=== PATIENT | female | born 1965 | race American Indian/Alaskan Native ===

== ENCOUNTER 2018-05-30 01:40 | Inpatient (IN) | payer MEDICARE, MEDICAID ==
[2018-05-30] MEDS ORDERED: Morphine PF 150 MG/30 ML PCA Syringe IV PRN (02:58)
[2018-05-30] MEDS ORDERED: LORazepam 2 MG/ML SDV IV PRN (02:58)
[2018-05-30] MEDS ORDERED: Ondansetron 4 MG/2 ML SDV IV PRN (02:58)
[2018-05-30] MEDS ORDERED: Naloxone 0.4 MG/ML SDV IVPUSH PRN (02:58)
[2018-05-30] MEDS ORDERED: Ondansetron 4 MG Tab.DIS PO PRN (02:58)
[2018-05-30] MEDS ORDERED: Zolpidem 5 MG Tab PO PRN (02:58)
[2018-05-30] MEDS ORDERED: Doxycycline 100 MG in Sodium Chloride 0.9% 100 ML IV SCH (03:00)
[2018-05-30] MEDS ORDERED: methylPREDNISolone Sodium Succinate 125 MG/2 ML SDV IVPUSH SCH ×3 (03:00→16:00)
[2018-05-30] MEDS ORDERED: Theophylline 100 MG Cap.ER PO SCH ×2 (03:00→20:00)
[2018-05-30] MEDS: Lactated Ringers 1,000 ML IV SCH ×2 (03:25→11:44)
--- NOTE | 2018-05-30 03:43 | PCM.HP ---
H&P History of Present Illness - General Date of Service: 05/30/18 Admit Problem/Dx: Admission Diagnosis/Problem Admission Diagnosis/Problem COPD, Severe chronic obstructive pulmonary disease Source of Information: Patient, Provider, RN History Limitations: Reports: Respiratory Distress - History of Present Illness Initial Comments - Free Text/Narative: COPD exacerbation: This is a 53-year-old direct admit from [facility] with severe COPD . Report from ER physician reports three-day history of shortness of breath not feeling well, difficulty sleeping and having to sleep in recliner unable to lie flat. Patient is speaking in short due to shortness of breath while she was given albuterol neb, Solu-Medrol 125 mg IV and DuoNeb, chest x-ray shows pulmonary hypertension inflation labs elevated white count 13.6, hemoglobin 14.4, hematocrit 46.4, chemistries sodium 139, potassium 4.4, chloride 99, ion gap 9.0, BUN 14, creatinine 0.59, glucose 102, CO2 30, GFR greater than 60. No admissions available at [facility]. Plan to transfer to [facility] admission patient Onset of Symptoms: Reports: Gradual Duration of Symptoms: Reports: Day(s): (3), Getting Worse Location: Reports: Chest Quality: Reports: Same as Previous Episode Severity: Severe Improves with: Reports: Medication Worsens with: Reports: None Context: Reports: Other (Chronic illnesses) Associated Symptoms: Reports: Chest Pain, Cough, Shortness of Breath - Related Data Allergies/Adverse Reactions: Allergies Allergy/AdvReac Type Severity Reaction Status Date / Time adhesive tape Allergy Blisters Verified 12/23/15 10:08 cefdinir Allergy Rash Verified 12/23/15 10:08 codeine Allergy Rash Verified 12/23/15 10:08 levofloxacin [From Levaquin] Allergy Rash Verified 12/23/15 10:08 Penicillins Allergy Rash Verified 12/23/15 10:08 Sulfa (Sulfonamide Allergy Rash Verified 12/23/15 10:08 Antibiotics) venom-honey bee Allergy Swelling Verified 12/23/15 10:08 [bee venom (honey bee)] Home Medications: Home Meds Albuterol [Ventolin HFA] 2 puff INH Q3H PRN 09/16/15 [History] Fluticasone/Salmeterol [Advair 500-50] 1 puff INH BID 09/16/15 [History] Theophylline Anhydrous [Theochron] 200 mg PO Q12H 09/16/15 [History] Tiotropium [Spiriva HandiHaler] 1 cap PO DAILY 09/16/15 [History] Multivit-Min/Iron Fum/Folic AC [Qshie-Cbugpen-Awmerudp Tablet] 1 tab CHEW BID # 0 09/23/15 [Rx] Past Medical History HEENT History: Reports: Glaucoma Cardiovascular History: Reports: None Respiratory History: Reports: COPD Gastrointestinal History: Reports: Cholelithiasis, GERD, Other (See Below) Other Gastrointestinal History: ' LAST BM 12/22/15 Genitourinary History: Reports: None 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: Reports: Neurological History: Reports: None Psychiatric History: Reports: None Endocrine/Metabolic History: Reports: None Hematologic History: Reports: None Immunologic History: Reports: None Oncologic (Cancer) History: Reports: None Dermatologic History: Reports: None - Infectious Disease History Infectious Disease History: Reports: Chicken Pox - Past Surgical History GI Surgical History: Reports: Bariatric Procedure, Cholecystectomy, Colonoscopy Female Surgical History: Reports: Hysterectomy, Oophorectomy, Salpingo- Oophorectomy Musculoskeletal Surgical History: Reports: Arthroscopic Knee Social & Family History - Family History HEENT: Reports: Cataract, Glaucoma Cardiac: Reports: Bypass, CAD, High Cholesterol, DE, Stent Respiratory: Reports: COPD GI: Reports: GERD : Reports: None OBGYN: Reports: None Musculoskeletal: Reports: RA Neurological: Reports: CVA Psychiatric: Reports: None Endocrine/Metabolic: Reports: Diabetes, Type I Hematologic: Reports: None Immunologic: Reports: None Dermatologic: Reports: None Oncologic: Reports: Other (See Below) Other Oncologic Family History: MOTHER HAD SOME KIND OF STOMACH CANCER - Tobacco Use Smoking Status *Q: Former Smoker (Quit last Sunday 21 mcg patch) - Living Situation & Occupation Living situation: Reports: , with Family Occupation: Disabled (lives with Erick and 8 children in age 19year to 17 month; foster and adopted) H&P Review of Systems - Review of Systems: Review Of Systems: See Below General: Reports: Fatigue, Decreased Appetite, Other (illness for the past 3 days) HEENT: Reports: No Symptoms Pulmonary: Reports: Shortness of Breath, Wheezing, Pleuritic Chest Pain, Cough, Sputum Cardiovascular: Reports: No Symptoms Gastrointestinal: Reports: No Symptoms Genitourinary: Reports: No Symptoms Musculoskeletal: Reports: No Symptoms Skin: Reports: No Symptoms Psychiatric: Reports: No Symptoms Neurological: Reports: No Symptoms Hematologic/Lymphatic: Reports: No Symptoms Immunologic: Reports: No Symptoms Exam - Exam Exam: See Below - Vital Signs Vital Signs: Last Vital Signs Temp Pulse Resp BP Pulse Ox 92 L 05/30/18 02:37 - Exam Quality Assessment: Supplemental Oxygen (Nasal cannula at 2 L) General: Alert, Oriented, Cooperative, Moderate Distress, Other (very thin and frail appearance) HEENT: PERRLA, Conjunctiva Clear, Hearing Intact, Mucosa Moist & Nicholls, Nares Patent, Normal Nasal Septum Neck: Supple, Trachea Midline Lungs: Decreased Breath Sounds, Rhonchi, Wheezing Cardiovascular: Regular Rhythm, Normal S1, Normal S2 GI/Abdominal Exam: Normal Bowel Sounds, Soft, Non-Tender, No Organomegaly, No Distention, No Abnormal Bruit, No Mass, Pelvis Stable (Female) Exam: Deferred Rectal (Female) Exam: Deferred Back Exam: Normal Inspection, Full Range of Motion, NT Extremities: Normal Inspection, Normal Range of Motion, Non-Tender, No Pedal Edema, Normal Capillary Refill Peripheral Pulses: 2+: Radial (L), Radial (R) Skin: Warm, Dry, Intact Neurological: Cranial Nerves Intact Neuro Extensive - Mental Status: Alert, Oriented x3, Normal Mood/Affect, Normal Cognition Psychiatric: Alert, Normal Affect, Normal Mood - Problem List (1) COPD exacerbation SNOMED Code(s): 207544051 ICD Code: J44.1 - CHRONIC OBSTRUCTIVE PULMONARY DISEASE W (ACUTE) EXACERBATION Status: Acute Priority: High Current Visit: Yes (2) Malnutrition SNOMED Code(s): 16315653 ICD Code: E46 - UNSPECIFIED PROTEIN-CALORIE MALNUTRITION Status: Acute Priority: Medium Current Visit: Yes Qualifiers: Malnutrition type: protein-calorie malnutrition Protein-calorie malnutrition severity: unspecified severity Qualified Code(s): E46 - Unspecified protein-calorie malnutrition Problem List Initiated/Reviewed/Updated: Yes Orders Last 24hrs: Active Orders 24 hr Category Date Time Status Patient Status [ADT] Routine ADT 05/30/18 02:58 Active Bedrest Bedside Commode [RC] ASDIRECTED Care 05/30/18 02:58 Active Communication Order [RC] ASDIRECTED Care 05/30/18 02:58 Active Communication Order [RC] STAT Care 05/30/18 02:58 Active Intake and Output [RC] QSHIFT Care 05/30/18 02:58 Active Notify Provider Vital Signs [RC] ASDIRECTED Care 05/30/18 02:58 Active Notify Provider [RC] PRN Care 05/30/18 02:58 Active Notify Provider [RC] PRN Care 05/30/18 02:58 Active Oxygen Therapy [RC] CONTINUOUS Care 05/30/18 02:58 Active Oxygen Therapy [RC] PRN Care 05/30/18 02:58 Active FRONT END UI DEVELOPER Record [RC] PER UNIT ROUTINE Care 05/30/18 02:58 Active Pulse Oximetry [RC] CONTINUOUS Care 05/30/18 02:58 Active Pulse Oximetry [RC] CONTINUOUS Care 05/30/18 02:58 Active RT Incentive Spirometry [RC] Q2HWA Care 05/30/18 02:58 Active Up With Assistance [RC] ASDIRECTED Care 05/30/18 02:58 Active VTE/DVT Education [RC] Per Unit Routine Care 05/30/18 02:58 Active Vital Signs [RC] Q4H Care 05/30/18 02:58 Active Consult to Senior Assistant Manager [CONS] Routine Cons 05/30/18 02:58 Active Respiratory Care Assess and Treatment [CONS] Routine Cons 05/30/18 02:58 Active Regular Diet [DIET] Diet 05/30/18 Breakfast Active Chest 2V [CR] AM Exams 05/30/18 05:11 Ordered BLOOD GAS ARTERIAL [BG] DAILY Lab 05/30/18 02:58 Ordered CBC WITH AUTO DIFF [HEME] AM Lab 05/30/18 05:11 Ordered COMPREHENSIVE METABOLIC PN,CMP [CHEM] AM Lab 05/30/18 05:11 Ordered CULTURE RESPIRATORY + SMEAR [RM] Stat Lab 05/30/18 02:58 Ordered Albuterol [Proventil Neb Soln] Med 05/30/18 02:58 Active 2.5 mg NEB Q4H PRN Albuterol/Ipratropium [DuoNeb 3.0-0.5 MG/3 ML] Med 05/30/18 07:00 Active 3 ml NEB QIDRT Azithromycin [Zithromax] 500 mg Med 05/30/18 04:00 Active Sodium Chloride 0.9% [Normal Saline] 250 ml IV Q24H Bisacodyl [Dulcolax] Med 05/30/18 02:58 Active 5 mg PO DAILY PRN Docusate Sodium [Colace] Med 05/30/18 02:58 Active 100 mg PO BID PRN Doxycycline [Vibramycin] 100 mg Med 05/30/18 03:00 Active Sodium Chloride 0.9% [Normal Saline] 100 ml IV Q12H Ipratropium [Atrovent] Med 05/30/18 02:58 Active 0.5 mg NEB Q4H PRN LORazepam [Ativan] Med 05/30/18 02:58 Active 1 mg IV Q6H PRN Lactated Ringers [Ringers, Lactated] 1,000 ml Med 05/30/18 02:58 Active IV ASDIRECTED Morphine PF [Morphine FRONT END UI DEVELOPER 150 MG in 30 ML] Med 05/30/18 02:58 Active See Protocol IV ASDIRECTED PRN Multivitamins w-Iron/Ca/FA/Min [Thera M Plus] Med 05/30/18 09:00 Active 1 tab PO BID Naloxone [Narcan] Med 05/30/18 02:58 Active 0.4 mg IVPUSH Q2M PRN Ondansetron [Zofran ODT] Med 05/30/18 02:58 Active 4 mg PO Q6H PRN Ondansetron [Zofran] Med 05/30/18 02:58 Active 4 mg IV Q4H PRN Pantoprazole [ProTONIX IV] Med 05/30/18 07:30 Active 40 mg IVPUSH ACBREAKFAST Theophylline [Milton-24] Med 05/30/18 03:00 Active 200 mg PO Q12H Zolpidem [Ambien] Med 05/30/18 02:58 Active 5 mg PO BEDTIME PRN methylPREDNISolone Sod Succ [Solu-MEDROL] Med 05/30/18 03:00 Active 125 mg IVPUSH Q6H Medication Discontinuation Instructions [OM.PC] Stat Oth 05/30/18 02:58 Ordered Sequential Compression Device [OM.PC] Per Unit Routine Oth 05/30/18 02:58 Ordered Resuscitation Status Routine Resus Stat 05/30/18 02:36 Ordered Medication Orders Albuterol (Proventil Neb Soln) 2.5 mg NEB Q4H PRN PRN Reason: Shortness Of Breath;wheezing Albuterol/Ipratropium (Duoneb 3.0-0.5 Mg/3 Ml) 3 ml NEB QIDRT [facility] Bisacodyl (Dulcolax) 5 mg PO DAILY PRN PRN Reason: Constipation Docusate Sodium (Colace) 100 mg PO BID PRN PRN Reason: Constipation Azithromycin 500 mg/ Sodium (Chloride) 250 mls @ 250 mls/hr IV Q24H [facility] Stop: 06/01/18 04:59 Doxycycline Hyclate 100 mg/ (Sodium Chloride) 100 mls @ 100 mls/hr IV Q12H [facility] Lactated Ringer's (Ringers, Lactated) 1,000 mls @ 125 mls/hr IV ASDIRECTED [facility] Ipratropium [place] (Atrovent) 0.5 mg NEB Q4H PRN PRN Reason: Shortness of Breath Lorazepam (Ativan) 1 mg IV Q6H PRN PRN Reason: Nausea/Vomiting Methylprednisolone Sodium Succinate (Solu-Medrol) 125 mg IVPUSH Q6H [facility] Morphine Sulfate (Morphine Disc Pad Grinder 150 Mg In 30 Ml) 0 mg IV ASDIRECTED PRN; Protocol PRN Reason: Pain Multivitamins/Minerals (Thera M Plus) 1 tab PO BID [facility] Naloxone HCl (Narcan) 0.4 mg IVPUSH Q2M PRN PRN Reason: Respiratory Distress Ondansetron HCl (Zofran Odt) 4 mg PO Q6H PRN PRN Reason: Nausea able to take PO Ondansetron HCl (Zofran) 4 mg IV Q4H PRN PRN Reason: Nausea/Vomiting Pantoprazole Sodium (Protonix Iv) 40 mg IVPUSH ACBREAKFAST [facility] Theophylline (Milton-24) 200 mg PO Q12H [facility] Zolpidem Tartrate (Ambien) 5 mg PO BEDTIME PRN PRN Reason: Sleep Assessment/Plan Comment:: ASSESSMENT AND PLAN COPD exacerbation: This is a 53-year-old direct admit from [facility] with severe COPD . Report from ER physician reports three-day history of shortness of breath not feeling well, difficulty sleeping and having to sleep in recliner unable to lie flat. Patient is speaking in short due to shortness of breath while she was given albuterol neb, Solu-Medrol 125 mg IV and DuoNeb, chest x-ray shows pulmonary hypertension inflation .labs elevated white count 13.6, hemoglobin 14.4, hematocrit crit 46.4, chemistries sodium 139, potassium 4.4, chloride 99, ion gap 9.0, BUN 14, creatinine 0.59, glucose 102, CO2 30, GFR greater than 60. Upon arrival at hospital, patient was noted to be sitting upright with legs crossed, speaking in short sentences and frequent deep breathing. She appear very thin and frail. chest; restricted airway clearance noted, coarse breath sounds noted. discussed Bi-Pap and intubation to assist with breathing. At this time she declines Bi-Pap or intubation. She had Bi-Pap in the past and didn't like wearing the mask. report chest is very painful with each breath. having fatigue from lack of sleep for the past 3 days and trying to breath. COPD EXACERBATION: -Continuous oxygen 2 liter per NC -Continuous pulse oximeter -IV lactated Ringer's at 125 mL per hour -Nebulized albuterol and duo nebs as scheduled -IV Solu-Medrol 62.5mg 6 hours -IV azithromycin 500 mg every 24 hours -IV doxycycline 500 mg 12 hours -Morphine FRONT END UI DEVELOPER for pain control -am. labs:, BMP, CBC Malnutrition -History of bariatric surgery, starting weight 215.4 pounds now weight 90.5 pounds -Consult to dietitian MAINTENANCE ISSUES -DVT prophylaxis; SCD -GI prophylaxis; Protonix 40 mg IV -Faith catheter; not indicated -Nutrition; regular diet -Nicotine dependence; nicotine patch 24 day CODE STATUS-DNR/DNI, will use BiPAP, no intubation or CPR ADMISSION STATUS-patient will be admitted to inpatient status, expect at least a 2 night hospital stay for evaluation and management of problems as outlined above. At the time of this admission I do not reasonably expected evaluation and management of this problem will require more than a 96 hour hospital stay. DISPOSITION-anticipate discharge to home after the hospital stay. Primary care provider: Dr. Hugo Rodrigez, [place], [place]. Hospitalist: Dr. Luis Vásquez
[2018-05-30] MEDS ORDERED: Azithromycin 500 MG in Sodium Chloride 0.9% 250 ML IV SCH (04:00)
[2018-05-30] MEDS: Albuterol/Ipratropium 3.0-0.5 MG/3 ML Neb Soln NEB SCH ×4 (07:12→20:57)
[2018-05-30] MEDS ORDERED: Pantoprazole 40 MG Vial IVPUSH SCH (07:30)
[2018-05-30] MEDS: Multivitamins with Iron/Calcium/Folic Acid/Minerals Tab PO SCH ×4 (08:20→21:03)
[2018-05-30] MEDS: Theophylline 100 MG Cap.ER PO SCH ×2 (09:03→20:57)
[2018-05-30] MEDS: Ipratropium 0.02% 0.5 MG/2.5 ML Neb Soln NEB PRN (10:07)
[2018-05-30] MEDS ORDERED: Aztreonam 1 GM in Sodium Chloride 0.9% 100 ML IV SCH (14:00)
[2018-05-30] MEDS ORDERED: Lactated Ringers 1,000 ML IV SCH (14:15)
[2018-05-30] MEDS: Acetaminophen/HYDROcodone 325-5 MG Tab PO PRN ×2 (14:33→21:07)
[2018-05-30] MEDS ORDERED: Aztreonam/Dextrose-Water 1 GM in Premix Bag 1 BAG IV SCH (14:34)
[2018-05-30] MEDS: Bisacodyl 5 MG Tab PO PRN (14:42)
[2018-05-30] MEDS: Docusate Sodium 100 MG Cap PO PRN (14:42)
--- NOTE | 2018-05-30 14:51 | PCM.PN ---
- General Info Date of Service: 05/30/18 Subjective Update: Ms. Silverman is a 53-year-old woman who was admitted through the emergency department last night with COPD exacerbation secondary to underlying bronchitis. She has a known and long-standing history of COPD, oxygen requiring at baseline. When she presented last night had an elevated respiratory rate as well as hypoxia. There is been very slight improvement since admission but she continues to experience significant respiratory compromise. She does not want to consider intubation or mechanical ventilation and up to this point has refused use of BiPAP. If her respiratory status would worsen she would like comfort cares but no further aggressive interventions or evaluation. Functional Status: Reports: Urinating - Review of Systems General: Reports: Weakness. Denies: Fever, Chills Pulmonary: Reports: Shortness of Breath, Cough, Wheezing. Denies: Sputum, Hemoptysis Cardiovascular: Reports: Dyspnea on Exertion. Denies: Chest Pain, Palpitations , Orthopnea, PND, Edema, Lightheadedness Gastrointestinal: Reports: No Symptoms - Patient Data Vitals - Most Recent: Last Vital Signs Temp 96.9 F 05/30/18 11:40 Pulse 91 05/30/18 14:25 Resp 18 05/30/18 11:40 BP 118/74 05/30/18 11:40 Pulse Ox 91 L 05/30/18 13:12 Weight - Most Recent: 90 lb 7.996 oz I&O - Last 24 Hours: Intake & Output 05/29/18 05/30/18 05/30/18 22:59 06:59 14:59 Intake Total 615 1651 Balance 615 1651 Lab Results Last 24 Hours: Laboratory Results - last 24 hr 05/30/18 05/30/18 05/30/18 Range/Units 02:58 05:11 05:11 WBC 8.6 (4.5-11.0) K/uL RBC 4.45 (3.30-5.50) M/uL Hgb 13.5 (12.0-15.0) g/dL Hct 42.6 (36.0-48.0) % MCV 96 (80-98) fL MCH 30 (27-31) pg MCHC 32 (32-36) % Plt Count 341 (150-400) K/uL Neut % (Auto) 85 H (36-66) % Lymph % (Auto) 13 L (24-44) % [place] % (Auto) 1 L (2-6) % Eos % (Auto) 0 L (2-4) % Baso % (Auto) 0 (0-1) % Puncture Site Rt radial ABG pH 7.450 (7.350-7.450) ABG pCO2 43.9 H (35.0-42.0) mmHg ABG pO2 120.0 H (75.0-100.0) mmHg ABG HCO3 30.0 H (22.0-26.0) mmol/L ABG Total CO2 26.2 H (21.0-25.0) mmol/L ABG O2 Saturation 96.2 (95.0-98.0) % ABG Base Excess 5.7 mm/L ABG Hemoglobin 13.8 (12.0-16.0) g/dL ABG Oxyhemoglobin 94.9 % ABG Carboxyhemoglobin 0.9 (0.0-1.6) % ABG Methemoglobin 0.5 % Jim Test Passed O2 Delivery Device Nasal cannula Sodium 138 L (140-148) mmol/L Potassium 4.0 (3.6-5.2) mmol/L Chloride 101 (100-108) mmol/L Carbon Dioxide 29 (21-32) mmol/L Anion Gap 12.0 (5.0-14.0) mmol/L BUN 12 (7-18) mg/dL Creatinine 0.7 (0.6-1.0) mg/dL Est Cr Clr Drug Dosing 61.62 mL/min Estimated GFR (MDRD) > 60 (>60) Glucose 148 H (74-106) mg/dL Calcium 8.5 (8.5-10.1) mg/dL Total Bilirubin 0.2 (0.2-1.0) mg/dL AST 36 (15-37) U/L ALT 72 (12-78) U/L Alkaline Phosphatase 162 H (46-116) U/L Total Protein 6.2 L (6.4-8.2) g/dL Albumin 2.9 L (3.4-5.0) g/dL Globulin 3.3 (2.3-3.5) g/dL Albumin/Globulin Ratio 0.9 L (1.2-2.2) Med Orders - Current: Current Medications Hydrocodone Bitart/Acetaminophen ([place] 325-5 Mg) 1 - 2 tab PO Q4H PRN PRN Reason: Pain Last Admin: 05/30/18 14:33 Dose: 2 tab Albuterol (Proventil Neb Soln) 2.5 mg NEB Q4H PRN PRN Reason: Shortness Of Breath;wheezing Albuterol/Ipratropium (Duoneb 3.0-0.5 Mg/3 Ml) 3 ml NEB QIDRT [facility] Last Admin: 05/30/18 14:25 Dose: 3 ml Bisacodyl (Dulcolax) 5 mg PO DAILY PRN PRN Reason: Constipation Last Admin: 05/30/18 14:42 Dose: 5 mg Docusate Sodium (Colace) 100 mg PO BID PRN PRN Reason: Constipation Last Admin: 05/30/18 14:42 Dose: 100 mg Doxycycline Hyclate 100 mg/ (Sodium Chloride) 100 mls @ 100 mls/hr IV Q12H [facility] Lactated Ringer's (Ringers, Lactated) 1,000 mls @ 50 mls/hr IV ASDIRECTED [facility] Aztreonam/Dextrose 1 gm/ (Premix) 50 mls @ 100 mls/hr IV Q8H [facility] Ipratropium [place] (Atrovent) 0.5 mg NEB Q4H PRN PRN Reason: Shortness of Breath Last Admin: 05/30/18 10:07 Dose: 0.5 mg Lorazepam (Ativan) 1 mg IV Q6H PRN PRN Reason: Nausea/Vomiting Methylprednisolone Sodium Succinate (Solu-Medrol) 40 mg IVPUSH Q6H [facility] Multivitamins/Minerals (Thera M Plus) 1 tab PO BID [facility] Last Admin: 05/30/18 08:21 Dose: Not Given Naloxone HCl (Narcan) 0.4 mg IVPUSH Q2M PRN PRN Reason: Respiratory Distress Ondansetron HCl (Zofran Odt) 4 mg PO Q6H PRN PRN Reason: Nausea able to take PO Ondansetron HCl (Zofran) 4 mg IV Q4H PRN PRN Reason: Nausea/Vomiting Pantoprazole Sodium (Protonix) 40 mg PO ACBREAKFAST [facility] Theophylline (Milton-24) 200 mg PO Q12H [facility] Last Admin: 05/30/18 09:03 Dose: 200 mg Zolpidem Tartrate (Ambien) 5 mg PO BEDTIME PRN PRN Reason: Sleep Discontinued Medications Azithromycin 500 mg/ Sodium (Chloride) 250 mls @ 250 mls/hr IV Q24H [facility] Stop: 06/01/18 04:59 Last Admin: 05/30/18 05:18 Dose: 250 mls/hr Doxycycline Hyclate 100 mg/ (Sodium Chloride) 100 mls @ 100 mls/hr IV Q12H [facility] Last Admin: 05/30/18 03:42 Dose: 100 mls/hr Lactated Ringer's (Ringers, Lactated) 1,000 mls @ 125 mls/hr IV ASDIRECTED [facility] Last Admin: 05/30/18 11:44 Dose: 125 mls/hr Azithromycin 500 mg/ Sodium (Chloride) 250 mls @ 250 mls/hr IV Q24H [facility] Stop: 06/01/18 06:59 Aztreonam 1 gm/ Sodium (Chloride) 100 mls @ 200 mls/hr IV Q8H [facility] Methylprednisolone Sodium Succinate (Solu-Medrol) 125 mg IVPUSH Q6H [facility] Last Admin: 05/30/18 03:35 Dose: 125 mg Methylprednisolone Sodium Succinate (Solu-Medrol) 125 mg IVPUSH Q6H [facility] Last Admin: 05/30/18 09:03 Dose: 125 mg Morphine Sulfate (Morphine Fire Controlman 150 Mg In 30 Ml) 0 mg IV ASDIRECTED PRN; Protocol PRN Reason: Pain Last Admin: 05/30/18 03:26 Dose: 150 mg Pantoprazole Sodium (Protonix Iv) 40 mg IVPUSH ACBREAKFAST [facility] Last Admin: 05/30/18 08:12 Dose: 40 mg Theophylline (Milton-24) 200 mg PO Q12H [facility] Last Admin: 05/30/18 05:17 Dose: Not Given Theophylline (Milton-24) 200 mg PO Q12H [facility] - Exam Quality Assessment: Supplemental Oxygen, DVT Prophylaxis General: Alert, Oriented, Cooperative, Moderate Distress Lungs: Decreased Breath Sounds, Wheezing. No: Rales, Rhonchi, Rub Cardiovascular: Regular Rate, Regular Rhythm, No Murmurs GI/Abdominal Exam: Soft, Non-Tender, No Organomegaly, No Distention Extremities: Non-Tender, No Pedal Edema Skin: Warm, Dry, Intact - Problem List Review Problem List Initiated/Reviewed/Updated: Yes - My Orders Last 24 Hours: My Active Orders 05/30/18 04:44 ISTAT EG7,ARTERIAL [POC] Routine 05/30/18 14:07 Acetaminophen/HYDROcodone [[place] 325-5 MG] 1 - 2 tab PO Q4H PRN 05/30/18 14:15 Lactated Ringers [Ringers, Lactated] 1,000 ml IV ASDIRECTED 05/30/18 14:30 Aztreonam/Dextrose-Water [Azactam in Dextrose,Iso-Osmotic 1 GM/50 ML] 1 gm Premix Bag 1 bag IV Q8H 05/30/18 16:00 methylPREDNISolone Sod Succ [Solu-MEDROL] 40 mg IVPUSH Q6H 05/31/18 05:00 BASIC METABOLIC PANEL,BMP [CHEM] Timed - Plan Plan:: ASSESSMENT AND PLAN COPD EXACERBATION-secondary to underlying bronchitis -Continuous oxygen 2 liter per NC -Continuous pulse oximeter -IV lactated Ringer's at 50 mL per hour -Nebulized albuterol and duo nebs as scheduled -IV Solu-Medrol 40mg 6 hours -IV aztreonam 1 g IV every 8 hours -IV doxycycline 500 mg 12 hours Acute on chronic hypoxic and hypercapnic respiratory failure-secondary to COPD exacerbation Malnutrition -History of bariatric surgery, starting weight 215.4 pounds now weight 90.5 pounds -Consult to dietitian Palliative care-she does not want further aggressive interventions to support her breathing. If her respiratory status should worsen she would like comfort cares but no further interventions. MAINTENANCE ISSUES -DVT prophylaxis; SCD -GI prophylaxis; Protonix 40 mg IV -Faith catheter; not indicated -Nutrition; regular diet -Nicotine dependence; nicotine patch 24 day CODE STATUS-DNR/DNI ADMISSION STATUS-patient will be admitted to inpatient status, expect at least a 2 night hospital stay for evaluation and management of problems as outlined above. At the time of this admission I do not reasonably expected evaluation and management of this problem will require more than a 96 hour hospital stay. DISPOSITION-anticipate discharge to home after the hospital stay. Primary care provider: Dr. Hugo Rodrigez, [place], [place]. Hospitalist: Dr. Luis Vásquez
[2018-05-30] MEDS: Aztreonam/Dextrose-Water 1 GM in Premix Bag 1 BAG IV SCH ×2 (15:14→22:50)
[2018-05-30] MEDS: methylPREDNISolone Sodium Succinate 40 MG/1 ML SDV IVPUSH SCH ×2 (15:52→21:07)
[2018-05-30] MEDS: Clotrimazole 10 MG Troche PO SCH ×3 (15:55→21:04)
[2018-05-30] MEDS: Pantoprazole 40 MG Tab.CR PO SCH (15:56)
[2018-05-30] MEDS: Doxycycline 100 MG in Sodium Chloride 0.9% 100 ML IV SCH (15:58)
[2018-05-30] MEDS: Acetylcysteine 20% 200 MG/ML 4 ML Nebulizer Soln SDV NEB SCH ×2 (16:36→20:53)
[2018-05-31] MEDS: Acetaminophen/HYDROcodone 325-5 MG Tab PO PRN ×4 (04:19→20:56)
[2018-05-31] MEDS: methylPREDNISolone Sodium Succinate 40 MG/1 ML SDV IVPUSH SCH ×2 (04:21→09:26)
[2018-05-31] MEDS: Doxycycline 100 MG in Sodium Chloride 0.9% 100 ML IV SCH ×2 (04:22→16:18)
[2018-05-31] MEDS: Albuterol 0.083% 2.5 MG/3 ML Neb Soln NEB PRN ×2 (04:31→18:26)
[2018-05-31] MEDS: Clotrimazole 10 MG Troche PO SCH ×5 (05:11→20:59)
[2018-05-31] MEDS: Aztreonam/Dextrose-Water 1 GM in Premix Bag 1 BAG IV SCH ×3 (05:38→21:46)
[2018-05-31] MEDS ORDERED: Azithromycin 500 MG in Sodium Chloride 0.9% 250 ML IV SCH (06:00)
[2018-05-31] MEDS: Acetylcysteine 20% 200 MG/ML 4 ML Nebulizer Soln SDV NEB SCH ×2 (07:28→20:59)
[2018-05-31] MEDS: Albuterol/Ipratropium 3.0-0.5 MG/3 ML Neb Soln NEB SCH ×4 (07:28→20:58)
[2018-05-31] MEDS ORDERED: Pantoprazole 40 MG Tab.CR PO SCH (07:30)
[2018-05-31] MEDS: Theophylline 100 MG Cap.ER PO SCH ×2 (09:20→20:58)
[2018-05-31] MEDS: Multivitamins with Iron/Calcium/Folic Acid/Minerals Tab PO SCH ×2 (09:21→20:59)
[2018-05-31] MEDS: Pantoprazole 40 MG Tab.CR PO SCH ×2 (09:21→16:14)
--- NOTE | 2018-05-31 10:12 | PCM.PN ---
- General Info Date of Service: 05/31/18 Subjective Update: Ms. Silverman has improved since yesterday with significant decrease in shortness of breath, cough has become more productive with use of Mucomyst nebulizer as well as a acapella. Vital signs have been stable and she has remained afebrile. - Review of Systems General: Reports: Weakness. Denies: Fever, Chills Pulmonary: Reports: Shortness of Breath, Cough, Sputum, Wheezing. Denies: Pleuritic Chest Pain, Hemoptysis Cardiovascular: Reports: Dyspnea on Exertion. Denies: Chest Pain, Palpitations , Orthopnea, PND, Edema, Lightheadedness Gastrointestinal: Reports: No Symptoms - Patient Data Vitals - Most Recent: Last Vital Signs Temp 97.4 F 05/31/18 07:53 Pulse 106 H 05/31/18 07:53 Resp 20 05/31/18 07:53 BP 111/77 05/31/18 07:53 Pulse Ox 97 05/31/18 08:00 Weight - Most Recent: 90 lb 7.996 oz I&O - Last 24 Hours: Intake & Output 05/30/18 05/31/18 05/31/18 22:59 06:59 14:59 Intake Total 200 719 Balance 200 719 Lab Results Last 24 Hours: Laboratory Results - last 24 hr 05/31/18 Range/Units 05:45 Sodium 139 L (140-148) mmol/L Potassium 3.9 (3.6-5.2) mmol/L Chloride 100 (100-108) mmol/L Carbon Dioxide 33 H (21-32) mmol/L Anion Gap 9.9 (5.0-14.0) mmol/L BUN 11 (7-18) mg/dL Creatinine 0.7 (0.6-1.0) mg/dL Est Cr Clr Drug Dosing 61.62 mL/min Estimated GFR (MDRD) > 60 (>60) Glucose 218 H (74-106) mg/dL Calcium 8.9 (8.5-10.1) mg/dL Med Orders - Current: Current Medications Hydrocodone Bitart/Acetaminophen ([place] 325-5 Mg) 1 - 2 tab PO Q4H PRN PRN Reason: Pain Last Admin: 05/31/18 09:32 Dose: 2 tab Acetylcysteine (Mucomyst 20%) 200 mg NEB BIDRT [facility] Last Admin: 05/31/18 07:28 Dose: 200 mg Albuterol (Proventil Neb Soln) 2.5 mg NEB Q4H PRN PRN Reason: Shortness Of Breath;wheezing Last Admin: 05/31/18 04:31 Dose: 2.5 mg Albuterol/Ipratropium (Duoneb 3.0-0.5 Mg/3 Ml) 3 ml NEB QIDRT [facility] Last Admin: 05/31/18 07:28 Dose: 3 ml Bisacodyl (Dulcolax) 5 mg PO DAILY PRN PRN Reason: Constipation Last Admin: 05/30/18 14:42 Dose: 5 mg Clotrimazole (Mycelex) 10 mg PO 5XDAY [facility] Last Admin: 05/31/18 09:21 Dose: 10 mg Docusate Sodium (Colace) 100 mg PO BID PRN PRN Reason: Constipation Last Admin: 05/30/18 14:42 Dose: 100 mg Doxycycline Hyclate 100 mg/ (Sodium Chloride) 100 mls @ 100 mls/hr IV Q12H [facility] Last Admin: 05/31/18 04:22 Dose: 100 mls/hr Lactated Ringer's (Ringers, Lactated) 1,000 mls @ 50 mls/hr IV ASDIRECTED [facility] Last Admin: 05/31/18 04:36 Dose: 50 mls/hr Aztreonam/Dextrose 1 gm/ (Premix) 50 mls @ 100 mls/hr IV Q8H [facility] Last Admin: 05/31/18 05:38 Dose: 100 mls/hr Ipratropium [place] (Atrovent) 0.5 mg NEB Q4H PRN PRN Reason: Shortness of Breath Last Admin: 05/30/18 10:07 Dose: 0.5 mg Methylprednisolone Sodium Succinate (Solu-Medrol) 40 mg IVPUSH Q12H [facility] Multivitamins/Minerals (Thera M Plus) 1 tab PO BID [facility] Last Admin: 05/31/18 09:21 Dose: Not Given Nicotine (Habitrol) 21 mg TRDERM DAILY [facility] Ondansetron HCl (Zofran Odt) 4 mg PO Q6H PRN PRN Reason: Nausea able to take PO Ondansetron HCl (Zofran) 4 mg IV Q4H PRN PRN Reason: Nausea/Vomiting Pantoprazole Sodium (Protonix) 40 mg PO BIDAC [facility] Last Admin: 05/31/18 09:21 Dose: 40 mg Theophylline ([place]-24) 200 mg PO Q12H [facility] Last Admin: 05/31/18 09:20 Dose: 200 mg Zolpidem Tartrate (Ambien) 5 mg PO BEDTIME PRN PRN Reason: Sleep Discontinued Medications Azithromycin 500 mg/ Sodium (Chloride) 250 mls @ 250 mls/hr IV Q24H [facility] Stop: 06/01/18 04:59 Last Admin: 05/30/18 05:18 Dose: 250 mls/hr Doxycycline Hyclate 100 mg/ (Sodium Chloride) 100 mls @ 100 mls/hr IV Q12H [facility] Last Admin: 05/30/18 03:42 Dose: 100 mls/hr Lactated Ringer's (Ringers, Lactated) 1,000 mls @ 125 mls/hr IV ASDIRECTED [facility] Last Admin: 05/30/18 11:44 Dose: 125 mls/hr Azithromycin 500 mg/ Sodium (Chloride) 250 mls @ 250 mls/hr IV Q24H [facility] Stop: 06/01/18 06:59 Aztreonam 1 gm/ Sodium (Chloride) 100 mls @ 200 mls/hr IV Q8H [facility] Last Admin: 05/30/18 16:01 Dose: Not Given Lorazepam (Ativan) 1 mg IV Q6H PRN PRN Reason: Nausea/Vomiting Methylprednisolone Sodium Succinate (Solu-Medrol) 125 mg IVPUSH Q6H [facility] Last Admin: 05/30/18 03:35 Dose: 125 mg Methylprednisolone Sodium Succinate (Solu-Medrol) 125 mg IVPUSH Q6H [facility] Last Admin: 05/30/18 09:03 Dose: 125 mg Methylprednisolone Sodium Succinate (Solu-Medrol) 40 mg IVPUSH Q6H [facility] Methylprednisolone Sodium Succinate (Solu-Medrol) 40 mg IVPUSH Q6H [facility] Last Admin: 05/31/18 09:26 Dose: 40 mg Morphine Sulfate (Morphine Plant Assigner 150 Mg In 30 Ml) 0 mg IV ASDIRECTED PRN; Protocol PRN Reason: Pain Last Admin: 05/30/18 03:26 Dose: 150 mg Naloxone HCl (Narcan) 0.4 mg IVPUSH Q2M PRN PRN Reason: Respiratory Distress Pantoprazole Sodium (Protonix Iv) 40 mg IVPUSH ACBREAKFAST [facility] Last Admin: 05/30/18 08:12 Dose: 40 mg Pantoprazole Sodium (Protonix) 40 mg PO ACBREAKFAST [facility] Theophylline ([place]-24) 200 mg PO Q12H [facility] Last Admin: 05/30/18 05:17 Dose: Not Given Theophylline ([place]-24) 200 mg PO Q12H [facility] - Exam Quality Assessment: Supplemental Oxygen, DVT Prophylaxis General: Alert, Oriented, Cooperative, Mild Distress Lungs: Decreased Breath Sounds, Rhonchi, Wheezing. No: Rales Cardiovascular: Regular Rate, Regular Rhythm, No Murmurs GI/Abdominal Exam: Soft, Non-Tender, No Organomegaly, No Distention Extremities: Non-Tender, No Pedal Edema - Problem List Review Problem List Initiated/Reviewed/Updated: Yes - My Orders Last 24 Hours: My Active Orders 05/30/18 14:07 Acetaminophen/HYDROcodone [[place] 325-5 MG] 1 - 2 tab PO Q4H PRN 05/30/18 14:15 Lactated Ringers [Ringers, Lactated] 1,000 ml IV ASDIRECTED 05/30/18 14:30 Aztreonam/Dextrose-Water [Azactam in Dextrose,Iso-Osmotic 1 GM/50 ML] 1 gm Premix Bag 1 bag IV Q8H 05/30/18 15:36 Clotrimazole [Mycelex] 10 mg PO 5XDAY RT Acapella [RESPCARE] Routine 05/30/18 15:37 RT Aerosol Therapy [RC] ASDIRECTED 05/30/18 15:45 Acetylcysteine [Mucomyst 20%] 200 mg NEB BIDRT 05/30/18 16:30 Pantoprazole [ProTONIX] 40 mg PO BIDAC 05/31/18 10:15 Nicotine [Habitrol] 21 mg TRDERM DAILY methylPREDNISolone Sod Succ [Solu-MEDROL] 40 mg IVPUSH Q12H - Plan Plan:: ASSESSMENT AND PLAN COPD EXACERBATION-secondary to underlying bronchitis -Continuous oxygen 2 liter per NC -Continuous pulse oximeter -Saline lock IV -Nebulized albuterol and duo nebs as scheduled -Mucomyst neb twice daily -IV Solu-Medrol 40mg 12 hours -IV aztreonam 1 g IV every 8 hours -IV doxycycline 500 mg 12 hours Acute on chronic hypoxic and hypercapnic respiratory failure-secondary to COPD exacerbation Malnutrition -History of bariatric surgery, starting weight 215.4 pounds now weight 90.5 pounds -Consult to dietitian Palliative care-she does not want further aggressive interventions to support her breathing. If her respiratory status should worsen she would like comfort cares but no further interventions. MAINTENANCE ISSUES -DVT prophylaxis; SCD -GI prophylaxis; Protonix 40 mg IV -Faith catheter; not indicated -Nutrition; regular diet -Nicotine dependence; nicotine patch 24 day CODE STATUS-DNR/DNI ADMISSION STATUS-patient will be admitted to inpatient status, expect at least a 2 night hospital stay for evaluation and management of problems as outlined above. At the time of this admission I do not reasonably expected evaluation and management of this problem will require more than a 96 hour hospital stay. DISPOSITION-anticipate discharge to home after the hospital stay. Primary care provider: Dr. Hugo Rodrigez, [place], [place]. Hospitalist: Dr. Luis Vásquez
[2018-05-31] MEDS: Nicotine 21 MG/24 Hr Patch TRDERM SCH (11:47)
[2018-05-31] MEDS: Bisacodyl 5 MG Tab PO PRN (20:57)
[2018-05-31] MEDS: Docusate Sodium 100 MG Cap PO PRN (20:57)
[2018-05-31] MEDS ORDERED: methylPREDNISolone Sodium Succinate 40 MG/1 ML SDV IVPUSH SCH (22:00)
[2018-06-01] MEDS: Doxycycline 100 MG in Sodium Chloride 0.9% 100 ML IV SCH ×2 (03:08→16:05)
[2018-06-01] MEDS: Ipratropium 0.02% 0.5 MG/2.5 ML Neb Soln NEB PRN (03:08)
[2018-06-01] MEDS: Albuterol 0.083% 2.5 MG/3 ML Neb Soln NEB PRN ×2 (03:08→20:29)
[2018-06-01] MEDS: Acetaminophen/HYDROcodone 325-5 MG Tab PO PRN ×5 (03:08→22:19)
[2018-06-01] MEDS: Clotrimazole 10 MG Troche PO SCH ×5 (05:35→22:19)
[2018-06-01] MEDS: Aztreonam/Dextrose-Water 1 GM in Premix Bag 1 BAG IV SCH (05:35)
[2018-06-01] MEDS: Albuterol/Ipratropium 3.0-0.5 MG/3 ML Neb Soln NEB SCH ×4 (07:06→20:20)
[2018-06-01] MEDS: Acetylcysteine 20% 200 MG/ML 4 ML Nebulizer Soln SDV NEB SCH ×3 (07:06→20:20)
[2018-06-01] MEDS: Pantoprazole 40 MG Tab.CR PO SCH ×2 (07:24→16:04)
[2018-06-01] MEDS: Theophylline 100 MG Cap.ER PO SCH ×2 (08:16→20:20)
[2018-06-01] MEDS: Nicotine 21 MG/24 Hr Patch TRDERM SCH (08:16)
[2018-06-01] MEDS: Multivitamins with Iron/Calcium/Folic Acid/Minerals Tab PO SCH ×2 (08:17→21:36)
--- NOTE | 2018-06-01 09:47 | PCM.PN ---
- General Info Date of Service: 06/01/18 Subjective Update: Ms. Silverman has shown further improvement since yesterday, less shortness of breath but continues to have paroxysms of cough that do leave her very short of breath when they occur. Cough has been somewhat more productive with use of a acapella and Mucomyst nebs. Vital signs have remained stable and she has been afebrile. - Review of Systems General: Denies: Fever, Chills Pulmonary: Reports: Shortness of Breath, Cough, Sputum, Wheezing. Denies: Hemoptysis Cardiovascular: Reports: Dyspnea on Exertion. Denies: Chest Pain, Palpitations , Orthopnea, PND, Edema, Lightheadedness Gastrointestinal: Reports: No Symptoms - Patient Data Vitals - Most Recent: Last Vital Signs Temp 97.3 F 06/01/18 06:46 Pulse 88 06/01/18 07:07 Resp 19 06/01/18 06:46 BP 101/68 06/01/18 06:46 Pulse Ox 97 06/01/18 06:46 Weight - Most Recent: 90 lb 7.996 oz I&O - Last 24 Hours: Intake & Output 05/31/18 06/01/18 06/01/18 22:59 06:59 14:59 Intake Total 200 390 560 Balance 200 390 560 Med Orders - Current: Current Medications Hydrocodone Bitart/Acetaminophen ([place] 325-5 Mg) 1 - 2 tab PO Q4H PRN PRN Reason: Pain Last Admin: 06/01/18 08:15 Dose: 2 tab Acetylcysteine (Mucomyst 20%) 200 mg NEB BIDRT [facility] Last Admin: 06/01/18 07:06 Dose: 200 mg Albuterol (Proventil Neb Soln) 2.5 mg NEB Q4H PRN PRN Reason: Shortness Of Breath;wheezing Last Admin: 06/01/18 03:08 Dose: 2.5 mg Albuterol/Ipratropium (Duoneb 3.0-0.5 Mg/3 Ml) 3 ml NEB QIDRT [facility] Last Admin: 06/01/18 07:06 Dose: 3 ml Bisacodyl (Dulcolax) 5 mg PO DAILY PRN PRN Reason: Constipation Last Admin: 05/31/18 20:57 Dose: 5 mg Clotrimazole (Mycelex) 10 mg PO 5XDAY [facility] Last Admin: 06/01/18 05:35 Dose: 10 mg Docusate Sodium (Colace) 100 mg PO BID PRN PRN Reason: Constipation Last Admin: 05/31/18 20:57 Dose: 100 mg Doxycycline Hyclate 100 mg/ (Sodium Chloride) 100 mls @ 100 mls/hr IV Q12H [facility] Last Admin: 06/01/18 03:08 Dose: 100 mls/hr Aztreonam/Dextrose 1 gm/ (Premix) 50 mls @ 100 mls/hr IV Q8H [facility] Last Admin: 06/01/18 05:35 Dose: 100 mls/hr Ipratropium [place] (Atrovent) 0.5 mg NEB Q4H PRN PRN Reason: Shortness of Breath Last Admin: 06/01/18 03:08 Dose: 0.5 mg Methylprednisolone Sodium Succinate (Solu-Medrol) 40 mg IVPUSH Q12H [facility] Last Admin: 05/31/18 20:59 Dose: 40 mg Multivitamins/Minerals (Thera M Plus) 1 tab PO BID [facility] Last Admin: 06/01/18 08:17 Dose: Not Given Nicotine (Habitrol) 21 mg TRDERM DAILY [facility] Last Admin: 06/01/18 08:16 Dose: 21 mg Ondansetron HCl (Zofran Odt) 4 mg PO Q6H PRN PRN Reason: Nausea able to take PO Ondansetron HCl (Zofran) 4 mg IV Q4H PRN PRN Reason: Nausea/Vomiting Pantoprazole Sodium (Protonix) 40 mg PO BIDAC [facility] Last Admin: 06/01/18 07:24 Dose: 40 mg Theophylline ([place]-24) 200 mg PO Q12H [facility] Last Admin: 06/01/18 08:16 Dose: 200 mg Zolpidem Tartrate (Ambien) 5 mg PO BEDTIME PRN PRN Reason: Sleep Discontinued Medications Azithromycin 500 mg/ Sodium (Chloride) 250 mls @ 250 mls/hr IV Q24H [facility] Stop: 06/01/18 04:59 Last Admin: 05/30/18 05:18 Dose: 250 mls/hr Doxycycline Hyclate 100 mg/ (Sodium Chloride) 100 mls @ 100 mls/hr IV Q12H [facility] Last Admin: 05/30/18 03:42 Dose: 100 mls/hr Lactated Ringer's (Ringers, Lactated) 1,000 mls @ 125 mls/hr IV ASDIRECTED [facility] Last Admin: 05/30/18 11:44 Dose: 125 mls/hr Azithromycin 500 mg/ Sodium (Chloride) 250 mls @ 250 mls/hr IV Q24H [facility] Stop: 06/01/18 06:59 Lactated Ringer's (Ringers, Lactated) 1,000 mls @ 50 mls/hr IV ASDIRECTED [facility] Last Admin: 05/31/18 04:36 Dose: 50 mls/hr Aztreonam 1 gm/ Sodium (Chloride) 100 mls @ 200 mls/hr IV Q8H [facility] Last Admin: 05/30/18 16:01 Dose: Not Given Lorazepam (Ativan) 1 mg IV Q6H PRN PRN Reason: Nausea/Vomiting Methylprednisolone Sodium Succinate (Solu-Medrol) 125 mg IVPUSH Q6H [facility] Last Admin: 05/30/18 03:35 Dose: 125 mg Methylprednisolone Sodium Succinate (Solu-Medrol) 125 mg IVPUSH Q6H [facility] Last Admin: 05/30/18 09:03 Dose: 125 mg Methylprednisolone Sodium Succinate (Solu-Medrol) 40 mg IVPUSH Q6H [facility] Methylprednisolone Sodium Succinate (Solu-Medrol) 40 mg IVPUSH Q6H [facility] Last Admin: 05/31/18 09:26 Dose: 40 mg Morphine Sulfate (Morphine Mobile Lounge Driver Or Operator 150 Mg In 30 Ml) 0 mg IV ASDIRECTED PRN; Protocol PRN Reason: Pain Last Admin: 05/30/18 03:26 Dose: 150 mg Naloxone HCl (Narcan) 0.4 mg IVPUSH Q2M PRN PRN Reason: Respiratory Distress Pantoprazole Sodium (Protonix Iv) 40 mg IVPUSH ACBREAKFAST [facility] Last Admin: 05/30/18 08:12 Dose: 40 mg Pantoprazole Sodium (Protonix) 40 mg PO ACBREAKFAST [facility] Theophylline ([place]-24) 200 mg PO Q12H [facility] Last Admin: 05/30/18 05:17 Dose: Not Given Theophylline ([place]-24) 200 mg PO Q12H [facility] - Exam Quality Assessment: Supplemental Oxygen, DVT Prophylaxis General: Alert, Oriented, Cooperative, Mild Distress Lungs: Decreased Breath Sounds, Wheezing. No: Rales, Rhonchi Cardiovascular: Regular Rate, Regular Rhythm, No Murmurs GI/Abdominal Exam: Soft, Non-Tender, No Organomegaly, No Distention Extremities: Non-Tender, No Pedal Edema Skin: Warm, Dry - Problem List Review Problem List Initiated/Reviewed/Updated: Yes - My Orders Last 24 Hours: My Active Orders 05/31/18 10:12 Convert IV to Saline Lock [OM.PC] Routine 05/31/18 10:15 Nicotine [Habitrol] 21 mg TRDERM DAILY 05/31/18 22:00 methylPREDNISolone Sod Succ [Solu-MEDROL] 40 mg IVPUSH Q12H - Plan Plan:: ASSESSMENT AND PLAN COPD EXACERBATION-secondary to underlying bronchitis, improved with current management, not yet back to baseline -Continuous oxygen 2 liter per NC -Continuous pulse oximeter -Saline lock IV -Nebulized albuterol and duo nebs as scheduled -Mucomyst neb 3 times daily -Prednisone 40 mg by mouth daily -IV doxycycline 100 mg 12 hours Acute on chronic hypoxic and hypercapnic respiratory failure-secondary to COPD exacerbation Malnutrition -History of bariatric surgery, starting weight 215.4 pounds now weight 90.5 pounds -Consult to dietitian Palliative care-she does not want further aggressive interventions to support her breathing. If her respiratory status should worsen she would like comfort cares but no further interventions. MAINTENANCE ISSUES -DVT prophylaxis; SCD -GI prophylaxis; Protonix 40 mg IV -Faith catheter; not indicated -Nutrition; regular diet -Nicotine dependence; nicotine patch 24 day CODE STATUS-DNR/DNI ADMISSION STATUS-patient will be admitted to inpatient status, expect at least a 2 night hospital stay for evaluation and management of problems as outlined above. At the time of this admission I do not reasonably expected evaluation and management of this problem will require more than a 96 hour hospital stay. DISPOSITION-anticipate discharge to home after the hospital stay. Primary care provider: Dr. Hugo Rodrigez, [place], [place]. Hospitalist: Dr. Luis Vásquez
[2018-06-01] MEDS: predniSONE 20 MG Tab PO SCH (10:13)
[2018-06-01] MEDS: Bisacodyl 5 MG Tab PO PRN (12:52)
[2018-06-01] MEDS: Docusate Sodium 100 MG Cap PO PRN (12:53)
[2018-06-01] MEDS ORDERED: Magnesium Hydroxide 400 MG/5 ML Susp 30 ML Cup PO ONE (18:20)
[2018-06-01] MEDS ORDERED: Bisacodyl 10 MG Supp RECTAL ONE (18:21)
[2018-06-02] MEDS: Doxycycline 100 MG in Sodium Chloride 0.9% 100 ML IV SCH (03:47)
[2018-06-02] MEDS: Acetaminophen/HYDROcodone 325-5 MG Tab PO PRN ×2 (03:50→08:20)
[2018-06-02] MEDS: Albuterol 0.083% 2.5 MG/3 ML Neb Soln NEB PRN (04:00)
[2018-06-02] MEDS: Pantoprazole 40 MG Tab.CR PO SCH (06:30)
[2018-06-02] MEDS: Clotrimazole 10 MG Troche PO SCH ×2 (06:30→09:26)
[2018-06-02 07:09] VITALS: BP 108/79
[2018-06-02] MEDS: Albuterol/Ipratropium 3.0-0.5 MG/3 ML Neb Soln NEB SCH ×2 (07:46→10:56)
[2018-06-02] MEDS: Acetylcysteine 20% 200 MG/ML 4 ML Nebulizer Soln SDV NEB SCH (07:46)
[2018-06-02] MEDS: Docusate Sodium 100 MG Cap PO PRN (08:21)
[2018-06-02] MEDS: Bisacodyl 5 MG Tab PO PRN (08:22)
[2018-06-02] MEDS: Theophylline 100 MG Cap.ER PO SCH (08:23)
[2018-06-02] MEDS: Multivitamins with Iron/Calcium/Folic Acid/Minerals Tab PO SCH ×2 (08:23→08:25)
[2018-06-02] MEDS: predniSONE 20 MG Tab PO SCH (08:23)
[2018-06-02] MEDS: Nicotine 21 MG/24 Hr Patch TRDERM SCH (08:24)
--- NOTE | 2018-06-02 09:56 | PCM.DCSUM1 ---
Discharge Summary - Hospital Course Brief History: Ms. Silverman is a 53-year-old woman who was admitted as a direct admission from the [facility] emergency department with increased shortness of breath and cough with hypoxia, secondary to COPD exacerbation and underlying bronchitis. - Discharge Data Discharge Date: 06/02/18 Discharge Disposition: Home, Self-Care 01 Condition: Fair - Discharge Diagnosis/Problem(s) (1) Bronchitis SNOMED Code(s): 54346442 ICD Code: J40 - BRONCHITIS, NOT SPECIFIED ACUTE OR CHRONIC Status: Acute Current Visit: Yes (2) Hypoxia SNOMED Code(s): 647563755 ICD Code: R09.02 - HYPOXEMIA Status: Acute Current Visit: Yes (3) Hypercapnia SNOMED Code(s): 00148006 ICD Code: R06.89 - OTHER ABNORMALITIES OF BREATHING Status: Acute Current Visit: Yes (4) COPD exacerbation SNOMED Code(s): 663868193 ICD Code: J44.1 - CHRONIC OBSTRUCTIVE PULMONARY DISEASE W (ACUTE) EXACERBATION Status: Acute Priority: High Current Visit: Yes - Patient Summary/Data Consults: Consultations 05/30/18 02:58 Consult to Manager Business Systems [CONS] Routine Comment: Physician Instructions: Quantity: Reason for Consult: wt loss 2nd to bariatric surgery. start wt 215.4 now 90.5 pounds Respiratory Care Assess and Treatment [CONS] Routine Comment: Physician Instructions: Hospital Course: This is a 53-year-old direct admit from [place] ER with severe COPD . Report from ER physician reports three-day history of shortness of breath not feeling well, difficulty sleeping and having to sleep in recliner unable to lie flat. Patient is speaking in short sentences due to shortness of breath while she was given albuterol neb, chest x-ray shows pulmonary hypertension inflation , no evidence of underlying infiltrate. Labs elevated white count 13.6, hemoglobin 14.4, hematocrit 46.4, chemistries sodium 139, potassium 4.4, chloride 99, ion gap 9.0, BUN 14, creatinine 0.59, glucose 102, CO2 30, GFR greater than 60. Arterial blood gases showed evidence of hypoxia with mild hypercapnia. No beds were available at [facility] in [place] of she was transferred here via ambulance for admission. On admission she was given IV fluids for hydration and started on IV antibiotic therapy with doxycycline. She was treated with nebulizer therapy and IV Solu- Medrol. Following day she was noted to have sore mouth and findings consistent with thrush so she was started on Mycelex try to 5 times daily. She had difficulty in clearing secretions, acapella was started 5 times daily and she was placed on Mucomyst nebulizer treatments which worked well to help her cough become more productive. By the time of discharge her respiratory status was significantly improved but not yet quite back to baseline. Continue to have episodes of cough with associated shortness of breath. She will be discharged home on oral antibiotic therapy with oxacillin explain in addition to oral prednisone. Prednisone will be 40 mg a day for the next 4 days then 20 mg daily until seen for follow-up appointment. She will remain on the Mycelex saida for an additional week. Follow-up appointment will be scheduled with her primary care provider within one week. Activity will be as tolerated and she will resume her usual diet. - Patient Instructions Diet: Usual Diet as Tolerated Activity: As Tolerated Other/Special Instructions: Please schedule follow-up appointment with primary care provider within one week. - Discharge Plan *PRESCRIPTION DRUG MONITORING PROGRAM REVIEWED*: Not Applicable *COPY OF PRESCRIPTION DRUG MONITORING REPORT IN PATIENT CHAS: Not Applicable Prescriptions/Med Rec: Acetylcysteine [Mucomyst 20%] 200 mg NEB TID PRN #100 sdv PRN Reason: Cough Clotrimazole [Mycelex] 10 mg PO 5XDAY #35 saida Doxycycline [Vibramycin] 100 mg PO BID #10 cap Hydrocodone/Acetaminophen [Hydrocodon-Acetaminophn 10-325] 1 tab PO Q4H PRN #12 tablet PRN Reason: Pain predniSONE 40 mg PO DAILY #20 tablet Home Medications: Home Meds Albuterol [Ventolin HFA] 2 puff INH Q3H PRN 09/16/15 [History] Fluticasone/Salmeterol [Advair 500-50] 1 puff INH BID 09/16/15 [History] Theophylline Anhydrous [Theochron] 200 mg PO Q12H 09/16/15 [History] Tiotropium [Spiriva HandiHaler] 1 cap PO DAILY 09/16/15 [History] Gabapentin [Neurontin] 300 mg PO TID 05/30/18 [History] Metoprolol Tartrate 12.5 mg PO BID 05/30/18 [History] Nicotine [Nicotine Patch] 21 mg TD DAILY 05/30/18 [History] Ondansetron HCl [Zofran] 4 mg PO Q8H 05/30/18 [History] Acetylcysteine [Mucomyst 20%] 200 mg NEB TID PRN #100 sdv 06/02/18 [Rx] Clotrimazole [Mycelex] 10 mg PO 5XDAY #35 saida 06/02/18 [Rx] Doxycycline [Vibramycin] 100 mg PO BID #10 cap 06/02/18 [Rx] Hydrocodone/Acetaminophen [Hydrocodon-Acetaminophn 10-325] 1 tab PO Q4H PRN #12 tablet 06/02/18 [Rx] predniSONE 40 mg PO DAILY #20 tablet 06/02/18 [Rx] Referrals: Hugo Kumari MD [Consulting Physician] - 06/07/18 1:30 pm - Discharge Summary/Plan Comment DC Time >30 min.: No - Patient Data Vitals - Most Recent: Last Vital Signs Temp 96.9 F 06/02/18 07:07 Pulse 98 06/02/18 07:47 Resp 18 06/02/18 07:07 BP 108/79 06/02/18 07:07 Pulse Ox 94 L 06/02/18 07:18 Weight - Most Recent: 90 lb 7.996 oz I&O - Last 24 hours: Intake & Output 06/01/18 06/02/18 06/02/18 22:59 06:59 14:59 Intake Total 150 360 Balance 150 360 Med Orders - Current: Current Medications Hydrocodone Bitart/Acetaminophen ([place] 325-5 Mg) 1 - 2 tab PO Q4H PRN PRN Reason: Pain Last Admin: 06/02/18 08:20 Dose: 2 tab Acetylcysteine (Mucomyst 20%) 200 mg NEB 0700,1500,2100 COUNTS INCLUDE 234 BEDS AT THE [facility] Last Admin: 06/02/18 07:46 Dose: 200 mg Albuterol (Proventil Neb Soln) 2.5 mg NEB Q4H PRN PRN Reason: Shortness Of Breath;wheezing Last Admin: 06/02/18 04:00 Dose: 2.5 mg Albuterol/Ipratropium (Duoneb 3.0-0.5 Mg/3 Ml) 3 ml NEB QIDRT NADYA Last Admin: 06/02/18 07:46 Dose: 3 ml Bisacodyl (Dulcolax) 5 mg PO DAILY PRN PRN Reason: Constipation Last Admin: 06/02/18 08:22 Dose: 5 mg Clotrimazole (Mycelex) 10 mg PO 5XDAY COUNTS INCLUDE 234 BEDS AT THE [facility] Last Admin: 06/02/18 09:26 Dose: 10 mg Docusate Sodium (Colace) 100 mg PO BID PRN PRN Reason: Constipation Last Admin: 06/02/18 08:21 Dose: 100 mg Doxycycline Hyclate 100 mg/ (Sodium Chloride) 100 mls @ 100 mls/hr IV Q12H COUNTS INCLUDE 234 BEDS AT THE [facility] Last Admin: 06/02/18 03:47 Dose: 100 mls/hr Ipratropium [place] (Atrovent) 0.5 mg NEB Q4H PRN PRN Reason: Shortness of Breath Last Admin: 06/01/18 03:08 Dose: 0.5 mg Multivitamins/Minerals (Thera M Plus) 1 tab PO BID COUNTS INCLUDE 234 BEDS AT THE [facility] Last Admin: 06/02/18 08:25 Dose: Not Given Nicotine (Habitrol) 21 mg TRDERM DAILY COUNTS INCLUDE 234 BEDS AT THE [facility] Last Admin: 06/02/18 08:24 Dose: 21 mg Ondansetron HCl (Zofran Odt) 4 mg PO Q6H PRN PRN Reason: Nausea able to take PO Ondansetron HCl (Zofran) 4 mg IV Q4H PRN PRN Reason: Nausea/Vomiting Pantoprazole Sodium (Protonix) 40 mg PO BIDAC COUNTS INCLUDE 234 BEDS AT THE [facility] Last Admin: 06/02/18 06:30 Dose: 40 mg Prednisone (Prednisone) 40 mg PO WITHBREAKFAST COUNTS INCLUDE 234 BEDS AT THE [facility] Last Admin: 06/02/18 08:23 Dose: 40 mg Theophylline (Milton-24) 200 mg PO Q12H COUNTS INCLUDE 234 BEDS AT THE [facility] Last Admin: 06/02/18 08:23 Dose: 200 mg Zolpidem Tartrate (Ambien) 5 mg PO BEDTIME PRN PRN Reason: Sleep Discontinued Medications Acetylcysteine (Mucomyst 20%) 200 mg NEB BIDRT COUNTS INCLUDE 234 BEDS AT THE [facility] Last Admin: 06/01/18 07:06 Dose: 200 mg Bisacodyl (Dulcolax) 10 mg RECTAL ONETIME ONE Stop: 06/01/18 18:22 Last Admin: 06/01/18 20:20 Dose: 10 mg Azithromycin 500 mg/ Sodium (Chloride) 250 mls @ 250 mls/hr IV Q24H COUNTS INCLUDE 234 BEDS AT THE [facility] Stop: 06/01/18 04:59 Last Admin: 05/30/18 05:18 Dose: 250 mls/hr Doxycycline Hyclate 100 mg/ (Sodium Chloride) 100 mls @ 100 mls/hr IV Q12H COUNTS INCLUDE 234 BEDS AT THE [facility] Last Admin: 05/30/18 03:42 Dose: 100 mls/hr Lactated Ringer's (Ringers, Lactated) 1,000 mls @ 125 mls/hr IV ASDIRECTED COUNTS INCLUDE 234 BEDS AT THE [facility] Last Admin: 05/30/18 11:44 Dose: 125 mls/hr Azithromycin 500 mg/ Sodium (Chloride) 250 mls @ 250 mls/hr IV Q24H COUNTS INCLUDE 234 BEDS AT THE [facility] Stop: 06/01/18 06:59 Lactated Ringer's (Ringers, Lactated) 1,000 mls @ 50 mls/hr IV ASDIRECTED COUNTS INCLUDE 234 BEDS AT THE [facility] Last Admin: 05/31/18 04:36 Dose: 50 mls/hr Aztreonam 1 gm/ Sodium (Chloride) 100 mls @ 200 mls/hr IV Q8H COUNTS INCLUDE 234 BEDS AT THE [facility] Last Admin: 05/30/18 16:01 Dose: Not Given Aztreonam/Dextrose 1 gm/ (Premix) 50 mls @ 100 mls/hr IV Q8H COUNTS INCLUDE 234 BEDS AT THE [facility] Last Admin: 06/01/18 05:35 Dose: 100 mls/hr Lorazepam (Ativan) 1 mg IV Q6H PRN PRN Reason: Nausea/Vomiting Magnesium Hydroxide (Milk Of Magnesia) 30 ml PO ONETIME ONE Stop: 06/01/18 18:21 Last Admin: 06/01/18 20:20 Dose: 30 ml Methylprednisolone Sodium Succinate (Solu-Medrol) 125 mg IVPUSH Q6H COUNTS INCLUDE 234 BEDS AT THE [facility] Last Admin: 05/30/18 03:35 Dose: 125 mg Methylprednisolone Sodium Succinate (Solu-Medrol) 125 mg IVPUSH Q6H COUNTS INCLUDE 234 BEDS AT THE [facility] Last Admin: 05/30/18 09:03 Dose: 125 mg Methylprednisolone Sodium Succinate (Solu-Medrol) 40 mg IVPUSH Q6H COUNTS INCLUDE 234 BEDS AT THE [facility] Methylprednisolone Sodium Succinate (Solu-Medrol) 40 mg IVPUSH Q6H COUNTS INCLUDE 234 BEDS AT THE [facility] Last Admin: 05/31/18 09:26 Dose: 40 mg Methylprednisolone Sodium Succinate (Solu-Medrol) 40 mg IVPUSH Q12H COUNTS INCLUDE 234 BEDS AT THE [facility] Last Admin: 05/31/18 20:59 Dose: 40 mg Morphine Sulfate (Morphine [employer]ter 150 Mg In 30 Ml) 0 mg IV ASDIRECTED PRN; Protocol PRN Reason: Pain Last Admin: 05/30/18 03:26 Dose: 150 mg Naloxone HCl (Narcan) 0.4 mg IVPUSH Q2M PRN PRN Reason: Respiratory Distress Pantoprazole Sodium (Protonix Iv) 40 mg IVPUSH ACBREAKFAST COUNTS INCLUDE 234 BEDS AT THE [facility] Last Admin: 05/30/18 08:12 Dose: 40 mg Pantoprazole Sodium (Protonix) 40 mg PO ACBREAKFAST COUNTS INCLUDE 234 BEDS AT THE [facility] Theophylline (Milton-24) 200 mg PO Q12H COUNTS INCLUDE 234 BEDS AT THE [facility] Last Admin: 05/30/18 05:17 Dose: Not Given Theophylline (Milton-24) 200 mg PO Q12H COUNTS INCLUDE 234 BEDS AT THE [facility] - Exam Quality Assessment: Reports: Supplemental Oxygen, DVT Prophylaxis General: Reports: Alert, Oriented, Cooperative, No Acute Distress Lungs: Reports: Decreased Breath Sounds. Denies: Rales, Rhonchi, Wheezing Cardiovascular: Reports: Regular Rate, Regular Rhythm, No Murmurs GI/Abdominal Exam: Soft, Non-Tender, No Organomegaly, No Distention
== END 2018-06-02 11:25 | disposition home or self-care (01) | DRG 190 ==
LOC: JP.MS 01:40
PROVIDERS: ADMIT Hospitalist; ATTEND Hospitalist
DX: J44.0 Chronic obstructive pulmonary disease with (acute) lower respiratory infection (principal); J96.22 Acute and chronic respiratory failure with hypercapnia; J96.21 Acute and chronic respiratory failure with hypoxia; Z51.5 Encounter for palliative care; Z66 Do not resuscitate; E46 Unspecified protein-calorie malnutrition; Z68.1 Body mass index [BMI] 19.9 or less, adult; B37.0 Candidal stomatitis; J20.9 Acute bronchitis, unspecified; J44.1 Chronic obstructive pulmonary disease with (acute) exacerbation; Z87.891 Personal history of nicotine dependence; Z99.81 Dependence on supplemental oxygen; Z98.84 Bariatric surgery status; Z88.0 Allergy status to penicillin; Z91.030 Bee allergy status; Z88.5 Allergy status to narcotic agent; Z88.2 Allergy status to sulfonamides; Z88.8 Allergy status to other drugs, medicaments and biological substances; Z79.52 Long term (current) use of systemic steroids; Z91.048 Other nonmedicinal substance allergy status
CPT/HCPCS: 36415; 36600; 80048; 80053; 82803; 85025; 94640; 94667; 94668; 94762; A9270-GY; C9113; J0456; J2270; J2920; J2930; J3490; J7030; J7050; J7120; J7620-GY

== ENCOUNTER 2019-12-16 11:14 | Inpatient (IN) | payer MEDICARE, MEDICAID ==
[2019-12-16] MEDS ORDERED: Ondansetron 4 MG/2 ML SDV IVPUSH PRN ×2 (11:40→19:10)
[2019-12-16] MEDS ORDERED: Naloxone 0.4 MG/ML SDV IV PRN (11:41)
[2019-12-16] MEDS ORDERED: HYDROmorphone/Normal Saline 15 MG/30 ML PCA IV PRN (11:41)
[2019-12-16] MEDS ORDERED: Acetaminophen 325 MG Tab PO PRN (11:43)
[2019-12-16] MEDS ORDERED: Acetaminophen 650 MG Supp RECTAL PRN (11:43)
[2019-12-16] MEDS ORDERED: Bisacodyl 5 MG Tab PO ONE ×2 (12:00→20:00)
[2019-12-16] MEDS: Dextrose 5%-Lactated Ringers 1,000 ML IV SCH ×2 (12:57→22:22)
[2019-12-16] MEDS: Pantoprazole 40 MG Vial IV SCH ×2 (13:15→20:21)
[2019-12-16] MEDS ORDERED: Polyethylene Glycol 3350 Powder 238 GM Bot PO ONE (15:00)
[2019-12-16] MEDS ORDERED: Albuterol 8 GM Inhaler INH PRN (15:36)
--- NOTE | 2019-12-16 17:04 | HP ---
HISTORY OF PRESENT ILLNESS: Uzair presented to the clinic on 12/15/2019 for a laparoscopic Domingo-en-Y gastric bypass followup. She had not been seen for approximately 4 years prior to yesterday. She states she has had abdominal pain for about 1 year. States she eats and will get severe mid epigastric pain that lasts for hours. If she does not eat for a couple of days, the pain goes away, associated with nausea, no vomiting. BMs have been regular, not taking vitamins. Weight has been stable at 96 pounds for about 2 years. In the past year, dropped to as low as 83 pounds. States she has been trying to eat and has been eating proteins, developed lactose intolerance. Last week, she was in the hospital for pneumonia and exacerbation of COPD. She states she was on fentanyl for pain and when she took the fentanyl, she was able to eat. At time of hospitalization, she did have a CT scan. The CT scan showed irregularity gas density identified with the left upper quadrant of abdomen and it is possible that this represents small amount of gas within the bowel interposed between the stomach and anterior abdominal wall. The radiologist recommended a followup with CT of abdomen and pelvis and based on the CT scan from 11/26/2019 and to follow up with the Surgical Department who did her gastric bypass surgery. Date of surgery is 09/20/2015, laparoscopic Domingo-en-Y. Consult weight 215.4. Preop weight 213. Today's weight is 89 pounds 4.6 ounces. Height is 5 feet 3 inches, total weight loss 125.8, BMI is 15.82. HOME MEDICATIONS: 1. Spiriva 18 mcg inhale 1 cap into lungs once daily. 2. Prozac (fluoxetine) 20 mg once daily. 3. Neurontin 300 mg 3 times a day. 4. Advair 500/50 mcg dose 1 puff twice daily. 5. Albuterol HFA (Ventolin) 108 inhale 2 puffs into lungs every 1 to 2 hours p.r.n. shortness of breath. 6. Theophylline SR 12-hour 300 mg 1 tablet b.i.d. 7. Zofran 4 mg every 8 hours p.r.n. nausea. 8. DuoNeb 0.5 to 2.5 mg/3 mL solution nebulize some every 4 hours p.r.n. shortness of breath. 9. Oxygen 2 to 3 L into lungs as needed for shortness of breath. 10.Nitrostat 0.4 mg sublingual tablet under tongue every 5 minutes as needed for chest pain, maximum of 3 doses in 15 minutes. 11.Advil 200 mg take 1 to 2 every 6 hours p.r.n. pain. 12.Zyrtec 1 tablet by mouth once daily. PAST MEDICAL HISTORY: COPD, maladaptive behaviors affecting medical condition, depression, SP Domingo-en-Y gastric bypass surgery, unspecified surgical malabsorption, B12 deficiency, vitamin B complex deficiency, zinc deficiency, BMI 15.82. SOCIAL HISTORY: Cohabiting, quit smoking 1 month ago. Drinks 1 can of Coke a day, very little coffee. No alcohol use. Currently unemployed and has 5 children. PAST SURGICAL HISTORY: Domingo-en-Y gastric bypass surgery on 09/20/2015, cholecystectomy in 1993, and has had right knee arthroscopy, hysterectomy, 2 colonoscopies, and EGD with dilatation x2. REVIEW OF SYSTEMS: CONSTITUTIONAL: No fever, chills, night sweats, or fatigue. SKIN: No rash, changes in skin lesions. HEENT: No headache, ear pain, loss of hearing. CARDIOVASCULAR: No chest pains or shortness of breath. RESPIRATORY: Has COPD, uses oxygen 2 to 3 L most of the time. ENDOCRINE: Negative. HEMATOLOGY: Negative. GENITOURINARY: No UTI signs and symptoms. MUSCULOSKELETAL: No joint pain or swelling. NEUROLOGIC: No history of focal neurological changes, memory changes, weakness in extremities. PSYCHIATRIC: Positive for depression. Remainder of review of systems negative for any pertinent positives or negatives. PHQ-9 intervention is 9 indicating minor depression. OBJECTIVE: GENERAL: Uzair Silverman is a pleasant 54-year-old female, looks acutely ill. VITAL SIGNS: Height 5 feet 2 inches. Weight is 89 pounds 6.4 ounces. TPR 98, 114, 20, blood pressure 94/63. HEENT: Negative. Pupils equal, round, reactive to light and accommodation. RESPIRATORY: Decreased breath sounds bilaterally, rhonchi with coughing, recovering from pneumonia and has COPD. HEART: Regular rate and rhythm without murmur, gallop, or rub. ABDOMEN: Tenderness in the midepigastric and left upper and mid abdominal quadrants. EXTREMITIES: Without edema. Deep tendon reflexes 2+ and equal bilaterally. SKIN: Without rash. NEUROLOGIC: Cranial nerves II through XII intact. PSYCHIATRIC: Mood and affect appropriate, orientated x3. ASSESSMENT: Constipation, possible mesenteric ischemia, postprandial abdominal pain, pharyngeal esophageal dysphagia, history of Domingo-en-Y gastric bypass surgery, unspecified surgical malabsorption, B12 deficiency, vitamin B complex deficiency, vitamin D deficiency, zinc deficiency disorder, copper metabolism, low weight, BMI 16, chronic obstructive pulmonary disease, and oxygen dependent. PLAN: Admit to [facility] for constipation and mesenteric ischemia, low weight. Code, full code. Diet, step-2 gastric bypass diet with cereal, protein supplements q.i.d. Activity, up ad cindi. Vital signs q.i.d. Labs, check TSH. IV D5LR to 100 mL per hour. Tylenol 650 mg p.o. every 4 hours p.r.n. pain and analgesia. SCDs. Intake and output. Protonix 40 mg IV b.i.d., Zofran 4 mg every 4 hours p.r.n. nausea. Colon prep today. O2 of 2 L per nasal cannula. Dilaudid 0.1 CITRUS PICKER, lockout [address] angiogram on , 12/18/2019. Home medications were ordered. We will evaluate p.r.n. or in a.m. Estimated time of stay 3 nights and 4 days pending if any surgical intervention is needed. Radha Pat PA-C /[id number]
[2019-12-16] MEDS ORDERED: Naloxone 0.4 MG/ML SDV IVPUSH PRN (19:10)
[2019-12-16] MEDS ORDERED: diphenhydrAMINE 50 MG/ML SDV IVPUSH PRN (19:10)
[2019-12-16] MEDS ORDERED: diphenhydrAMINE 25 MG Cap PO PRN (19:10)
[2019-12-16] MEDS ORDERED: HYDROmorphone/Normal Saline 15 MG/30 ML PCA IV SCH (19:15)
[2019-12-16] MEDS: Theophylline 100 MG Cap.ER PO SCH (20:13)
[2019-12-16] MEDS: Fluticasone-Salmeterol 232-14 MCG Powder Inhalent INH SCH (20:13)
[2019-12-16] MEDS: Gabapentin 300 MG Cap PO SCH (20:13)
[2019-12-16] MEDS ORDERED: Acetylcysteine 20% 200 MG/ML 4 ML Nebulizer Soln SDV INH SCH (21:00)
[2019-12-17] MEDS: Fluticasone-Salmeterol 232-14 MCG Powder Inhalent INH SCH ×2 (07:27→21:06)
[2019-12-17] MEDS: Glycopyrrolate 15.6 MCG Cap.W.Dev Kit of 6 IH SCH ×2 (07:27→21:07)
[2019-12-17] MEDS ORDERED: Albuterol/Ipratropium 3.0-0.5 MG/3 ML Neb Soln NEB SCH (07:45)
[2019-12-17] MEDS: Albuterol/Ipratropium 3.0-0.5 MG/3 ML Neb Soln NEB SCH ×3 (07:48→21:04)
[2019-12-17] MEDS: Dextrose 5%-Lactated Ringers 1,000 ML IV SCH ×2 (08:06→18:12)
[2019-12-17] MEDS: Pantoprazole 40 MG Vial IV SCH ×2 (08:10→21:25)
[2019-12-17] MEDS: Theophylline 100 MG Cap.ER PO SCH ×2 (08:10→21:07)
[2019-12-17] MEDS: Gabapentin 300 MG Cap PO SCH ×3 (08:11→21:06)
[2019-12-17] MEDS: FLUoxetine 20 MG Cap PO SCH (08:11)
--- NOTE | 2019-12-17 08:49 | PN ---
DATE OF SERVICE: 12/17/2019 SUBJECTIVE: Uzair has been having an increased amount of pain after eating, using her [employer]. She will be having a CT angiogram in the morning at 0600, and she will be n.p.o. after midnight. REVIEW OF SYSTEMS: Negative for any other pertinent positives and negatives. OBJECTIVE: GENERAL: Uzair is a pleasant 54-year-old female. VITAL SIGNS: TPR is 98.2, 91, 20, blood pressure 98/70, O2 sats are 92% on 2 L. HEENT: Negative. NECK: Supple. HEART: Regular rate and rhythm. LUNGS: Revealed decreased breath sounds. Wet sound rhonchi with coughing. ABDOMEN: Tender in all 4 quadrants with upper right, left, and mid epigastric the most tender. EXTREMITIES: Negative. ASSESSMENT: 1. Constipation. 2. Possible mesenteric ischemia. 3. Postprandial abdominal pain. 4. Pharyngeal esophageal dysphagia. 5. History of Domingo-en-Y gastric bypass surgery. 6. Unspecified surgical malabsorption. 7. B12 deficiency. 8. Vitamin B complex deficiency. 9. Low weight. 10.BMI 16.4. 11.Chronic obstructive pulmonary disease, stage III. PLAN: 1. N.p.o. after midnight. 2. CT to be scheduled in a.m. at 0600. 3. Full liquid diet. 4. Incentive spirometer use 10 times every hour while awake. 5. DuoNebs q.6 hours and p.r.n. 6. Aggressively work on pulmonary function due to chronic obstructive pulmonary disease stage III. 7. We will evaluate p.r.n. or in a.m. Radha Pat PA-C /[id number]
[2019-12-18] MEDS: Albuterol/Ipratropium 3.0-0.5 MG/3 ML Neb Soln NEB SCH ×4 (02:48→20:17)
[2019-12-18] MEDS: Dextrose 5%-Lactated Ringers 1,000 ML IV SCH ×2 (04:18→15:22)
[2019-12-18] MEDS ORDERED: Sodium Chloride 0.9% 100 ML IV STA (05:50)
[2019-12-18] MEDS ORDERED: Iopamidol 612 MG/ML 100 ML Bottle IV STA (05:50)
[2019-12-18] MEDS: Fluticasone-Salmeterol 232-14 MCG Powder Inhalent INH SCH ×2 (07:21→20:17)
[2019-12-18] MEDS: Glycopyrrolate 15.6 MCG Cap.W.Dev Kit of 6 IH SCH ×2 (07:21→20:17)
[2019-12-18] MEDS: FLUoxetine 20 MG Cap PO SCH (08:02)
[2019-12-18] MEDS: Gabapentin 300 MG Cap PO SCH ×3 (08:02→20:17)
[2019-12-18] MEDS: Pantoprazole 40 MG Vial IV SCH ×2 (08:02→20:17)
[2019-12-18] MEDS: Theophylline 100 MG Cap.ER PO SCH ×2 (08:02→20:17)
--- NOTE | 2019-12-18 10:05 | PN ---
DATE OF SERVICE: 12/18/2019 SUBJECTIVE: Uzair's vital signs have been stable. She has been up, ambulating. Pain is controlled with the [employer]. She remains to have severe pain after eating. She is n.p.o. for abdominal CT angiogram. She has no other concerns or questions today. OBJECTIVE: GENERAL: Uzair Silverman is a 54-year-old female. Alert, orientated. VITAL SIGNS: TPR at 06:53, 97.8; 86; 16; blood pressure 91/60. HEENT: Negative. NECK: Supple. HEART: Regular rate and rhythm. LUNGS: Clear. ABDOMEN: Firm. Generalized tenderness in all 4 quadrants. EXTREMITIES: Without peripheral edema. ASSESSMENT: 1. Constipation. 2. Possible mesenteric ischemia. 3. Postprandial abdominal pain. 4. Pharyngeal esophageal dysphagia. 5. History of Domingo-en-Y gastric bypass surgery. 6. Unspecified surgical malabsorption. 7. B12 deficiency. 8. Vitamin B complex deficiency. 9. Low weight. 10.BMI is 16.4. 11.Chronic obstructive pulmonary disease stage III. PLAN: To call Wellington Najera MD or Radha Pat PA-C, with results of CT angiogram. Remain n.p.o. after results of angiogram. Plan, if CT angiogram is positive for mesenteric ischemia, we will transfer to an interventional radiologist, or if CT angiogram is negative, we will schedule exploratory laparotomy with possible colectomy on 12/22/2019. Radha Pat PA-C /[id number]
--- NOTE | 2019-12-18 10:31 | CT ---
Ang Abdomen CLINICAL HISTORY: Abdominal pain COMPARISON: 12/16/2019 TECHNIQUE: Multiple contiguous axial sections were obtained from the level of the lung bases down through the low abdomen following bolus IV infusion of iodinated contrast. Oral contrast was not administered. Auto dosage reduction and iterative reconstruction techniques employed. FINDINGS: There is moderate atheromatous change in the aorta. 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 There is some thrombus along the left lateral lumen. 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 The celiac trunk and branching vessels have a normal course and contour. The superior mesenteric artery has a normal course and contour with no obvious filling defects. There is asymmetric plaque in the proximal right renal artery. The bladder is distended. IMPRESSION: Moderate atheromatous change in the aortoiliac distribution No significant stenosis or filling defects in the mesenteric branches Mildly stenotic calcified plaque in the proximal right renal artery
[2019-12-19] MEDS: Dextrose 5%-Lactated Ringers 1,000 ML IV SCH ×2 (00:55→11:44)
[2019-12-19] MEDS: Albuterol/Ipratropium 3.0-0.5 MG/3 ML Neb Soln NEB SCH ×3 (01:27→13:57)
[2019-12-19] MEDS: Glycopyrrolate 15.6 MCG Cap.W.Dev Kit of 6 IH SCH (07:21)
[2019-12-19] MEDS: Fluticasone-Salmeterol 232-14 MCG Powder Inhalent INH SCH ×2 (07:22→21:08)
[2019-12-19] MEDS: Pantoprazole 40 MG Vial IV SCH (08:20)
[2019-12-19] MEDS ORDERED: Bupivacaine 0.5% 50 ML MDV ONE (08:59)
[2019-12-19] MEDS ORDERED: Lidocaine 1% with EPINEPHrine 1:100,000 50 ML MDV ONE (08:59)
[2019-12-19] MEDS ORDERED: Meropenem 500 MG SDV ONE (08:59)
[2019-12-19] MEDS ORDERED: fentaNYL 250 MCG/5 ML SDV ONE (09:22)
[2019-12-19] MEDS ORDERED: Glycopyrrolate 0.2 MG/ML 5 ML MDV ONE (09:23)
[2019-12-19] MEDS ORDERED: Ondansetron 4 MG/2 ML SDV ONE (09:23)
[2019-12-19] MEDS ORDERED: Succinylcholine 200 MG/10 ML MDV ONE (09:23)
[2019-12-19] MEDS ORDERED: Propofol 200 MG/20 ML SDV ONE (09:23)
[2019-12-19] MEDS ORDERED: Neostigmine Methylsulfate 1 MG/ML 5 ML Syringe ONE (09:23)
[2019-12-19] MEDS ORDERED: Rocuronium 50 MG/5 ML Vial ONE (09:23)
[2019-12-19] MEDS ORDERED: Dexamethasone 4 MG/ML SDV ONE (09:23)
[2019-12-19] MEDS ORDERED: Meropenem 500 MG in Sodium Chloride 0.9% 50 ML IV ONE (11:00)
--- NOTE | 2019-12-19 11:43 | PN ---
DATE OF SERVICE: 12/19/2019 SUBJECTIVE: Uzair is n.p.o. She will be having exploratory laparotomy. Case to follow today. She also will be having a Armas catheter placed for TPN nutrition. She has no questions or concerns. Vital signs are stable. Oral intake before she was n.p.o. 1800 and urine output 4000. REVIEW OF SYSTEMS: Remainder of review of systems negative for any pertinent positives or negatives. OBJECTIVE: GENERAL: Uzair Silverman is a pleasant 54-year-old female. VITAL SIGNS: TPR at 07:04 is 98.4, 86, 16, blood pressure 85/59. HEENT: Negative. NECK: Supple. HEART: Regular rate and rhythm. LUNGS: Clear. ABDOMEN: Remains to be tender in all 4 quadrants. EXTREMITIES: Without peripheral edema. ASSESSMENT: Partial small bowel obstruction causing constipation, mesenteric ischemia was ruled out. PLAN: Remain n.p.o. Orders to be written postoperatively. Radha Pat PA-C /[id number]
[2019-12-19] MEDS ORDERED: Ketamine 50 MG in Sodium Chloride 0.9% 49.5 ML IV SCH (12:00)
[2019-12-19] MEDS ORDERED: MAGNESIUM SULFATE IV ONE (12:00)
[2019-12-19] MEDS ORDERED: SODIUM CHLORIDE 0.9% IV ONE (12:00)
[2019-12-19] MEDS ORDERED: Ketamine 500 MG/5 ML MDV IV SCH (12:00)
[2019-12-19] MEDS ORDERED: Magnesium Sulfate 2 GM in Sodium Chloride 0.9% 250 ML IV ONE (12:00)
[2019-12-19] MEDS ORDERED: Lactated Ringers 1,000 ML ONE (15:33)
[2019-12-19] MEDS ORDERED: Dextrose 5%-Lactated Ringers 1,000 ML IV SCH (16:15)
[2019-12-19] MEDS ORDERED: HYDROmorphone/Normal Saline 15 MG/30 ML PCA IV PRN (16:17)
[2019-12-19] MEDS ORDERED: diphenhydrAMINE 50 MG/ML SDV IVPUSH PRN (16:19)
[2019-12-19] MEDS ORDERED: Ondansetron 4 MG/2 ML SDV IVPUSH PRN (16:19)
[2019-12-19] MEDS ORDERED: Calcium Gluconate 10% 1 GM/10 ML SDV IVPUSH PRN (16:19)
[2019-12-19] MEDS ORDERED: Labetalol 20 MG/4 ML Syringe IVPUSH PRN (16:19)
[2019-12-19] MEDS ORDERED: Acetaminophen 500 MG Tab PO PRN (16:19)
[2019-12-19] MEDS ORDERED: Metoclopramide 10 MG/2 ML SDV IVPUSH PRN (16:19)
[2019-12-19] MEDS: Gabapentin 300 MG Cap PO SCH ×3 (16:27→21:08)
[2019-12-19] MEDS: hydrOXYzine HCL 100 MG/2 ML SDV IM PRN (17:31)
[2019-12-19] MEDS: Theophylline 100 MG Cap.ER PO SCH ×2 (17:44→21:08)
[2019-12-19] MEDS: FLUoxetine 20 MG Cap PO SCH (18:09)
[2019-12-19] MEDS: 1: AA 5%/Calcium/D15W/Lytes 1,000 ML with MVI, Adult with Vitamin K 10 ML, Chromium/Copp IV SCH ×3 (18:36)
[2019-12-19] MEDS: Meropenem 500 MG in Sodium Chloride 0.9% 50 ML IV SCH (21:06)
[2019-12-19] MEDS: Acetaminophen 500 MG Tab PO SCH (21:07)
[2019-12-19] MEDS: Heparin Sodium 5,000 Units/ML Vial SUBCUT SCH (21:07)
[2019-12-19] MEDS: Albuterol/Ipratropium 3.0-0.5 MG/3 ML Neb Soln INH SCH (21:07)
[2019-12-20] MEDS ORDERED: Iopamidol 612 MG/ML 50 ML SDV PO STA (04:03)
[2019-12-20] MEDS: Acetaminophen 500 MG Tab PO SCH ×3 (04:05→19:31)
[2019-12-20] MEDS: Meropenem 500 MG in Sodium Chloride 0.9% 50 ML IV SCH ×3 (04:06→21:32)
[2019-12-20] MEDS: 1: AA 5%/Calcium/D15W/Lytes 1,000 ML with MVI, Adult with Vitamin K 10 ML, Chromium/Copp IV SCH ×9 (04:06→23:55)
[2019-12-20] MEDS: Albuterol/Ipratropium 3.0-0.5 MG/3 ML Neb Soln INH SCH ×4 (07:18→21:28)
[2019-12-20] MEDS: Fluticasone-Salmeterol 232-14 MCG Powder Inhalent INH SCH ×2 (07:19→21:28)
[2019-12-20] MEDS ORDERED: Dextrose 5%-Lactated Ringers 1,000 ML IV SCH (07:45)
[2019-12-20] MEDS ORDERED: Central Total Parenteral Nutrition Bag SCH (07:45)
[2019-12-20] MEDS: Heparin Sodium 5,000 Units/ML Vial SUBCUT SCH ×2 (08:33→19:31)
[2019-12-20] MEDS: Gabapentin 300 MG Cap PO SCH ×3 (08:34→21:32)
[2019-12-20] MEDS: FLUoxetine 20 MG Cap PO SCH (08:34)
[2019-12-20] MEDS: Theophylline 100 MG Cap.ER PO SCH ×2 (08:35→21:32)
[2019-12-20] MEDS ORDERED: Pantoprazole 40 MG Vial IV SCH (09:00)
--- NOTE | 2019-12-20 09:47 | PN ---
DATE OF SERVICE: 12/20/2019 SUBJECTIVE: Uzair reports that her pain is controlled. She has been up, ambulating. She has TPN running and her oral intake was 120. Urine output via Faith catheter 1150. CORNELIUS drain put out 230 of a light pink drainage. She has no other concerns or questions today. Upper GI was normal. OBJECTIVE: GENERAL: Uzair Silverman is a pleasant 54-year-old female. She is alert and orientated. VITAL SIGNS: TPR at 07:13, 96.1, 96, 16, blood pressure 112/73. HEENT: Negative. NECK: Supple. HEART: Regular rate and rhythm. LUNGS: Continue to reveal some coarse rhonchi which is normal for her and she does have good air exchange. ASSESSMENT: 1. Exploratory lap with lysis of adhesions. a. Revision of the jejunojejunostomy component of the Domingo-en-Y gastric bypass surgery. b. Right colon resection. c. Separate small-bowel resection. d. Resection of partial nodule implant from omentum to posterior pelvic peritoneum. e. Placement of Interceed mesh. f. Placement of central vein catheter. g. Insertion of left subclavian triple lumen catheter. POSTOPERATIVE DIAGNOSIS: 1. Inadequate central venous access. 2. Partial small bowel obstruction with complex adhesions and distortion of the jejunojejunostomy. 3. Cecal volvulus. 4. Separate small bowel resection for narrow area with Domingo limb of the small bowel. 5. Elongated peritoneal nodule approximately 13 cm extending from omentum to posterior pelvis. 6. Date of surgery: 12/19/2019. Surgeon: Wellington Najera MD. PLAN: 1. Discontinue Faith catheter. 2. Step 2 gastric bypass diet without cereal. 3. CBC, CMP, mag, phos, BNP in a.m. 4. Continue same TPN rate and content. 5. Good pulmonary toilet. 6. We will evaluate p.r.n. or in a.m. Radha Pat PA-C /[id number]
[2019-12-20] MEDS: hydrOXYzine HCL 100 MG/2 ML SDV IM PRN ×2 (13:38→21:43)
[2019-12-20] MEDS: Cyclobenzaprine 10 MG Tab PO PRN (18:46)
[2019-12-20] MEDS: Albuterol/Ipratropium 3.0-0.5 MG/3 ML Neb Soln INH PRN (18:47)
[2019-12-21] MEDS: Albuterol/Ipratropium 3.0-0.5 MG/3 ML Neb Soln INH PRN (02:45)
[2019-12-21] MEDS: Cyclobenzaprine 10 MG Tab PO PRN (02:49)
[2019-12-21] MEDS: hydrOXYzine HCL 100 MG/2 ML SDV IM PRN ×2 (02:49→19:03)
[2019-12-21] MEDS: Acetaminophen 500 MG Tab PO SCH ×3 (04:50→19:33)
[2019-12-21] MEDS: Meropenem 500 MG in Sodium Chloride 0.9% 50 ML IV SCH (04:51)
[2019-12-21] MEDS ORDERED: Furosemide 20 MG/2 ML VIAL IVPUSH ONE ×2 (05:37→12:00)
--- NOTE | 2019-12-21 06:39 | CRLCR ---
INDICATION: Tachypnea and coarse crackles left side. TECHNIQUE: Chest 2 views COMPARISON: Chest x-ray 12/19/2019 FINDINGS: Cardiovascular and mediastinum: Heart size and vasculature are normal in caliber and appearance. Left subclavian line with tip at the cavoatrial junction. Lungs and pleural spaces: Mild hyperinflation without pleural effusion or pneumothorax. Trace basilar discoid atelectasis. Bones and soft tissues: Status post abdominal surgery with air contrast levels within the upper abdomen. Small pneumoperitoneum redemonstrated (this is present on the 12/18 study as well). IMPRESSION: 1. Mild hyperinflation with trace basilar discoid atelectasis. 2. Status post abdominal surgery with small pneumoperitoneum, similar in quantity to the study of 2 days prior. Dictated by Sergio Comer MD @ Dec 21 2019 6:36AM Signed by Dr. Sergio Comer @ Dec 21 2019 6:38AM
[2019-12-21] MEDS ORDERED: Central Total Parenteral Nutrition Bag SCH (07:30)
[2019-12-21] MEDS: Fluticasone-Salmeterol 232-14 MCG Powder Inhalent INH SCH ×2 (07:40→22:11)
[2019-12-21] MEDS: Albuterol/Ipratropium 3.0-0.5 MG/3 ML Neb Soln INH SCH ×4 (07:40→22:11)
[2019-12-21] MEDS: Pantoprazole 40 MG Tab.CR PO SCH (07:58)
[2019-12-21] MEDS: Heparin Sodium 5,000 Units/ML Vial SUBCUT SCH ×2 (07:58→19:33)
[2019-12-21] MEDS: FLUoxetine 20 MG Cap PO SCH (08:12)
[2019-12-21] MEDS: Gabapentin 300 MG Cap PO SCH ×3 (08:12→22:12)
[2019-12-21] MEDS: Theophylline 100 MG Cap.ER PO SCH ×2 (08:12→22:12)
[2019-12-21] MEDS ORDERED: Cyanocobalamin (Vitamin B12) 1,000 MCG/ML SDV IM ONE (09:00)
[2019-12-21] MEDS: 1: AA 5%/Calcium/D15W/Lytes 1,000 ML with MVI, Adult with Vitamin K 10 ML, Chromium/Copp IV SCH ×3 (10:29)
--- NOTE | 2019-12-21 11:12 | PCM.CONS ---
H&P History of Present Illness - General Date of Service: 12/21/19 Admit Problem/Dx: Admission Diagnosis/Problem Admission Diagnosis/Problem Constipation Source of Information: Patient, Provider History Limitations: Reports: No Limitations - History of Present Illness Initial Comments - Free Text/Narative: CC: It hurts pretty bad HPI: I was asked to see Uzair by Radha Pat re: tachycardia and hypoxia. She was admitted several days ago for management of multiple intra-abdominal problems and required 2 separate small bowel resections. Postoperatively she has had some difficulty with pain control. She has been maintained with TPN for nutritional support. I was asked to see her today because of increasing shortness of breath, hypoxia and progressive tachycardia. She feels fairly comfortable and does not report significant shortness of breath though she is working a little hard to breathe. She does not report any chest pain or chest tightness. She has not had any fevers. She does have a loose cough with occasional sputum production. Her biggest problem at this time is moderately severe generalized achy abdominal pain. Pain radiates throughout her abdomen is worse with moving around. Pain medications do help some. She has not had a bowel movement. Neck Pain Score (Numeric/FACES): 5 Abdomen Pain Score (Numeric/FACES): 8 - Related Data Allergies/Adverse Reactions: Allergies Allergy/AdvReac Type Severity Reaction Status Date / Time adhesive tape Allergy Blisters Verified 12/16/19 11:40 cefdinir Allergy Rash Verified 12/16/19 11:40 codeine Allergy Rash Verified 12/16/19 11:40 latex Allergy Rash Verified 12/17/19 09:42 levofloxacin [From Levaquin] Allergy Rash Verified 12/16/19 11:40 Penicillins Allergy Rash Verified 12/16/19 11:40 Sulfa (Sulfonamide Allergy Rash Verified 12/16/19 11:40 Antibiotics) venom-honey bee Allergy Swelling Verified 12/16/19 11:40 [bee venom (honey bee)] Home Medications: Home Meds Albuterol [Ventolin HFA] 2 puff INH Q3H PRN 09/16/15 [History] Fluticasone/Salmeterol [Advair 500-50] 1 puff INH BID 09/16/15 [History] Theophylline Anhydrous [Theochron] 200 mg PO Q12H 09/16/15 [History] Tiotropium [Spiriva HandiHaler] 1 cap PO DAILY 09/16/15 [History] Gabapentin [Neurontin] 300 mg PO TID 05/30/18 [History] Ondansetron HCl [Zofran] 4 mg PO Q8H 05/30/18 [History] Past Medical History HEENT History: Reports: Glaucoma Cardiovascular History: Reports: MD Other Cardiovascular History: "minor heart attack a couple years ago" Respiratory History: Reports: COPD, Pneumonia, Recurrent, Other (See Below) Other Respiratory History: uses trilogy ventilator at night at home Gastrointestinal History: Reports: Cholelithiasis, GERD Other Gastrointestinal History: ' LAST BM 12/22/15 Genitourinary History: Reports: None 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: Musculoskeletal History: Reports: Neck Pain, Chronic Neurological History: Reports: None Psychiatric History: Reports: Depression Endocrine/Metabolic History: Reports: None Hematologic History: Reports: Blood Transfusion(s) Immunologic History: Reports: None Oncologic (Cancer) History: Reports: None Dermatologic History: Reports: None - Infectious Disease History Infectious Disease History: Reports: Chicken Pox - Past Surgical History Head Surgeries/Procedures: Reports: None HEENT Surgical History: Reports: None Cardiovascular Surgical History: Reports: None Respiratory Surgical History: Reports: None GI Surgical History: Reports: Bariatric Procedure, Cholecystectomy, Colonoscopy , EGD Other GI Surgeries/Procedures: RNY 2017 Female Surgical History: Reports: Hysterectomy, Oophorectomy, Salpingo- Oophorectomy Musculoskeletal Surgical History: Reports: Arthroscopic Knee Social & Family History - Family History HEENT: Reports: Cataract, Glaucoma Cardiac: Reports: Bypass, CAD, High Cholesterol, MD, Stent Respiratory: Reports: COPD GI: Reports: GERD : Reports: None OBGYN: Reports: None Musculoskeletal: Reports: RA Neurological: Reports: CVA Psychiatric: Reports: None Endocrine/Metabolic: Reports: Diabetes, Type I Hematologic: Reports: None Immunologic: Reports: None Dermatologic: Reports: None Oncologic: Reports: Other (See Below) Other Oncologic Family History: MOTHER HAD SOME KIND OF STOMACH CANCER - Tobacco Use Smoking Status *Q: Former Smoker Used Tobacco, but Quit: Yes Month/Year Tobacco Last Used: 11/2019 - Caffeine Use Caffeine Use: Reports: Coffee, Soda Caffeine Use Comment: approx. 3 cups coffee/daily and 1 can pop daily - Alcohol Use Alcohol Use History: No - Recreational Drug Use Recreational Drug Use: No - Living Situation & Occupation Living situation: Reports: , with Family Occupation: Disabled (lives with Erick and 8 children in age 19year to 17 month; foster and adopted) H&P Review of Systems - Review of Systems: Review Of Systems: See Below Free Text/Narrative: A complete 12 point review of systems was obtained. Pertinent positives and negatives are noted in the history of present illness. All other systems were reviewed and were negative except as noted. Exam - Exam Exam: See Below - Vital Signs Vital Signs: Last Vital Signs Temp 36.9 C 12/21/19 10:34 Pulse 126 H 12/21/19 10:34 Resp 16 12/21/19 10:34 BP 100/70 12/21/19 10:34 Pulse Ox 97 12/21/19 10:53 Weight: 42.547 kg - Exam Quality Assessment: Supplemental Oxygen General: Alert, Oriented, Cooperative, Mild Distress HEENT: Conjunctiva Clear. No: Mucosa Moist & [place], Scleral Icterus Neck: Supple, Trachea Midline. No: Lymphadenopathy, JVD Lungs: Rhonchi (moderate upper resp ). No: Normal Respiratory Effort ( increased work of breathing ), Crackles, Wheezing Cardiovascular: Regular Rhythm, Tachycardia. No: Systolic Murmur GI/Abdominal Exam: Soft, No Distention, Abnormal Bowel Sounds (hypoactive ) Back Exam: Normal Inspection, Full Range of Motion Extremities: No Pedal Edema. No: Increased Warmth Skin: Warm, Dry Neuro Extensive - Mental Status: Alert, Oriented x3, Nl Response to Commands Neuro Extensive - Motor, Sensory, Reflexes: No: Dysarthria, Abnormal Motor, Tremor Psychiatric: Alert, Normal Affect - Patient Data Lab Results Last 24 hrs: Laboratory Results - last 24 hr 12/21/19 12/21/19 12/21/19 Range/Units 04:00 04:00 05:34 WBC 14.6 H (4.5-11.0) K/uL RBC 3.60 (3.30-5.50) M/uL Hgb 10.8 L (12.0-15.0) g/dL Hct 35.2 L (36.0-48.0) % MCV 98 (80-98) fL MCH 30 (27-31) pg MCHC 31 L (32-36) % Plt Count 278 (150-400) K/uL Puncture Site Rt radial ABG pH 7.421 (7.350-7.450) ABG pCO2 41.6 (35.0-42.0) mmHg ABG pO2 104.0 H (75.0-100.0) mmHg ABG HCO3 26.5 H (22.0-26.0) mmol/L ABG Total CO2 24.1 (21.0-25.0) mmol/L ABG O2 Saturation 97.4 (95.0-98.0) % ABG O2 Content 15.2 (15.0-23.0) %vol ABG Base Excess 2.4 mm/L ABG Hemoglobin 11.3 L (12.0-16.0) g/dL ABG Oxyhemoglobin 94.7 % ABG Carboxyhemoglobin 1.2 (0.0-1.6) % ABG Methemoglobin 1.6 % Jim Test Passed O2 Delivery Device Nasal cannula Oxygen Flow Rate 2.0 L Sodium 138 L (140-148) mmol/L Potassium 4.3 (3.6-5.2) mmol/L Chloride 104 (100-108) mmol/L Carbon Dioxide 29 (21-32) mmol/L Anion Gap 9.3 (5.0-14.0) mmol/L BUN 13 (7-18) mg/dL Creatinine 0.3 L (0.6-1.0) mg/dL Est Cr Clr Drug Dosing 147.34 mL/min Estimated GFR (MDRD) > 60 (>60) Glucose 135 H (74-106) mg/dL Calcium 7.6 L (8.5-10.1) mg/dL Phosphorus 2.9 (2.5-4.9) mg/dL Magnesium 2.0 (1.8-2.4) mg/dL Total Bilirubin 0.3 (0.2-1.0) mg/dL AST 52 H (15-37) U/L ALT 80 H (12-78) U/L Alkaline Phosphatase 123 H (46-116) U/L NT-Pro-B Natriuret Pep 21 (5-125) pg/mL Total Protein 5.6 L (6.4-8.2) g/dL Albumin 2.4 L (3.4-5.0) g/dL Globulin 3.2 (2.3-3.5) g/dL Albumin/Globulin Ratio 0.8 L (1.2-2.2) Result Diagrams: 12/21/19 04:00 12/21/19 04:00 Imaging Impressions Last 24 hrs: CXR-images personally reviewed-lungs hyperinflated but clear. No mass, infiltrate or effusion. Heart size normal. CT pulmonary angiogram-images personally reviewed-no evidence for pulmonary embolism. Scattered mild and ill-defined patchy densities could represent a multifocal pneumonia. There is some airway thickening noted as well. No effusions. No masses. No big infiltrate. Sepsis Event Note - Evaluation Sepsis Screening Result: Sepsis Risk - Focused Exam Vital Signs: Vital Signs Temp Pulse Resp BP Pulse Ox Pulse Ox 12/21/19 10:53 97 12/21/19 10:34 36.9 C 126 H 16 100/70 97 12/21/19 07:59 127 H 12/21/19 07:41 127 H 97 12/21/19 07:14 97 12/21/19 07:02 109/77 12/21/19 06:58 36.9 C 123 H 16 98 12/21/19 05:08 97 12/21/19 04:20 97 12/21/19 02:36 37.1 C 127 H 22 H 153/91 H 97 12/21/19 01:00 98 12/20/19 23:52 36.1 C 107 H 16 99/69 96 Date Exam was Performed: 12/21/19 Time Exam was Performed: 14:24 *Q Meaningful Use (ADM) - VTE Risk Assess *Q Each Risk Factor Represents 1 Point: Age 41 - 59 years, Abnormal Pulmonary Function (COPD) Total Score 1 Point Risk Factors: 2 Each Risk Factor Represents 2 Points: Major surgery greater than 45 minutes Total Score 2 Point Risk Factors: 2 Each Risk Factor Represents 3 Points: None Total Score 3 Point Risk Factors: 0 Each Risk Factor Represents 5 Points: None Total Score 5 Point Risk Factors: 0 Venous Thromboembolism Risk Factor Score *Q: 4 Consult PN Assessment/Plan POD#: 2 Procedures: Procedures AIRWAY INHALATION TREATMENT (05/30/18) BLOOD GASES ANY COMBINATION (05/30/18) BLOOD TYPING SEROLOGIC ABO (09/20/15) BLOOD TYPING SEROLOGIC RH(D) (09/20/15) CHEST WALL MANIPULATION (05/30/18) CHEST WALL MANIPULATION (05/30/18) COMPLETE CBC W/AUTO DIFF WBC (05/30/18) COMPREHEN METABOLIC PANEL (05/30/18) CT ABD & PELV W/CONTRAST (12/16/19) EGD DILATE STRICTURE (12/23/15) MEASURE BLOOD OXYGEN LEVEL (05/30/18) METABOLIC PANEL TOTAL CA (05/30/18) RBC ANTIBODY SCREEN (09/20/15) ROUTINE VENIPUNCTURE (05/30/18) WITHDRAWAL OF ARTERIAL BLOOD (05/30/18) X-RAY XM UPR GI TRC 1CNTRST (09/20/15) (1) Acute and chronic respiratory failure with hypoxia SNOMED Code(s): 55542279, 882861684 Code(s): J96.21 - ACUTE AND CHRONIC RESPIRATORY FAILURE WITH HYPOXIA Current Visit: Yes (2) Bronchitis SNOMED Code(s): 58476947 Code(s): J40 - BRONCHITIS, NOT SPECIFIED ACUTE OR CHRONIC Current Visit : Yes Problem List Initiated/Reviewed/Updated: Yes My Orders Last 24 Hours: My Active Orders 12/21/19 11:08 Ang Chest [CT] Routine 12/21/19 11:15 Doxycycline [Vibramycin] 100 mg Sodium Chloride 0.9% [Normal Saline] 100 ml IV Q12H Plan: ASSESSMENT AND RECOMMENDATIONS - Probable bronchitis versus mild patchy pneumonia-complicated by acute on chronic respiratory failure. Patchy ill-defined airspace opacities but also some airway thickening noted. Examination most consistent with a bronchitis type picture. This could explain her progressive tachycardia and increasing hypoxia. She is not febrile. -Empiric doxycycline -Supplement oxygen -Scheduled and as needed nebulizers -Acapella Status post exploratory laparotomy with small bowel resection, partial colon resection, partial small bowel resection with revision of the jejunojejunostomy as well as mesh removal and central line placement -stable for the most part postoperatively. Still having a fair amount of pain. She does have a dilated loop of bowel in the left upper quadrant noted on chest x-ray and CT. -Flat and upright in the morning -additional postoperative care as per the surgical team Arthur Gates MD Requesting Provider: Radha Pat Date Consult Requested: 12/21/19 Reason for Consult: tachycardia and hypoxia Patient History Reviewed: Yes Admission H&P Reviewed: Yes Notified Requestor: Yes Time Spent (in minutes): 60
[2019-12-21] MEDS ORDERED: Sodium Chloride 0.9% 10 ML Syringe FLUSH ONE (11:41)
[2019-12-21] MEDS ORDERED: Sodium Chloride 0.9% 75 ML IV SCH (11:45)
[2019-12-21] MEDS ORDERED: Iopamidol 755 Mg/ML 100 ML Bottle IV SCH (11:45)
[2019-12-21] MEDS: Dextrose 5%-Lactated Ringers 1,000 ML IV SCH (12:16)
[2019-12-21] MEDS ORDERED: Albuterol 0.083% 2.5 MG/3 ML Neb Soln NEB PRN (13:15)
[2019-12-21] MEDS: Doxycycline 100 MG in Sodium Chloride 0.9% 100 ML IV SCH (13:19)
--- NOTE | 2019-12-21 13:29 | CRLCT ---
HISTORY: Tachycardia and hypoxia. Abdominal surgery 2 days prior. TECHNIQUE: CT chest with IV contrast, pulmonary embolism protocol. COMPARISON: None. FINDINGS: Pulmonary arteries: No pulmonary embolism. Main pulmonary artery is normal caliber. Lungs: Moderate amount of layering secretions in the trachea and central bronchi. Mild bilateral bronchial wall thickening. Similar small nodular densities in the right middle and lower lobes. Additional scattered punctate nodules and tree-in-bud opacities in both lungs. No pleural effusion or pneumothorax. Mediastinum: Thoracic aorta is normal caliber. No pericardial effusion. Lymph nodes: Lymphadenopathy. Musculoskeletal: Degenerative changes of the spine. Upper abdomen: Pneumoperitoneum. Midline upper abdominal skin eric. Cholecystectomy. Common bile duct is dilated to 11 mm. Central intrahepatic bile duct dilation. IMPRESSION: 1. Bronchial wall thickening and scattered small nodular densities in both lungs likely from infection. 2. No pulmonary embolism. 3. Cholecystectomy. Common bile duct is dilated slightly greater than typical for post cholecystectomy change. Correlate with clinical and laboratory findings of biliary obstruction. Please note that all CT scans at this facility use dose modulation, iterative reconstruction, and/or weight-based dosing when appropriate to reduce radiation dose to as low as reasonably achievable. Dictated by Rafat Shukla MD @ Dec 21 2019 1:18PM Signed by Dr. Rafat Shukla @ Dec 21 2019 1:28PM
[2019-12-21] MEDS ORDERED: Benzonatate 100 MG Cap PO PRN (14:18)
[2019-12-21] MEDS ORDERED: guaiFENesin/Dextromethorphan 100-10 MG/5 ML Soln 10 ML Cup PO PRN (14:18)
[2019-12-21] MEDS: Nystatin Susp 100,000 Unit/ML 5 ML UD Cup PO SCH (22:12)
[2019-12-22] MEDS: Doxycycline 100 MG in Sodium Chloride 0.9% 100 ML IV SCH ×3 (00:03→23:52)
[2019-12-22] MEDS: Cyclobenzaprine 10 MG Tab PO PRN (00:03)
[2019-12-22] MEDS: Acetaminophen 500 MG Tab PO SCH ×3 (04:31→19:32)
[2019-12-22] MEDS: Nystatin Susp 100,000 Unit/ML 5 ML UD Cup PO SCH ×5 (04:52→21:46)
[2019-12-22] MEDS: hydrOXYzine HCL 100 MG/2 ML SDV IM PRN (04:57)
[2019-12-22] MEDS: Albuterol/Ipratropium 3.0-0.5 MG/3 ML Neb Soln INH SCH ×4 (07:13→21:45)
[2019-12-22] MEDS: Fluticasone-Salmeterol 232-14 MCG Powder Inhalent INH SCH ×2 (07:13→21:45)
[2019-12-22] MEDS ORDERED: Central Total Parenteral Nutrition Bag SCH (07:15)
--- NOTE | 2019-12-22 08:27 | PN ---
DATE OF SERVICE: 12/22/2019 SUBJECTIVE: Uzair's flat and upright showed distended bowel this morning. She has not had a bowel movement yet. Remains to be tachycardic over 100, ranging from in the past 24 hours 113 to 126. Pain is controlled. She does feel she has more pain control with the Vistaril than the Dilaudid LINING STITCHER. Labs this morning, white count was 15.1, hemoglobin 10.9. She is on the TPN 40 mL per hour. The liver function tests are slightly elevated. Her BNP was 8. Albumin 2.3. REVIEW OF SYSTEMS: Remainder of review of systems negative for any pertinent positives and negatives. OBJECTIVE: GENERAL: Uzair Silverman is a pleasant 54-year-old female. She is alert and orientated. HEENT: She has a lot of mucus in her upper chest and throat which is rattly. She states she just cannot bring it up. VITAL SIGNS: TPR at 04:26 is 99.3; 114; 18; blood pressure 116/73. HEENT: Negative. NECK: Supple. HEART: Regular rate and rhythm. LUNGS: Decreased air exchange bilaterally, otherwise no change. Coarse rhonchi when trying to cough. ABDOMEN: Aquacel dressing on. Abdominal binder is on. EXTREMITIES: Without peripheral edema. ASSESSMENT: 1. Exploratory lap with lysis of adhesions. a. Revision of jejunojejunostomy component of the [place]-en-Y gastric bypass surgery. b. Right colon resection. c. Separate small-bowel resection. d. Resection of partial nodule implant from omentum of posterior pelvic peritoneum. e. Placement of Interceed mesh. f. Placement of central vein catheter. g. Insertion of left subclavian triple-lumen catheter. POSTOPERATIVE DIAGNOSES: 1. Inadequate central vein access. 2. Partial small bowel obstruction with complex adhesion and distortion of the jejunojejunostomy. 3. Cecal volvulus. 4. Separate small bowel resection for narrow area of [place] limb of the small bowel. 5. Elongated peritoneal nodule approximately 13 cm extending from the omentum to posterior pelvis. Date of surgery: 12/19/2019. Surgeon: Wellington Najera MD. 6. Tachycardia, most likely compounded by chronic obstructive pulmonary disease stage III, questionable fluid overload. 7. Gastroparesis. PLAN: 1. Rx Zithromax 125 mg IV q.12 hours scheduled for gastroparesis. 2. Dulcolax suppositories b.i.d. scheduled. 3. Milk of magnesia 30 mL b.i.d. scheduled. 4. Dulcolax 10 mg b.i.d. p.o. until the patient has a bowel movement, then may discontinue. 5. Continue TPN same rate and content. 6. Discontinue LINING STITCHER. 7. Dilaudid 2 to 4 mg every 4 hours p.r.n. pain. 8. Lasix 20 mg b.i.d. IV today, 1 dose now, the second dose at 1800. 9. Communication order: Ask regarding Lasix dosage tomorrow in a.m. 12/23/2019. 10.The patient requested Atarax for pain, but it was contraindicated with the use of Zithromax, so was not able to be ordered. Atarax/Vistaril with Zithromax causes severe reaction, long QT and severe arrhythmias. Take off Aquacel dressing and replace with new one. 11.Then, continue aggressive use of incentive spirometer, which the patient is doing now and continue ambulation which the patient is doing well at. 12.We will evaluate p.r.n. or in a.m. Radha Pat PA-C /[id number]
[2019-12-22] MEDS: Pantoprazole 40 MG Tab.CR PO SCH (08:54)
[2019-12-22] MEDS: Heparin Sodium 5,000 Units/ML Vial SUBCUT SCH ×2 (08:54→19:32)
[2019-12-22] MEDS: Magnesium Hydroxide 400 MG/5 ML Susp 30 ML Cup PO SCH ×2 (08:55→21:45)
[2019-12-22] MEDS: Bisacodyl 5 MG Tab PO SCH ×2 (08:55→21:44)
[2019-12-22] MEDS: Furosemide 20 MG/2 ML VIAL IVPUSH SCH ×2 (08:56→17:21)
[2019-12-22] MEDS: FLUoxetine 20 MG Cap PO SCH (08:56)
[2019-12-22] MEDS: Gabapentin 300 MG Cap PO SCH ×3 (08:56→21:45)
[2019-12-22] MEDS: Theophylline 100 MG Cap.ER PO SCH ×2 (08:56→21:45)
--- NOTE | 2019-12-22 08:57 | PN ---
DATE OF SERVICE: 12/21/2019 SUBJECTIVE: Uzair has been tachycardiac. Her IV was decreased before midnight. She continued to be tachycardiac during the night. Chest x-ray was obtained, which showed no change. She was given Lasix 20 mg IV around 0500. ABGs were drawn for a baseline. The patient informed staff that she uses a Trilogy BiPAP at night at home. Her pain has been managed. Up, ambulating. She reports that she does not feel short of breath just that she has more mucus in her throat. Oral intake was 1290. Urine output was 1550. She is drinking her protein drinks. REVIEW OF SYSTEMS: Remainder of review of systems negative for any pertinent positives and negatives. OBJECTIVE: GENERAL: Uzair Silverman is a pleasant 54-year-old female. VITAL SIGNS: TPR at 0658, 98.5; 123; 16; 109/77, pulse oximetry with 2 L of O2 is 98%. HEENT: Negative. NECK: Supple. HEART: Regular rate and rhythm. LUNGS: Reveal coarse rhonchi with coughing. Breath sounds in the bases are diminished, but there has been no change from yesterday. ABDOMEN: Dressings dry and intact. EXTREMITIES: There is no peripheral edema. ASSESSMENT: 1. Tachycardia, questionable fluid overload. 2. Exploratory laparotomy with lysis of adhesions. a. Revision of jejunojejunostomy component of the [place]-en-Y gastric bypass surgery. b. Right colon resection. c. Separate small bowel resection. d. Resection of partial nodule implant from omentum into posterior pelvic peritoneum. e. Placement of Interceed mesh. f. Insertion of left subclavian triple lumen. POSTOPERATIVE DIAGNOSES: 1. Inadequate central venous access. 2. Partial small bowel obstruction with complex adhesions and distortion of the jejunojejunostomy. 3. Cecal volvulus. 4. Separate small bowel resection for narrow area of the [place] limb of the small bowel. 5. Elongated peritoneal nodule approximately 13 cm extending into omentum, posterior pelvis. Date of surgery: 12/19/2019. Surgeon: Wellington Najera MD. PLAN: 1. Decrease TPN rate to 40 mL per hour. Continue same content. 2. Lasix 20 mg IV 12 noon. 3. Procal or protein supplement that the patient prefers 4 times a day. 4. Check CBC, CMP, mag, phos, and BNP in a.m. 5. Arthur Gates MD, hospitalist consulted. 6. We will evaluate p.r.n. or in a.m. 7. When her boyfriend would be coming or another family member to visit her to bring her Trilogy BiPAP, and she stated not until Sunday evening, 12/22/2019, the patient will be assessed. Radha Pat PA-C /[id number]
[2019-12-22] MEDS: Azithromycin 125 MG in Sodium Chloride 0.9% 150 ML IV SCH ×2 (09:00→21:51)
[2019-12-22] MEDS: Bisacodyl 10 MG Supp RECTAL SCH ×2 (09:00→21:44)
--- NOTE | 2019-12-22 09:50 | CR ---
UGI Limited HISTORY: Postbariatric surgery FINDINGS: Patient swallowed water-soluble contrast. Upright views of the abdomen show no evidence of extravasation or obstruction. There is a right lower quadrant surgical drain IMPRESSION: Status post bariatric surgery No extravasation or obstruction seen
[2019-12-22] MEDS: Meropenem 1 GM in Sodium Chloride 0.9% 100 ML IV SCH ×2 (11:07→17:22)
[2019-12-22] MEDS: 1: AA 5%/Calcium/D15W/Lytes 1,000 ML with MVI, Adult with Vitamin K 10 ML, Chromium/Copp IV SCH ×3 (11:07)
[2019-12-22] MEDS: Lactobacillus Rhamnosus GG (Probiotic) Cap PO SCH ×2 (11:08→21:45)
--- NOTE | 2019-12-22 11:10 | CR ---
Abdomen 2V AP Flat Upright CLINICAL HISTORY: Abdominal pain and distention FINDINGS: There is moderate bowel distention. The much of this is the transverse and left colon. The there is some mid abdominal dilated loop which may be: There are dilated small bowel. There are normal caliber bowel loops in the right lower quadrant. IMPRESSION: Left: Distention. The this may represent postoperative ileus. Distal obstruction is not excluded
[2019-12-22] MEDS: HYDROmorphone 2 MG Tab PO PRN ×4 (12:05→23:52)
--- NOTE | 2019-12-22 13:52 | PCM.CONSN ---
- General Info Date of Service: 12/22/19 Subjective Update: Ms. Silverman used to experience shortness of breath with mild to moderate hypoxia. She is not noted significant improvement in symptoms over the last 24 hours, but has not worsened. Functional Status: Reports: Tolerating Diet, Urinating - Review of Systems General: Reports: Weakness. Denies: Fever, Chills Pulmonary: Reports: Shortness of Breath. Denies: Pleuritic Chest Pain, Cough, Sputum, Hemoptysis, Wheezing Cardiovascular: Reports: Dyspnea on Exertion. Denies: Chest Pain, Palpitations , Orthopnea, PND, Edema, Lightheadedness Gastrointestinal: Reports: Abdominal Pain. Denies: Diarrhea, Difficulty Swallowing, Nausea, Vomiting - Patient Data Vitals - Most Recent: Last Vital Signs Temp 99.0 F 12/22/19 11:00 Pulse 116 H 12/22/19 11:00 Resp 18 12/22/19 11:00 BP 90/60 12/22/19 11:00 Pulse Ox 96 12/22/19 11:00 Weight - Most Recent: 94 lb 6.4 oz I&O - Last 24 Hours: Intake & Output 12/21/19 12/22/19 12/22/19 22:59 06:59 14:59 Intake Total 1805 1126 Output Total 1830 530 300 Balance -25 596 -300 Lab Results Last 24 Hours: Laboratory Results - last 24 hr 12/22/19 12/22/19 Range/Units 04:00 04:10 WBC 15.1 H (4.5-11.0) K/uL RBC 3.51 (3.30-5.50) M/uL Hgb 10.9 L (12.0-15.0) g/dL Hct 34.3 L (36.0-48.0) % MCV 98 (80-98) fL MCH 31 (27-31) pg MCHC 32 (32-36) % Plt Count 267 (150-400) K/uL Sodium 136 L (140-148) mmol/L Potassium 4.3 (3.6-5.2) mmol/L Chloride 102 (100-108) mmol/L Carbon Dioxide 31 (21-32) mmol/L Anion Gap 7.3 (5.0-14.0) mmol/L BUN 14 (7-18) mg/dL Creatinine 0.4 L (0.6-1.0) mg/dL Est Cr Clr Drug Dosing 111.21 mL/min Estimated GFR (MDRD) > 60 (>60) Glucose 95 (74-106) mg/dL Calcium 8.0 L (8.5-10.1) mg/dL Phosphorus 3.9 (2.5-4.9) mg/dL Magnesium 1.9 (1.8-2.4) mg/dL Total Bilirubin 0.5 D (0.2-1.0) mg/dL AST 94 H D (15-37) U/L ALT 96 H (12-78) U/L Alkaline Phosphatase 177 H (46-116) U/L NT-Pro-B Natriuret Pep 8 (5-125) pg/mL Total Protein 5.5 L (6.4-8.2) g/dL Albumin 2.3 L (3.4-5.0) g/dL Globulin 3.2 (2.3-3.5) g/dL Albumin/Globulin Ratio 0.7 L (1.2-2.2) Med Orders - Current: Current Medications Acetaminophen (Tylenol Extra Strength) 1,000 mg PO Q8H [facility] Last Admin: 12/22/19 12:05 Dose: 1,000 mg Acetaminophen (Tylenol Extra Strength) 500 mg PO Q8H PRN PRN Reason: MILD PAIN Albuterol (Proventil Neb Soln) 2.5 mg NEB Q4H PRN PRN Reason: shortness of breath/wheezing Albuterol/Ipratropium (Duoneb 3.0-0.5 Mg/3 Ml) 3 ml INH QIDRT [facility] Last Admin: 12/22/19 10:47 Dose: 3 ml Benzonatate (Tessalon Perles) 100 mg PO TID PRN PRN Reason: Cough Bisacodyl (Dulcolax) 10 mg RECTAL BID [facility] Last Admin: 12/22/19 09:00 Dose: Not Given Bisacodyl (Dulcolax) 10 mg PO BID [facility] Last Admin: 12/22/19 08:55 Dose: Not Given Cyclobenzaprine HCl (Flexeril) 10 mg PO Q8H PRN PRN Reason: Muscle Spasm Last Admin: 12/22/19 00:03 Dose: 10 mg Diphenhydramine HCl (Benadryl) 50 mg IVPUSH Q4H PRN PRN Reason: ITCHING Fluoxetine HCl (Prozac) 20 mg PO DAILY [facility] Last Admin: 12/22/19 08:56 Dose: 20 mg Furosemide (Lasix) 20 mg IVPUSH Q9H [facility] Stop: 12/22/19 18:01 Last Admin: 12/22/19 08:56 Dose: 20 mg Gabapentin (Neurontin) 300 mg PO TID [facility] Last Admin: 12/22/19 08:56 Dose: 300 mg Guaifenesin/Dextromethorphan (Robitussin Dm) 10 ml PO Q4H PRN PRN Reason: Cough Heparin Sodium (Porcine) (Heparin Sodium) 5,000 units SUBCUT Q12H [facility] Last Admin: 12/22/19 08:54 Dose: 5,000 units Heparin Sodium (Porcine) (Heparin Lock Flush 100 Units/Ml) 500 units FLUSH ASDIRECTED PRN PRN Reason: Keep Vein Open Last Admin: 12/22/19 04:51 Dose: 500 units Hydromorphone HCl (Dilaudid) 2 - 4 mg PO Q4H PRN PRN Reason: Pain Last Admin: 12/22/19 12:05 Dose: 2 mg Dextrose/Lactated Ringer's (Dextrose 5%-Lactated Ringers) 1,000 mls @ 0 mls/hr IV ASDIRECTED [facility] Last Admin: 12/21/19 12:16 Dose: 25 mls/hr Multivitamins/Minerals 10 ml/Chromium/Copper/Manganese/Seleni/Zn 1 ml/ Amino Ac/ Electrol/Dextrose/Calcium 1,011 mls @ 40 mls/hr IV .BY DURATION [facility] Last Admin: 12/22/19 11:07 Dose: 40 mls/hr Amino Ac/Electrol/Dextrose/Calcium (Clinimix E 02/19) 1,000 mls @ 40 mls/hr IV .BY DURATION [facility] Doxycycline Hyclate 100 mg/ (Sodium Chloride) 100 mls @ 100 mls/hr IV Q12H [facility] Last Admin: 12/22/19 12:41 Dose: 100 mls/hr Azithromycin 125 mg/ Sodium (Chloride) 150 mls @ 150 mls/hr IV Q12H [facility] Last Admin: 12/22/19 09:00 Dose: 150 mls/hr Meropenem 1 gm/ Sodium (Chloride) 100 mls @ 200 mls/hr IV Q8H [facility] Last Admin: 12/22/19 11:07 Dose: 200 mls/hr Labetalol HCl (Normodyne) 5 mg IVPUSH Q5M PRN PRN Reason: SBP over 160 OR DBP over 95 Lactobacillus Rhamnosus (Culturelle) 1 cap PO BID [facility] Last Admin: 12/22/19 11:08 Dose: 1 cap Magnesium Hydroxide (Milk Of Magnesia) 30 ml PO BID [facility] Last Admin: 12/22/19 08:55 Dose: Not Given Metoclopramide HCl (Reglan) 10 mg IVPUSH Q6H PRN PRN Reason: NAUSEA NOT CONTROL BY ZOFRAN Nystatin (Mycostatin) 5 ml PO QID [facility] Last Admin: 12/22/19 09:00 Dose: 5 ml Ondansetron HCl (Zofran) 4 mg IVPUSH Q4H PRN PRN Reason: Nausea/Vomiting Pantoprazole Sodium (Protonix) 40 mg PO ACBREAKFAST [facility] Last Admin: 12/22/19 08:54 Dose: 40 mg Fluticasone/Salmeterol (Fluticasone-Salmeterol 232-14 Mcg Powder Inha) 1 puff INH BIDRT [facility] Last Admin: 12/22/19 07:13 Dose: 1 puff Theophylline (Milton-24) 200 mg PO BID [facility] Last Admin: 12/22/19 08:56 Dose: 200 mg Discontinued Medications Acetaminophen (Tylenol) 650 mg PO Q4H PRN PRN Reason: ANALGESIA/FEVER Acetaminophen (Tylenol) 650 mg RECTAL Q4H PRN PRN Reason: ANALGESIA/FEVER Acetylcysteine (Mucomyst 20%) 200 mg INH TIDRT [facility] Albuterol (Ventolin Hfa) 0 gm INH Q3H PRN PRN Reason: Wheezing Albuterol/Ipratropium (Duoneb 3.0-0.5 Mg/3 Ml) 3 ml NEB Q6H [facility] Last Admin: 12/19/19 13:57 Dose: Not Given Albuterol/Ipratropium (Duoneb 3.0-0.5 Mg/3 Ml) 3 ml INH ASDIRECTED PRN PRN Reason: BREATHING Last Admin: 12/21/19 02:45 Dose: 3 ml Bisacodyl (Dulcolax) 10 mg PO ONETIME ONE Stop: 12/16/19 12:01 Last Admin: 12/16/19 13:14 Dose: 10 mg Bisacodyl (Dulcolax) 10 mg PO ONETIME ONE Stop: 12/16/19 20:01 Last Admin: 12/16/19 20:19 Dose: 10 mg Bupivacaine HCl (Marcaine 0.5%) Confirm Administered Dose 50 ml .ROUTE .STK-MED ONE Stop: 12/19/19 09:00 Last Admin: 12/19/19 15:16 Dose: 20 ml Calcium Gluconate (Calcium Gluconate) 1 gm IVPUSH ONETIME PRN PRN Reason: SX MAGNESIUM TOXICITY Stop: 12/19/19 22:00 Ropivacaine 25 ml/Dexamethasone 8 mg/Epinephrine HCl 0.4 mg/ Sodium Chloride 52.6 ml 0 ml NERVRT ASDIRECTED [facility] Last Admin: 12/19/19 14:09 Dose: 80 syringe Cyanocobalamin (Vitamin B12) 1,000 mcg IM ONETIME ONE Stop: 12/21/19 09:01 Last Admin: 12/21/19 08:12 Dose: 1,000 mcg Dexamethasone (Dexamethasone) Confirm Administered Dose 4 mg .ROUTE .STK-MED ONE Stop: 12/19/19 09:24 Diphenhydramine HCl (Benadryl) 25 mg IVPUSH Q6H PRN PRN Reason: Itching Diphenhydramine HCl (Benadryl) 25 mg PO Q6H PRN PRN Reason: Itching Fentanyl (Sublimaze) Confirm Administered Dose 250 mcg .ROUTE .STK-MED ONE Stop: 12/19/19 09:23 Furosemide (Lasix) 20 mg IVPUSH ONETIME ONE Stop: 12/21/19 05:38 Last Admin: 12/21/19 06:03 Dose: 20 mg Furosemide (Lasix) 20 mg IVPUSH ONETIME ONE Stop: 12/21/19 12:01 Last Admin: 12/21/19 13:13 Dose: 20 mg Glycopyrrolate (Seebri Neohaler) 15.6 mcg IH BIDRT [facility] Last Admin: 12/19/19 07:21 Dose: 1 cap Glycopyrrolate (Robinul) Confirm Administered Dose 1 mg .ROUTE .STK-MED ONE Stop: 12/19/19 09:24 Heparin Sodium (Porcine) (Heparin Lock Flush 100 Units/Ml) Confirm Administered Dose 1,500 units .ROUTE .STK-MED ONE Stop: 12/19/19 11:23 Last Admin: 12/19/19 14:10 Dose: 1,000 units Hydromorphone HCl (Dilaudid [employer] 15 Mg In Ns 30 Ml) 0 mg IV ASDIRECTED PRN; Protocol PRN 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 Last Admin: 12/16/19 13:15 Dose: 15 mg Hydromorphone HCl (Dilaudid [employer] 15 Mg In Ns 30 Ml) 15 mg IV ASDIRECTED NADYA; Protocol Hydromorphone HCl (Dilaudid [employer] 15 Mg In Ns 30 Ml) 0 mg IV ASDIRECTED PRN; Protocol PRN Reason: Pain Last Admin: 12/20/19 21:28 Dose: 15 mg Hydroxyzine HCl (Vistaril) 100 mg IM Q4H PRN PRN Reason: pain Last Admin: 12/22/19 04:57 Dose: 100 mg Dextrose/Lactated Ringer's (Dextrose 5%-Lactated Ringers) 1,000 mls @ 100 mls/ hr IV ASDIRECTED [facility] Last Admin: 12/19/19 11:44 Dose: 100 mls/hr Sodium Chloride (Normal Saline) 100 mls @ 4 mls/sec IV ASDIRECTED STA Stop: 12/18/19 05:51 Last Admin: 12/18/19 06:31 Dose: 4 mls/sec Meropenem 500 mg/ Sodium (Chloride) 50 mls @ 100 mls/hr IV ONETIME ONE Stop: 12/19/19 11:29 Last Admin: 12/19/19 13:07 Dose: 100 mls/hr Ketamine HCl 50 mg/ Sodium (Chloride) 50 mls @ 12.11 mls/hr IV ASDIRECTED [facility] Magnesium Sulfate 1.2 gm/ (Sodium Chloride) 102.4 mls @ 204.8 mls/hr IV ONETIME ONE Stop: 12/19/19 12:29 Last Admin: 12/19/19 17:45 Dose: Not Given Magnesium Sulfate 2 gm/ Sodium (Chloride) 254 mls @ 31.75 mls/hr IV ONETIME ONE Stop: 12/19/19 19:59 Last Admin: 12/19/19 17:00 Dose: 31.75 mls/hr Lactated Ringer's (Ringers, Lactated) Confirm Administered Dose 1,000 mls @ as directed .ROUTE .STK-MED ONE Stop: 12/19/19 15:34 Multivitamins/Minerals 10 ml/Chromium/Copper/Manganese/Seleni/Zn 1 ml/ Amino Ac/ Electrol/Dextrose/Calcium 1,011 mls @ 100 mls/hr IV .BY DURATION [facility] Stop: 12/21/19 09:00 Last Admin: 12/20/19 13:47 Dose: 100 mls/hr Amino Ac/Electrol/Dextrose/Calcium (Clinimix E 02/19) 1,000 mls @ 100 mls/hr IV .BY DURATION [facility] Stop: 12/21/19 09:00 Last Admin: 12/20/19 23:55 Dose: 100 mls/hr Dextrose/Lactated Ringer's (Dextrose 5%-Lactated Ringers) 1,000 mls @ 75 mls/ hr IV ASDIRECTED [facility] Last Admin: 12/20/19 04:06 Dose: 75 mls/hr Meropenem 500 mg/ Sodium (Chloride) 50 mls @ 100 mls/hr IV Q8H [facility] Stop: 12/21/19 05:29 Last Admin: 12/21/19 04:51 Dose: 100 mls/hr Dextrose/Lactated Ringer's (Dextrose 5%-Lactated Ringers) 1,000 mls @ 60 mls/ hr IV ASDIRECTED [facility] Sodium Chloride (Normal Saline) 75 mls @ 3 mls/sec IV ASDIRECTED [facility] Stop: 12/21/19 13:00 Last Admin: 12/21/19 12:39 Dose: 3 mls/sec Iopamidol (Isovue-300 (61%)) 100 ml IV . DIRECTED STA Stop: 12/18/19 05:51 Last Admin: 12/18/19 06:31 Dose: 100 ml Iopamidol (Isovue-300 (61%)) 50 ml PO ASDIRECTED ST[facility] Stop: 12/20/19 04:04 Last Admin: 12/20/19 04:18 Dose: 50 ml Iopamidol (Isovue-370 (76%)) 46 ml IV . DIRECTED [facility] Stop: 12/21/19 13:00 Last Admin: 12/21/19 12:38 Dose: 100 ml Ketamine HCl (Ketalar) 20 mg IV ASDIRECTED [facility] Lidocaine/Epinephrine (Xylocaine 1% With Epinephrine 1:100,000) Confirm Administered Dose 50 ml .ROUTE .STK-MED ONE Stop: 12/19/19 09:00 Last Admin: 12/19/19 15:16 Dose: 20 ml Meropenem (Merrem) Confirm Administered Dose 500 mg .ROUTE .STK-MED ONE Stop: 12/19/19 09:00 Last Admin: 12/19/19 14:36 Dose: 500 mg Naloxone HCl (Narcan) 0.1 mg IV ASDIRECTED PRN PRN Reason: decreased respiratory rate Neostigmine Methylsulfate (Neostigmine) Confirm Administered Dose 5 mg .ROUTE .STK-MED ONE Stop: 12/19/19 09:24 Non-Formulary Medication (Total Parenteral Nutrition, Central) 1,000 ml .XX .Continue Order [facility] Stop: 12/20/19 14:00 Non-Formulary Medication (Total Parenteral Nutrition, Central) 1,000 ml .XX .Continue Order [facility] Stop: 12/21/19 10:00 Non-Formulary Medication (Total Parenteral Nutrition, Central) 1,000 ml .XX .Continue Order [facility] Stop: 12/22/19 10:00 Ondansetron HCl (Zofran) 4 mg IVPUSH Q4H PRN PRN Reason: Nausea Ondansetron HCl (Zofran) 4 mg IVPUSH Q6H PRN PRN Reason: Nausea/Vomiting Ondansetron HCl (Zofran) Confirm Administered Dose 4 mg .ROUTE .STK-MED ONE Stop: 12/19/19 09:24 Pantoprazole Sodium (Protonix Iv) 40 mg IV BID [facility] Last Admin: 12/19/19 08:20 Dose: 40 mg Pantoprazole Sodium (Protonix Iv) 40 mg IV DAILY [facility] Last Admin: 12/20/19 08:34 Dose: 40 mg Polyethylene Glycol (Miralax) 238 gm PO ONETIME ONE Stop: 12/16/19 15:01 Last Admin: 12/16/19 14:58 Dose: 238 gm Propofol (Diprivan 20 Ml) Confirm Administered Dose 200 mg .ROUTE .STK-MED ONE Stop: 12/19/19 09:24 Rocuronium [place] (Zemuron) Confirm Administered Dose 50 mg .ROUTE .STK-MED ONE Stop: 12/19/19 09:24 Sodium Chloride (Saline Flush) 10 ml FLUSH ONETIME ONE Stop: 12/21/19 11:42 Last Admin: 12/21/19 12:39 Dose: 10 ml Succinylcholine Chloride (Quelicin) Confirm Administered Dose 200 mg .ROUTE .STK -MED ONE Stop: 12/19/19 09:24 - Exam Quality Assessment: Supplemental Oxygen, Central Line/PICC, DVT Prophylaxis General: Alert, Oriented Lungs: Normal Respiratory Effort, Decreased Breath Sounds, Rhonchi. No: Rales, Rub, Wheezing Cardiovascular: Regular Rhythm, No Murmurs, Tachycardia GI/Abdominal Exam: Soft, No Organomegaly, Tender. No: Distended, Guarding, Rigid, Rebound Extremities: Non-Tender, No Pedal Edema Sepsis Event Note - Evaluation Sepsis Screening Result: Sepsis Risk - Focused Exam Vital Signs: Vital Signs Temp Pulse Resp BP Pulse Ox 12/22/19 11:00 99.0 F 116 H 18 90/60 96 12/22/19 10:47 118 H 12/22/19 07:45 98 12/22/19 07:00 99.5 F 122 H 18 107/67 96 12/22/19 04:26 99.3 F 114 H 18 116/73 96 Date Exam was Performed: 12/22/19 Time Exam was Performed: 13:49 Consult PN Assessment/Plan Procedures: Procedures AIRWAY INHALATION TREATMENT (05/30/18) BLOOD GASES ANY COMBINATION (05/30/18) BLOOD TYPING SEROLOGIC ABO (09/20/15) BLOOD TYPING SEROLOGIC RH(D) (09/20/15) CHEST WALL MANIPULATION (05/30/18) CHEST WALL MANIPULATION (05/30/18) COMPLETE CBC W/AUTO DIFF WBC (05/30/18) COMPREHEN METABOLIC PANEL (05/30/18) CT ABD & PELV W/CONTRAST (12/16/19) EGD DILATE STRICTURE (12/23/15) MEASURE BLOOD OXYGEN LEVEL (05/30/18) METABOLIC PANEL TOTAL CA (05/30/18) RBC ANTIBODY SCREEN (09/20/15) ROUTINE VENIPUNCTURE (05/30/18) WITHDRAWAL OF ARTERIAL BLOOD (05/30/18) X-RAY XM UPR GI TRC 1CNTRST (09/20/15) Problem List Initiated/Reviewed/Updated: Yes My Orders Last 24 Hours: My Active Orders 12/22/19 09:00 Lactobacillus Rhamnosus GG [Culturelle] 1 cap PO BID 12/22/19 10:00 Meropenem [Merrem] 1 gm Sodium Chloride 0.9% [Normal Saline] 100 ml IV Q8H 12/23/19 05:00 CBC WITH AUTO DIFF [HEME] Timed COMPREHENSIVE METABOLIC PN,CMP [CHEM] Timed MAGNESIUM [CHEM] Timed Plan: ASSESSMENT AND RECOMMENDATIONS Probable bronchitis versus mild patchy pneumonia-complicated by acute on chronic respiratory failure. Patchy ill-defined airspace opacities but also some airway thickening noted. Examination most consistent with a bronchitis type picture. This could explain her progressive tachycardia and increasing hypoxia. She is not febrile. She typically uses a home ventilator system at home when she is resting. -Empiric doxycycline and meropenem -Supplement oxygen -Scheduled and as needed nebulizers -Acapella -Noninvasive positive pressure ventilation Status post exploratory laparotomy with small bowel resection, partial colon resection, partial small bowel resection with revision of the jejunojejunostomy as well as mesh removal and central line placement -stable for the most part postoperatively. Still having a fair amount of pain. She does have a dilated loop of bowel in the left upper quadrant noted on chest x-ray and CT. -Flat and upright in the morning -additional postoperative care as per the surgical team
[2019-12-22] MEDS: Dextrose 5%-Lactated Ringers 1,000 ML IV SCH (17:41)
[2019-12-23] MEDS: Meropenem 1 GM in Sodium Chloride 0.9% 100 ML IV SCH (02:55)
[2019-12-23] MEDS: Acetaminophen 500 MG Tab PO SCH (03:04)
[2019-12-23] MEDS: HYDROmorphone 2 MG Tab PO PRN ×2 (04:45→09:00)
[2019-12-23] MEDS: Nystatin Susp 100,000 Unit/ML 5 ML UD Cup PO SCH ×2 (05:58→09:04)
[2019-12-23] MEDS ORDERED: Furosemide 20 MG/2 ML VIAL IVPUSH ONE (06:33)
[2019-12-23] MEDS: Albuterol/Ipratropium 3.0-0.5 MG/3 ML Neb Soln INH SCH (07:04)
[2019-12-23] MEDS: Fluticasone-Salmeterol 232-14 MCG Powder Inhalent INH SCH (07:05)
[2019-12-23] MEDS: Pantoprazole 40 MG Tab.CR PO SCH (07:23)
[2019-12-23 07:27] VITALS: BP 105/65; PULSE 102
[2019-12-23] MEDS ORDERED: Magnesium Sulfate/Water 2 GM in Premix Bag 1 BAG IV SCH (08:00)
[2019-12-23] MEDS: Bisacodyl 5 MG Tab PO SCH (08:55)
[2019-12-23] MEDS: Heparin Sodium 5,000 Units/ML Vial SUBCUT SCH (08:55)
[2019-12-23] MEDS: Gabapentin 300 MG Cap PO SCH (08:55)
[2019-12-23] MEDS: Magnesium Hydroxide 400 MG/5 ML Susp 30 ML Cup PO SCH (08:55)
[2019-12-23] MEDS: Theophylline 100 MG Cap.ER PO SCH (08:55)
[2019-12-23] MEDS: Lactobacillus Rhamnosus GG (Probiotic) Cap PO SCH (08:55)
[2019-12-23] MEDS: Bisacodyl 10 MG Supp RECTAL SCH (08:55)
[2019-12-23] MEDS: FLUoxetine 20 MG Cap PO SCH (08:56)
[2019-12-23] MEDS ORDERED: Magnesium Oxide 400 MG Tab PO SCH (09:00)
[2019-12-23] MEDS ORDERED: Fluconazole 100 MG Tab PO ONE (10:00)
--- NOTE | 2019-12-23 10:13 | CR ---
Chest 1V Frontal portable 12/19/2019 at over 4:35 PM CLINICAL HISTORY: Tachycardia, crackles FINDINGS: Lungs are moderately emphysematous. Heart size and pulmonary vascularity are normal. There are atherosclerotic changes in the aorta.. There is some mild patchy scarring and/or fibrosis in the lung bases. There is been placement of a left subclavian catheter. The tip is in the superior vena cava atrial junction IMPRESSION: COPD No acute cardiopulmonary process Left subclavian catheter placement
--- NOTE | 2019-12-24 13:42 | DISCH ---
FINAL DIAGNOSES: 1. Partial small bowel obstruction with complex adhesions and distortion of jejunojejunostomy. 2. Cecal volvulus. 3. Elongated peritoneal nodule extending from omentum to posterior pelvic wall. 4. Limited peripheral venous access. 5. Bariatric surgery status. 6. Postoperative atelectasis. 7. Chronic obstructive pulmonary disease. 8. Depressive disorder. OPERATIVE PROCEDURE: This was done on 12/16/2019: 1. Insertion of left subclavian vein triple-lumen catheter. 2. Exploratory laparotomy with lysis of adhesions and: a. Revision of jejunojejunostomy component of Domingo-en-Y gastric bypass. b. Right colon resection. c. Separate small bowel resection. d. Resection of peritoneal implant extending from omentum to posterior pelvic peritoneum. e. Placement of Interceed mesh to limit recurrent adhesion formation. SUMMARY: This is a 54-year-old status post previous Domingo-en-Y gastric bypass presenting with findings suggestive of a partial small bowel obstruction. After admission and evaluation, the patient underwent the above-noted operative procedure. Clinically, she is eating well with no significant postprandial pain at this point. She has been on TPN since the day of surgery and that will be discontinued today along with the triple-lumen catheter. She did have some areas that appeared of hypoxia, and CT scan was suggestive of either an area of pneumonitis or atelectasis in the lung bases. Clinically, this is probably atelectasis given the degree of quick resolution with improved pulmonary toilet. At this point, the patient will be discharged home with continuing her home medications plus Dilaudid 2 mg p.o. q.4 hours p.r.n. pain, #40; Tylenol 1000 mg p.o. q.8 hours p.r.n. pain; and she does have some chronic constipation, we will keep her on Colace 100 mg p.o. b.i.d. Followup will be with Radha Pat at [facility] on 12/31/2019.
--- NOTE | 2019-12-25 09:54 | OR ---
DATE OF PROCEDURE: 12/19/2019 SURGEON: Wellington Najera MD PREOPERATIVE DIAGNOSES: 1. Indication for central venous access. 2. Partial small bowel obstruction. POSTOPERATIVE DIAGNOSES: 1. Indication for central venous access. 2. Partial small bowel obstruction with complex adhesions and distortion of jejunojejunostomy. 3. Narrowing of point of Domingo limb entering jejunojejunostomy. 4. Elongated peritoneal nodule (13 cm) extending from omentum to posterior pelvis. OPERATIVE PROCEDURES: 1. Insertion of left subclavian vein triple-lumen catheter (40373). 2. Exploratory laparotomy with lysis of adhesions and: a. Revision of jejunojejunostomy component of Domingo-en-Y gastric bypass (27311). b. Right colon resection (77322). c. Separate small bowel resection (17425). d. Resection of peritoneal implant, resected from omentum to posterior pelvic peritoneum (06911). e. Placement of Interceed mesh to displace pelvic and abdominal wall from underlying viscera to limit recurrent adhesion formation (81601). ANESTHESIA: General. ELEMENTARY SCHOOL PROFESSIONAL: Radha Pat PA-C. INDICATIONS FOR PROCEDURE: This is a 54-year-old presenting with ongoing postprandial abdominal pain and quite significant weight loss as a result of that. The plan is to proceed with an exploratory laparotomy with release of adhesions and small bowel resection as indicated. Potential risks of the procedure including bleeding, infection, injury to underlying viscera, problems with anastomosis or recurrent bowel obstruction over time were all reviewed, and the patient wishes to proceed. Additionally, given the patient's severe malnutrition, central line will be inserted and postoperatively should be begun on TPN more or less up to the time of discharge to facilitate re-establishing her nutritional status. Potential risks of the procedure including bleeding and infection, vascular or pulmonary injury were also reviewed and the patient wishes to proceed. DETAILS OF PROCEDURE: The patient was taken to the operating room. After general endotracheal anesthesia was induced, the upper chest areas were prepped and draped. The left subclavian vein was then cannulated. A guidewire was passed, and over the guidewire, a triple-lumen catheter was positioned into the area of the junction of the superior vena cava and right atrium. The catheter was sutured to skin with some 3-0 silk stitch and ports flushed with heparinized saline. Subsequent chest x-ray showed no evident complications and good catheter position. Following this, catheter was inserted and the abdomen prepped and draped. A midline incision from umbilicus roughly a handsbreadth towards the xiphoid was made and carried down through the full-thickness abdominal wall. Upon entering the peritoneal cavity, quite a bit in the way of adhesions were noted. The had resulted in a chronic appearing distortion of the jejunojejunostomy, and this was felt best to be revised as, after lysis of adhesions, there was quite a bit of narrowing at the point where the Domingo limb entered the jejunojejunostomy. The patient also had a long peritoneal band extending from the omentum downward to the posterior pelvis around which a segment of small bowel had been chronically entrapped. This nodule, which measured 13 cm, was excised and that bowel was also felt to be needed to be resected due to the chronic stricturing related to the presence of the constricting peritoneal nodule. Additionally, the patient had a cecal volvulus with the cecum being strikingly dilated and rotated towards the left upper quadrant. All of these findings probably jointly contributed to the patient's preoperative symptoms. At this point, the Domingo limb as it entered the jejunojejunostomy was then divided with the ROBBIE stapler, and a small segment of this was resected. The jejunojejunostomy was then revised with reanastomosis of the Domingo limb to the bowel roughly 20 cm distal to the original anastomosis with a [id number]-akni enteroenterostomy with 60 mm internal firing of the ROBBIE stapler. The common opening was then closed transversely with the same stapler, and angles of anastomosis and mesenteric defect were approximated with 3-0 Vicryl stitch and an adjacent mesenteric defect with 2-0 silk stitch. The more distal segment of the small bowel was then resected. This was divided proximally and distally with ROBBIE stapler, as was the underlying mesentery, and a [id number]-vu-[id number] anastomosis was accomplished as per the previous anastomosis. There was no mesenteric defect closed in this case. While this was mobilized upward, the peritoneal implant along with some attached omentum was detached from the posterior pelvic peritoneum and excised away from the attached omentum. Finally, the right colectomy was accomplished. The distal small bowel was divided with the ROBBIE stapler, as was the mid transverse colon. The right colon was mobilized medially with care to avoid injury to the right ureter and duodenum, and the mesentery between the 2 points of division was divided with ROBBIE eric and specimen delivered from the field. GI tract continuity was then accomplished with a [id number] ileocolic anastomosis with 2 internal firings of the Endo-ROBBIE 60 mm stapler with common opening closed transversely with ROBBIE eric as well. The angles of anastomosis were reinforced with some 3-0 Vicryl stitch, and this anastomosis was also reinforced with fibrin sealant. The mesenteric defect was closed with a 2-0 silk stitch. At this point, no further problems were noted. The abdomen was irrigated with antibiotic-containing saline solution. To limit recurrent adhesion formation between pelvic and abdominal wall, Interceed mesh was placed under those surfaces, thus displacing it from the underlying viscera. The midline fascia was then approximated with #2 Vicryl stitch, subcutaneous tissue with 2 layers of 3-0 and 4-0 Vicryl stitch deep and the skin with eric. Prior to closure, a single Jorge-Shore drain was taken through the right upper abdomen and down across the right of the abdomen and into the pelvis, and bilateral transversus abdominis plane blocks were placed. The patient was taken to the recovery room in satisfactory condition. Physician floral assistant, Radha Pat, played an essential role in assisting in this case, helping to position the patient, retract structures as needed, as well as suturing and cutting sutures were indicated. Her presence improved patient safety and decreased the operative time. Wellington Najera MD /[id number]
== END 2019-12-23 10:14 | disposition home health service (06) | DRG 326 ==
LOC: JP.MS 11:14
PROVIDERS: ADMIT Surgery; ATTEND Surgery
PROC: 02HV33Z Insertion of Infusion Device into Superior Vena Cava, Percutaneous Approach (ICD-10-PCS; principal; 2019-12-19)
PROC: 0D160ZA Bypass Stomach to Jejunum, Open Approach (ICD-10-PCS; 2019-12-19)
PROC: 0DN80ZZ Release Small Intestine, Open Approach (ICD-10-PCS; 2019-12-19)
PROC: 0DB80ZZ Excision of Small Intestine, Open Approach (ICD-10-PCS; 2019-12-19)
PROC: 0DTF0ZZ Resection of Right Large Intestine, Open Approach (ICD-10-PCS; 2019-12-19)
DX: K56.51 Intestinal adhesions [bands], with partial obstruction (principal); J96.21 Acute and chronic respiratory failure with hypoxia; Z68.1 Body mass index [BMI] 19.9 or less, adult; K91.2 Postsurgical malabsorption, not elsewhere classified; J95.89 Other postprocedural complications and disorders of respiratory system, not elsewhere classified; J98.11 Atelectasis; J44.9 Chronic obstructive pulmonary disease, unspecified; F32.9 Major depressive disorder, single episode, unspecified; Z98.84 Bariatric surgery status; E53.9 Vitamin B deficiency, unspecified; K59.00 Constipation, unspecified; J40 Bronchitis, not specified as acute or chronic; R00.0 Tachycardia, unspecified; K21.9 Gastro-esophageal reflux disease without esophagitis; M54.2 Cervicalgia; G89.29 Other chronic pain; H40.9 Unspecified glaucoma; K56.2 Volvulus; K31.84 Gastroparesis; R13.14 Dysphagia, pharyngoesophageal phase; E53.8 Deficiency of other specified B group vitamins; E60 Dietary zinc deficiency; Z87.891 Personal history of nicotine dependence; Z90.49 Acquired absence of other specified parts of digestive tract; Z90.710 Acquired absence of both cervix and uterus; Z88.5 Allergy status to narcotic agent; Z88.0 Allergy status to penicillin; Z88.1 Allergy status to other antibiotic agents; Z91.030 Bee allergy status; Z91.040 Latex allergy status; Z88.8 Allergy status to other drugs, medicaments and biological substances; Z79.51 Long term (current) use of inhaled steroids; Z79.899 Other long term (current) drug therapy; I25.2 Old myocardial infarction; Z90.79 Acquired absence of other genital organ(s); Z90.721 Acquired absence of ovaries, unilateral; Z99.81 Dependence on supplemental oxygen
CPT/HCPCS: 36415; 71045; 71045-26; 71046; 71275; 74019; 74019-26; 74175; 74175-26; 74240; 74240-26; 80053; 82728; 82803; 83735; 83880; 84100; 84443; 85025; 85027; 88305; 88307; 94640; 94667; 94668; 94762; A9270-GY; C9113; J0171; J0330; J0456; J1100; J1170; J1642; J1644; J1940; J2185; J2405; J2704; J2710; J2795; J3010; J3410; J3420; J3475; J3490; J7050; J7120; J7121; J7620-GY; Q9967

== ENCOUNTER 2020-01-08 10:30 | Inpatient (IN) | payer MEDICARE, MEDICAID ==
[~2020-01-08 10:30] MED LIST: Acetaminophen 500 MG Tab PO ONE; Albuterol/Ipratropium 3.0-0.5 MG/3 ML Neb Soln NEB ONE; Dexamethasone 4 MG/ML SDV ONE; Dextrose 5%-Lactated Ringers 1,000 ML IV SCH; Doxycycline 100 MG in Sodium Chloride 0.9% 100 ML IV ONE; Gabapentin 300 MG Cap PO ONE; Glycopyrrolate 0.2 MG/ML 5 ML MDV ONE; Neostigmine Methylsulfate 1 MG/ML 5 ML Syringe ONE; Ondansetron 4 MG/2 ML SDV ONE; Propofol 200 MG/20 ML SDV ONE; Rocuronium 50 MG/5 ML Vial ONE; Succinylcholine 200 MG/10 ML MDV ONE; fentaNYL 250 MCG/5 ML SDV ONE
[2020-01-09] MEDS ORDERED: Meropenem 500 MG SDV ONE (09:02)
[2020-01-09] MEDS ORDERED: Gabapentin 300 MG Cap PO ONE (10:30)
[2020-01-09] MEDS ORDERED: Acetaminophen 500 MG Tab PO ONE (10:30)
[2020-01-09] MEDS ORDERED: Albuterol/Ipratropium 3.0-0.5 MG/3 ML Neb Soln NEB ONE (10:30)
[2020-01-09] MEDS ORDERED: fentaNYL 250 MCG/5 ML SDV ONE (10:40)
[2020-01-09] MEDS ORDERED: Neostigmine Methylsulfate 1 MG/ML 5 ML Syringe ONE (10:41)
[2020-01-09] MEDS ORDERED: Succinylcholine 200 MG/10 ML MDV ONE (10:41)
[2020-01-09] MEDS ORDERED: Glycopyrrolate 0.2 MG/ML 5 ML MDV ONE (10:41)
[2020-01-09] MEDS ORDERED: Dexamethasone 4 MG/ML SDV ONE (10:41)
[2020-01-09] MEDS ORDERED: Rocuronium 50 MG/5 ML Vial ONE (10:41)
[2020-01-09] MEDS ORDERED: Ondansetron 4 MG/2 ML SDV ONE (10:41)
[2020-01-09] MEDS ORDERED: Propofol 200 MG/20 ML SDV ONE (10:41)
[2020-01-09] MEDS: Doxycycline 100 MG in Sodium Chloride 0.9% 100 ML IV ONE ×2 (13:57→16:24)
[2020-01-09] MEDS: EPINEPHRINE NERVRT SCH ×8 (13:58→14:35)
[2020-01-09] MEDS: DEXAMETHASONE NERVRT SCH ×8 (13:58→14:35)
[2020-01-09] MEDS: ROPIVACAINE NERVRT SCH ×8 (13:58→14:35)
[2020-01-09] MEDS: SODIUM CHLORIDE 0.9% NERVRT SCH ×8 (13:58→14:35)
[2020-01-09] MEDS ORDERED: Lactated Ringers 1,000 ML ONE (14:46)
[2020-01-09] MEDS: Lidocaine 1% with EPINEPHrine 1:100,000 50 ML MDV ONE ×2 (14:57→15:00)
[2020-01-09] MEDS: Bupivacaine 0.5% 50 ML MDV ONE ×2 (14:57→15:00)
[2020-01-09] MEDS ORDERED: Albuterol/Ipratropium 3.0-0.5 MG/3 ML Neb Soln INH PRN (16:07)
[2020-01-09] MEDS ORDERED: Ondansetron 4 MG/2 ML SDV IVPUSH PRN (16:07)
[2020-01-09] MEDS ORDERED: Nitroglycerin 0.4 MG Tab.SL SL PRN (16:11)
[2020-01-09] MEDS ORDERED: Loperamide 2 MG Cap PO PRN (16:20)
[2020-01-09] MEDS: Dextrose 5%-Lactated Ringers 1,000 ML with MVI, Adult with Vitamin K 10 ML, Chromium/Co... IV SCH ×4 (17:05)
[2020-01-09] MEDS: Acetaminophen 325 MG Tab PO SCH ×2 (17:09→23:15)
[2020-01-09] MEDS: HYDROmorphone 0.5 MG/0.5 ML Syringe IVPUSH PRN ×3 (17:13→23:16)
[2020-01-09] MEDS: Glycopyrrolate 15.6 MCG Cap.W.Dev Kit of 6 IH SCH (20:11)
[2020-01-09] MEDS: Fluticasone-Salmeterol 232-14 MCG Powder Inhalent INH SCH (20:12)
[2020-01-09] MEDS: Albuterol/Ipratropium 3.0-0.5 MG/3 ML Neb Soln INH SCH (20:13)
[2020-01-09] MEDS: Theophylline 300 MG Tab.ER PO SCH (20:14)
[2020-01-09] MEDS: Gabapentin 300 MG Cap PO SCH (20:15)
[2020-01-10] MEDS: Dextrose 5%-Lactated Ringers 1,000 ML with MVI, Adult with Vitamin K 10 ML, Chromium/Co... IV SCH ×4 (03:12)
[2020-01-10] MEDS: Doxycycline 100 MG in Sodium Chloride 0.9% 100 ML IV SCH ×2 (03:13→13:17)
[2020-01-10] MEDS: HYDROmorphone 0.5 MG/0.5 ML Syringe IVPUSH PRN ×2 (03:17→06:18)
[2020-01-10] MEDS: hydrOXYzine HCL 100 MG/2 ML SDV IM PRN ×2 (03:52→11:01)
[2020-01-10] MEDS: Acetaminophen 325 MG Tab PO SCH ×3 (06:09→17:06)
[2020-01-10] MEDS: Albuterol/Ipratropium 3.0-0.5 MG/3 ML Neb Soln INH SCH ×4 (07:23→20:55)
[2020-01-10] MEDS: Glycopyrrolate 15.6 MCG Cap.W.Dev Kit of 6 IH SCH ×2 (07:24→20:55)
[2020-01-10] MEDS: Fluticasone-Salmeterol 232-14 MCG Powder Inhalent INH SCH ×2 (07:25→20:55)
[2020-01-10] MEDS ORDERED: Dextrose 5%-Lactated Ringers 1,000 ML IV SCH ×2 (07:45→13:00)
[2020-01-10] MEDS: Magnesium Sulfate/Water 2 GM in Premix Bag 1 BAG IV SCH ×3 (08:13→19:43)
[2020-01-10] MEDS: HYDROmorphone 2 MG Tab PO PRN ×5 (08:13→21:08)
[2020-01-10] MEDS: FLUoxetine 20 MG Cap PO SCH (08:14)
[2020-01-10] MEDS: Gabapentin 300 MG Cap PO SCH ×3 (08:14→20:56)
[2020-01-10] MEDS: Theophylline 300 MG Tab.ER PO SCH ×2 (08:15→20:56)
[2020-01-10] MEDS ORDERED: Magnesium Hydroxide 400 MG/5 ML Susp 30 ML Cup PO PRN (11:07)
[2020-01-10] MEDS ORDERED: Polyethylene Glycol 3350 Powder 17 GM Packet PO PRN (11:07)
[2020-01-10] MEDS ORDERED: Docusate Sodium 100 MG Cap PO PRN (11:07)
[2020-01-10] MEDS ORDERED: diphenhydrAMINE 25 MG Cap PO PRN (22:06)
[2020-01-10] MEDS ORDERED: Ondansetron 4 MG/2 ML SDV IVPUSH PRN (22:06)
[2020-01-10] MEDS ORDERED: Naloxone 0.4 MG/ML SDV IVPUSH PRN (22:06)
[2020-01-10] MEDS ORDERED: diphenhydrAMINE 50 MG/ML SDV IVPUSH PRN (22:06)
[2020-01-10] MEDS: HYDROmorphone/Normal Saline 15 MG/30 ML PCA IV SCH (22:26)
[2020-01-11] MEDS: Acetaminophen 325 MG Tab PO SCH ×5 (00:22→23:21)
[2020-01-11] MEDS: Doxycycline 100 MG in Sodium Chloride 0.9% 100 ML IV SCH (01:09)
[2020-01-11] MEDS: Magnesium Sulfate/Water 2 GM in Premix Bag 1 BAG IV SCH ×4 (02:16→19:20)
[2020-01-11] MEDS: Albuterol/Ipratropium 3.0-0.5 MG/3 ML Neb Soln INH SCH ×4 (07:13→20:57)
[2020-01-11] MEDS: Glycopyrrolate 15.6 MCG Cap.W.Dev Kit of 6 IH SCH ×2 (07:30→20:51)
[2020-01-11] MEDS: Fluticasone-Salmeterol 232-14 MCG Powder Inhalent INH SCH ×2 (07:30→20:51)
[2020-01-11] MEDS ORDERED: Magnesium Hydroxide 400 MG/5 ML Susp 30 ML Cup PO PRN (08:17)
[2020-01-11] MEDS: Bisacodyl 5 MG Tab PO SCH ×2 (08:30→20:51)
[2020-01-11] MEDS ORDERED: Dextrose 5%-Lactated Ringers 1,000 ML IV SCH (08:30)
[2020-01-11] MEDS: Theophylline 300 MG Tab.ER PO SCH ×2 (08:31→20:51)
[2020-01-11] MEDS: FLUoxetine 20 MG Cap PO SCH (08:31)
[2020-01-11] MEDS: Gabapentin 300 MG Cap PO SCH ×3 (08:31→20:51)
[2020-01-12] MEDS: Magnesium Sulfate/Water 2 GM in Premix Bag 1 BAG IV SCH (02:34)
[2020-01-12] MEDS: HYDROmorphone/Normal Saline 15 MG/30 ML PCA IV SCH (04:41)
[2020-01-12] MEDS: Glycopyrrolate 15.6 MCG Cap.W.Dev Kit of 6 IH SCH (06:59)
[2020-01-12] MEDS: Fluticasone-Salmeterol 232-14 MCG Powder Inhalent INH SCH (06:59)
[2020-01-12] MEDS: Albuterol/Ipratropium 3.0-0.5 MG/3 ML Neb Soln INH SCH ×2 (06:59→10:44)
[2020-01-12] MEDS ORDERED: HYDROmorphone 2 MG Tab PO PRN (07:28)
[2020-01-12] MEDS: Acetaminophen 325 MG Tab PO SCH (08:42)
[2020-01-12] MEDS: Gabapentin 300 MG Cap PO SCH (08:48)
[2020-01-12] MEDS: FLUoxetine 20 MG Cap PO SCH (08:48)
[2020-01-12] MEDS: Bisacodyl 5 MG Tab PO SCH (08:48)
[2020-01-12] MEDS: Theophylline 300 MG Tab.ER PO SCH (08:48)
[2020-01-12 09:43] VITALS: BP 122/73; PULSE 107
--- NOTE | 2020-01-12 13:46 | PN ---
DATE OF SERVICE: 01/11/2020 The patient has been afebrile with stable vital signs. She does have some abdominal discomfort primarily along the incision. Otherwise, appeared to be tolerating tube feedings fairly well. We will finish off the present tube feeding bottle at 42 mL/h rate later today, and then restart the tube feedings at the 62 mL/hour rate for the 12-hour period beginning at 1900. We will leave the BUS AND TROLLEY DISPATCHER going for today and try getting over the oral pain medication tomorrow prior to her discharge home. Wellington Najera MD /[id number]
--- NOTE | 2020-01-12 15:10 | DISCH ---
ADMISSION DIAGNOSES: Severe weight loss, malnutrition, status post Domingo-en-Y gastric bypass surgery, unspecified surgical malabsorption, B12 deficiency, acute on chronic respiratory failure with hypoxia, COPD, chronic airway obstruction, depression disorder, and chronic back pain. ADMISSION WEIGHT: 81 pounds. DISCHARGE DIAGNOSES: Mini laparotomy with formation of tube gastrostomy and placement of Interceed mesh for worsening malnutrition and extensive intraabdominal adhesions. Date of surgery: 01/09/2020. Surgeon: Wellington Najera MD. HISTORY: Uzair Silverman is a pleasant 54-year-old female, who continued to lose weight and worsening malnutrition. After preoperative evaluation and discussion of possible risks and possible complications, she wished to proceed with surgical procedure. HOSPITAL COURSE: Uzair had her surgery on 01/09/2020. She had no operative complications. On postoperative day #1, her gastrostomy tube feedings were started and they were continued for 24 hours. On postoperative day #2, the gastrostomy tube feedings were started at 6 p.m. at 62 mL per hour and was gradually increased and when it got up to 80 mL per hour, she developed some bloating and distention, so it was decreased to 62 mL per hour. She plans to be discharged to home in stable condition. Pain has been well managed. Vital signs have been stable. She has been afebrile. Oral intake 1710, urine output 2400, and she has had 891 mL in per gastrostomy tube and water through her gastrostomy tube was 240 mL. On postoperative day #3, she was able to be discharged to home with home health care. PHYSICAL EXAMINATION: GENERAL: Uzair Silverman is a 54-year-old female. VITAL SIGNS: Height is 5 feet 1.81 inches, weight is 23 pounds 2 ounces. TPR at 2:30; 98.2, 102, 18, blood pressure 101/73. HEENT: Negative. NECK: Supple. HEART: Regular rate and rhythm. LUNGS: Clear. ABDOMEN: Rounded and a little bit distended. She reports tenderness in the incision area and continued tenderness in the right mid to upper quadrant where the CORNELIUS drain was removed prior to this surgery for placement of gastrostomy tube. Dressings are dry and intact, Aquacel dressings. G-tube looks good. EXTREMITIES: Without peripheral edema. DISPOSITION: Discharge to home with home health care. CONDITION: Stable and improving. FOLLOWUP APPOINTMENT: Radha Pat PA-C, 01/19/2020 and 9:30 a.m. HOME MEDICATIONS: Dilaudid 2 mg every 4 hours p.r.n. pain #28; Dulcolax 10 mg tablets p.o. b.i.d. #60; Colace 100 mg p.o. b.i.d. p.r.n. #60; MiraLAX 17 g p.o. b.i.d. p.r.n. #60. She is to resume home medications: Theophyline 300 mg p.o. q.12 hours; Zofran 4 mg every 8 hours p.r.n. nausea; multivitamin 1 tablet daily; Advair 500/50 one puff b.i.d.; Spiriva HandiHaler 1 capsule p.o. daily; Nitrostat 0.4 mg sublingual as directed; Narcan 4 mg nasal spray as directed; Neurontin 300 mg p.o. t.i.d.; fluoxetine 20 mg p.o. daily; vitamin D2 1250 mcg p.o. Sunday, Sunday, Sunday; DuoNeb 3 mL neb every 4 hours p.r.n.; Ventolin inhaler 2 puffs inhalation every 3 hours p.r.n.; Tylenol Extra Strength 1000 mg p.o. b.i.d. DISCHARGE INSTRUCTIONS: 1. Diet: Step 4 gastric bypass diet. Drink 8 to 10 glasses of water a day. 2. Activity: Walk at least 6 times inside your home. 3. Driving: Do not drive for 1 week and p.r.n. 4. Shower/bathing: May shower. Keep operative site clean and dry. 5. Take Aquacel dressing off on , 01/15/2020. 6. Wear abdominal binder if tolerated. SPECIAL INSTRUCTIONS: 1. Notify provider if any fever, increased pain, nausea, or vomiting. 2. Use incentive spirometer 10 times every hour while awake. 3. Gastrostomy tube feedings: See separate order. Run at 62 mL per hour for 14 hours, may increase to 80 mL per hour if tolerated for 12 hours.
--- NOTE | 2020-01-12 15:37 | OR ---
DATE OF PROCEDURE: 01/09/2020 SURGEON: Wellington Najera MD PREOPERATIVE DIAGNOSES: 1. Worsening malnutrition status post Domingo-en-Y gastric bypass. 2. Extensive intraabdominal adhesions. OPERATIVE PROCEDURE: Laparotomy with: 1. Formation of tube gastrostomy (08839). 2. Placement of Interceed mesh underneath the pelvic and abdominal pineda to limit recurrent adhesion formation between those surfaces and underlying viscera (78647). ANESTHESIA: General. CRIMINALIST TECHNICIAN: Radha Pat PA-C INDICATIONS FOR PROCEDURE: This is a 54-year-old status post Domingo-en-Y gastric bypass suffering from worsening malnutrition, despite recent reconstruction in her belly, and otherwise eats fairly well. Given this, she is here to undergo a tube gastrostomy. With recent upper abdominal surgery, would anticipate quite a bit of adhesion formation, so a small open incision will be planned. Potential risks including bleeding, infection, injury to underlying viscera, possible leaks from or around the gastrostomy tube were discussed, and the patient wishes to proceed. DETAILS OF PROCEDURE: The patient was taken to the operating room, placed in a supine position. After general endotracheal anesthesia was induced, the abdomen was prepped and draped. The incision between the xiphoid and just above the umbilicus was then reused, carried down through the full-thickness abdominal wall. Upon entering the peritoneal cavity, there were quite a bit in the way of adhesions. At this point, these were fairly easily dissected with blunt dissection, with the exception of some areas that needed electrocautery for the lysis of adhesions. Once these were taken down, the bypassed portion of the stomach was identified, and at the midportion of the greater curvature, a small gastrotomy was placed. 18-Lao Faith catheter was then brought through a stab wound left of the midline and placed into the lumen of the stomach, inflated with 10 mL of saline. Initial pursestring stitch around the gastrostomy site with 3-0 Vicryl stitch was placed. This stitch was then continued to initially fix the stomach up against the abdominal wall. 4 additional 3-0 Vicryl seromuscular stitches to the stomach were then placed and used to fix the G-tube up against the abdominal wall, and a tongue of omentum was then placed and sutured around the gastrostomy site as well. At this point, no further problems were noted. The abdomen was irrigated with meropenem-containing saline solution. Bilateral subcostal transversus abdominis plane blocks were then placed. To minimize recurrent adhesion formation, Interceed mesh was placed underneath the present incision and from there down toward the pelvis, and the midline fascia was then approximated with #2 Vicryl stitch, subcutaneous tissue with some 3-0 Vicryl stitch, and the skin with eric. Dressing was applied. The patient was taken to the recovery room in satisfactory condition. Physician fitness assistant, Radha Pat, played an essential role in assisting in this case, helping to position the patient, retract structures as needed, as well as suturing and cutting sutures when indicated. Her presence improved patient safety and decreased operative time. Wellington Najera MD /[id number]
== END 2020-01-12 11:10 | disposition home health service (06) | DRG 628 ==
LOC: JP.SDSSCHI 01-09 08:48 → JP.SDS 01-09 09:33 → EDSTATUS 01-09 12:00 → JP.MS 01-09 16:00
PROVIDERS: ADMIT Surgery; ATTEND Surgery
PROC: 0DH60UZ Insertion of Feeding Device into Stomach, Open Approach (ICD-10-PCS; principal; 2020-01-09)
PROC: 3E0M05Z Introduction of Adhesion Barrier into Peritoneal Cavity, Open Approach (ICD-10-PCS; 2020-01-09)
PROC: 3E0G76Z Introduction of Nutritional Substance into Upper GI, Via Natural or Artificial Opening (ICD-10-PCS; 2020-01-09)
DX: E46 Unspecified protein-calorie malnutrition (principal); J96.01 Acute respiratory failure with hypoxia; Z98.84 Bariatric surgery status; K66.0 Peritoneal adhesions (postprocedural) (postinfection); E53.8 Deficiency of other specified B group vitamins; E53.9 Vitamin B deficiency, unspecified; E55.9 Vitamin D deficiency, unspecified; J44.9 Chronic obstructive pulmonary disease, unspecified; Z90.710 Acquired absence of both cervix and uterus; Z79.899 Other long term (current) drug therapy; F32.9 Major depressive disorder, single episode, unspecified; G89.29 Other chronic pain; M54.9 Dorsalgia, unspecified
CPT/HCPCS: 36415; 80048; 80053; 83550; 83735; 84100; 85025; 85027; 94640; 94762; A9270-GY; J0171; J0330; J1100; J1170; J2185; J2405; J2704; J2710; J2795; J3010; J3410; J3411; J3475; J3490; J7050; J7120; J7121; J7620-GY

== ENCOUNTER 2020-12-03 07:08 | Inpatient (IN) | payer MEDICARE, MEDICAID ==
[~2020-12-03 07:08] MED LIST changes: -Albuterol/Ipratropium 3.0-0.5 MG/3 ML Neb Soln NEB ONE; +Bupivacaine 0.5% 50 ML MDV ONE; +Celecoxib 200 MG Cap PO ONE; -Dexamethasone 4 MG/ML SDV ONE; -Dextrose 5%-Lactated Ringers 1,000 ML IV SCH; -Doxycycline 100 MG in Sodium Chloride 0.9% 100 ML IV ONE; -Glycopyrrolate 0.2 MG/ML 5 ML MDV ONE; +Lidocaine 1% with EPINEPHrine 1:100,000 50 ML MDV ONE; +Meropenem 500 MG SDV ONE; -Neostigmine Methylsulfate 1 MG/ML 5 ML Syringe ONE; -Ondansetron 4 MG/2 ML SDV ONE; -Propofol 200 MG/20 ML SDV ONE; -Rocuronium 50 MG/5 ML Vial ONE; -Succinylcholine 200 MG/10 ML MDV ONE; -fentaNYL 250 MCG/5 ML SDV ONE
[2020-12-03] MEDS ORDERED: Dexamethasone 4 MG/ML SDV ONE (07:12)
[2020-12-03] MEDS ORDERED: Neostigmine Methylsulfate 1 MG/ML 5 ML Syringe ONE (07:12)
[2020-12-03] MEDS ORDERED: Glycopyrrolate 0.2 MG/ML 5 ML MDV ONE (07:12)
[2020-12-03] MEDS ORDERED: Ondansetron 4 MG/2 ML SDV ONE (07:12)
[2020-12-03] MEDS ORDERED: Propofol 200 MG/20 ML SDV ONE (07:12)
[2020-12-03] MEDS ORDERED: fentaNYL 250 MCG/5 ML SDV ONE ×2 (07:12→10:16)
[2020-12-03] MEDS ORDERED: Succinylcholine 200 MG/10 ML MDV ONE (07:12)
[2020-12-03] MEDS ORDERED: Rocuronium 50 MG/5 ML Vial ONE (07:12)
[2020-12-03] MEDS ORDERED: Dextrose 5%-Lactated Ringers 1,000 ML IV SCH (07:30)
[2020-12-03] MEDS ORDERED: Naloxone 0.4 MG/ML SDV IVPUSH PRN (07:35)
[2020-12-03] MEDS ORDERED: HYDROmorphone/Normal Saline 15 MG/30 ML PCA IV PRN (07:35)
[2020-12-03] MEDS ORDERED: Albuterol/Ipratropium 3.0-0.5 MG/3 ML Neb Soln NEB ONE (08:30)
[2020-12-03] MEDS ORDERED: Meropenem 500 MG in Sodium Chloride 0.9% 50 ML IV ONE (08:45)
[2020-12-03] MEDS ORDERED: Ketamine 50 MG in Sodium Chloride 0.9% 49.5 ML IV SCH (09:00)
[2020-12-03] MEDS ORDERED: Ketamine 500 MG/5 ML MDV IV SCH (09:00)
[2020-12-03] MEDS ORDERED: SODIUM CHLORIDE 0.9% NERVRT SCH ×4 (09:00)
[2020-12-03] MEDS ORDERED: ROPIVACAINE NERVRT SCH ×4 (09:00)
[2020-12-03] MEDS ORDERED: DEXAMETHASONE NERVRT SCH ×4 (09:00)
[2020-12-03] MEDS ORDERED: Magnesium Sulfate 2 GM in Sodium Chloride 0.9% 250 ML IV ONE (09:00)
[2020-12-03] MEDS ORDERED: EPINEPHRINE NERVRT SCH ×4 (09:00)
[2020-12-03] MEDS ORDERED: Lactated Ringers 1,000 ML ONE (10:35)
[2020-12-03] MEDS ORDERED: Naloxone 0.4 MG/ML SDV ONE (11:08)
[2020-12-03] MEDS ORDERED: Cyclobenzaprine 10 MG Tab PO PRN (12:45)
[2020-12-03] MEDS ORDERED: Albuterol/Ipratropium 3.0-0.5 MG/3 ML Neb Soln INH PRN (12:52)
[2020-12-03] MEDS ORDERED: Metoclopramide 10 MG/2 ML SDV IVPUSH PRN (13:00)
[2020-12-03] MEDS ORDERED: diphenhydrAMINE 50 MG/ML SDV IVPUSH PRN (13:00)
[2020-12-03] MEDS ORDERED: hydrOXYzine HCL 100 MG/2 ML SDV IM PRN (13:00)
[2020-12-03] MEDS ORDERED: Ondansetron 4 MG/2 ML SDV IVPUSH PRN (13:00)
[2020-12-03] MEDS ORDERED: Labetalol 20 MG/4 ML Syringe IVPUSH PRN (13:00)
[2020-12-03] MEDS ORDERED: Calcium Gluconate 10% 1 GM/10 ML SDV IVPUSH PRN (13:00)
[2020-12-03] MEDS ORDERED: Acetaminophen 500 MG Tab PO PRN (13:00)
[2020-12-03] MEDS ORDERED: Nitroglycerin 0.4 MG Tab.SL SL PRN (13:02)
[2020-12-03] MEDS ORDERED: Pantoprazole 40 MG Vial IVPUSH SCH (14:00)
[2020-12-03] MEDS: Acetaminophen 500 MG Tab PO SCH ×2 (14:18→21:03)
[2020-12-03] MEDS: Gabapentin 300 MG Cap PO SCH ×2 (14:18→20:55)
[2020-12-03] MEDS: Sodium Ferric Gluconate Cmplex 250 MG in Sodium Chloride 0.9% 100 ML IV SCH (14:36)
[2020-12-03] MEDS: Albuterol/Ipratropium 3.0-0.5 MG/3 ML Neb Soln INH SCH ×2 (14:45→20:51)
[2020-12-03] MEDS: Dextrose 5%-Lactated Ringers 1,000 ML IV SCH (15:59)
[2020-12-03] MEDS: Meropenem 500 MG in Sodium Chloride 0.9% 50 ML IV SCH ×2 (16:03→21:10)
[2020-12-03] MEDS ORDERED: MVI, Adult with Vitamin K 10 ML, Thiamine 200 MG, Zinc/Copper/Manganese/Selenium 1 ML i... IV SCH ×4 (18:00)
[2020-12-03] MEDS: Formoterol/Mometasone 200-5 MCG 8.8 GM Inhaler IH SCH (20:55)
[2020-12-03] MEDS: Theophylline 100 MG Cap.ER PO SCH (20:55)
[2020-12-04] MEDS: Dextrose 5%-Lactated Ringers 1,000 ML IV SCH ×2 (00:18→09:22)
[2020-12-04] MEDS: Iopamidol 612 MG/ML 50 ML SDV PO ONE ×2 (02:44→06:47)
[2020-12-04] MEDS: Meropenem 500 MG in Sodium Chloride 0.9% 50 ML IV SCH ×4 (03:40→21:55)
[2020-12-04] MEDS: Acetaminophen 500 MG Tab PO SCH ×3 (05:23→21:54)
[2020-12-04] MEDS: Formoterol/Mometasone 200-5 MCG 8.8 GM Inhaler IH SCH ×2 (07:19→21:55)
[2020-12-04] MEDS: Tiotropium Bromide 4 GM Inhalation Spray (2.5mcg/1 dose; 10 doses) INH SCH (07:20)
[2020-12-04] MEDS: Albuterol/Ipratropium 3.0-0.5 MG/3 ML Neb Soln INH SCH ×4 (07:20→21:52)
[2020-12-04] MEDS: Celecoxib 200 MG Cap PO SCH ×2 (08:04→21:54)
[2020-12-04] MEDS: Gabapentin 300 MG Cap PO SCH ×3 (08:06→21:54)
[2020-12-04] MEDS: Theophylline 100 MG Cap.ER PO SCH ×2 (08:06→22:07)
[2020-12-04] MEDS ORDERED: FLUoxetine 20 MG Cap PO SCH ×2 (09:00→21:00)
[2020-12-04] MEDS: Acetaminophen/HYDROcodone 325-5 MG Tab PO PRN ×3 (09:28→23:55)
[2020-12-04] MEDS: Sodium Ferric Gluconate Cmplex 250 MG in Sodium Chloride 0.9% 100 ML IV SCH (13:29)
[2020-12-04] MEDS ORDERED: Pantoprazole 40 MG Delayed-Release Granules 1 Packet PO SCH (16:30)
[2020-12-04] MEDS ORDERED: MVI, Adult with Vitamin K 10 ML, Thiamine 200 MG, Zinc/Copper/Manganese/Selenium 1 ML i... IV SCH ×4 (18:00)
[2020-12-05] MEDS: Dextrose 5%-Lactated Ringers 1,000 ML IV SCH (04:44)
[2020-12-05] MEDS: Acetaminophen/HYDROcodone 325-5 MG Tab PO PRN ×2 (05:18→09:59)
[2020-12-05] MEDS: Acetaminophen 500 MG Tab PO SCH (05:19)
[2020-12-05 07:10] VITALS: BP 93/61; PULSE 84
[2020-12-05] MEDS: Tiotropium Bromide 4 GM Inhalation Spray (2.5mcg/1 dose; 10 doses) INH SCH (07:24)
[2020-12-05] MEDS: Albuterol/Ipratropium 3.0-0.5 MG/3 ML Neb Soln INH SCH (07:24)
[2020-12-05] MEDS: Formoterol/Mometasone 200-5 MCG 8.8 GM Inhaler IH SCH (07:24)
[2020-12-05] MEDS: Gabapentin 300 MG Cap PO SCH (08:05)
[2020-12-05] MEDS: Theophylline 100 MG Cap.ER PO SCH (08:05)
[2020-12-05] MEDS: Celecoxib 200 MG Cap PO SCH (08:05)
[2020-12-05] MEDS ORDERED: Cyanocobalamin (Vitamin B12) 1,000 MCG/ML SDV IM ONE (09:00)
--- NOTE | 2020-12-05 11:38 | DISCH ---
FINAL DIAGNOSES: 1. Partial small bowel obstruction at jejunojejunostomy. 2. Chronic intussusception at previous ileo to transverse colon anastomosis. 3. Status post previous gastrostomy. 4. Bariatric surgery status. 5. History of chronic obstructive pulmonary disease. 6. History of depression. 7. Chronic back pain. 8. Iron-deficiency status. OPERATIVE PROCEDURES: Done on 12/03, exploratory laparotomy with lysis of adhesions and: 1. Revision of jejunojejunostomy component of Domingo-en-Y gastric bypass. 2. Distal small bowel resection with attached proximal transverse colon resection. 3. Surgical takedown of gastrostomy. SUMMARY: This 55-year-old female presenting with partial small bowel obstruction. Findings on CT scan, she had intussusception area of the previous ileocolic anastomosis. She was also noted to have some stricturing at the previous jejunojejunostomy which was revised. Previous ileocolic anastomosis was resected and the patient had surgical takedown of gastrostomy site to facilitate overall dissection within the abdomen. The patient also had an Interceed mesh placed to displace pelvic and abdominal wall from underlying viscera. Preoperatively, she was noted to have a low ferritin and was given 2 doses of IV iron during the hospitalization. Postoperatively, she is tolerating diet and Angora for pain. She is also on Celebrex 200 mg a day and will be discharged home with that for the next month with Angora 5/325 1 to 2 tablets q.6 hours p.r.n. pain, #50. Otherwise, she will be on her usual medications. Follow up with Radha Pat in [facility] on 12/13/2020. /[id number]
--- NOTE | 2020-12-05 11:46 | PN ---
DATE OF SERVICE: 12/04/2020 The patient has been afebrile with stable vital signs. The pain control is fairly good. We will switch over to oral [place] today and a step 3 diet and back down the IV rate. She will be getting a second IV iron infusion later today. Plan will be to discharge home tomorrow. Wellington Najera MD /[id number]
--- NOTE | 2020-12-06 09:20 | CR ---
[employer] HISTORY: Postbariatric surgery FINDINGS: Patient swallowed water-soluble contrast. Upright views of the abdomen show no evidence of extravasation or obstruction. IMPRESSION: Status post bariatric surgery No extravasation or obstruction seen
--- NOTE | 2020-12-09 07:23 | OR ---
DATE OF PROCEDURE: 12/03/2020 SURGEON: Wellington Najera MD PREOPERATIVE DIAGNOSIS: Partial small bowel obstruction. POSTOPERATIVE DIAGNOSES: 1. Partial small bowel obstruction at jejunojejunostomy. 2. Intussusception occurring at the previous ileotransverse colon anastomosis. 3. Previous gastrostomy. OPERATIVE PROCEDURES: Exploratory laparotomy with lysis of adhesions. 1. Revision of the jejunojejunostomy component of Domingo-en-Y gastric bypass (39343). 2. Resection of ileocolic anastomosis involving this dissection including distal small- bowel obstruction and proximal transverse colon resection (40084, 77424). 3. Surgical takedown of gastrostomy (85170). 4. Placement of Interceed mesh to limit recurrent adhesion formation between abdominal wall and underlying viscera (56929). ANESTHESIA: General. ASSISTANTS: Radha Pat PA-C and CAYDEN King. INDICATION FOR PROCEDURE: The patient is status post previous Domingo-en-Y bypass presenting with recurrent picture of partial small bowel obstruction. The plan is to proceed with exploratory laparotomy. Preoperative evaluation revealed an area of intussusception in the small bowel or possibly the small bowel through previous transverse colon anastomotic site. Plan is to proceed with exploratory laparotomy with lysis of adhesions and bowel resection as indicated. Potential risks of procedure including bleeding, infection, leaks from various GI tract closures, problems with bowel obstruction recurring over time as well as remote possibility of cardiopulmonary, septic, or hemorrhagic complications leading to were all discussed, and the patient wishes to proceed. DETAILS OF PROCEDURE: The patient was taken to the operating room and placed in a supine position. After general endotracheal anesthesia was induced, a Faith catheter was inserted, and the abdomen prepped and draped. The previous upper midline incision was then reused and carried down through the skin and subcutaneous tissue. Upon entering the peritoneal cavity, general exploration was undertaken. There were adhesions present and these were taken down with a combination of blunt and cautery dissection. Eventually, the pathology revealed a narrowed area of the jejunojejunostomy of Domingo limb entered and then a markedly thickened area of bowel noted in the previous ileal to transverse colon anastomosis. This was the location consistent with what was seen preoperatively as edematous bowel involvement in intussusception process. The patient also had a previous tube gastrostomy which was taken down to facilitate adequate generalized dissection. At this point, the jejunojejunostomy component of the Domingo-en-Y gastric bypass was revised with flipping the distal most Domingo limb over onto the common limb and after enterotomies were placed and internal firing of the ROBBIE blevins load 60 mm followed by 30 mm blevins load were placed and the remaining opening closed with a ROBBIE purple load. The angles of anastomosis were reinforced with some 3-0 Vicryl stitch and in this case no mesenteric defect was present. At that point, the distal small bowel adjacent to the ileocolic anastomosis was divided as was the proximal remaining transverse colon with ROBBIE eric and underlying mesentery divided with eric as well. The ileocolic anastomosis reconstructed with 2 internal firings of the Endo-ROBBIE 60 mm stapler. Common opening was closed transversely with purple load and the angles anastomosed and mesenteric defect approximated with some 3-0 Vicryl stitch. Finally, during the course of the dissection, the gastrostomy tube site was taken down essentially removing the point where the stomach was adherent to the abdominal wall initially and then removing a small amount of the stomach to provide a satisfactory site of closure and the specimen delivered from the field. At this point, the abdomen was irrigated with meropenem-containing saline solution. The Interceed mesh was placed underneath the incision and from there down toward the pelvis to limit recurrent adhesion formation. The midline fascia was then approximated with #2 Vicryl stitch and the subcutaneous tissue with 2 layers of 3-0 and 4-0 Vicryl stitch, and the skin with eric. Prior to closure, bilateral transverse abdominis plane blocks were placed and the patient was taken to the recovery room in satisfactory condition. There were no evident complications. Physician Antique Collector, Radah Pat, played an essential role in assisting in this case, helping to position the patient, retract structures as needed, as well as suturing and cutting sutures when indicated. Her presence improved patient safety and decreased operative time. Wellington Najera MD /[id number]
== END 2020-12-05 10:00 | disposition home or self-care (01) | DRG 327 ==
LOC: JP.MS 07:08 → JP.SDS 07:08 → EDSTATUS 07:15 → JP.MS 12:15
PROVIDERS: ADMIT Surgery; ATTEND Surgery
PROC: 0D160ZA Bypass Stomach to Jejunum, Open Approach (ICD-10-PCS; principal; 2020-12-03)
PROC: 0DBL0ZZ Excision of Transverse Colon, Open Approach (ICD-10-PCS; 2020-12-03)
PROC: 0DB80ZZ Excision of Small Intestine, Open Approach (ICD-10-PCS; 2020-12-03)
PROC: 3E0M05Z Introduction of Adhesion Barrier into Peritoneal Cavity, Open Approach (ICD-10-PCS; 2020-12-03)
DX: K95.89 Other complications of other bariatric procedure (principal); K56.600 Partial intestinal obstruction, unspecified as to cause; K56.1 Intussusception; J44.9 Chronic obstructive pulmonary disease, unspecified; F32.9 Major depressive disorder, single episode, unspecified; G89.29 Other chronic pain; M54.9 Dorsalgia, unspecified; D50.9 Iron deficiency anemia, unspecified; Z79.899 Other long term (current) drug therapy; Z88.1 Allergy status to other antibiotic agents; Z93.1 Gastrostomy status; Z98.84 Bariatric surgery status; Z91.048 Other nonmedicinal substance allergy status; Z88.5 Allergy status to narcotic agent; Z88.0 Allergy status to penicillin; Z88.2 Allergy status to sulfonamides; Z91.030 Bee allergy status
CPT/HCPCS: 74240; 74240-26; 88305; 88307; 93005; 94640; 94667; 94668; A9270-GY; C9113; J0171; J0330; J1100; J1170; J2185; J2310; J2405; J2704; J2710; J2795; J2916; J3010; J3410; J3411; J3420; J3475; J3490; J7050; J7120; J7121; J7620-GY; Q9967

== ENCOUNTER 2021-02-28 07:12 | Inpatient (IN) | payer MEDICARE, MEDICAID ==
[2021-02-28] MEDS ORDERED: Acetaminophen 650 MG Supp RECTAL PRN (12:57)
[2021-02-28] MEDS ORDERED: Ondansetron 4 MG Tab.DIS PO PRN (12:58)
[2021-02-28] MEDS ORDERED: Dextrose 5%-Lactated Ringers 1,000 ML IV SCH (13:00)
[2021-02-28] MEDS ORDERED: Albuterol 8 GM Inhaler INH PRN (15:02)
[2021-02-28] MEDS: Acetaminophen 325 MG Tab PO PRN ×2 (15:24→22:27)
[2021-02-28] MEDS: Fat Emulsion 250 ML IV SCH (17:20)
[2021-02-28] MEDS: 1: AA 5%/Calcium/D15W/Lytes 1,000 ML with MVI, Adult with Vitamin K 10 ML, Zinc/Copper/M IV SCH ×3 (17:20)
[2021-02-28] MEDS: Gabapentin 300 MG Cap PO SCH ×2 (17:31→22:21)
[2021-02-28] MEDS: Pantoprazole 40 MG Tab.CR PO SCH (17:31)
[2021-02-28] MEDS: Albuterol/Ipratropium 3.0-0.5 MG/3 ML Neb Soln INH PRN (17:40)
[2021-02-28] MEDS: Albuterol/Ipratropium 3.0-0.5 MG/3 ML Neb Soln INH SCH ×2 (20:14)
[2021-02-28] MEDS: Formoterol/Mometasone 200-5 MCG 8.8 GM Inhaler IH SCH (20:14)
[2021-02-28] MEDS: Theophylline 100 MG Cap.ER PO SCH (20:16)
[2021-03-01] MEDS: Albuterol/Ipratropium 3.0-0.5 MG/3 ML Neb Soln INH SCH ×6 (03:04→21:51)
[2021-03-01] MEDS: Gabapentin 300 MG Cap PO SCH ×4 (05:01→21:51)
[2021-03-01] MEDS: Acetaminophen 325 MG Tab PO PRN ×3 (05:40→14:13)
[2021-03-01] MEDS ORDERED: Dextrose 5%-Lactated Ringers 1,000 ML IV SCH (06:44)
[2021-03-01] MEDS ORDERED: Central Total Parenteral Nutrition Bag SCH (06:45)
[2021-03-01] MEDS: 1: AA 5%/Calcium/D15W/Lytes 1,000 ML with MVI, Adult with Vitamin K 10 ML, Zinc/Copper/M IV SCH ×6 (06:46→19:14)
[2021-03-01] MEDS ORDERED: Thiamine 100 MG in Sodium Chloride 0.9% 100 ML IV ONE ×2 (06:51→09:00)
[2021-03-01] MEDS ORDERED: Fat Emulsion 100 ML IV SCH (07:00)
[2021-03-01] MEDS ORDERED: Pantoprazole 40 MG Tab.CR PO SCH (07:30)
[2021-03-01] MEDS: Tiotropium Bromide 4 GM Inhalation Spray (2.5mcg/1 dose; 10 doses) INH SCH (08:04)
[2021-03-01] MEDS: Formoterol/Mometasone 200-5 MCG 8.8 GM Inhaler IH SCH ×2 (08:04→20:53)
--- NOTE | 2021-03-01 08:04 | PN ---
DATE OF SERVICE: 03/01/2021 SUBJECTIVE: Uzair states that she slept well. She did have a temperature on 02/28/2021 at 2221 hours of 101.1. She was given Tylenol and it did go down to 100.2, and at 3 a.m., it was 99.8. Reports difficulty breathing. States she usually takes her medications for her lungs right away when she gets up and she reports it being quite humid in her room. History of COPD. PICC line was placed yesterday. TPN is running without difficulty. Labs were reviewed from admission. Her potassium is 3.2. Hemoglobin 12.5, calcium 8.1, alkaline phos is 147. Phosphorus and magnesium within normal limits. REVIEW OF SYSTEMS: Remainder of review of systems negative for any pertinent positives and negatives. OBJECTIVE: GENERAL: Uzair Silverman is a pleasant 56-year-old female. VITAL SIGNS: Height is 5 feet 2 inches, weight is 79 pounds. BMI 14.4. TPR: 99.8, 107, 18. Blood pressure 97/67. HEENT: Negative. NECK: Supple. HEART: Regular rate and rhythm. LUNGS: She has chest breathing. Lungs revealed decreased breath sounds in bases. There is no wheezing and there is rhonchi with coughing. ABDOMEN: Soft and nontender. EXTREMITIES: Negative. NEUROLOGIC: Intact. PSYCHIATRIC: Mood and affect appropriate. ASSESSMENT: 1. Severe malnourishment. 2. Adult BMI 14.4. 3. Diarrhea, unspecified type. 4. Chronic obstructive pulmonary disease, oxygen dependent. 5. Protein-calorie malnutrition. 6. Intestinal malabsorption. 7. History of Domingo-en-Y gastric bypass surgery. 8. B12 deficiency. 9. Vitamin B complex deficiency. 10.Vitamin D deficiency. 11.History of smoking. Current use is 6 to 7 daily. PLAN: 1. Continue same TPN rate and content. Continue lipids. 2. Check C difficile on stool sample today. 3. Check CBC, CMP, mag, phos, theophylline level in a.m. 4. D5 LR TKO. 5. K-Phos 45 millimoles IV 1 time today. 6. Check urine. 7. Incentive spirometer use every hour 10 times while awake. 8. Thiamine 100 mg IV. 9. Communication order written to change morning medications to her home routine. 10.Plan is to continue with TPN and monitor labs and have surgery for reversal of Domingo-en- Y tentatively scheduled for 03/04/2021. Radha Pat PA-C /[id number]
[2021-03-01] MEDS: Pantoprazole 40 MG Tab.CR PO SCH (08:05)
[2021-03-01] MEDS: FLUoxetine 20 MG Cap PO SCH (09:02)
[2021-03-01] MEDS: Theophylline 100 MG Cap.ER PO SCH ×2 (09:02→20:52)
--- NOTE | 2021-03-01 09:10 | CR ---
CHEST: Portable 02/28/2021 at 2:27 PM CLINICAL HISTORY:PICC line insertion COMPARISON:2019 FINDINGS: Lungs are diffusely emphysematous. There is a PICC line from the left upper extremity. Tip is at the superior vena caval junction region. There is no infiltrate pleural effusion or pneumothorax Impression: Severe emphysematous changes Left upper extremity PICC line in good position.
[2021-03-01] MEDS: Potassium Phos in 0.9 % NaCl 15 MMOL in Premix Bag 1 BAG IV SCH ×4 (10:27→15:38)
[2021-03-01] MEDS: Albuterol/Ipratropium 3.0-0.5 MG/3 ML Neb Soln INH PRN (13:13)
[2021-03-01] MEDS ORDERED: Albuterol 0.083% 2.5 MG/3 ML Neb Soln NEB PRN (14:47)
[2021-03-01] MEDS ORDERED: Furosemide 20 MG/2 ML VIAL IVPUSH ONE (15:00)
--- NOTE | 2021-03-01 15:05 | PCM.CONS ---
H&P History of Present Illness - General Date of Service: 03/01/21 Admit Problem/Dx: Admission Diagnosis/Problem Admission Diagnosis/Problem Malnutrition Source of Information: Patient, Old Records, Provider, RN Notes Reviewed History Limitations: Reports: No Limitations - History of Present Illness Initial Comments - Free Text/Narative: Ms. Silverman is a 56-year-old woman who I been asked to see by Dr. Najera concerning increased shortness of breath. Ms. Silverman was admitted to this facility yesterday because of progressive weight loss over the past few months. She is status post Domingo-en-Y gastric bypass surgery approximately 6 years ago. She did have surgery at this facility 3 months ago for small bowel obstruction. Since then has lost at least 15 pounds of weight despite the fact that she reports she is eating fairly well. She was admitted yesterday to start TPN prior to proceeding with surgery later in the week. Since admission she reports increased shortness of breath and did have temperature elevation to over 101 degrees during the night. She denies significant cough or sputum production. She has chronic upper abdominal pain but denies no chest pain or pressure. She has a known diagnosis of COPD and does require 2 L of oxygen continuously at home. With use of oxygen she is able to be relatively active. Today he has felt short of breath with even very minimal exertion and was unable to sleep last night because of shortness of breath. She does have a home ventilator system that she uses only intermittently. - Related Data Allergies/Adverse Reactions: Allergies Allergy/AdvReac Type Severity Reaction Status Date / Time adhesive tape Allergy Blisters Verified 12/03/20 07:34 cefdinir Allergy Rash Verified 12/03/20 07:34 codeine Allergy Rash Verified 12/03/20 07:34 latex Allergy Rash Verified 12/03/20 07:34 levofloxacin [From Levaquin] Allergy Rash Verified 12/03/20 07:34 Penicillins Allergy Rash Verified 12/03/20 07:34 Sulfa (Sulfonamide Allergy Rash Verified 12/03/20 07:34 Antibiotics) varenicline [From Chantix] Allergy Abdominal Verified 12/03/20 07:34 Pain venom-honey bee Allergy Swelling Verified 12/03/20 07:34 [bee venom (honey bee)] Home Medications: Home Meds Albuterol [Ventolin HFA] 2 puff INH Q3H PRN 09/16/15 [History] Fluticasone/Salmeterol [Advair 500-50] 1 puff INH BID 09/16/15 [History] Theophylline Anhydrous [Theochron] 300 mg PO Q12H 09/16/15 [History] Tiotropium [Spiriva HandiHaler] 1 cap PO DAILY 09/16/15 [History] Gabapentin [Neurontin] 300 mg PO TID 05/30/18 [History] ondansetron HCL [Zofran] 4 mg PO Q8H PRN 05/30/18 [History] Acetaminophen [Tylenol Extra Strength] 1,000 mg PO BID PRN 01/07/20 [History] Albuterol/Ipratropium [DuoNeb 3.0-0.5 MG/3 ML] 3 ml NEB Q4H PRN 01/07/20 [ History] FLUoxetine HCl [Prozac] 20 mg PO DAILY 01/07/20 [History] Nitroglycerin [Nitrostat] 0.4 mg SL ASDIRECTED 01/07/20 [History] Past Medical History HEENT History: Reports: Cataract, Glaucoma Cardiovascular History: Reports: NE Other Cardiovascular History: "minor heart attack a couple years ago" Respiratory History: Reports: COPD, Pneumonia, Recurrent, Other (See Below) Other Respiratory History: uses trilogy ventilator at night at home Gastrointestinal History: Reports: Cholelithiasis, GERD Other Gastrointestinal History: ' LAST BM 12/22/15 Genitourinary History: Reports: None [employer] History: Reports: Musculoskeletal History: Reports: Neck Pain, Chronic Neurological History: Reports: Headaches, Chronic Psychiatric History: Reports: Depression Endocrine/Metabolic History: Reports: None Hematologic History: Reports: Blood Transfusion(s) Immunologic History: Reports: None Oncologic (Cancer) History: Reports: None Dermatologic History: Reports: None - Infectious Disease History Infectious Disease History: Reports: Chicken Pox - Past Surgical History Head Surgeries/Procedures: Reports: None HEENT Surgical History: Reports: Cataract Surgery, Other (See Below) Other HEENT Surgeries/Procedures: wisdom tooth extraction Cardiovascular Surgical History: Reports: None Respiratory Surgical History: Reports: None GI Surgical History: Reports: Bariatric Procedure, Cholecystectomy, Colonoscopy, EGD, Other (See Below) Other GI Surgeries/Procedures: RNY 2016, feeding tube January 2020 and removed after 3 months Female Surgical History: Reports: Hysterectomy, Oophorectomy, Salpingo- Oophorectomy Endocrine Surgical History: Reports: None Neurological Surgical History: Reports: None Musculoskeletal Surgical History: Reports: Arthroscopic Knee Dermatological Surgical History: Reports: None Social & Family History - Family History HEENT: Reports: Cataract, Glaucoma Cardiac: Reports: Bypass, CAD, High Cholesterol, NE, Stent Respiratory: Reports: COPD GI: Reports: GERD : Reports: None OBGYN: Reports: None Musculoskeletal: Reports: RA Neurological: Reports: CVA Psychiatric: Reports: None Endocrine/Metabolic: Reports: Diabetes, Type I Hematologic: Reports: None Immunologic: Reports: None Dermatologic: Reports: None Oncologic: Reports: Other (See Below) Other Oncologic Family History: MOTHER HAD SOME KIND OF STOMACH CANCER - Tobacco Use Tobacco Use Status *Q: Current Every Day Tobacco User Years of Tobacco use: 25 Packs/Tins Daily: 0.2 - Caffeine Use Caffeine Use: Reports: Coffee, Soda, Tea Caffeine Use Comment: approx. 3 cups coffee/daily and 1 can pop daily - Alcohol Use Days Per Week of Alcohol Use: 1 Number of Drinks Per Day: 0 Total Drinks Per Week: 0 - Recreational Drug Use Recreational Drug Use: No - Living Situation & Occupation Living situation: Reports: , with Family Occupation: Disabled (lives with Erick and 8 children in age 19year to 17 month; foster and adopted) H&P Review of Systems - Review of Systems: Review Of Systems: See Below General: Reports: Fever, Chills, Malaise, Weakness, Weight Loss HEENT: Reports: No Symptoms Pulmonary: Reports: Shortness of Breath, Cough. Denies: Wheezing, Pleuritic Chest Pain, Sputum, Hemoptysis Cardiovascular: Reports: Dyspnea on Exertion. Denies: Chest Pain, Palpitations, Orthopnea, PND, Edema, Lightheadedness Gastrointestinal: Reports: Abdominal Pain, Diarrhea. Denies: Constipation, Difficulty Swallowing, Distension, Hematemesis, Hematochezia, Melena, Nausea, Vomiting Genitourinary: Reports: No Symptoms Musculoskeletal: Reports: No Symptoms Skin: Reports: No Symptoms Psychiatric: Reports: No Symptoms Neurological: Reports: No Symptoms Hematologic/Lymphatic: Reports: No Symptoms Immunologic: Reports: No Symptoms Exam - Exam Exam: See Below - Vital Signs Vital Signs: Last Vital Signs Temp 99.3 F 03/01/21 14:51 Pulse 118 H 03/01/21 14:51 Resp 24 H 03/01/21 14:51 BP 97/55 L 03/01/21 14:51 Pulse Ox 98 03/01/21 14:51 Weight: 81 lb 3.2 oz - Exam Quality Assessment: Supplemental Oxygen, Central Line/PICC, DVT Prophylaxis General: Alert, Oriented, Cooperative, Moderate Distress HEENT: Conjunctiva Clear, Hearing Intact, Normal Nasal Septum, Posterior Pharynx Clear, Pupils Equal. No: Mucosa Moist & [place]: Supple, Trachea Midline, +2 Carotid Pulse wo Bruit Lungs: Decreased Breath Sounds. No: Rales, Rhonchi, Wheezing Cardiovascular: Regular Rate, Regular Rhythm, Normal S1, Normal S2. No: Systolic Murmur, Diastolic Murmur GI/Abdominal Exam: Soft, No Organomegaly, Tender. No: Distended, Guarding, Rigid, Rebound Back Exam: Normal Inspection, Full Range of Motion Extremities: Non-Tender, No Pedal Edema Skin: Warm, Dry, Intact Neurological: Cranial Nerves Intact, Strength Equal Bilateral, Normal Speech, Normal Tone, Sensation Intact. No: Focal Deficit Neuro Extensive - Mental Status: Alert, Oriented x3, Normal Mood/Affect, Normal Cognition, Memory Intact - Patient Data Lab Results Last 24 hrs: Laboratory Results - last 24 hr 03/01/21 03/01/21 Range/Units 10:30 13:40 NT-Pro-B Natriuret Pep 180 H (5-125) pg/mL Urine Color Yellow (YELLOW) Urine Appearance Clear (CLEAR) Urine pH 7.0 (5.0-8.0) Ur Specific Moro 1.020 (1.008-1.030) Urine Protein Negative (NEGATIVE) mg/dL Urine Glucose (UA) Negative (NEGATIVE) mg/dL Urine Ketones Negative (NEGATIVE) mg/dL Urine Occult Blood Negative (NEGATIVE) Urine Nitrite Negative (NEGATIVE) Urine Bilirubin Negative (NEGATIVE) Urine Urobilinogen 0.2 (0.2-1.0) EU/dL Ur Leukocyte Esterase Trace H (NEGATIVE) Urine RBC Not seen (0-5) Urine WBC Not seen (0-5) Ur Epithelial Cells Not seen Amorphous Sediment Rare Urine Bacteria Not seen Urine Mucus Not seen Result Diagrams: 02/28/21 12:43 02/28/21 12:43 Maldonado Results Last 24 hrs: Microbiology 03/01/21 13:04 Clostridioides difficile (PCR) - Final Stool / Feces Sepsis Event Note - Evaluation Sepsis Screening Result: No Definite Risk - Focused Exam Vital Signs: Vital Signs Temp Pulse Resp BP Pulse Ox 03/01/21 14:51 99.3 F 118 H 24 H 97/55 L 98 03/01/21 13:14 99.0 F 03/01/21 13:00 85 24 H 95 03/01/21 10:02 98.0 F 112 H 18 93/55 L 95 03/01/21 07:00 98.3 F 98 18 97/61 96 03/01/21 03:06 99.8 F 107 H 18 97/67 96 *Q Meaningful Use (ADM) - VTE Risk Assess *Q Each Risk Factor Represents 1 Point: Age 41 - 59 years, Abnormal Pulmonary Function (COPD) Total Score 1 Point Risk Factors: 2 Each Risk Factor Represents 2 Points: None Total Score 2 Point Risk Factors: 0 Each Risk Factor Represents 3 Points: None Total Score 3 Point Risk Factors: 0 Each Risk Factor Represents 5 Points: None Total Score 5 Point Risk Factors: 0 Venous Thromboembolism Risk Factor Score *Q: 2 Consult PN Assessment/Plan Procedures: Procedures AIRWAY INHALATION TREATMENT (12/03/20) ASSAY OF FERRITIN (12/16/19) ASSAY OF MAGNESIUM (01/09/20) ASSAY OF NATRIURETIC PEPTIDE (12/16/19) ASSAY OF PHOSPHORUS (01/09/20) ASSAY THYROID STIM HORMONE (12/16/19) BLOOD GASES ANY COMBINATION (12/16/19) BLOOD TYPING SEROLOGIC ABO (09/20/15) BLOOD TYPING SEROLOGIC RH(D) (09/20/15) CHEST WALL MANIPULATION (12/03/20) CHEST WALL MANIPULATION (12/03/20) CHEST WALL MANIPULATION (12/16/19) CHEST WALL MANIPULATION (12/16/19) CHEST WALL MANIPULATION (05/30/18) CHEST WALL MANIPULATION (05/30/18) COMPLETE CBC AUTOMATED (01/09/20) COMPLETE CBC W/AUTO DIFF WBC (01/09/20) COMPREHEN METABOLIC PANEL (01/09/20) CT ABD & PELV W/CONTRAST (12/22/20) CT ANGIO ABDOM W/O & W/DYE (12/16/19) CT ANGIOGRAPHY CHEST (12/16/19) CULTURE OTHR SPECIMN AEROBIC (12/22/20) EGD DILATE STRICTURE (12/23/15) ELECTROCARDIOGRAM TRACING (12/03/20) IRON BINDING TEST (01/09/20) MEASURE BLOOD OXYGEN LEVEL (01/09/20) METABOLIC PANEL TOTAL CA (01/09/20) RBC ANTIBODY SCREEN (09/20/15) ROUTINE VENIPUNCTURE (01/09/20) SMEAR GRAM STAIN (12/22/20) TISSUE EXAM BY PATHOLOGIST (12/03/20) TISSUE EXAM BY PATHOLOGIST (12/03/20) WITHDRAWAL OF ARTERIAL BLOOD (05/30/18) X-RAY EXAM ABDOMEN 2 VIEWS (12/16/19) X-RAY EXAM CHEST 1 VIEW (12/16/19) X-RAY EXAM CHEST 2 VIEWS (12/16/19) X-RAY XM UPR GI TRC 1CNTRST (12/03/20) Problem List Initiated/Reviewed/Updated: Yes My Orders Last 24 Hours: My Active Orders 03/01/21 14:44 BIPAP Adult [RT BiPAP/CPAP] [RC] ASDIRECTED 03/01/21 14:47 RT Aerosol Therapy [RC] ASDIRECTED Albuterol [Proventil Neb Soln] 2.5 mg NEB Q4H PRN 03/01/21 14:56 CULTURE BLOOD [BC] Stat CULTURE BLOOD [BC] Stat Blood Culture x2 Reflex Set [OM.PC] Urgent 03/01/21 15:00 Albuterol/Ipratropium [DuoNeb 3.0-0.5 MG/3 ML] 3 ml INH QIDRT Doxycycline [Vibramycin] 100 mg Sodium Chloride 0.9% [Normal Saline] 100 ml IV Q12HR Furosemide [Lasix] 20 mg IVPUSH NOW ONE Meropenem [Merrem] 500 mg Sodium Chloride 0.9% [Normal Saline] 100 ml IV Q8H methylPREDNISolone Sod Succ [Solu-MEDROL] 40 mg IVPUSH Q6H Plan: ASSESSMENT AND RECOMMENDATIONS COPD EXACERBATION-likely secondary to underlying pulmonary infection. White blood cell count was normal on admission but she has had documented temperature elevation. She reports increased shortness of breath from baseline, but not much in the way of cough or sputum production. -Chest x-ray pending -Test for COVID-19 -Blood cultures pending -Nebulizer therapy with DuoNeb's and albuterol -Solu-Medrol 40 mg IV every 6 hours -IV antibiotic therapy; doxycycline and meropenem, she has a history of allergic reaction to penicillins, cephalosporins, and levofloxacin. RECENT WEIGHT LOSS-status post Domingo-en-Y gastric bypass surgery 6 years ago. Weight loss over the past 2 to 3 months, now down to 81 pounds. Other labs appear to be fairly good including her albumin level and vitamin levels except for folate acid which was found to be low. Plan at admission had been to proceed with surgery for reversal of her Domingo-en-Y gastric bypass. -Continue TPN -Hold on surgery until she is fully recovered from current respiratory compromise Requesting Provider: WLIBUR Date Consult Requested: 03/01/21 Reason for Consult: Acute on chronic respiratory compromise Patient History Reviewed: Yes Admission H&P Reviewed: Yes
[2021-03-01] MEDS: methylPREDNISolone Sodium Succinate 40 MG/1 ML SDV IVPUSH SCH ×2 (15:17→20:53)
--- NOTE | 2021-03-01 15:27 | CR ---
CHEST: 2 views CLINICAL HISTORY:SOB, COPD COMPARISON:02/28/2021 FINDINGS: Lungs are moderately emphysematous. No infiltrate effusion or pneumothorax is seen. Heart and pulmonary vascularity are normal. Patient has a PICC line in the left upper extremity. The tip has advanced into the right atrium from previous position at the superior vena caval atrial junction. Impression: Moderate emphysematous changes No acute cardiopulmonary process PICC line has advanced into the lower portion of the right atrium.
[2021-03-01] MEDS: Meropenem 500 MG in Sodium Chloride 0.9% 50 ML IV SCH ×2 (15:40→23:17)
[2021-03-01] MEDS: Fat Emulsion 250 ML IV SCH (15:40)
[2021-03-01] MEDS ORDERED: Potassium Chloride 20 MEQ Tab.ER PO ONE (16:30)
[2021-03-01 17:29] LABS: CORONAVIRUS COVID-19 NAA NEGATIVE (NEGATIVE)
[2021-03-01] MEDS: Acetaminophen/HYDROcodone 325-5 MG Tab PO PRN (17:38)
[2021-03-01] MEDS: Doxycycline 100 MG in Sodium Chloride 0.9% 100 ML IV SCH (17:38)
[2021-03-02] MEDS: methylPREDNISolone Sodium Succinate 40 MG/1 ML SDV IVPUSH SCH ×4 (02:36→20:23)
[2021-03-02] MEDS: Acetaminophen/HYDROcodone 325-5 MG Tab PO PRN ×4 (02:43→20:36)
[2021-03-02] MEDS: Doxycycline 100 MG in Sodium Chloride 0.9% 100 ML IV SCH ×2 (03:56→17:03)
[2021-03-02] MEDS: Gabapentin 300 MG Cap PO SCH ×4 (05:51→22:14)
[2021-03-02] MEDS: Formoterol/Mometasone 200-5 MCG 8.8 GM Inhaler IH SCH ×4 (06:00→20:26)
[2021-03-02] MEDS: Albuterol/Ipratropium 3.0-0.5 MG/3 ML Neb Soln INH SCH ×4 (06:00→20:23)
[2021-03-02] MEDS: Tiotropium Bromide 4 GM Inhalation Spray (2.5mcg/1 dose; 10 doses) INH SCH (06:00)
[2021-03-02] MEDS ORDERED: Central Total Parenteral Nutrition Bag SCH (07:30)
[2021-03-02] MEDS ORDERED: Furosemide 20 MG/2 ML VIAL IVPUSH ONE (07:30)
[2021-03-02] MEDS: Meropenem 500 MG in Sodium Chloride 0.9% 50 ML IV SCH ×3 (07:42→22:15)
[2021-03-02] MEDS: Pantoprazole 40 MG Tab.CR PO SCH (07:44)
--- NOTE | 2021-03-02 08:58 | PN ---
DATE OF SERVICE: 03/02/2021 SUBJECTIVE: Uzair was put on BiPAP yesterday for some respiratory distress and given Lasix in addition to the BiPAP. She states her breathing is much better. Oral intake was 650 and urine output was 3325. TPN is running without difficulty. Labs were reviewed. Hemoglobin 11. Glucose was 187, 118, 258, and 205 from admission, and she has no other questions or concerns today. OBJECTIVE: GENERAL: Uzair Silverman is a pleasant 56-year-old female. She is alert, orientated, color pale. VITAL SIGNS: TPR is 97.3, 103, 22, blood pressure 106/76, O2 by pulse oximetry is 99%, and at that time she was on 10 L. HEENT: Negative. NECK: Supple. HEART: Regular rate and rhythm. LUNGS: Revealed decreased breath sounds but no wheezing or rhonchi. ABDOMEN: Soft and nontender. EXTREMITIES: Without peripheral edema. ASSESSMENT: 1. Chronic obstructive pulmonary disease exacerbation. 2. Adult BMI 14.4. 3. Severe malnutrition. 4. Diarrhea. 5. Protein-calorie malnutrition. 6. Intestinal malabsorption. 7. History of Domingo-en-Y gastric bypass surgery. 8. History of smoking, currently 6 to 7 daily. 9. Vitamin B deficiency. 10.Vitamin D deficiency. PLAN: 1. Lasix 20 mg IV 1 time. 2. K-Phos 45 millimoles, mix in the least amount of IV fluid. 3. Continue same TPN rate and content. 4. Check CBC, CMP, mag, phos, type and screen in a.m. 5. We will evaluate p.r.n. or in a.m. Radha Pat PA-C /[id number]
[2021-03-02] MEDS: Theophylline 100 MG Cap.ER PO SCH ×3 (09:24→20:25)
[2021-03-02] MEDS: Potassium Phosphates 22.5 MMOLE in Sodium Chloride 0.9% 100 ML IV SCH ×2 (09:24→13:31)
[2021-03-02] MEDS: FLUoxetine 20 MG Cap PO SCH (09:24)
[2021-03-02] MEDS: 1: AA 5%/Calcium/D15W/Lytes 1,000 ML with MVI, Adult with Vitamin K 10 ML, Zinc/Copper/M IV SCH ×3 (09:43)
--- NOTE | 2021-03-02 14:21 | PCM.CONSN ---
- General Info Date of Service: 03/02/21 Subjective Update: Ms. Silverman has improved since yesterday with less shortness of breath, she is not yet back to baseline. She is tolerated use of BiPAP through the night and intermittently during the day. Good diuresis with furosemide and she was given a second dose of furosemide this morning by Dr. Najera. - Review of Systems General: Reports: Weakness, Fatigue. Denies: Fever, Chills Pulmonary: Reports: Shortness of Breath, Cough. Denies: Pleuritic Chest Pain, Sputum, Hemoptysis, Wheezing Cardiovascular: Reports: Dyspnea on Exertion. Denies: Chest Pain, Palpitations, Orthopnea, PND, Edema, Lightheadedness Gastrointestinal: Reports: Abdominal Pain. Denies: Difficulty Swallowing, Hematochezia, Melena, Nausea, Vomiting Genitourinary: Reports: No Symptoms - Patient Data Vitals - Most Recent: Last Vital Signs Temp 96.7 F L 03/02/21 14:12 Pulse 109 H 03/02/21 14:12 Resp 18 03/02/21 14:12 BP 102/66 03/02/21 14:12 Pulse Ox 96 03/02/21 14:12 Weight - Most Recent: 82 lb 4 oz I&O - Last 24 Hours: Intake & Output 03/01/21 03/02/21 03/02/21 22:59 06:59 14:59 Intake Total 1946 1387 730 Output Total 6028 580 8578 Balance 596 962 -1220 Lab Results Last 24 Hours: Laboratory Results - last 24 hr 03/01/21 03/01/21 03/01/21 Range/Units 13:13 13:40 15:45 WBC (4.5-11.0) K/uL RBC (3.30-5.50) M/uL Hgb (12.0-15.0) g/dL Hct (36.0-48.0) % MCV (80-98) fL MCH (27-31) pg MCHC (32-36) % Plt Count (150-400) K/uL Sodium 143 (140-148) mmol/L Potassium 4.4 (3.6-5.2) mmol/L Chloride 106 (100-108) mmol/L Carbon Dioxide 26 (21-32) mmol/L Anion Gap 10.8 (5.0-14.0) mmol/L BUN 11 (7-18) mg/dL Creatinine 0.4 L (0.6-1.0) mg/dL Est Cr Clr Drug Dosing 93.49 mL/min Estimated GFR (MDRD) > 60 (>60) Glucose 187 H (74-106) mg/dL POC Glucose (74-106) mg/dL Calcium 7.6 L (8.5-10.1) mg/dL Phosphorus 4.4 (2.5-4.9) mg/dL Magnesium 2.0 (1.8-2.4) mg/dL Total Bilirubin (0.2-1.0) mg/dL AST (15-37) U/L ALT (12-78) U/L Alkaline Phosphatase (46-116) U/L NT-Pro-B Natriuret Pep 180 H (5-125) pg/mL Total Protein (6.4-8.2) g/dL Albumin (3.4-5.0) g/dL Globulin (2.3-3.5) g/dL Albumin/Globulin Ratio (1.2-2.2) Theophylline (10-20.0) ug/mL Influenza Type A RNA Negative (NEGATIVE) RSV RNA (INAAT) Negative (NEGATIVE) Influenza Type B RNA Negative (NEGATIVE) SARS-CoV-2 RNA (YONIS) Negative (NEGATIVE) 03/01/21 03/01/21 03/02/21 Range/Units 16:33 21:34 04:14 WBC (4.5-11.0) K/uL RBC (3.30-5.50) M/uL Hgb (12.0-15.0) g/dL Hct (36.0-48.0) % MCV (80-98) fL MCH (27-31) pg MCHC (32-36) % Plt Count (150-400) K/uL Sodium (140-148) mmol/L Potassium (3.6-5.2) mmol/L Chloride (100-108) mmol/L Carbon Dioxide (21-32) mmol/L Anion Gap (5.0-14.0) mmol/L BUN (7-18) mg/dL Creatinine (0.6-1.0) mg/dL Est Cr Clr Drug Dosing mL/min Estimated GFR (MDRD) (>60) Glucose (74-106) mg/dL POC Glucose 118 H 258 H 205 H (74-106) mg/dL Calcium (8.5-10.1) mg/dL Phosphorus (2.5-4.9) mg/dL Magnesium (1.8-2.4) mg/dL Total Bilirubin (0.2-1.0) mg/dL AST (15-37) U/L ALT (12-78) U/L Alkaline Phosphatase (46-116) U/L NT-Pro-B Natriuret Pep (5-125) pg/mL Total Protein (6.4-8.2) g/dL Albumin (3.4-5.0) g/dL Globulin (2.3-3.5) g/dL Albumin/Globulin Ratio (1.2-2.2) Theophylline (10-20.0) ug/mL Influenza Type A RNA (NEGATIVE) RSV RNA (INAAT) (NEGATIVE) Influenza Type B RNA (NEGATIVE) SARS-CoV-2 RNA (YONIS) (NEGATIVE) 03/02/21 03/02/21 03/02/21 Range/Units 04:31 04:31 09:58 WBC 3.9 L (4.5-11.0) K/uL RBC 3.75 (3.30-5.50) M/uL Hgb 11.0 L (12.0-15.0) g/dL Hct 35.7 L (36.0-48.0) % MCV 95 (80-98) fL MCH 29 (27-31) pg MCHC 31 L (32-36) % Plt Count 220 (150-400) K/uL Sodium 142 (140-148) mmol/L Potassium 4.6 (3.6-5.2) mmol/L Chloride 106 (100-108) mmol/L Carbon Dioxide 29 (21-32) mmol/L Anion Gap 7.3 (5.0-14.0) mmol/L BUN 12 (7-18) mg/dL Creatinine 0.5 L (0.6-1.0) mg/dL Est Cr Clr Drug Dosing 74.79 mL/min Estimated GFR (MDRD) > 60 (>60) Glucose 197 H (74-106) mg/dL POC Glucose 141 H (74-106) mg/dL Calcium 8.0 L (8.5-10.1) mg/dL Phosphorus 3.0 (2.5-4.9) mg/dL Magnesium 1.9 (1.8-2.4) mg/dL Total Bilirubin 0.1 L D (0.2-1.0) mg/dL AST 18 (15-37) U/L ALT 40 (12-78) U/L Alkaline Phosphatase 115 (46-116) U/L NT-Pro-B Natriuret Pep (5-125) pg/mL Total Protein 5.7 L (6.4-8.2) g/dL Albumin 2.8 L (3.4-5.0) g/dL Globulin 2.9 (2.3-3.5) g/dL Albumin/Globulin Ratio 1.0 L (1.2-2.2) Theophylline 12.1 (10-20.0) ug/mL Influenza Type A RNA (NEGATIVE) RSV RNA (INAAT) (NEGATIVE) Influenza Type B RNA (NEGATIVE) SARS-CoV-2 RNA (YONIS) (NEGATIVE) Maldonado Results Last 24 Hours: Microbiology 03/01/21 13:04 Clostridioides difficile (PCR) - Final Stool / Feces Med Orders - Current: Current Medications Acetaminophen (Acetaminophen 325 Mg Tab) 650 mg PO Q4H PRN PRN Reason: PAIN/FEVER Last Admin: 03/01/21 14:13 Dose: 650 mg Documented by: Acetaminophen (Acetaminophen 650 Mg Supp) 650 mg RECTAL Q4H PRN PRN Reason: PAIN/FEVER Hydrocodone Bitart/Acetaminophen (Acetaminophen/Hydrocodone 325-5 Mg Tab) 1 tab PO Q4H PRN PRN Reason: Pain Last Admin: 03/02/21 11:11 Dose: 1 tab Documented by: Albuterol (Albuterol 8 Gm Inhaler) 0 gm INH QIDRT PRN PRN Reason: Shortness of Breath Albuterol (Albuterol 0.083% 2.5 Mg/3 Ml Neb Soln) 2.5 mg NEB Q4H PRN PRN Reason: Dyspnea Albuterol/Ipratropium (Albuterol/Ipratropium 3.0-0.5 Mg/3 Ml Neb Soln) 3 ml INH QIDRT NADYA Last Admin: 03/02/21 10:29 Dose: 3 ml Documented by: Fluoxetine HCl (Fluoxetine 20 Mg Cap) 20 mg PO DAILY [facility] Last Admin: 03/02/21 09:24 Dose: 20 mg Documented by: Gabapentin (Gabapentin 300 Mg Cap) 300 mg PO QID [facility] Last Admin: 03/02/21 09:24 Dose: 300 mg Documented by: Fat Emulsion Intravenous (Intralipid 20%) 250 mls @ 21 mls/hr IV Q24H [facility] Last Admin: 03/01/21 15:40 Dose: 21 mls/hr Documented by: Multivitamins/Minerals 10 ml/Zinc 1 ml/ Amino Ac/Electrol/Dextrose/Calcium 1,011 mls @ 70 mls/hr IV .BY DURATION [facility] Last Admin: 03/01/21 19:14 Dose: 70 mls/hr Documented by: Amino Ac/Electrol/Dextrose/Calcium (Clinimix E 02/19) 1,000 mls @ 70 mls/hr IV .BY DURATION [facility] Last Admin: 03/02/21 09:43 Dose: 70 mls/hr Documented by: Meropenem 500 mg/ Sodium (Chloride) 50 mls @ 100 mls/hr IV Q8H [facility] Last Admin: 03/02/21 07:42 Dose: 100 mls/hr Documented by: Doxycycline Hyclate 100 mg/ (Sodium Chloride) 100 mls @ 100 mls/hr IV Q12H [facility] Last Admin: 03/02/21 03:56 Dose: 100 mls/hr Documented by: Potassium Phosphate 22.5 mmole (/ Sodium Chloride) 107.5 mls @ 25 mls/hr IV Q5H [facility] Stop: 03/02/21 18:47 Last Admin: 03/02/21 13:31 Dose: 25 mls/hr Documented by: Methylprednisolone Sodium Succinate (Methylprednisolone Sodium Succinate 40 Mg/1 Ml Sdv) 40 mg IVPUSH Q6H [facility] Last Admin: 03/02/21 09:24 Dose: 40 mg Documented by: Mometasone Furoate/Formoterol Fumar (Formoterol/Mometasone 200-5 Mcg 8.8 Gm Inhaler) 2 puff IH BID@0500,2100 [facility] Non-Formulary Medication (Central Total Parenteral Nutrition Bag) 1,000 ml .XX .Continue Order [facility] Stop: 03/02/21 18:00 Ondansetron HCl (Ondansetron 4 Mg Tab.Dis) 4 mg PO Q4H PRN PRN Reason: N/V Pantoprazole Sodium (Pantoprazole 40 Mg Tab.Cr) 40 mg PO ACBREAKFAST [facility] Last Admin: 03/02/21 07:44 Dose: 40 mg Documented by: Theophylline (Theophylline 100 Mg Cap.Er) 300 mg PO BID@0500,2100 [facility] Tiotropium Quebeck (Tiotropium Quebeck 4 Gm Inhalation [place]rop (2.5mcg/1 Dose; 10 Doses)) 0 gm INH DAILY@0500 NADYA Discontinued Medications Albuterol/Ipratropium (Albuterol/Ipratropium 3.0-0.5 Mg/3 Ml Neb Soln) 3 ml INH Q6H [facility] Last Admin: 03/01/21 17:15 Dose: Not Given Documented by: Albuterol/Ipratropium (Albuterol/Ipratropium 3.0-0.5 Mg/3 Ml Neb Soln) 3 ml INH ASDIRECTED PRN PRN Reason: Shortness of Breath Last Admin: 03/01/21 13:13 Dose: 3 ml Documented by: Furosemide (Furosemide 20 Mg/2 Ml Vial) 20 mg IVPUSH NOW ONE Stop: 03/01/21 15:01 Last Admin: 03/01/21 15:16 Dose: 20 mg Documented by: Furosemide (Furosemide 20 Mg/2 Ml Vial) 20 mg IVPUSH ONETIME ONE Stop: 03/02/21 07:31 Last Admin: 03/02/21 07:43 Dose: 20 mg Documented by: Dextrose/Lactated Ringer's (Dextrose 5%-Lactated Ringers) 1,000 mls @ 100 mls/hr IV ASDIRECTED [facility] Last Admin: 02/28/21 15:04 Dose: 100 mls/hr Documented by: Multivitamins/Minerals 10 ml/Zinc 1 ml/ Amino Ac/Electrol/Dextrose/Calcium 1,011 mls @ 75 mls/hr IV .BY DURATION [facility] Last Admin: 02/28/21 17:20 Dose: 75 mls/hr Documented by: Amino Ac/Electrol/Dextrose/Calcium (Clinimix E 5/15) 1,000 mls @ 75 mls/hr IV .BY DURATION [facility] Last Admin: 03/01/21 06:46 Dose: 75 mls/hr Documented by: Dextrose/Lactated Ringer's (Dextrose 5%-Lactated Ringers) 1,000 mls @ 0 mls/hr IV ASDIRECTED [facility] Potassium Phosphate 15 mmol/ (Premix) 250 mls @ 125 mls/hr IV Q2H [facility] Stop: 03/01/21 15:59 Last Admin: 03/01/21 15:38 Dose: Not Given Documented by: Thiamine HCl 100 mg/ Sodium (Chloride) 101 mls @ 202 mls/hr IV ONETIME ONE Stop: 03/01/21 09:29 Last Admin: 03/01/21 10:25 Dose: 202 mls/hr Documented by: Mometasone Furoate/Formoterol Fumar (Formoterol/Mometasone 200-5 Mcg 8.8 Gm Inhaler) 2 puff IH BIDRT [facility] Last Admin: 03/02/21 06:00 Dose: 2 puff Documented by: Non-Formulary Medication (Central Total Parenteral Nutrition Bag) 1,000 ml .XX .Continue Order [facility] Stop: 03/01/21 10:00 Potassium Chloride (Potassium Chloride 20 Meq Tab.Er) 40 meq PO ONETIME ONE Stop: 03/01/21 16:31 Last Admin: 03/01/21 17:38 Dose: 40 meq Documented by: Theophylline (Theophylline 100 Mg Cap.Er) 300 mg PO BID [facility] Last Admin: 03/02/21 09:24 Dose: 300 mg Documented by: Tiotropium Quebeck (Tiotropium [place]beck 4 Gm Inhalation [place]rop (2.5mcg/1 Dose; 10 Doses)) 0 gm INH DAILYRT [facility] Last Admin: 03/02/21 06:00 Dose: 2 puff Documented by: - Exam Central Line Total Time: 1Days 17Hours General: Alert, Oriented, Cooperative, Moderate Distress Lungs: Clear to Auscultation, Normal Respiratory Effort, Decreased Breath Sounds. No: Rales, Rhonchi, Wheezing Cardiovascular: Regular Rate, Regular Rhythm, No Murmurs GI/Abdominal Exam: Soft, No Organomegaly, Tender. No: Distended, Guarding, Rigid, Rebound Extremities: Non-Tender, No Pedal Edema Sepsis Event Note - Evaluation Sepsis Screening Result: No Definite Risk - Focused Exam Vital Signs: Vital Signs Temp Pulse Resp BP Pulse Ox 03/02/21 14:12 96.7 F L 109 H 18 102/66 96 03/02/21 11:00 98.2 F 114 H 18 97/61 97 03/02/21 07:00 97.6 F 105 H 22 H 104/64 95 Consult PN Assessment/Plan Procedures: Procedures AIRWAY INHALATION TREATMENT (12/03/20) ASSAY OF FERRITIN (12/16/19) ASSAY OF MAGNESIUM (01/09/20) ASSAY OF NATRIURETIC PEPTIDE (12/16/19) ASSAY OF PHOSPHORUS (01/09/20) ASSAY THYROID STIM HORMONE (12/16/19) BLOOD GASES ANY COMBINATION (12/16/19) BLOOD TYPING SEROLOGIC ABO (09/20/15) BLOOD TYPING SEROLOGIC RH(D) (09/20/15) CHEST WALL MANIPULATION (12/03/20) CHEST WALL MANIPULATION (12/03/20) CHEST WALL MANIPULATION (12/16/19) CHEST WALL MANIPULATION (12/16/19) CHEST WALL MANIPULATION (05/30/18) CHEST WALL MANIPULATION (05/30/18) COMPLETE CBC AUTOMATED (01/09/20) COMPLETE CBC W/AUTO DIFF WBC (01/09/20) COMPREHEN METABOLIC PANEL (01/09/20) CT ABD & PELV W/CONTRAST (12/22/20) CT ANGIO ABDOM W/O & W/DYE (12/16/19) CT ANGIOGRAPHY CHEST (12/16/19) CULTURE OTHR SPECIMN AEROBIC (12/22/20) EGD DILATE STRICTURE (12/23/15) ELECTROCARDIOGRAM TRACING (12/03/20) IRON BINDING TEST (01/09/20) MEASURE BLOOD OXYGEN LEVEL (01/09/20) METABOLIC PANEL TOTAL CA (01/09/20) RBC ANTIBODY SCREEN (09/20/15) ROUTINE VENIPUNCTURE (01/09/20) SMEAR GRAM STAIN (12/22/20) TISSUE EXAM BY PATHOLOGIST (12/03/20) TISSUE EXAM BY PATHOLOGIST (12/03/20) WITHDRAWAL OF ARTERIAL BLOOD (05/30/18) X-RAY EXAM ABDOMEN 2 VIEWS (12/16/19) X-RAY EXAM CHEST 1 VIEW (12/16/19) X-RAY EXAM CHEST 2 VIEWS (12/16/19) X-RAY XM UPR GI TRC 1CNTRST (12/03/20) Problem List Initiated/Reviewed/Updated: Yes My Orders Last 24 Hours: My Active Orders 03/01/21 14:44 BIPAP Adult [RT BiPAP/CPAP] [RC] ASDIRECTED 03/01/21 14:47 RT Aerosol Therapy [RC] ASDIRECTED Albuterol [Proventil Neb Soln] 2.5 mg NEB Q4H PRN 03/01/21 14:56 Blood Culture x2 Reflex Set [OM.PC] Urgent 03/01/21 15:00 Albuterol/Ipratropium [DuoNeb 3.0-0.5 MG/3 ML] 3 ml INH QIDRT Meropenem [Merrem] 500 mg Sodium Chloride 0.9% [Normal Saline] 50 ml IV Q8H methylPREDNISolone Sod Succ [Solu-MEDROL] 40 mg IVPUSH Q6H 03/01/21 15:10 CULTURE BLOOD [BC] Stat 03/01/21 15:15 CULTURE BLOOD [BC] Stat 03/01/21 16:00 Doxycycline [Vibramycin] 100 mg Sodium Chloride 0.9% [Normal Saline] 100 ml IV Q12H Plan: ASSESSMENT AND RECOMMENDATIONS COPD EXACERBATION-likely secondary to underlying pulmonary infection. White blood cell count was normal on admission but she has had documented temperature elevation. Shortness of breath has improved with current management. -Blood cultures pending -Nebulizer therapy with DuoNeb's and albuterol -Solu-Medrol 40 mg IV every 6 hours -IV antibiotic therapy; doxycycline and meropenem, she has a history of allergic reaction to penicillins, cephalosporins, and levofloxacin. RECENT WEIGHT LOSS-status post Domingo-en-Y gastric bypass surgery 6 years ago. Weight loss over the past 2 to 3 months, now down to 81 pounds. Other labs appear to be fairly good including her albumin level and vitamin levels except for folate acid which was found to be low. Plan at admission had been to proceed with surgery for reversal of her Domingo-en-Y gastric bypass. -Continue TPN -Hold on surgery until she is fully recovered from current respiratory compromise
[2021-03-02] MEDS: Fat Emulsion 250 ML IV SCH (15:35)
[2021-03-02] MEDS ORDERED: LORazepam 0.5 MG Tab PO ONE (18:28)
--- NOTE | 2021-03-02 19:10 | PCM.SN.2 ---
- Free Text/Narrative Note: time [facility] evaluation of respiratory status S: BI-PAP causes anxiety while wearing full mask. O: speaking in short gasps, tremors noted chest- lungs few scattered wheezing at bases, upper airway poor airway clearance heart tachy A: COPD with anxiety P: trial of Ativan 0.25 mg po once, if Mrs. Silverman is able to tolerate bi-pap with Ativan, will order every 2 to 4 hours, titrate strength with desired results.
[2021-03-02] MEDS: LORazepam 0.5 MG Tab PO PRN (23:18)
[2021-03-03] MEDS: 1: AA 5%/Calcium/D15W/Lytes 1,000 ML with MVI, Adult with Vitamin K 10 ML, Zinc/Copper/M IV SCH ×6 (00:04→14:48)
[2021-03-03] MEDS: Doxycycline 100 MG in Sodium Chloride 0.9% 100 ML IV SCH (03:21)
[2021-03-03] MEDS: methylPREDNISolone Sodium Succinate 40 MG/1 ML SDV IVPUSH SCH ×4 (03:21→20:57)
[2021-03-03] MEDS: Acetaminophen/HYDROcodone 325-5 MG Tab PO PRN ×2 (03:59→11:25)
[2021-03-03] MEDS: Tiotropium Bromide 4 GM Inhalation Spray (2.5mcg/1 dose; 10 doses) INH SCH (04:01)
[2021-03-03] MEDS: Formoterol/Mometasone 200-5 MCG 8.8 GM Inhaler IH SCH ×2 (04:02→21:03)
[2021-03-03] MEDS: Theophylline 100 MG Cap.ER PO SCH ×2 (04:04→21:03)
[2021-03-03] MEDS: Gabapentin 300 MG Cap PO SCH ×4 (05:41→21:33)
[2021-03-03] MEDS: Albuterol/Ipratropium 3.0-0.5 MG/3 ML Neb Soln INH SCH ×4 (07:09→20:54)
[2021-03-03] MEDS ORDERED: Central Total Parenteral Nutrition Bag SCH (07:15)
[2021-03-03] MEDS: Meropenem 500 MG in Sodium Chloride 0.9% 50 ML IV SCH ×3 (07:19→23:21)
[2021-03-03] MEDS: Pantoprazole 40 MG Tab.CR PO SCH (07:20)
[2021-03-03] MEDS: LORazepam 0.5 MG Tab PO PRN (07:43)
[2021-03-03] MEDS: Furosemide 20 MG/2 ML VIAL IVPUSH SCH ×3 (07:52→21:00)
--- NOTE | 2021-03-03 08:58 | CR ---
CHEST: Portable 03/03/2021 at 831 CLINICAL HISTORY:Increasing SOB COMPARISON:03/01/2021 FINDINGS: Lungs are very emphysematous. Heart size and pulmonary vascularity are normal. Patient has a PICC line from the left upper extremity. The tip is in the right atrium. There is no effusion or pneumothorax Impression: Severe emphysematous change PICC line as above.
--- NOTE | 2021-03-03 09:34 | PN ---
DATE OF SERVICE: 03/03/2021 SUBJECTIVE: Uzair has had difficulty breathing, yesterday has required either the BiPAP or nasal cannula, reporting chest and abdominal pain from coughing so much. Reports that she feels the room is very humid and the fan has helped move the air, which is common for her with exacerbation of the chronic obstructive pulmonary disease. Oral intake 1460. Urine output 4250. One bowel movement. REVIEW OF SYSTEMS: Remainder of review of systems negative for any pertinent positives or negatives. OBJECTIVE: GENERAL: Uzair is a pleasant 56-year-old female. VITAL SIGNS: Weight is 81 pounds 12.8 ounces today. TPR is 97.4, 113, 20, blood pressure 121/51, O2 sats by pulse oximetry is 99% on 35 FiO2. HEENT: Negative. HEART: Regular rate and rhythm. Tachycardic. LUNGS: Decreased breath sounds. She is having difficulty breathing. ABDOMEN: Negative. EXTREMITIES: Negative. ASSESSMENT: 1. Exacerbation of chronic obstructive pulmonary disease. 2. Adult BMI 14.4. 3. Severe malnutrition. 4. Diarrhea. 5. Protein calorie malnutrition. PLAN: 1. Lasix 20 mg b.i.d. IV. 2. Continue same TPN rate and content. 3. Check CBC, CMP, mag, phos, and BNP in a.m. 4. Exploratory laparotomy with reversal of Domingo-en-Y gastric bypass surgery with general anesthesia, TAP block, ketamine loading dose, and ketamine drip. Magnesium 4 mg/kg/minute drip with loading dose, tentatively scheduled depending on condition for Monday, March 08, 2021. 5. Discussion with Wellington Najera MD, in regard to possibility of intubation after surgery depending on status of pulmonary function and Uzair did consent to having ventilation if she required it postoperatively. 6. We will evaluate p.r.n. or in a.m. Radha Pat PA-C /[id number]
[2021-03-03] MEDS: FLUoxetine 20 MG Cap PO SCH (10:09)
[2021-03-03] MEDS ORDERED: LORazepam 2 MG/ML SDV IVPUSH ONE (11:04)
[2021-03-03] MEDS ORDERED: LORazepam 2 MG/ML SDV ONE (11:08)
[2021-03-03] MEDS ORDERED: propofoL 100 ML ONE (11:59)
[2021-03-03] MEDS ORDERED: Heparin Sodium 5,000 UNITS in Sodium Chloride 0.9% 500 ML IV SCH (12:00)
[2021-03-03] MEDS ORDERED: Succinylcholine 200 MG/10 ML MDV ONE (12:21)
[2021-03-03] MEDS ORDERED: Propofol 200 MG/20 ML SDV ONE (12:21)
[2021-03-03] MEDS: propofoL 100 ML IV SCH ×2 (13:15→18:26)
--- NOTE | 2021-03-03 13:31 | CR ---
CHEST: Portable 03/03/2021 at 1:26 PM CLINICAL HISTORY:intubation COMPARISON:Earlier 11/03/2020 FINDINGS: Patient has been intubated. Endotracheal tube appears to be approximately 2 cm above the ally which is not well seen. Lungs are emphysematous. There is no evidence of pneumothorax. PICC line remains in place in the right atrium. Impression: Endotracheal intubation Severe emphysematous changes PICC line.
[2021-03-03] MEDS ORDERED: Sodium Chloride 0.9% 10 ML SDV FLUSH ONE (14:33)
[2021-03-03] MEDS ORDERED: Sodium Chloride 0.9% 100 ML IV SCH (14:45)
[2021-03-03] MEDS ORDERED: Iopamidol 755 Mg/ML 100 ML Bottle IV SCH (14:45)
[2021-03-03] MEDS ORDERED: Vancomycin 1 GM SDV IV SCH (15:00)
[2021-03-03] MEDS: Enoxaparin 30 MG/0.3 ML Syringe SUBCUT SCH (15:34)
--- NOTE | 2021-03-03 15:39 | CT ---
Ang Chest CLINICAL HISTORY: Chronic respiratory failure TECHNIQUE: Thin section axial contiguous tomographic sections were taken through the chest after bolus IV iodinated contrast administration. Coronal and sagittal images were reconstructed. Auto dosage reduction and iterative reconstruction techniques employed. FINDINGS: Lungs are emphysematous. There is diffuse bronchiectasis. No pulmonary mass or infiltrate is identified. There is some mild pleural parenchymal scarring in lung bases. There is some breathing motion. Patient has been intubated. There is a central venous line from the left upper extremity aorta is free of aneurysm or dissection. Pulmonary arteries are free of filling defects. There are no pleural effusions IMPRESSION: Advanced emphysematous changes and bronchiectasis No mass or infiltrate No evidence of pulmonary embolus
[2021-03-03] MEDS: Azithromycin 500 MG in Sodium Chloride 0.9% 250 ML IV SCH (15:43)
--- NOTE | 2021-03-03 15:49 | PCM.CONSN ---
- General Info Date of Service: 03/03/21 Subjective Update: Ms. Silverman has experienced further respiratory compromise over the last 24 hours. This morning he reported increased shortness of breath despite use of BiPAP through the night. Respiratory rate increased associated with sinus tachycardia. Blood gases show evidence of CO2 retention but adequate oxygenation. She received further interventions including lorazepam and nebulizer therapy without significant improvement in symptoms or vital signs. For this reason she was intubated and has been on the ventilator over the past few hours. Troponin level was obtained and found to be mildly elevated, likely secondary to demand ischemia in the setting of respiratory compromise. Chest x- ray shows no evidence of underlying infiltrates. - Review of Systems General: Reports: Weakness, Fatigue. Denies: Fever, Chills Pulmonary: Reports: Shortness of Breath, Wheezing. Denies: Pleuritic Chest Pain, Cough, Sputum, Hemoptysis Cardiovascular: Reports: Chest Pain, Dyspnea on Exertion. Denies: Palpitations, Orthopnea, PND, Edema, Lightheadedness Gastrointestinal: Reports: Abdominal Pain. Denies: Difficulty Swallowing, Hematochezia, Melena, Nausea, Vomiting Genitourinary: Reports: No Symptoms - Patient Data Vitals - Most Recent: Last Vital Signs Temp 98.3 F 03/03/21 13:00 Pulse 120 H 03/03/21 15:19 Resp 18 03/03/21 14:00 BP 91/60 03/03/21 14:00 Pulse Ox 98 03/03/21 14:00 Weight - Most Recent: 81 lb 12.8 oz I&O - Last 24 Hours: Intake & Output 03/03/21 03/03/21 03/03/21 06:59 14:59 22:59 Intake Total 1773 Output Total 1400 1500 Balance 373 -1500 @ Lab Results Last 24 Hours: Laboratory Results - last 24 hr 03/02/21 03/02/21 03/03/21 Range/Units 15:55 21:15 04:20 WBC 13.7 H (4.5-11.0) K/uL RBC 3.94 (3.30-5.50) M/uL Hgb 11.5 L (12.0-15.0) g/dL Hct 38.1 (36.0-48.0) % MCV 97 (80-98) fL MCH 29 (27-31) pg MCHC 30 L (32-36) % Plt Count 280 (150-400) K/uL Puncture Site ABG pH (7.350-7.450) ABG pCO2 (35.0-42.0) mmHg ABG pO2 (75.0-100.0) mmHg ABG HCO3 (22.0-26.0) mmol/L ABG Total CO2 (21.0-25.0) mmol/L ABG O2 Saturation (95.0-98.0) % ABG O2 Content (15.0-23.0) %vol ABG Base Excess mm/L ABG Hemoglobin (12.0-16.0) g/dL ABG Oxyhemoglobin % ABG Carboxyhemoglobin (0.0-1.6) % ABG Methemoglobin % Jim Test O2 Delivery Device Oxygen Flow Rate L Sodium (140-148) mmol/L Potassium (3.6-5.2) mmol/L Chloride (100-108) mmol/L Carbon Dioxide (21-32) mmol/L Anion Gap (5.0-14.0) mmol/L BUN (7-18) mg/dL Creatinine (0.6-1.0) mg/dL Est Cr Clr Drug Dosing mL/min Estimated GFR (MDRD) (>60) Glucose (74-106) mg/dL POC Glucose 246 H 168 H (74-106) mg/dL Calcium (8.5-10.1) mg/dL Phosphorus (2.5-4.9) mg/dL Magnesium (1.8-2.4) mg/dL Total Bilirubin (0.2-1.0) mg/dL AST (15-37) U/L ALT (12-78) U/L Alkaline Phosphatase (46-116) U/L Troponin I (0.000-0.056) ng/mL Total Protein (6.4-8.2) g/dL Albumin (3.4-5.0) g/dL Globulin (2.3-3.5) g/dL Albumin/Globulin Ratio (1.2-2.2) Blood Type Gel Antibody Screen Crossmatch 03/03/21 03/03/21 03/03/21 Range/Units 04:20 04:20 04:24 WBC (4.5-11.0) K/uL RBC (3.30-5.50) M/uL Hgb (12.0-15.0) g/dL Hct (36.0-48.0) % MCV (80-98) fL MCH (27-31) pg MCHC (32-36) % Plt Count (150-400) K/uL Puncture Site ABG pH (7.350-7.450) ABG pCO2 (35.0-42.0) mmHg ABG pO2 (75.0-100.0) mmHg ABG HCO3 (22.0-26.0) mmol/L ABG Total CO2 (21.0-25.0) mmol/L ABG O2 Saturation (95.0-98.0) % ABG O2 Content (15.0-23.0) %vol ABG Base Excess mm/L ABG Hemoglobin (12.0-16.0) g/dL ABG Oxyhemoglobin % ABG Carboxyhemoglobin (0.0-1.6) % ABG Methemoglobin % Jim Test O2 Delivery Device Oxygen Flow Rate L Sodium 140 (140-148) mmol/L Potassium 5.2 (3.6-5.2) mmol/L Chloride 103 (100-108) mmol/L Carbon Dioxide 32 (21-32) mmol/L Anion Gap 5.3 (5.0-14.0) mmol/L BUN 10 (7-18) mg/dL Creatinine 0.4 L (0.6-1.0) mg/dL Est Cr Clr Drug Dosing 94.69 mL/min Estimated GFR (MDRD) > 60 (>60) Glucose 139 H (74-106) mg/dL POC Glucose 140 H (74-106) mg/dL Calcium 8.7 (8.5-10.1) mg/dL Phosphorus 3.7 (2.5-4.9) mg/dL Magnesium 2.1 (1.8-2.4) mg/dL Total Bilirubin 0.2 D (0.2-1.0) mg/dL AST 28 (15-37) U/L ALT 46 (12-78) U/L Alkaline Phosphatase 114 (46-116) U/L Troponin I (0.000-0.056) ng/mL Total Protein 6.2 L (6.4-8.2) g/dL Albumin 3.1 L (3.4-5.0) g/dL Globulin 3.1 (2.3-3.5) g/dL Albumin/Globulin Ratio 1.0 L (1.2-2.2) Blood Type O POSITIVE Gel Antibody Screen Negative Crossmatch See Detail 03/03/21 03/03/21 03/03/21 Range/Units 08:09 10:28 11:02 WBC (4.5-11.0) K/uL RBC (3.30-5.50) M/uL Hgb (12.0-15.0) g/dL Hct (36.0-48.0) % MCV (80-98) fL MCH (27-31) pg MCHC (32-36) % Plt Count (150-400) K/uL Puncture Site Lt radial Lt radial ABG pH 7.371 7.373 (7.350-7.450) ABG pCO2 54.9 H 59.7 H (35.0-42.0) mmHg ABG pO2 156.0 H 123.0 H (75.0-100.0) mmHg ABG HCO3 31.0 H 34.0 H (22.0-26.0) mmol/L ABG Total CO2 27.6 H 30.4 H (21.0-25.0) mmol/L ABG O2 Saturation 96.5 96.0 (95.0-98.0) % ABG O2 Content 18.1 17.4 (15.0-23.0) %vol ABG Base Excess 4.8 7.2 mm/L ABG Hemoglobin 13.7 13.2 (12.0-16.0) g/dL ABG Oxyhemoglobin 92.6 93.1 % ABG Carboxyhemoglobin 1.0 < 0.5 (0.0-1.6) % ABG Methemoglobin 3.0 3.0 % Jim Test Passed Passed O2 Delivery Device Bipap Bipap Oxygen Flow Rate L Sodium (140-148) mmol/L Potassium (3.6-5.2) mmol/L Chloride (100-108) mmol/L Carbon Dioxide (21-32) mmol/L Anion Gap (5.0-14.0) mmol/L BUN (7-18) mg/dL Creatinine (0.6-1.0) mg/dL Est Cr Clr Drug Dosing mL/min Estimated GFR (MDRD) (>60) Glucose (74-106) mg/dL POC Glucose 158 H (74-106) mg/dL Calcium (8.5-10.1) mg/dL Phosphorus (2.5-4.9) mg/dL Magnesium (1.8-2.4) mg/dL Total Bilirubin (0.2-1.0) mg/dL AST (15-37) U/L ALT (12-78) U/L Alkaline Phosphatase (46-116) U/L Troponin I (0.000-0.056) ng/mL Total Protein (6.4-8.2) g/dL Albumin (3.4-5.0) g/dL Globulin (2.3-3.5) g/dL Albumin/Globulin Ratio (1.2-2.2) Blood Type Gel Antibody Screen Crossmatch 03/03/21 03/03/21 03/03/21 Range/Units 11:32 11:51 13:45 WBC (4.5-11.0) K/uL RBC (3.30-5.50) M/uL Hgb (12.0-15.0) g/dL Hct (36.0-48.0) % MCV (80-98) fL MCH (27-31) pg MCHC (32-36) % Plt Count (150-400) K/uL Puncture Site A-line ABG pH 7.309 L (7.350-7.450) ABG pCO2 71.3 H* (35.0-42.0) mmHg ABG pO2 184.0 H (75.0-100.0) mmHg ABG HCO3 34.7 H (22.0-26.0) mmol/L ABG Total CO2 31.9 H (21.0-25.0) mmol/L ABG O2 Saturation 96.4 (95.0-98.0) % ABG O2 Content 16.4 (15.0-23.0) %vol ABG Base Excess 6.6 mm/L ABG Hemoglobin 12.4 (12.0-16.0) g/dL ABG Oxyhemoglobin 92.3 % ABG Carboxyhemoglobin 1.1 (0.0-1.6) % ABG Methemoglobin 3.2 % Jim Test A-line O2 Delivery Device Bipap Oxygen Flow Rate L Sodium (140-148) mmol/L Potassium (3.6-5.2) mmol/L Chloride (100-108) mmol/L Carbon Dioxide (21-32) mmol/L Anion Gap (5.0-14.0) mmol/L BUN (7-18) mg/dL Creatinine (0.6-1.0) mg/dL Est Cr Clr Drug Dosing mL/min Estimated GFR (MDRD) (>60) Glucose (74-106) mg/dL POC Glucose 143 H (74-106) mg/dL Calcium (8.5-10.1) mg/dL Phosphorus (2.5-4.9) mg/dL Magnesium (1.8-2.4) mg/dL Total Bilirubin (0.2-1.0) mg/dL AST (15-37) U/L ALT (12-78) U/L Alkaline Phosphatase (46-116) U/L Troponin I 0.362 H* (0.000-0.056) ng/mL Total Protein (6.4-8.2) g/dL Albumin (3.4-5.0) g/dL Globulin (2.3-3.5) g/dL Albumin/Globulin Ratio (1.2-2.2) Blood Type Gel Antibody Screen Crossmatch [place]don[place] Results Last 24 Hours: Microbiology 03/01/21 15:15 Aerobic Blood Culture - Preliminary Blood - Arm, Right NO GROWTH AFTER 2 DAYS Anaerobic Blood Culture - Preliminary NO GROWTH AFTER 2 DAYS 03/01/21 15:10 Aerobic Blood Culture - Preliminary Blood - Arm, Left NO GROWTH AFTER 1 DAY Anaerobic Blood Culture - Preliminary NO GROWTH AFTER 2 DAYS Med Orders - Current: Current Medications Acetaminophen (Acetaminophen 325 Mg Tab) 650 mg PO Q4H PRN PRN Reason: PAIN/FEVER Last Admin: 03/01/21 14:13 Dose: 650 mg Documented by: Acetaminophen (Acetaminophen 650 Mg Supp) 650 mg RECTAL Q4H PRN PRN Reason: PAIN/FEVER Hydrocodone Bitart/Acetaminophen (Acetaminophen/Hydrocodone 325-5 Mg Tab) 1 tab PO Q4H PRN PRN Reason: Pain Last Admin: 03/03/21 11:25 Dose: 1 tab Documented by: Albuterol (Albuterol 8 Gm Inhaler) 0 gm INH QIDRT PRN PRN Reason: Shortness of Breath Albuterol (Albuterol 0.083% 2.5 Mg/3 Ml Neb Soln) 2.5 mg NEB Q4H PRN PRN Reason: Dyspnea Last Admin: 03/02/21 16:58 Dose: 2.5 mg Documented by: Albuterol/Ipratropium (Albuterol/Ipratropium 3.0-0.5 Mg/3 Ml Neb Soln) 3 ml INH QIDRT [facility] Last Admin: 03/03/21 15:19 Dose: 3 ml Documented by: Enoxaparin Sodium (Enoxaparin 30 Mg/0.3 Ml Syringe) 30 mg SUBCUT Q24H [facility] Last Admin: 03/03/21 15:34 Dose: 30 mg Documented by: Fluoxetine HCl (Fluoxetine 20 Mg Cap) 20 mg PO DAILY [facility] Last Admin: 03/03/21 10:09 Dose: Not Given Documented by: Furosemide (Furosemide 20 Mg/2 Ml Vial) 20 mg IVPUSH BID [facility] Last Admin: 03/03/21 08:31 Dose: Not Given Documented by: Gabapentin (Gabapentin 300 Mg Cap) 300 mg PO QID [facility] Last Admin: 03/03/21 10:09 Dose: Not Given Documented by: Multivitamins/Minerals 10 ml/Zinc 1 ml/ Amino Ac/Electrol/Dextrose/Calcium 1,011 mls @ 70 mls/hr IV .BY DURATION [facility] Last Admin: 03/03/21 00:04 Dose: 70 mls/hr Documented by: Amino Ac/Electrol/Dextrose/Calcium (Clinimix E 5/15) 1,000 mls @ 70 mls/hr IV .BY DURATION [facility] Last Admin: 03/03/21 14:48 Dose: 70 mls/hr Documented by: Meropenem 500 mg/ Sodium (Chloride) 50 mls @ 100 mls/hr IV Q8H [facility] Last Admin: 03/03/21 15:35 Dose: 100 mls/hr Documented by: Heparin Sodium (Porcine) 5,000 (units/ Sodium Chloride) 501 mls @ 5 mls/hr IV ASDIRECTED [facility] Last Admin: 03/03/21 12:07 Dose: 5 mls/hr Documented by: Propofol (Diprivan 100 Ml) 100 mls @ 1.113 mls/hr IV TITRATE [facility]; Protocol Last Admin: 03/03/21 13:15 Dose: 50 mcg/kg/min, 11.131 mls/hr Documented by: Azithromycin 500 mg/ Sodium (Chloride) 250 mls @ 250 mls/hr IV Q24H [facility] Vancomycin HCl 0.75 gm/ Sodium (Chloride) 150 mls @ 100 mls/hr IV ONETIME ONE Stop: 03/03/21 17:59 Vancomycin HCl 0.5 gm/ Sodium (Chloride) 100 mls @ 66.667 mls/hr IV Q12H [facility] Lorazepam (Lorazepam 0.5 Mg Tab) 0.5 mg PO Q2H PRN PRN Reason: Anxiety Last Admin: 03/03/21 07:43 Dose: 0.5 mg Documented by: Methylprednisolone Sodium Succinate (Methylprednisolone Sodium Succinate 40 Mg/1 Ml Sdv) 40 mg IVPUSH Q6H [facility] Last Admin: 03/03/21 08:32 Dose: 40 mg Documented by: Mometasone Furoate/Formoterol Fumar (Formoterol/Mometasone 200-5 Mcg 8.8 Gm Inhaler) 2 puff IH BID@0500,2100 [facility] Last Admin: 03/03/21 04:02 Dose: 2 puff Documented by: Non-Formulary Medication (Central Total Parenteral Nutrition Bag) 1,000 ml .XX .Continue Order [facility] Stop: 03/03/21 18:00 Ondansetron HCl (Ondansetron 4 Mg Tab.Dis) 4 mg PO Q4H PRN PRN Reason: N/V Pantoprazole Sodium (Pantoprazole 40 Mg Vial) 40 mg IVPUSH DAILY [facility] Theophylline (Theophylline 100 Mg Cap.Er) 300 mg PO BID@0500,2100 [facility] Last Admin: 03/03/21 04:04 Dose: 300 mg Documented by: Tiotropium [place] (Tiotropium [place] 4 Gm Inhalation [place] (2.5mcg/1 Dose; 10 Doses)) 0 gm INH DAILY@0500 [facility] Last Admin: 03/03/21 04:01 Dose: 2 puff Documented by: Vancomycin HCl (Vancomycin 1 Gm Sdv) 1 gm IV .PHARMACY TO DOSE [facility] Stop: 03/03/21 18:00 Discontinued Medications Albuterol/Ipratropium (Albuterol/Ipratropium 3.0-0.5 Mg/3 Ml Neb Soln) 3 ml INH Q6H [facility] Last Admin: 03/01/21 17:15 Dose: Not Given Documented by: Albuterol/Ipratropium (Albuterol/Ipratropium 3.0-0.5 Mg/3 Ml Neb Soln) 3 ml INH ASDIRECTED PRN PRN Reason: Shortness of Breath Last Admin: 03/01/21 13:13 Dose: 3 ml Documented by: Furosemide (Furosemide 20 Mg/2 Ml Vial) 20 mg IVPUSH NOW ONE Stop: 03/01/21 15:01 Last Admin: 03/01/21 15:16 Dose: 20 mg Documented by: Furosemide (Furosemide 20 Mg/2 Ml Vial) 20 mg IVPUSH ONETIME ONE Stop: 03/02/21 07:31 Last Admin: 03/02/21 07:43 Dose: 20 mg Documented by: Dextrose/Lactated Ringer's (Dextrose 5%-Lactated Ringers) 1,000 mls @ 100 mls/hr IV ASDIRECTED [facility] Last Admin: 02/28/21 15:04 Dose: 100 mls/hr Documented by: Multivitamins/Minerals 10 ml/Zinc 1 ml/ Amino Ac/Electrol/Dextrose/Calcium 1,011 mls @ 75 mls/hr IV .BY DURATION [facility] Last Admin: 02/28/21 17:20 Dose: 75 mls/hr Documented by: Amino Ac/Electrol/Dextrose/Calcium (Clinimix E 5/15) 1,000 mls @ 75 mls/hr IV .BY DURATION [facility] Last Admin: 03/01/21 06:46 Dose: 75 mls/hr Documented by: Fat Emulsion Intravenous (Intralipid 20%) 250 mls @ 21 mls/hr IV Q24H [facility] Last Admin: 03/02/21 15:35 Dose: 21 mls/hr Documented by: Dextrose/Lactated Ringer's (Dextrose 5%-Lactated Ringers) 1,000 mls @ 0 mls/hr IV ASDIRECTED [facility] Potassium Phosphate 15 mmol/ (Premix) 250 mls @ 125 mls/hr IV Q2H [facility] Stop: 03/01/21 15:59 Last Admin: 03/01/21 15:38 Dose: Not Given Documented by: Thiamine HCl 100 mg/ Sodium (Chloride) 101 mls @ 202 mls/hr IV ONETIME ONE Stop: 03/01/21 09:29 Last Admin: 03/01/21 10:25 Dose: 202 mls/hr Documented by: Doxycycline Hyclate 100 mg/ (Sodium Chloride) 100 mls @ 100 mls/hr IV Q12H [facility] Last Admin: 03/03/21 03:21 Dose: 100 mls/hr Documented by: Potassium Phosphate 22.5 mmole (/ Sodium Chloride) 107.5 mls @ 25 mls/hr IV Q5H [facility] Stop: 03/02/21 18:47 Last Admin: 03/02/21 13:31 Dose: 25 mls/hr Documented by: Propofol (Diprivan 100 Ml) Confirm Administered Dose 100 mls @ as directed .ROUTE .STK-MED ONE Stop: 03/03/21 12:00 Last Admin: 03/03/21 13:15 Dose: Not Given Documented by: Sodium Chloride (Normal Saline) 100 mls @ 3 mls/sec IV ASDIRECTED [facility] Stop: 03/03/21 14:46 Last Admin: 03/03/21 15:17 Dose: 4 mls/sec Documented by: Iopamidol (Iopamidol 755 Mg/Ml 100 Ml Bottle) 100 ml IV . DIRECTED [facility] Stop: 03/03/21 14:46 Last Admin: 03/03/21 15:16 Dose: 44 ml Documented by: Lorazepam (Lorazepam 0.5 Mg Tab) 0.25 mg PO ONETIME ONE Stop: 03/02/21 18:29 Last Admin: 03/02/21 18:42 Dose: 0.25 mg Documented by: Lorazepam (Lorazepam 2 Mg/Ml Sdv) 0.5 mg IVPUSH ONETIME ONE Stop: 03/03/21 11:05 Last Admin: 03/03/21 11:21 Dose: 0.5 mg Documented by: Lorazepam (Lorazepam 2 Mg/Ml Sdv) Confirm Administered Dose 2 mg .ROUTE .STK-MED ONE Stop: 03/03/21 11:09 Last Admin: 03/03/21 11:22 Dose: Not Given Documented by: Mometasone Furoate/Formoterol Fumar (Formoterol/Mometasone 200-5 Mcg 8.8 Gm Inhaler) 2 puff IH BIDRT [facility] Last Admin: 03/02/21 06:00 Dose: 2 puff Documented by: Non-Formulary Medication (Central Total Parenteral Nutrition Bag) 1,000 ml .XX .Continue Order [facility] Stop: 03/01/21 10:00 Non-Formulary Medication (Central Total Parenteral Nutrition Bag) 1,000 ml .XX .Continue Order [facility] Stop: 03/02/21 18:00 Pantoprazole Sodium (Pantoprazole 40 Mg Tab.Cr) 40 mg PO ACBREAKFAST [facility] Last Admin: 03/03/21 07:20 Dose: 40 mg Documented by: Potassium Chloride (Potassium Chloride 20 Meq Tab.Er) 40 meq PO ONETIME ONE Stop: 03/01/21 16:31 Last Admin: 03/01/21 17:38 Dose: 40 meq Documented by: Propofol (Propofol 200 Mg/20 Ml Sdv) Confirm Administered Dose 200 mg .ROUTE .STK-MED ONE Stop: 03/03/21 12:22 Sodium Chloride (Sodium Chloride 0.9% 10 Ml Sdv) 10 ml FLUSH ONETIME ONE Stop: 03/03/21 14:34 Last Admin: 03/03/21 15:20 Dose: 10 ml Documented by: Succinylcholine Chloride (Succinylcholine 200 Mg/10 Ml Mdv) Confirm Administered Dose 200 mg .ROUTE .STK-MED ONE Stop: 03/03/21 12:22 Theophylline (Theophylline 100 Mg Cap.Er) 300 mg PO BID [facility] Last Admin: 03/02/21 09:24 Dose: 300 mg Documented by: Tiotropium [place] (Tiotropium [place] 4 Gm Inhalation [place] (2.5mcg/1 Dose; 10 Doses)) 0 gm INH DAILYRT [facility] Last Admin: 03/02/21 06:00 Dose: 2 puff Documented by: - Exam Quality Assessment: Supplemental Oxygen (Ventilator), Central Line/PICC, Urine Catheter, DVT Prophylaxis Central Line Total Time: 2Days 18Hours Urinary Catheter Total Time: 0Days 2Hours General: Sedated, Lethargic Lungs: Decreased Breath Sounds, Wheezing. No: Crackles, Rales, Rhonchi Cardiovascular: Regular Rhythm, No Murmurs, Tachycardia GI/Abdominal Exam: Soft, No Organomegaly, Tender. No: Distended, Guarding, Rigid, Rebound Extremities: Non-Tender, No Pedal Edema Skin: Warm, Dry, Intact Sepsis Event Note - Evaluation Sepsis Screening Result: No Definite Risk - Focused Exam Vital Signs: Vital Signs Temp Pulse Pulse Resp BP Pulse Ox 03/03/21 15:19 120 H 03/03/21 14:00 18 91/60 98 03/03/21 13:00 98.3 F 24 H 118/74 97 03/03/21 12:00 127 H 23 H 107/72 97 03/03/21 11:00 20 156/99 H 97 03/03/21 07:11 109 H 03/03/21 07:00 97.1 F 120 H 24 H 121/76 96 Consult PN Assessment/Plan Procedures: Procedures AIRWAY INHALATION TREATMENT (12/03/20) ASSAY OF FERRITIN (12/16/19) ASSAY OF MAGNESIUM (01/09/20) ASSAY OF NATRIURETIC PEPTIDE (12/16/19) ASSAY OF PHOSPHORUS (01/09/20) ASSAY THYROID STIM HORMONE (12/16/19) BLOOD GASES ANY COMBINATION (12/16/19) BLOOD TYPING SEROLOGIC ABO (09/20/15) BLOOD TYPING SEROLOGIC RH(D) (09/20/15) CHEST WALL MANIPULATION (12/03/20) CHEST WALL MANIPULATION (12/03/20) CHEST WALL MANIPULATION (12/16/19) CHEST WALL MANIPULATION (12/16/19) CHEST WALL MANIPULATION (05/30/18) CHEST WALL MANIPULATION (05/30/18) COMPLETE CBC AUTOMATED (01/09/20) COMPLETE CBC W/AUTO DIFF WBC (01/09/20) COMPREHEN METABOLIC PANEL (01/09/20) CT ABD & PELV W/CONTRAST (12/22/20) CT ANGIO ABDOM W/O & W/DYE (12/16/19) CT ANGIOGRAPHY CHEST (12/16/19) CULTURE OTHR SPECIMN AEROBIC (12/22/20) EGD DILATE STRICTURE (12/23/15) ELECTROCARDIOGRAM TRACING (12/03/20) IRON BINDING TEST (01/09/20) MEASURE BLOOD OXYGEN LEVEL (01/09/20) METABOLIC PANEL TOTAL CA (01/09/20) RBC ANTIBODY SCREEN (09/20/15) ROUTINE VENIPUNCTURE (01/09/20) SMEAR GRAM STAIN (12/22/20) TISSUE EXAM BY PATHOLOGIST (12/03/20) TISSUE EXAM BY PATHOLOGIST (12/03/20) WITHDRAWAL OF ARTERIAL BLOOD (05/30/18) X-RAY EXAM ABDOMEN 2 VIEWS (12/16/19) X-RAY EXAM CHEST 1 VIEW (12/16/19) X-RAY EXAM CHEST 2 VIEWS (12/16/19) X-RAY XM UPR GI TRC 1CNTRST (12/03/20) Problem List Initiated/Reviewed/Updated: Yes My Orders Last 24 Hours: My Active Orders 03/03/21 10:00 Pulse Oximetry Continuous Monitoring [OM.PC] Routine 03/03/21 12:00 Heparin Sodium 5,000 units Sodium Chloride 0.9% [Normal Saline] 500 ml IV ASDIRECTED 03/03/21 13:07 RASS Sedation Scale [RC] ASDIRECTED Desired Level of Sedation (RASS) [AST] Click to Edit 03/03/21 13:15 Patient Status [ADT] Routine propofoL [Diprivan 100 ML] 100 ml IV TITRATE 03/03/21 14:10 Mechanical Ventilation [RT Ventilator, Adult] [RC] ASDIRECTED 03/03/21 14:18 CULTURE RESPIRATORY + SMEAR [RM] Routine 03/03/21 15:00 Azithromycin [Zithromax] 500 mg Sodium Chloride 0.9% [Normal Saline] 250 ml IV Q24H Enoxaparin [Lovenox] 30 mg SUBCUT Q24H Vancomycin 1 gm IV .PHARMACY TO DOSE 03/03/21 15:15 BLOOD GAS ARTERIAL [BG] Stat 03/03/21 15:37 EKG Documentation Completion [RC] ASDIRECTED EKG 12 Lead [EK] Urgent 03/03/21 16:30 Vancomycin 0.75 gm Sodium Chloride 0.9% [Normal Saline] 150 ml IV ONETIME 03/03/21 17:30 TROPONIN I [CHEM] Stat 03/04/21 04:30 Vancomycin 0.5 gm Sodium Chloride 0.9% [Normal Saline] 100 ml IV Q12H 03/04/21 05:00 BLOOD GAS ARTERIAL [BG] Timed CBC WITH AUTO DIFF [HEME] Timed COMPREHENSIVE METABOLIC PN,CMP [CHEM] Timed MAGNESIUM [CHEM] Timed TROPONIN I [CHEM] Timed 03/04/21 05:11 Chest 1V Frontal [CR] AM 03/04/21 09:00 Pantoprazole [ProTONIX IV] 40 mg IVPUSH DAILY 03/05/21 05:11 Chest 1V Frontal [CR] AM 03/06/21 05:11 Chest 1V Frontal [CR] AM 03/07/21 05:11 Chest 1V Frontal [CR] AM 03/08/21 05:11 Chest 1V Frontal [CR] AM Plan: ASSESSMENT AND RECOMMENDATIONS ACUTE ON CHRONIC HYPOXIC AND HYPERCAPNIC RESPIRATORY FAILURE-unfortunately she is experienced further respiratory compromise over the past 24 hours, not managed with use of BiPAP. She is status post intubation late morning. She is ventilated fairly easily but continues to experience CO2 retention. Probable COPD exacerbation, question underlying bronchitis. No evidence of infiltrates noted on chest x-ray. CT scan of the chest report is pending. -Continue current ventilator support -Blood cultures pending -Sputum cultures pending -CT scan of the chest with PE protocol pending -Nebulizer therapy with DuoNeb's and albuterol -Solu-Medrol 40 mg IV every 12 hours -IV antibiotic therapy; vancomycin, azithromycin, and meropenem, she has a history of allergic reaction to penicillins, cephalosporins, and levofloxacin. ELEVATED TROPONIN-mild elevation noted, she was reporting symptoms of chest tightness. No prior history of coronary artery disease. This likely represents demand ischemia in the setting of respiratory failure -EKG now -Serial troponin levels RECENT WEIGHT LOSS-status post Domingo-en-Y gastric bypass surgery 6 years ago. Weight loss over the past 2 to 3 months, now down to 81 pounds. Other labs appear to be fairly good including her albumin level and vitamin levels except for folate acid which was found to be low. 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 -Continue TPN -Hold on surgery until she is fully recovered from current respiratory compromise
--- NOTE | 2021-03-03 16:14 | ANES ---
DATE OF SERVICE: 03/03/2021 PROCEDURE: Intubation and an art line placement. INDICATIONS: I was called this afternoon by Dr. Vásquez regarding a patient in the ICU with COPD exacerbation, is currently on BiPAP, but blood gas levels are not sufficient enough using the BiPAP, so Dr. Vásquez was wanting to intubate and place an art line as soon as possible. TECHNIQUE: I was at the bedside at approximately 12:25. The patient was alert, blood pressures were stable, O2 saturation was approximately 97% on approximately 70% FiO2 on the BiPAP. According Dr. Vásquez, oxygenation levels have not been an issue, it has mostly just been the patient's inability to take deep breaths and significant shortness of breath. FiO2 on the BiPAP was turned up to 100%. Respiratory Therapy was at the bedside. Nurses at the bedside. The patient was laid in supine position. IV access was done using her PICC line. Continued to let her breathe on the BiPAP at 100% oxygen. Once her SpO2 reached 100%, I then proceeded to push 100 mg of propofol followed by 100 mg of succinylcholine. I was able to bag valve mask the patient without difficulty after she was asleep. I did direct laryngoscopy using a Mac 3 blade, had a grade 1 view of the vocal cords. Vocal cords were clear and a 7.5 endotracheal tube was placed directly in between the vocal cords and secured at 22 cm at teeth. Able to confirm the correct placement of the endotracheal tube. Dr. Vásquez auscultated her breath sounds and has noted bilateral breath sounds clear, visible chest rise, visible end-tidal CO2 change. RT then fully secured the ET tube at 22 cm at teeth and was placed on the ventilator. Ventilator is controlled by Dr. Vásquez and respiratory therapist. Intubation went without difficulty, dentition remained intact. I did give additional 50 mg of propofol several minutes after the intubation. The patient started to cough and fight the ventilator, ICU nurse did not have propofol drip ready, so I did give her an additional 50 mg of propofol for a total of 150 mg of propofol. I then turned my attention to art line placement. Right radial pulse was palpated. Carotid circulation on that was good. I used chlorhexidine to prep her right radial area. I then used a 22-gauge Arrow catheter to access her right radial without difficulty, only one stick. Bright red blood was easily noted and returned. I hooked up to the pressure tubing. Proper waveform was noted on the monitor. After that, I then used a 2-0 Prolene to suture the art line in place, Tegaderm over the top and taped. After that, the ICU nurse was able to finish dressing how she wanted. The patient tolerated the art line placement without difficulty also. Prior to leaving, patient was resting comfortably, vital signs were stable. Sree Stephen CRNA /[id number]
[2021-03-03] MEDS ORDERED: Vancomycin 0.75 GM in Sodium Chloride 0.9% 150 ML IV ONE (16:30)
[2021-03-03] MEDS ORDERED: Sodium Chloride 0.9% 1,000 ML IV SCH (16:45)
[2021-03-03] MEDS: Norepinephrine 4 MG in Dextrose 5% in Water 246 ML IV SCH ×2 (20:29)
[2021-03-03] MEDS: HYDROmorphone 0.5 MG/0.5 ML Syringe IVPUSH PRN (21:47)
[2021-03-04] MEDS: propofoL 100 ML IV SCH ×3 (01:37→16:36)
[2021-03-04] MEDS: HYDROmorphone 0.5 MG/0.5 ML Syringe IVPUSH PRN ×6 (02:56→23:27)
[2021-03-04] MEDS: methylPREDNISolone Sodium Succinate 40 MG/1 ML SDV IVPUSH SCH ×3 (03:27→21:24)
[2021-03-04] MEDS: Vancomycin 0.5 GM in Sodium Chloride 0.9% 100 ML IV SCH ×2 (03:56→17:09)
[2021-03-04] MEDS: 1: AA 5%/Calcium/D15W/Lytes 1,000 ML with MVI, Adult with Vitamin K 10 ML, Zinc/Copper/M IV SCH ×12 (04:20→22:49)
[2021-03-04] MEDS: Formoterol/Mometasone 200-5 MCG 8.8 GM Inhaler IH SCH ×2 (04:22→21:20)
[2021-03-04] MEDS: Theophylline 100 MG Cap.ER PO SCH ×2 (04:22→21:21)
[2021-03-04] MEDS: Tiotropium Bromide 4 GM Inhalation Spray (2.5mcg/1 dose; 10 doses) INH SCH (04:22)
[2021-03-04] MEDS: Gabapentin 300 MG Cap PO SCH ×4 (05:23→21:21)
[2021-03-04] MEDS: Meropenem 500 MG in Sodium Chloride 0.9% 50 ML IV SCH ×3 (06:26→22:47)
[2021-03-04] MEDS: Albuterol/Ipratropium 3.0-0.5 MG/3 ML Neb Soln INH SCH ×4 (07:04→21:24)
[2021-03-04] MEDS: Furosemide 20 MG/2 ML VIAL IVPUSH SCH ×2 (09:04→21:27)
--- NOTE | 2021-03-04 09:06 | CR ---
CHEST: Portable 03/04/2021 at 3:10 AM CLINICAL HISTORY:Respiratory failure COMPARISON:03/03/2021 FINDINGS: Lungs are emphysematous. Endotracheal tube is in the distal third of the trachea approximately 2.5 cm from the ally. PICC line remains in place. No infiltrates are seen. Impression: Severe COPD Endotracheal intubation
[2021-03-04] MEDS: Pantoprazole 40 MG Vial IVPUSH SCH (09:11)
[2021-03-04] MEDS: FLUoxetine 20 MG Cap PO SCH (09:12)
[2021-03-04] MEDS: Norepinephrine 4 MG in Dextrose 5% in Water 246 ML IV SCH ×4 (11:54→22:45)
--- NOTE | 2021-03-04 12:14 | PCM.CONSN ---
- General Info Date of Service: 03/04/21 Subjective Update: Ms. Silverman has remained fairly stable on current ventilator settings since intubation yesterday. Oxygenating fairly easily and peak pressures have been well within desired range. She has required increased levels of sedation for intermittent agitation. Blood pressure has been borderline to low, she did not respond to IV fluids yesterday and was then started on IV norepinephrine. Blood pressures have been more stable since that time. She is unable to provide meaningful history concerning symptoms or review of systems because of sedation and intubation - Patient Data Vitals - Most Recent: Last Vital Signs Temp 98.4 F 03/04/21 07:54 Pulse 91 03/04/21 11:00 Resp 19 03/04/21 11:00 BP 113/75 03/04/21 11:00 Pulse Ox 95 03/04/21 11:00 Weight - Most Recent: 81 lb 11.2 oz I&O - Last 24 Hours: Intake & Output 03/03/21 03/04/21 03/04/21 22:59 06:59 14:59 Intake Total 1464 2236 Output Total 62% 1250 100 Balance 855 986 -100 Lab Results Last 24 Hours: Laboratory Results - last 24 hr 03/03/21 03/03/21 03/03/21 Range/Units 04:20 13:45 15:56 WBC (4.5-11.0) K/uL RBC (3.30-5.50) M/uL Hgb (12.0-15.0) g/dL Hct (36.0-48.0) % MCV (80-98) fL MCH (27-31) pg MCHC (32-36) % Plt Count (150-400) K/uL Neut % (Auto) (36-66) % Lymph % (Auto) (24-44) % [place] % (Auto) (2-6) % Eos % (Auto) (2-4) % Baso % (Auto) (0-1) % Puncture Site A-line ABG pH 7.309 L (7.350-7.450) ABG pCO2 71.3 H* (35.0-42.0) mmHg ABG pO2 184.0 H (75.0-100.0) mmHg ABG HCO3 34.7 H (22.0-26.0) mmol/L ABG Total CO2 31.9 H (21.0-25.0) mmol/L ABG O2 Saturation 96.4 (95.0-98.0) % ABG O2 Content 16.4 (15.0-23.0) %vol ABG Base Excess 6.6 mm/L ABG Hemoglobin 12.4 (12.0-16.0) g/dL ABG Oxyhemoglobin 92.3 % ABG Carboxyhemoglobin 1.1 (0.0-1.6) % ABG Methemoglobin 3.2 % Jim Test A-line O2 Delivery Device Bipap Oxygen Flow Rate L Sodium (140-148) mmol/L Potassium (3.6-5.2) mmol/L Chloride (100-108) mmol/L Carbon Dioxide (21-32) mmol/L Anion Gap (5.0-14.0) mmol/L BUN (7-18) mg/dL Creatinine (0.6-1.0) mg/dL Est Cr Clr Drug Dosing mL/min Estimated GFR (MDRD) (>60) Glucose (74-106) mg/dL POC Glucose 159 H (74-106) mg/dL Calcium (8.5-10.1) mg/dL Phosphorus (2.5-4.9) mg/dL Magnesium (1.8-2.4) mg/dL Total Bilirubin (0.2-1.0) mg/dL AST (15-37) U/L ALT (12-78) U/L Alkaline Phosphatase (46-116) U/L Troponin I (0.000-0.056) ng/mL NT-Pro-B Natriuret Pep (5-125) pg/mL Total Protein (6.4-8.2) g/dL Albumin (3.4-5.0) g/dL Globulin (2.3-3.5) g/dL Albumin/Globulin Ratio (1.2-2.2) Triglycerides (15-150) mg/dL Blood Type O POSITIVE Gel Antibody Screen Negative Crossmatch See Detail 03/03/21 03/03/21 03/03/21 Range/Units 16:04 17:31 22:08 WBC (4.5-11.0) K/uL RBC (3.30-5.50) M/uL Hgb (12.0-15.0) g/dL Hct (36.0-48.0) % MCV (80-98) fL MCH (27-31) pg MCHC (32-36) % Plt Count (150-400) K/uL Neut % (Auto) (36-66) % Lymph % (Auto) (24-44) % [place] % (Auto) (2-6) % Eos % (Auto) (2-4) % Baso % (Auto) (0-1) % Puncture Site A-line ABG pH 7.349 L (7.350-7.450) ABG pCO2 63.2 H (35.0-42.0) mmHg ABG pO2 106.0 H (75.0-100.0) mmHg ABG HCO3 33.9 H (22.0-26.0) mmol/L ABG Total CO2 31.1 H (21.0-25.0) mmol/L ABG O2 Saturation 95.3 (95.0-98.0) % ABG O2 Content 15.4 (15.0-23.0) %vol ABG Base Excess 6.9 mm/L ABG Hemoglobin 11.8 L (12.0-16.0) g/dL ABG Oxyhemoglobin 92.1 % ABG Carboxyhemoglobin < 0.5 (0.0-1.6) % ABG Methemoglobin 3.1 % Jim Test A-line O2 Delivery Device Bipap Oxygen Flow Rate 40.0 L Sodium (140-148) mmol/L Potassium (3.6-5.2) mmol/L Chloride (100-108) mmol/L Carbon Dioxide (21-32) mmol/L Anion Gap (5.0-14.0) mmol/L BUN (7-18) mg/dL Creatinine (0.6-1.0) mg/dL Est Cr Clr Drug Dosing mL/min Estimated GFR (MDRD) (>60) Glucose (74-106) mg/dL POC Glucose 172 H (74-106) mg/dL Calcium (8.5-10.1) mg/dL Phosphorus (2.5-4.9) mg/dL Magnesium (1.8-2.4) mg/dL Total Bilirubin (0.2-1.0) mg/dL AST (15-37) U/L ALT (12-78) U/L Alkaline Phosphatase (46-116) U/L Troponin I 0.784 H* (0.000-0.056) ng/mL NT-Pro-B Natriuret Pep (5-125) pg/mL Total Protein (6.4-8.2) g/dL Albumin (3.4-5.0) g/dL Globulin (2.3-3.5) g/dL Albumin/Globulin Ratio (1.2-2.2) Triglycerides (15-150) mg/dL Blood Type Gel Antibody Screen Crossmatch 03/03/21 03/04/21 03/04/21 Range/Units 22:55 05:37 05:37 WBC 9.8 (4.5-11.0) K/uL RBC 3.77 (3.30-5.50) M/uL Hgb 11.1 L (12.0-15.0) g/dL Hct 37.5 (36.0-48.0) % MCV 100 H (80-98) fL MCH 29 (27-31) pg MCHC 30 L (32-36) % Plt Count 269 (150-400) K/uL Neut % (Auto) 82.1 H (36-66) % Lymph % (Auto) 9.5 L (24-44) % [place] % (Auto) 8.2 H (2-6) % Eos % (Auto) 0.0 L (2-4) % Baso % (Auto) 0.2 (0-1) % Puncture Site ABG pH (7.350-7.450) ABG pCO2 (35.0-42.0) mmHg ABG pO2 (75.0-100.0) mmHg ABG HCO3 (22.0-26.0) mmol/L ABG Total CO2 (21.0-25.0) mmol/L ABG O2 Saturation (95.0-98.0) % ABG O2 Content (15.0-23.0) %vol ABG Base Excess mm/L ABG Hemoglobin (12.0-16.0) g/dL ABG Oxyhemoglobin % ABG Carboxyhemoglobin (0.0-1.6) % ABG Methemoglobin % Jim Test O2 Delivery Device Oxygen Flow Rate L Sodium (140-148) mmol/L Potassium (3.6-5.2) mmol/L Chloride (100-108) mmol/L Carbon Dioxide (21-32) mmol/L Anion Gap (5.0-14.0) mmol/L BUN (7-18) mg/dL Creatinine (0.6-1.0) mg/dL Est Cr Clr Drug Dosing mL/min Estimated GFR (MDRD) (>60) Glucose (74-106) mg/dL POC Glucose (74-106) mg/dL Calcium (8.5-10.1) mg/dL Phosphorus 4.6 (2.5-4.9) mg/dL Magnesium (1.8-2.4) mg/dL Total Bilirubin (0.2-1.0) mg/dL AST (15-37) U/L ALT (12-78) U/L Alkaline Phosphatase (46-116) U/L Troponin I 0.585 H* (0.000-0.056) ng/mL NT-Pro-B Natriuret Pep 1533 H (5-125) pg/mL Total Protein (6.4-8.2) g/dL Albumin (3.4-5.0) g/dL Globulin (2.3-3.5) g/dL Albumin/Globulin Ratio (1.2-2.2) Triglycerides 73 (15-150) mg/dL Blood Type Gel Antibody Screen Crossmatch 03/04/21 03/04/21 03/04/21 Range/Units 05:37 05:37 11:45 WBC (4.5-11.0) K/uL RBC (3.30-5.50) M/uL Hgb (12.0-15.0) g/dL Hct (36.0-48.0) % MCV (80-98) fL MCH (27-31) pg MCHC (32-36) % Plt Count (150-400) K/uL Neut % (Auto) (36-66) % Lymph % (Auto) (24-44) % [place] % (Auto) (2-6) % Eos % (Auto) (2-4) % Baso % (Auto) (0-1) % Puncture Site A-line ABG pH 7.346 L (7.350-7.450) ABG pCO2 68.8 H (35.0-42.0) mmHg ABG pO2 162.0 H (75.0-100.0) mmHg ABG HCO3 36.7 H (22.0-26.0) mmol/L ABG Total CO2 33.8 H (21.0-25.0) mmol/L ABG O2 Saturation 96.3 (95.0-98.0) % ABG O2 Content 15.2 (15.0-23.0) %vol ABG Base Excess 9.2 mm/L ABG Hemoglobin 11.5 L (12.0-16.0) g/dL ABG Oxyhemoglobin 92.0 % ABG Carboxyhemoglobin 1.2 (0.0-1.6) % ABG Methemoglobin 3.3 % Jim Test A-line O2 Delivery Device Bipap Oxygen Flow Rate L Sodium 143 (140-148) mmol/L Potassium 5.0 (3.6-5.2) mmol/L Chloride 102 (100-108) mmol/L Carbon Dioxide 37 H (21-32) mmol/L Anion Gap 9.0 (5.0-14.0) mmol/L BUN 21 H D (7-18) mg/dL Creatinine 0.3 L (0.6-1.0) mg/dL Est Cr Clr Drug Dosing 125.57 mL/min Estimated GFR (MDRD) > 60 (>60) Glucose 174 H (74-106) mg/dL POC Glucose 139 H (74-106) mg/dL Calcium 7.9 L (8.5-10.1) mg/dL Phosphorus (2.5-4.9) mg/dL Magnesium 2.2 (1.8-2.4) mg/dL Total Bilirubin 0.2 (0.2-1.0) mg/dL AST 95 H D (15-37) U/L ALT 132 H (12-78) U/L Alkaline Phosphatase 111 (46-116) U/L Troponin I 0.318 H* (0.000-0.056) ng/mL NT-Pro-B Natriuret Pep (5-125) pg/mL Total Protein 5.6 L (6.4-8.2) g/dL Albumin 2.7 L (3.4-5.0) g/dL Globulin 2.9 (2.3-3.5) g/dL Albumin/Globulin Ratio 0.9 L (1.2-2.2) Triglycerides (15-150) mg/dL Blood Type Gel Antibody Screen Crossmatch [place] Results Last 24 Hours: Microbiology 03/03/21 14:18 Gram Stain - Final Endotrachael Aspirate 03/01/21 15:10 Aerobic Blood Culture - Preliminary Blood - Arm, Left NO GROWTH AFTER 2 DAYS Anaerobic Blood Culture - Preliminary NO GROWTH AFTER 2 DAYS 03/01/21 15:15 Aerobic Blood Culture - Preliminary Blood - Arm, Right NO GROWTH AFTER 2 DAYS Anaerobic Blood Culture - Preliminary NO GROWTH AFTER 2 DAYS Med Orders - Current: Current Medications Acetaminophen (Acetaminophen 325 Mg Tab) 650 mg PO Q4H PRN PRN Reason: PAIN/FEVER Last Admin: 03/01/21 14:13 Dose: 650 mg Documented by: Acetaminophen (Acetaminophen 650 Mg Supp) 650 mg RECTAL Q4H PRN PRN Reason: PAIN/FEVER Hydrocodone Bitart/Acetaminophen (Acetaminophen/Hydrocodone 325-5 Mg Tab) 1 tab PO Q4H PRN PRN Reason: Pain Last Admin: 03/03/21 11:25 Dose: 1 tab Documented by: Albuterol (Albuterol 8 Gm Inhaler) 0 gm INH QIDRT PRN PRN Reason: Shortness of Breath Albuterol (Albuterol 0.083% 2.5 Mg/3 Ml Neb Soln) 2.5 mg NEB Q4H PRN PRN Reason: Dyspnea Last Admin: 03/02/21 16:58 Dose: 2.5 mg Documented by: Albuterol/Ipratropium (Albuterol/Ipratropium 3.0-0.5 Mg/3 Ml Neb Soln) 3 ml INH QIDRT [facility] Last Admin: 03/04/21 10:41 Dose: 3 ml Documented by: Enoxaparin Sodium (Enoxaparin 30 Mg/0.3 Ml Syringe) 30 mg SUBCUT Q24H [facility] Last Admin: 03/03/21 15:34 Dose: 30 mg Documented by: Fluoxetine HCl (Fluoxetine 20 Mg Cap) 20 mg PO DAILY [facility] Last Admin: 03/04/21 09:12 Dose: Not Given Documented by: Furosemide (Furosemide 20 Mg/2 Ml Vial) 20 mg IVPUSH BID [facility] Last Admin: 03/04/21 09:04 Dose: 20 mg Documented by: Furosemide (Furosemide 40 Mg/4 Ml Vial) 20 mg IVPUSH NOW ONE Stop: 03/04/21 12:10 Gabapentin (Gabapentin 300 Mg Cap) 300 mg PO QID [facility] Last Admin: 03/04/21 09:12 Dose: Not Given Documented by: Hydromorphone HCl (Hydromorphone 0.5 Mg/0.5 Ml Syringe) 0.5 mg IVPUSH Q2H PRN PRN Reason: Pain Last Admin: 03/04/21 10:16 Dose: 0.5 mg Documented by: Multivitamins/Minerals 10 ml/Zinc 1 ml/ Amino Ac/Electrol/Dextrose/Calcium 1,011 mls @ 70 mls/hr IV .BY DURATION [facility] Last Admin: 03/04/21 05:23 Dose: Not Given Documented by: Amino Ac/Electrol/Dextrose/Calcium (Clinimix E 02/19) 1,000 mls @ 70 mls/hr IV .BY DURATION [facility] Last Admin: 03/03/21 14:48 Dose: 70 mls/hr Documented by: Meropenem 500 mg/ Sodium (Chloride) 50 mls @ 100 mls/hr IV Q8H [facility] Last Admin: 03/04/21 06:26 Dose: 100 mls/hr Documented by: Heparin Sodium (Porcine) 5,000 (units/ Sodium Chloride) 501 mls @ 5 mls/hr IV ASDIRECTED [facility] Last Admin: 03/03/21 12:07 Dose: 5 mls/hr Documented by: Propofol (Diprivan 100 Ml) 100 mls @ 1.113 mls/hr IV TITRATE [facility]; Protocol Last Admin: 03/04/21 08:57 Dose: 50 mcg/kg/min, 11.131 mls/hr Documented by: Azithromycin 500 mg/ Sodium (Chloride) 250 mls @ 250 mls/hr IV Q24H [facility] Last Admin: 03/03/21 15:43 Dose: 250 mls/hr Documented by: Vancomycin HCl 0.5 gm/ Sodium (Chloride) 100 mls @ 66.667 mls/hr IV Q12H [facility] Last Admin: 03/04/21 03:56 Dose: 66.667 mls/hr Documented by: Norepinephrine Bitartrate 4 mg (/ Dextrose/Water) 250 mls @ 7.5 mls/hr IV TITRATE [facility]; Protocol Last Admin: 03/04/21 11:54 Dose: 5 mcg/min, 18.75 mls/hr Documented by: Lorazepam (Lorazepam 0.5 Mg Tab) 0.5 mg PO Q2H PRN PRN Reason: Anxiety Last Admin: 03/03/21 07:43 Dose: 0.5 mg Documented by: Methylprednisolone Sodium Succinate (Methylprednisolone Sodium Succinate 40 Mg/1 Ml Sdv) 40 mg IVPUSH Q12H [facility] Mometasone Furoate/Formoterol Fumar (Formoterol/Mometasone 200-5 Mcg 8.8 Gm Inhaler) 2 puff IH BID@0500,2100 [facility] Last Admin: 03/04/21 04:22 Dose: Not Given Documented by: Ondansetron HCl (Ondansetron 4 Mg Tab.Dis) 4 mg PO Q4H PRN PRN Reason: N/V Pantoprazole Sodium (Pantoprazole 40 Mg Vial) 40 mg IVPUSH DAILY [facility] Last Admin: 03/04/21 09:11 Dose: 40 mg Documented by: Theophylline (Theophylline 100 Mg Cap.Er) 300 mg PO BID@0500,2100 [facility] Last Admin: 03/04/21 04:22 Dose: Not Given Documented by: Tiotropium [place] (Tiotropium [place] 4 Gm Inhalation [place] (2.5mcg/1 Dose; 10 Doses)) 0 gm INH DAILY@0500 [facility] Last Admin: 03/04/21 04:22 Dose: Not Given Documented by: Discontinued Medications Albuterol/Ipratropium (Albuterol/Ipratropium 3.0-0.5 Mg/3 Ml Neb Soln) 3 ml INH Q6H [facility] Last Admin: 03/01/21 17:15 Dose: Not Given Documented by: Albuterol/Ipratropium (Albuterol/Ipratropium 3.0-0.5 Mg/3 Ml Neb Soln) 3 ml INH ASDIRECTED PRN PRN Reason: Shortness of Breath Last Admin: 03/01/21 13:13 Dose: 3 ml Documented by: Furosemide (Furosemide 20 Mg/2 Ml Vial) 20 mg IVPUSH NOW ONE Stop: 03/01/21 15:01 Last Admin: 03/01/21 15:16 Dose: 20 mg Documented by: Furosemide (Furosemide 20 Mg/2 Ml Vial) 20 mg IVPUSH ONETIME ONE Stop: 03/02/21 07:31 Last Admin: 03/02/21 07:43 Dose: 20 mg Documented by: Dextrose/Lactated Ringer's (Dextrose 5%-Lactated Ringers) 1,000 mls @ 100 mls/hr IV ASDIRECTED [facility] Last Admin: 02/28/21 15:04 Dose: 100 mls/hr Documented by: Multivitamins/Minerals 10 ml/Zinc 1 ml/ Amino Ac/Electrol/Dextrose/Calcium 1,011 mls @ 75 mls/hr IV .BY DURATION [facility] Last Admin: 02/28/21 17:20 Dose: 75 mls/hr Documented by: Amino Ac/Electrol/Dextrose/Calcium (Clinimix E 15) 1,000 mls @ 75 mls/hr IV .BY DURATION [facility] Last Admin: 03/01/21 06:46 Dose: 75 mls/hr Documented by: Fat Emulsion Intravenous (Intralipid 20%) 250 mls @ 21 mls/hr IV Q24H [facility] Last Admin: 03/02/21 15:35 Dose: 21 mls/hr Documented by: Dextrose/Lactated Ringer's (Dextrose 5%-Lactated Ringers) 1,000 mls @ 0 mls/hr IV ASDIRECTED [facility] Potassium Phosphate 15 mmol/ (Premix) 250 mls @ 125 mls/hr IV Q2H [facility] Stop: 03/01/21 15:59 Last Admin: 03/01/21 15:38 Dose: Not Given Documented by: Thiamine HCl 100 mg/ Sodium (Chloride) 101 mls @ 202 mls/hr IV ONETIME ONE Stop: 03/01/21 09:29 Last Admin: 03/01/21 10:25 Dose: 202 mls/hr Documented by: Doxycycline Hyclate 100 mg/ (Sodium Chloride) 100 mls @ 100 mls/hr IV Q12H [facility] Last Admin: 03/03/21 03:21 Dose: 100 mls/hr Documented by: Potassium Phosphate 22.5 mmole (/ Sodium Chloride) 107.5 mls @ 25 mls/hr IV Q5H [facility] Stop: 03/02/21 18:47 Last Admin: 03/02/21 13:31 Dose: 25 mls/hr Documented by: Propofol (Diprivan 100 Ml) Confirm Administered Dose 100 mls @ as directed .ROUTE .STK-MED ONE Stop: 03/03/21 12:00 Last Admin: 03/03/21 13:15 Dose: Not Given Documented by: Sodium Chloride (Normal Saline) 100 mls @ 3 mls/sec IV ASDIRECTED [facility] Stop: 03/03/21 14:46 Last Admin: 03/03/21 15:17 Dose: 4 mls/sec Documented by: Vancomycin HCl 0.75 gm/ Sodium (Chloride) 150 mls @ 100 mls/hr IV ONETIME ONE Stop: 03/03/21 17:59 Last Admin: 03/03/21 16:42 Dose: 100 mls/hr Documented by: Sodium Chloride (Normal Saline) 1,000 mls @ 250 mls/hr IV ASDIRECTED [facility] Stop: 03/03/21 20:44 Last Admin: 03/03/21 16:43 Dose: 250 mls/hr Documented by: Iopamidol (Iopamidol 755 Mg/Ml 100 Ml Bottle) 100 ml IV . DIRECTED [facility] Stop: 03/03/21 14:46 Last Admin: 03/03/21 15:16 Dose: 44 ml Documented by: Lorazepam (Lorazepam 0.5 Mg Tab) 0.25 mg PO ONETIME ONE Stop: 03/02/21 18:29 Last Admin: 03/02/21 18:42 Dose: 0.25 mg Documented by: Lorazepam (Lorazepam 2 Mg/Ml Sdv) 0.5 mg IVPUSH ONETIME ONE Stop: 03/03/21 11:05 Last Admin: 03/03/21 11:21 Dose: 0.5 mg Documented by: Lorazepam (Lorazepam 2 Mg/Ml Sdv) Confirm Administered Dose 2 mg .ROUTE .STK-MED ONE Stop: 03/03/21 11:09 Last Admin: 03/03/21 11:22 Dose: Not Given Documented by: Methylprednisolone Sodium Succinate (Methylprednisolone Sodium Succinate 40 Mg/1 Ml Sdv) 40 mg IVPUSH Q6H [facility] Last Admin: 03/04/21 09:16 Dose: 40 mg Documented by: Mometasone Furoate/Formoterol Fumar (Formoterol/Mometasone 200-5 Mcg 8.8 Gm Inhaler) 2 puff IH BIDRT [facility] Last Admin: 03/02/21 06:00 Dose: 2 puff Documented by: Non-Formulary Medication (Central Total Parenteral Nutrition Bag) 1,000 ml .XX .Continue Order [facility] Stop: 03/01/21 10:00 Non-Formulary Medication (Central Total Parenteral Nutrition Bag) 1,000 ml .XX .Continue Order [facility] Stop: 03/02/21 18:00 Non-Formulary Medication (Central Total Parenteral Nutrition Bag) 1,000 ml .XX .Continue Order [facility] Stop: 03/03/21 18:00 Pantoprazole Sodium (Pantoprazole 40 Mg Tab.Cr) 40 mg PO ACBREAKFAST [facility] Last Admin: 03/03/21 07:20 Dose: 40 mg Documented by: Potassium Chloride (Potassium Chloride 20 Meq Tab.Er) 40 meq PO ONETIME ONE Stop: 03/01/21 16:31 Last Admin: 03/01/21 17:38 Dose: 40 meq Documented by: Propofol (Propofol 200 Mg/20 Ml Sdv) Confirm Administered Dose 200 mg .ROUTE .STK-MED ONE Stop: 03/03/21 12:22 Sodium Chloride (Sodium Chloride 0.9% 10 Ml Sdv) 10 ml FLUSH ONETIME ONE Stop: 03/03/21 14:34 Last Admin: 03/03/21 15:20 Dose: 10 ml Documented by: Succinylcholine Chloride (Succinylcholine 200 Mg/10 Ml Mdv) Confirm Administered Dose 200 mg .ROUTE .STK-MED ONE Stop: 03/03/21 12:22 Theophylline (Theophylline 100 Mg Cap.Er) 300 mg PO BID [facility] Last Admin: 03/02/21 09:24 Dose: 300 mg Documented by: Tiotropium [place] (Tiotropium [place] 4 Gm Inhalation [place] (2.5mcg/1 Dose; 10 Doses)) 0 gm INH DAILYRT [facility] Last Admin: 03/02/21 06:00 Dose: 2 puff Documented by: Vancomycin HCl (Vancomycin 1 Gm Sdv) 1 gm IV .PHARMACY TO DOSE [facility] Stop: 03/03/21 18:00 - Exam Quality Assessment: Supplemental Oxygen (Ventilator), Central Line/PICC, Urine Catheter, DVT Prophylaxis Central Line Total Time: 3Days 17Hours Urinary Catheter Total Time: 0Days 2Hours General: Sedated, Lethargic Lungs: Clear to Auscultation, Normal Respiratory Effort, Decreased Breath Sounds. No: Rales, Rhonchi, Wheezing Cardiovascular: Regular Rate, Regular Rhythm, No Murmurs GI/Abdominal Exam: Soft, Non-Tender, No Organomegaly, No Distention Extremities: Non-Tender, No Pedal Edema Sepsis Event Note - Evaluation Sepsis Screening Result: No Definite Risk - Focused Exam Vital Signs: Vital Signs Temp Pulse Resp BP Pulse Ox 03/04/21 11:00 91 19 113/75 95 03/04/21 10:00 90 16 92/57 L 96 03/04/21 09:00 82 16 95/58 L 96 03/04/21 07:54 98.4 F 72 16 95/54 L 98 03/04/21 07:00 80 17 87/60 L 98 03/04/21 06:00 16 90/60 97 03/04/21 05:00 16 95/58 L 98 03/04/21 04:00 98.2 F 16 97/54 L 98 03/04/21 03:00 16 94/67 97 03/04/21 02:00 17 94/60 97 03/04/21 01:00 15 90/56 L 96 Consult PN Assessment/Plan Procedures: Procedures AIRWAY INHALATION TREATMENT (12/03/20) ASSAY OF FERRITIN (12/16/19) ASSAY OF MAGNESIUM (01/09/20) ASSAY OF NATRIURETIC PEPTIDE (12/16/19) ASSAY OF PHOSPHORUS (01/09/20) ASSAY THYROID STIM HORMONE (12/16/19) BLOOD GASES ANY COMBINATION (12/16/19) BLOOD TYPING SEROLOGIC ABO (09/20/15) BLOOD TYPING SEROLOGIC RH(D) (09/20/15) CHEST WALL MANIPULATION (12/03/20) CHEST WALL MANIPULATION (12/03/20) CHEST WALL MANIPULATION (12/16/19) CHEST WALL MANIPULATION (12/16/19) CHEST WALL MANIPULATION (05/30/18) CHEST WALL MANIPULATION (05/30/18) COMPLETE CBC AUTOMATED (01/09/20) COMPLETE CBC W/AUTO DIFF WBC (01/09/20) COMPREHEN METABOLIC PANEL (01/09/20) CT ABD & PELV W/CONTRAST (12/22/20) CT ANGIO ABDOM W/O & W/DYE (12/16/19) CT ANGIOGRAPHY CHEST (12/16/19) CULTURE OTHR SPECIMN AEROBIC (12/22/20) EGD DILATE STRICTURE (12/23/15) ELECTROCARDIOGRAM TRACING (12/03/20) IRON BINDING TEST (01/09/20) MEASURE BLOOD OXYGEN LEVEL (01/09/20) METABOLIC PANEL TOTAL CA (01/09/20) RBC ANTIBODY SCREEN (09/20/15) ROUTINE VENIPUNCTURE (01/09/20) SMEAR GRAM STAIN (12/22/20) TISSUE EXAM BY PATHOLOGIST (12/03/20) TISSUE EXAM BY PATHOLOGIST (12/03/20) WITHDRAWAL OF ARTERIAL BLOOD (05/30/18) X-RAY EXAM ABDOMEN 2 VIEWS (12/16/19) X-RAY EXAM CHEST 1 VIEW (12/16/19) X-RAY EXAM CHEST 2 VIEWS (12/16/19) X-RAY XM UPR GI TRC 1CNTRST (12/03/20) Problem List Initiated/Reviewed/Updated: Yes My Orders Last 24 Hours: My Active Orders 03/03/21 12:00 Heparin Sodium 5,000 units Sodium Chloride 0.9% [Normal Saline] 500 ml IV ASDIRECTED 03/03/21 13:07 RASS Sedation Scale [RC] ASDIRECTED Desired Level of Sedation (RASS) [AST] Click to Edit 03/03/21 13:15 Patient Status [ADT] Routine propofoL [Diprivan 100 ML] 100 ml IV TITRATE 03/03/21 14:10 Mechanical Ventilation [RT Ventilator, Adult] [RC] Q2H 03/03/21 14:18 CULTURE RESPIRATORY + SMEAR [RM] Routine 03/03/21 15:00 Azithromycin [Zithromax] 500 mg Sodium Chloride 0.9% [Normal Saline] 250 ml IV Q24H Enoxaparin [Lovenox] 30 mg SUBCUT Q24H 03/03/21 15:37 EKG 12 Lead [EK] Urgent 03/03/21 20:15 Norepinephrine [Levophed] 4 mg Dextrose 5% in Water 246 ml IV TITRATE 03/03/21 21:42 HYDROmorphone [Dilaudid] 0.5 mg IVPUSH Q2H PRN 03/04/21 04:30 Vancomycin 0.5 gm Sodium Chloride 0.9% [Normal Saline] 100 ml IV Q12H 03/04/21 09:00 Pantoprazole [ProTONIX IV] 40 mg IVPUSH DAILY 03/04/21 12:09 Furosemide [Lasix] 20 mg IVPUSH NOW ONE 03/04/21 12:15 methylPREDNISolone Sod Succ [Solu-MEDROL] 40 mg IVPUSH Q12H 03/04/21 17:00 BASIC METABOLIC PANEL,BMP [CHEM] Stat BLOOD GAS ARTERIAL [BG] Stat 03/05/21 05:00 BLOOD GAS ARTERIAL [BG] Timed CBC WITH AUTO DIFF [HEME] Timed COMPREHENSIVE METABOLIC PN,CMP [CHEM] Timed TROPONIN I [CHEM] Timed 03/05/21 05:11 Chest 1V Frontal [CR] AM 03/06/21 05:11 Chest 1V Frontal [CR] AM 03/07/21 05:11 Chest 1V Frontal [CR] AM 03/08/21 05:11 Chest 1V Frontal [CR] AM Plan: ASSESSMENT AND RECOMMENDATIONS ACUTE ON CHRONIC HYPOXIC AND HYPERCAPNIC RESPIRATORY FAILURE-stable since intubation yesterday, ventilating relatively easily. Oxygenation has been good, continues to experience CO2 retention. CT scan showed no obvious infiltrates or evidence of pulmonary emboli. -Spontaneous breathing trial in a.m. -Continue current ventilator support -Blood cultures pending -Sputum cultures pending -Nebulizer therapy with DuoNeb's and albuterol -Solu-Medrol 40 mg IV every 12 hours -IV antibiotic therapy; vancomycin, azithromycin, and meropenem, she has a history of allergic reaction to penicillins, cephalosporins, and levofloxacin. HYPOTENSION-likely secondary to sedating medications, no evidence of underlying sepsis -Continue IV norepinephrine as needed to maintain MAP of 65 or greater ELEVATED TROPONIN-likely secondary to demand ischemia in the setting of respiratory failure. Troponin level improving -Serial troponin levels RECENT WEIGHT LOSS-status post Domingo-en-Y gastric bypass surgery 6 years ago. Weight loss over the past 2 to 3 months, now down to 81 pounds. Other labs appear to be fairly good including her albumin level and vitamin levels except for folate acid which was found to be low. Plan at admission had been to proceed with surgery for reversal of her Domingo-en-Y gastric bypass. -Continue TPN -Hold on surgery until she is fully recovered from current respiratory compromise
[2021-03-04] MEDS ORDERED: Heparin Sodium 5,000 UNITS in Sodium Chloride 0.9% 500 ML IV SCH (12:30)
[2021-03-04] MEDS ORDERED: Furosemide 40 MG/4 ML VIAL IVPUSH ONE (12:30)
[2021-03-04] MEDS: Enoxaparin 30 MG/0.3 ML Syringe SUBCUT SCH (15:06)
[2021-03-04] MEDS: Azithromycin 500 MG in Sodium Chloride 0.9% 250 ML IV SCH (16:30)
[2021-03-05] MEDS: propofoL 100 ML IV SCH ×2 (01:30→04:42)
[2021-03-05] MEDS: HYDROmorphone 0.5 MG/0.5 ML Syringe IVPUSH PRN ×4 (01:31→21:42)
[2021-03-05] MEDS ORDERED: HYDROmorphone 1 MG/ML Syringe ONE ×2 (02:41→02:43)
[2021-03-05] MEDS: HYDROmorphone 1 MG/ML Syringe IVPUSH PRN ×5 (02:50→20:15)
[2021-03-05] MEDS: Vancomycin 0.5 GM in Sodium Chloride 0.9% 100 ML IV SCH (04:43)
[2021-03-05] MEDS: Tiotropium Bromide 4 GM Inhalation Spray (2.5mcg/1 dose; 10 doses) INH SCH (04:45)
[2021-03-05] MEDS: Formoterol/Mometasone 200-5 MCG 8.8 GM Inhaler IH SCH ×2 (04:45→21:29)
[2021-03-05] MEDS: Theophylline 100 MG Cap.ER PO SCH ×2 (04:46→21:29)
[2021-03-05] MEDS: Gabapentin 300 MG Cap PO SCH ×4 (05:37→21:29)
[2021-03-05] MEDS: Meropenem 500 MG in Sodium Chloride 0.9% 50 ML IV SCH ×3 (06:40→23:32)
[2021-03-05] MEDS: Albuterol/Ipratropium 3.0-0.5 MG/3 ML Neb Soln INH SCH ×4 (07:05→21:29)
[2021-03-05] MEDS: Furosemide 20 MG/2 ML VIAL IVPUSH SCH ×2 (09:00→21:29)
[2021-03-05] MEDS: Pantoprazole 40 MG Vial IVPUSH SCH (09:02)
[2021-03-05] MEDS: methylPREDNISolone Sodium Succinate 40 MG/1 ML SDV IVPUSH SCH (09:02)
[2021-03-05] MEDS: FLUoxetine 20 MG Cap PO SCH (09:10)
[2021-03-05] MEDS: Norepinephrine 4 MG in Dextrose 5% in Water 246 ML IV SCH ×2 (09:20)
[2021-03-05] MEDS ORDERED: Central Total Parenteral Nutrition Bag IV SCH (09:30)
[2021-03-05] MEDS: 1: AA 4.25%/Calcium/D10W/Lytes 1,000 ML with MVI, Adult with Vitamin K 10 ML, Zinc/Coppe IV SCH ×3 (10:02)
--- NOTE | 2021-03-05 10:26 | PCM.CONSN ---
- General Info Date of Service: 03/05/21 Subjective Update: Ms. Silverman has been fairly stable from a respiratory standpoint over the last 24 hours. She was noted developed significant agitation if her sedation lightened. But she has been able to tolerate spontaneous breathing trial this morning and did fairly well with it. We will plan to proceed with extubation. Because of intubation she is unable to provide meaningful information concerning symptoms or review of systems at the present time. - Patient Data Vitals - Most Recent: Last Vital Signs Temp 98.3 F 03/05/21 08:00 Pulse 75 03/05/21 08:00 Resp 16 03/05/21 08:00 BP 94/54 L 03/05/21 08:00 Pulse Ox 97 03/05/21 08:00 Weight - Most Recent: 81 lb 11.2 oz I&O - Last 24 Hours: Intake & Output 03/04/21 03/05/21 03/05/21 22:59 06:59 14:59 Intake Total 1662 1525 Output Total 500 350 Balance 1162 1541 -350 Lab Results Last 24 Hours: Laboratory Results - last 24 hr 03/04/21 03/04/21 03/04/21 Range/Units 11:45 17:25 17:25 WBC (4.5-11.0) K/uL RBC (3.30-5.50) M/uL Hgb (12.0-15.0) g/dL Hct (36.0-48.0) % MCV (80-98) fL MCH (27-31) pg MCHC (32-36) % Plt Count (150-400) K/uL Neut % (Auto) (36-66) % Lymph % (Auto) (24-44) % [place]ink[place] % (Auto) (2-6) % Eos % (Auto) (2-4) % Baso % (Auto) (0-1) % Puncture Site A-line ABG pH 7.443 (7.350-7.450) ABG pCO2 55.9 H (35.0-42.0) mmHg ABG pO2 170.0 H (75.0-100.0) mmHg ABG HCO3 37.7 H (22.0-26.0) mmol/L ABG Total CO2 34.4 H (21.0-25.0) mmol/L ABG O2 Saturation 96.6 (95.0-98.0) % ABG O2 Content 14.3 L (15.0-23.0) %vol ABG Base Excess 11.9 mm/L ABG Hemoglobin 10.7 L (12.0-16.0) g/dL ABG Oxyhemoglobin 92.1 % ABG Carboxyhemoglobin 1.9 H (0.0-1.6) % ABG Methemoglobin 2.8 % Jim Test A-line O2 Delivery Device Nasal cannula Oxygen Flow Rate 35.0 L Sodium 144 (140-148) mmol/L Potassium 4.1 (3.6-5.2) mmol/L Chloride 101 (100-108) mmol/L Carbon Dioxide 40 H (21-32) mmol/L Anion Gap 7.1 (5.0-14.0) mmol/L BUN 22 H (7-18) mg/dL Creatinine 0.3 L (0.6-1.0) mg/dL Est Cr Clr Drug Dosing 125.41 mL/min Estimated GFR (MDRD) > 60 (>60) Glucose 143 H (74-106) mg/dL POC Glucose 139 H (74-106) mg/dL Calcium 7.6 L (8.5-10.1) mg/dL Total Bilirubin (0.2-1.0) mg/dL AST (15-37) U/L ALT (12-78) U/L Alkaline Phosphatase (46-116) U/L Troponin I (0.000-0.056) ng/mL Total Protein (6.4-8.2) g/dL Albumin (3.4-5.0) g/dL Globulin (2.3-3.5) g/dL Albumin/Globulin Ratio (1.2-2.2) 03/04/21 03/04/21 03/05/21 Range/Units 17:30 22:15 05:30 WBC 7.4 (4.5-11.0) K/uL RBC 3.52 (3.30-5.50) M/uL Hgb 10.2 L (12.0-15.0) g/dL Hct 35.2 L (36.0-48.0) % MCV 100 H (80-98) fL MCH 29 (27-31) pg MCHC 29 L (32-36) % Plt Count 252 (150-400) K/uL Neut % (Auto) 72.4 H (36-66) % Lymph % (Auto) 16.3 L (24-44) % Winkler % (Auto) 10.9 H (2-6) % Eos % (Auto) 0.0 L (2-4) % Baso % (Auto) 0.4 (0-1) % Puncture Site ABG pH (7.350-7.450) ABG pCO2 (35.0-42.0) mmHg ABG pO2 (75.0-100.0) mmHg ABG HCO3 (22.0-26.0) mmol/L ABG Total CO2 (21.0-25.0) mmol/L ABG O2 Saturation (95.0-98.0) % ABG O2 Content (15.0-23.0) %vol ABG Base Excess mm/L ABG Hemoglobin (12.0-16.0) g/dL ABG Oxyhemoglobin % ABG Carboxyhemoglobin (0.0-1.6) % ABG Methemoglobin % Jim Test O2 Delivery Device Oxygen Flow Rate L Sodium (140-148) mmol/L Potassium (3.6-5.2) mmol/L Chloride (100-108) mmol/L Carbon Dioxide (21-32) mmol/L Anion Gap (5.0-14.0) mmol/L BUN (7-18) mg/dL Creatinine (0.6-1.0) mg/dL Est Cr Clr Drug Dosing mL/min Estimated GFR (MDRD) (>60) Glucose (74-106) mg/dL POC Glucose 141 H 154 H (74-106) mg/dL Calcium (8.5-10.1) mg/dL Total Bilirubin (0.2-1.0) mg/dL AST (15-37) U/L ALT (12-78) U/L Alkaline Phosphatase (46-116) U/L Troponin I (0.000-0.056) ng/mL Total Protein (6.4-8.2) g/dL Albumin (3.4-5.0) g/dL Globulin (2.3-3.5) g/dL Albumin/Globulin Ratio (1.2-2.2) 03/05/21 03/05/21 03/05/21 Range/Units 05:30 05:30 08:52 WBC (4.5-11.0) K/uL RBC (3.30-5.50) M/uL Hgb (12.0-15.0) g/dL Hct (36.0-48.0) % MCV (80-98) fL MCH (27-31) pg MCHC (32-36) % Plt Count (150-400) K/uL Neut % (Auto) (36-66) % Lymph % (Auto) (24-44) % Winkler % (Auto) (2-6) % Eos % (Auto) (2-4) % Baso % (Auto) (0-1) % Puncture Site Line ABG pH 7.383 (7.350-7.450) ABG pCO2 66.8 H (35.0-42.0) mmHg ABG pO2 112.0 H (75.0-100.0) mmHg ABG HCO3 38.9 H (22.0-26.0) mmol/L ABG Total CO2 36.0 H (21.0-25.0) mmol/L ABG O2 Saturation 95.6 (95.0-98.0) % ABG O2 Content 13.9 L (15.0-23.0) %vol ABG Base Excess 11.9 mm/L ABG Hemoglobin 10.6 L (12.0-16.0) g/dL ABG Oxyhemoglobin 92.1 % ABG Carboxyhemoglobin 0.5 (0.0-1.6) % ABG Methemoglobin 3.2 % Jim Test O2 Delivery Device Bipap Oxygen Flow Rate L Sodium 143 (140-148) mmol/L Potassium 4.4 (3.6-5.2) mmol/L Chloride 102 (100-108) mmol/L Carbon Dioxide 39 H (21-32) mmol/L Anion Gap 6.4 (5.0-14.0) mmol/L BUN 20 H (7-18) mg/dL Creatinine 0.3 L (0.6-1.0) mg/dL Est Cr Clr Drug Dosing 125.41 mL/min Estimated GFR (MDRD) > 60 (>60) Glucose 201 H (74-106) mg/dL POC Glucose 148 H (74-106) mg/dL Calcium 7.7 L (8.5-10.1) mg/dL Total Bilirubin 0.1 L (0.2-1.0) mg/dL AST 100 H (15-37) U/L ALT 192 H (12-78) U/L Alkaline Phosphatase 103 (46-116) U/L Troponin I 0.091 H* (0.000-0.056) ng/mL Total Protein 5.2 L (6.4-8.2) g/dL Albumin 2.5 L (3.4-5.0) g/dL Globulin 2.7 (2.3-3.5) g/dL Albumin/Globulin Ratio 0.9 L (1.2-2.2) Maldonado Results Last 24 Hours: Microbiology 03/03/21 14:18 Gram Stain - Final Endotrachael Aspirate Respiratory Culture - Preliminary 03/01/21 15:15 Aerobic Blood Culture - Preliminary Blood - Arm, Right NO GROWTH AFTER 3 DAYS Anaerobic Blood Culture - Preliminary NO GROWTH AFTER 3 DAYS 03/01/21 15:10 Aerobic Blood Culture - Preliminary Blood - Arm, Left NO GROWTH AFTER 3 DAYS Anaerobic Blood Culture - Preliminary NO GROWTH AFTER 3 DAYS Med Orders - Current: Current Medications Acetaminophen (Acetaminophen 325 Mg Tab) 650 mg PO Q4H PRN PRN Reason: PAIN/FEVER Last Admin: 03/01/21 14:13 Dose: 650 mg Documented by: Acetaminophen (Acetaminophen 650 Mg Supp) 650 mg RECTAL Q4H PRN PRN Reason: PAIN/FEVER Hydrocodone Bitart/Acetaminophen (Acetaminophen/Hydrocodone 325-5 Mg Tab) 1 tab PO Q4H PRN PRN Reason: Pain Last Admin: 03/03/21 11:25 Dose: 1 tab Documented by: Albuterol (Albuterol 8 Gm Inhaler) 0 gm INH QIDRT PRN PRN Reason: Shortness of Breath Albuterol (Albuterol 0.083% 2.5 Mg/3 Ml Neb Soln) 2.5 mg NEB Q4H PRN PRN Reason: Dyspnea Last Admin: 03/02/21 16:58 Dose: 2.5 mg Documented by: Albuterol/Ipratropium (Albuterol/Ipratropium 3.0-0.5 Mg/3 Ml Neb Soln) 3 ml INH QIDRT [facility] Last Admin: 03/05/21 07:05 Dose: 3 ml Documented by: Enoxaparin Sodium (Enoxaparin 30 Mg/0.3 Ml Syringe) 30 mg SUBCUT Q24H [facility] Last Admin: 03/04/21 15:06 Dose: 30 mg Documented by: Fluoxetine HCl (Fluoxetine 20 Mg Cap) 20 mg PO DAILY [facility] Last Admin: 03/05/21 09:10 Dose: Not Given Documented by: Furosemide (Furosemide 20 Mg/2 Ml Vial) 20 mg IVPUSH BID [facility] Last Admin: 03/05/21 09:00 Dose: 20 mg Documented by: Gabapentin (Gabapentin 300 Mg Cap) 300 mg PO QID [facility] Last Admin: 03/05/21 09:10 Dose: Not Given Documented by: Hydromorphone HCl (Hydromorphone 0.5 Mg/0.5 Ml Syringe) 0.5 mg IVPUSH Q2H PRN PRN Reason: Pain Last Admin: 03/05/21 01:31 Dose: 0.5 mg Documented by: Hydromorphone HCl (Hydromorphone 1 Mg/Ml Syringe) 1 mg IVPUSH Q1H PRN PRN Reason: Agitation Last Admin: 03/05/21 07:17 Dose: 1 mg Documented by: Meropenem 500 mg/ Sodium (Chloride) 50 mls @ 100 mls/hr IV Q8H [facility] Last Admin: 03/05/21 06:40 Dose: 100 mls/hr Documented by: Azithromycin 500 mg/ Sodium (Chloride) 250 mls @ 250 mls/hr IV Q24H [facility] Last Admin: 03/04/21 16:30 Dose: 250 mls/hr Documented by: Norepinephrine Bitartrate 4 mg (/ Dextrose/Water) 250 mls @ 7.5 mls/hr IV TITRATE [facility]; Protocol Last Titration: 03/05/21 04:52 Dose: 6 mcg/min, 22.5 mls/hr Documented by: Heparin Sodium (Porcine) 5,000 (units/ Sodium Chloride) 501 mls @ 5 mls/hr IV ASDIRECTED [facility] Last Admin: 03/04/21 13:00 Dose: 5 mls/hr Documented by: Multivitamins/Minerals 10 ml/Zinc 1 ml/ Amino Acids/Electrolytes/Dextrose 1,011 mls @ 70 mls/hr IV .BY DURATION [facility] Last Admin: 03/05/21 10:02 Dose: 70 mls/hr Documented by: Amino Acids/Electrolytes/Dextrose (Clinimix E 4.25/10) 1,000 mls @ 70 mls/hr IV .BY DURATION [facility] Lorazepam (Lorazepam 2 Mg/Ml Sdv) 0.5 mg IVPUSH Q4H PRN PRN Reason: Anxiety Mometasone Furoate/Formoterol Fumar (Formoterol/Mometasone 200-5 Mcg 8.8 Gm Inhaler) 2 puff IH BID@0500,2100 [facility] Last Admin: 03/05/21 04:45 Dose: Not Given Documented by: Ondansetron HCl (Ondansetron 4 Mg Tab.Dis) 4 mg PO Q4H PRN PRN Reason: N/V Pantoprazole Sodium (Pantoprazole 40 Mg Vial) 40 mg IVPUSH DAILY [facility] Last Admin: 03/05/21 09:02 Dose: 40 mg Documented by: Theophylline (Theophylline 100 Mg Cap.Er) 300 mg PO BID@0500,2100 [facility] Last Admin: 03/05/21 04:46 Dose: Not Given Documented by: Tiotropium Benedict (Tiotropium Benedict 4 Gm Inhalation [place] (2.5mcg/1 Dose; 10 Doses)) 0 gm INH DAILY@0500 [facility] Last Admin: 03/05/21 04:45 Dose: Not Given Documented by: Discontinued Medications Albuterol/Ipratropium (Albuterol/Ipratropium 3.0-0.5 Mg/3 Ml Neb Soln) 3 ml INH Q6H [facility] Last Admin: 03/01/21 17:15 Dose: Not Given Documented by: Albuterol/Ipratropium (Albuterol/Ipratropium 3.0-0.5 Mg/3 Ml Neb Soln) 3 ml INH ASDIRECTED PRN PRN Reason: Shortness of Breath Last Admin: 03/01/21 13:13 Dose: 3 ml Documented by: Furosemide (Furosemide 20 Mg/2 Ml Vial) 20 mg IVPUSH NOW ONE Stop: 03/01/21 15:01 Last Admin: 03/01/21 15:16 Dose: 20 mg Documented by: Furosemide (Furosemide 20 Mg/2 Ml Vial) 20 mg IVPUSH ONETIME ONE Stop: 03/02/21 07:31 Last Admin: 03/02/21 07:43 Dose: 20 mg Documented by: Furosemide (Furosemide 40 Mg/4 Ml Vial) 20 mg IVPUSH NOW ONE Stop: 03/04/21 12:31 Last Admin: 03/04/21 13:56 Dose: 20 mg Documented by: Hydromorphone HCl (Hydromorphone 1 Mg/Ml Syringe) Confirm Administered Dose 1 mg .ROUTE .STK-MED ONE Stop: 03/05/21 02:42 Last Admin: 03/05/21 02:52 Dose: Not Given Documented by: Hydromorphone HCl (Hydromorphone 1 Mg/Ml Syringe) Confirm Administered Dose 1 mg .ROUTE .STK-MED ONE Stop: 03/05/21 02:44 Last Admin: 03/05/21 02:47 Dose: Not Given Documented by: Dextrose/Lactated Ringer's (Dextrose 5%-Lactated Ringers) 1,000 mls @ 100 mls/hr IV ASDIRECTED [facility] Last Admin: 02/28/21 15:04 Dose: 100 mls/hr Documented by: Multivitamins/Minerals 10 ml/Zinc 1 ml/ Amino Ac/Electrol/Dextrose/Calcium 1,011 mls @ 75 mls/hr IV .BY DURATION [facility] Last Admin: 02/28/21 17:20 Dose: 75 mls/hr Documented by: Amino Ac/Electrol/Dextrose/Calcium (Clinimix E 5/15) 1,000 mls @ 75 mls/hr IV .BY DURATION [facility] Last Admin: 03/01/21 06:46 Dose: 75 mls/hr Documented by: Fat Emulsion Intravenous (Intralipid 20%) 250 mls @ 21 mls/hr IV Q24H [facility] Last Admin: 03/02/21 15:35 Dose: 21 mls/hr Documented by: Dextrose/Lactated Ringer's (Dextrose 5%-Lactated Ringers) 1,000 mls @ 0 mls/hr IV ASDIRECTED [facility] Potassium Phosphate 15 mmol/ (Premix) 250 mls @ 125 mls/hr IV Q2H [facility] Stop: 03/01/21 15:59 Last Admin: 03/01/21 15:38 Dose: Not Given Documented by: Thiamine HCl 100 mg/ Sodium (Chloride) 101 mls @ 202 mls/hr IV ONETIME ONE Stop: 03/01/21 09:29 Last Admin: 03/01/21 10:25 Dose: 202 mls/hr Documented by: Multivitamins/Minerals 10 ml/Zinc 1 ml/ Amino Ac/Electrol/Dextrose/Calcium 1,011 mls @ 70 mls/hr IV .BY DURATION [facility] Last Admin: 03/04/21 05:23 Dose: Not Given Documented by: Amino Ac/Electrol/Dextrose/Calcium (Clinimix E /15) 1,000 mls @ 70 mls/hr IV .BY DURATION [facility] Last Admin: 03/04/21 22:49 Dose: Not Given Documented by: Doxycycline Hyclate 100 mg/ (Sodium Chloride) 100 mls @ 100 mls/hr IV Q12H [facility] Last Admin: 03/03/21 03:21 Dose: 100 mls/hr Documented by: Potassium Phosphate 22.5 mmole (/ Sodium Chloride) 107.5 mls @ 25 mls/hr IV Q5H [facility] Stop: 03/02/21 18:47 Last Admin: 03/02/21 13:31 Dose: 25 mls/hr Documented by: Heparin Sodium (Porcine) 5,000 (units/ Sodium Chloride) 501 mls @ 5 mls/hr IV ASDIRECTED [facility] Last Admin: 03/03/21 12:07 Dose: 5 mls/hr Documented by: Propofol (Diprivan 100 Ml) Confirm Administered Dose 100 mls @ as directed .ROUTE .STK-MED ONE Stop: 03/03/21 12:00 Last Admin: 03/03/21 13:15 Dose: Not Given Documented by: Propofol (Diprivan 100 Ml) 100 mls @ 1.113 mls/hr IV TITRATE [facility]; Protocol Last Admin: 03/05/21 04:42 Dose: 70 mcg/kg/min, 15.584 mls/hr Documented by: Sodium Chloride (Normal Saline) 100 mls @ 3 mls/sec IV ASDIRECTED [facility] Stop: 03/03/21 14:46 Last Admin: 03/03/21 15:17 Dose: 4 mls/sec Documented by: Vancomycin HCl 0.75 gm/ Sodium (Chloride) 150 mls @ 100 mls/hr IV ONETIME ONE Stop: 03/03/21 17:59 Last Admin: 03/03/21 16:42 Dose: 100 mls/hr Documented by: Vancomycin HCl 0.5 gm/ Sodium (Chloride) 100 mls @ 66.667 mls/hr IV Q12H [facility] Last Admin: 03/05/21 04:43 Dose: 66.667 mls/hr Documented by: Sodium Chloride (Normal Saline) 1,000 mls @ 250 mls/hr IV ASDIRECTED [facility] Stop: 03/03/21 20:44 Last Admin: 03/03/21 16:43 Dose: 250 mls/hr Documented by: Iopamidol (Iopamidol 755 Mg/Ml 100 Ml Bottle) 100 ml IV . DIRECTED [facility] Stop: 03/03/21 14:46 Last Admin: 03/03/21 15:16 Dose: 44 ml Documented by: Lorazepam (Lorazepam 0.5 Mg Tab) 0.25 mg PO ONETIME ONE Stop: 03/02/21 18:29 Last Admin: 03/02/21 18:42 Dose: 0.25 mg Documented by: Lorazepam (Lorazepam 0.5 Mg Tab) 0.5 mg PO Q2H PRN PRN Reason: Anxiety Last Admin: 03/03/21 07:43 Dose: 0.5 mg Documented by: Lorazepam (Lorazepam 2 Mg/Ml Sdv) 0.5 mg IVPUSH ONETIME ONE Stop: 03/03/21 11:05 Last Admin: 03/03/21 11:21 Dose: 0.5 mg Documented by: Lorazepam (Lorazepam 2 Mg/Ml Sdv) Confirm Administered Dose 2 mg .ROUTE .STK-MED ONE Stop: 03/03/21 11:09 Last Admin: 03/03/21 11:22 Dose: Not Given Documented by: Methylprednisolone Sodium Succinate (Methylprednisolone Sodium Succinate 40 Mg/1 Ml Sdv) 40 mg IVPUSH Q6H [facility] Last Admin: 03/04/21 09:16 Dose: 40 mg Documented by: Methylprednisolone Sodium Succinate (Methylprednisolone Sodium Succinate 40 Mg/1 Ml Sdv) 40 mg IVPUSH Q12H [facility] Last Admin: 03/05/21 09:02 Dose: 40 mg Documented by: Mometasone Furoate/Formoterol Fumar (Formoterol/Mometasone 200-5 Mcg 8.8 Gm Inhaler) 2 puff IH BIDRT [facility] Last Admin: 03/02/21 06:00 Dose: 2 puff Documented by: Non-Formulary Medication (Central Total Parenteral Nutrition Bag) 1,000 ml .XX .Continue Order [facility] Stop: 03/01/21 10:00 Non-Formulary Medication (Central Total Parenteral Nutrition Bag) 1,000 ml .XX .Continue Order [facility] Stop: 03/02/21 18:00 Non-Formulary Medication (Central Total Parenteral Nutrition Bag) 1,000 ml .XX .Continue Order [facility] Stop: 03/03/21 18:00 Non-Formulary Medication (Central Total Parenteral Nutrition Bag) 0 ml IV ASDIRECTED [facility] Stop: 03/05/21 10:00 Pantoprazole Sodium (Pantoprazole 40 Mg Tab.Cr) 40 mg PO ACBREAKFAST [facility] Last Admin: 03/03/21 07:20 Dose: 40 mg Documented by: Potassium Chloride (Potassium Chloride 20 Meq Tab.Er) 40 meq PO ONETIME ONE Stop: 03/01/21 16:31 Last Admin: 03/01/21 17:38 Dose: 40 meq Documented by: Propofol (Propofol 200 Mg/20 Ml Sdv) Confirm Administered Dose 200 mg .ROUTE .STK-MED ONE Stop: 03/03/21 12:22 Sodium Chloride (Sodium Chloride 0.9% 10 Ml Sdv) 10 ml FLUSH ONETIME ONE Stop: 03/03/21 14:34 Last Admin: 03/03/21 15:20 Dose: 10 ml Documented by: Succinylcholine Chloride (Succinylcholine 200 Mg/10 Ml Mdv) Confirm Administered Dose 200 mg .ROUTE .STK-MED ONE Stop: 03/03/21 12:22 Theophylline (Theophylline 100 Mg Cap.Er) 300 mg PO BID [facility] Last Admin: 03/02/21 09:24 Dose: 300 mg Documented by: Tiotropium Benedict (Tiotropium Benedict 4 Gm Inhalation [place] (2.5mcg/1 Dose; 10 Doses)) 0 gm INH DAILYRT [facility] Last Admin: 03/02/21 06:00 Dose: 2 puff Documented by: Vancomycin HCl (Vancomycin 1 Gm Sdv) 1 gm IV .PHARMACY TO DOSE [facility] Stop: 03/03/21 18:00 - Exam Quality Assessment: Supplemental Oxygen (Ventilator), Central Line/PICC, Urine Catheter, DVT Prophylaxis Central Line Total Time: 4Days 17Hours Urinary Catheter Total Time: 1Days 16Hours General: Alert, Cooperative, Mild Distress Lungs: Clear to Auscultation, Normal Respiratory Effort, Decreased Breath Sounds. No: Rales, Rhonchi, Wheezing Cardiovascular: Regular Rate, Regular Rhythm, No Murmurs GI/Abdominal Exam: Soft, Non-Tender, No Organomegaly, No Distention Extremities: Non-Tender, No Pedal Edema Skin: Warm, Dry, Intact Sepsis Event Note - Evaluation Sepsis Screening Result: No Definite Risk - Focused Exam Vital Signs: Vital Signs Temp Pulse Resp BP Pulse Ox 03/05/21 08:00 98.3 F 75 16 94/54 L 97 03/05/21 07:05 77 03/05/21 07:00 75 16 96/55 L 97 03/05/21 06:00 16 99/56 L 98 03/05/21 05:00 16 92/53 L 97 03/05/21 04:00 97.8 F 16 116/65 97 03/05/21 03:00 16 93/62 96 03/05/21 02:00 16 89/56 L 97 03/05/21 01:00 16 102/59 L 95 03/05/21 00:00 98 F 16 116/68 97 03/04/21 23:00 16 101/64 97 Consult PN Assessment/Plan Procedures: Procedures AIRWAY INHALATION TREATMENT (12/03/20) ASSAY OF FERRITIN (12/16/19) ASSAY OF MAGNESIUM (01/09/20) ASSAY OF NATRIURETIC PEPTIDE (12/16/19) ASSAY OF PHOSPHORUS (01/09/20) ASSAY THYROID STIM HORMONE (12/16/19) BLOOD GASES ANY COMBINATION (12/16/19) BLOOD TYPING SEROLOGIC ABO (09/20/15) BLOOD TYPING SEROLOGIC RH(D) (09/20/15) CHEST WALL MANIPULATION (12/03/20) CHEST WALL MANIPULATION (12/03/20) CHEST WALL MANIPULATION (12/16/19) CHEST WALL MANIPULATION (12/16/19) CHEST WALL MANIPULATION (05/30/18) CHEST WALL MANIPULATION (05/30/18) COMPLETE CBC AUTOMATED (01/09/20) COMPLETE CBC W/AUTO DIFF WBC (01/09/20) COMPREHEN METABOLIC PANEL (01/09/20) CT ABD & PELV W/CONTRAST (12/22/20) CT ANGIO ABDOM W/O & W/DYE (12/16/19) CT ANGIOGRAPHY CHEST (12/16/19) CULTURE OTHR SPECIMN AEROBIC (12/22/20) EGD DILATE STRICTURE (12/23/15) ELECTROCARDIOGRAM TRACING (12/03/20) IRON BINDING TEST (01/09/20) MEASURE BLOOD OXYGEN LEVEL (01/09/20) METABOLIC PANEL TOTAL CA (01/09/20) RBC ANTIBODY SCREEN (09/20/15) ROUTINE VENIPUNCTURE (01/09/20) SMEAR GRAM STAIN (12/22/20) TISSUE EXAM BY PATHOLOGIST (12/03/20) TISSUE EXAM BY PATHOLOGIST (12/03/20) WITHDRAWAL OF ARTERIAL BLOOD (05/30/18) X-RAY EXAM ABDOMEN 2 VIEWS (12/16/19) X-RAY EXAM CHEST 1 VIEW (12/16/19) X-RAY EXAM CHEST 2 VIEWS (12/16/19) X-RAY XM UPR GI TRC 1CNTRST (12/03/20) Problem List Initiated/Reviewed/Updated: Yes My Orders Last 24 Hours: My Active Orders 03/04/21 12:30 Heparin Sodium 5,000 units Sodium Chloride 0.9% [Normal Saline] 500 ml IV ASDIRECTED 03/05/21 02:45 HYDROmorphone [Dilaudid] 1 mg IVPUSH Q1H PRN 03/05/21 05:11 Chest 1V Frontal [CR] AM 03/05/21 10:14 LORazepam [Ativan] 0.5 mg IVPUSH Q4H PRN 03/05/21 10:30 ALT Order 03/05/21 11:30 BLOOD GAS ARTERIAL [BG] Stat 03/06/21 05:00 BASIC METABOLIC PANEL,BMP [CHEM] Timed BLOOD GAS ARTERIAL [BG] Timed CBC WITH AUTO DIFF [HEME] Timed MAGNESIUM [CHEM] Timed 03/06/21 05:11 Chest 1V Frontal [CR] AM 03/07/21 05:11 Chest 1V Frontal [CR] AM 03/08/21 05:11 Chest 1V Frontal [CR] AM Plan: ASSESSMENT AND RECOMMENDATIONS ACUTE ON CHRONIC HYPOXIC AND HYPERCAPNIC RESPIRATORY FAILURE-stable since intubation, ventilating relatively easily. Oxygenation has been good, continues to experience CO2 retention. CT scan showed no obvious infiltrates or evidence of pulmonary emboli. She has tolerated a spontaneous breathing trial this morning, which she has passed. -Extubate -Supplemental oxygen and/or BiPAP as needed -Blood cultures pending -Sputum cultures pending -Nebulizer therapy with DuoNeb's and albuterol -Discontinue Solu-Medrol 40 mg IV every 12 hours -IV antibiotic therapy; azithromycin, and meropenem, she has a history of allergic reaction to penicillins, cephalosporins, and levofloxacin. -Discontinue IV vancomycin HYPOTENSION-likely secondary to sedating medications, no evidence of underlying sepsis -Continue IV norepinephrine as needed to maintain MAP of 65 or greater ELEVATED TROPONIN-likely secondary to demand ischemia in the setting of respiratory failure. Troponin level improving RECENT WEIGHT LOSS-status post Domingo-en-Y gastric bypass surgery 6 years ago. Weight loss over the past 2 to 3 months, now down to 81 pounds. Other labs appear to be fairly good including her albumin level and vitamin levels except for folate acid which was found to be low. Plan at admission had been to proceed with surgery for reversal of her Domingo-en-Y gastric bypass. -Continue TPN -Hold on surgery until she is fully recovered from current respiratory compromise
--- NOTE | 2021-03-05 12:21 | PCM.EKG ---
#1 Interpretation EKG Date: 03/03/21 Time: 15:55 Rhythm: Other (Sinus tachycardia) Rate (Beats/Min): 115 Simon: Normal P-Wave: Present QRS: Other (Low voltage extremity leads) ST-T: Normal QT: Normal EKG Interpretation Comments: Baseline wander
[2021-03-05] MEDS: acetaZOLAMIDE 500 MG Vial IVPUSH SCH ×3 (13:05→21:52)
[2021-03-05] MEDS: Acetaminophen/HYDROcodone 325-5 MG Tab PO PRN (13:45)
[2021-03-05] MEDS: LORazepam 2 MG/ML SDV IVPUSH PRN ×2 (14:19→20:10)
[2021-03-05] MEDS: Enoxaparin 30 MG/0.3 ML Syringe SUBCUT SCH (14:21)
[2021-03-05] MEDS: Azithromycin 500 MG in Sodium Chloride 0.9% 250 ML IV SCH (14:22)
[2021-03-05] MEDS ORDERED: LORazepam 2 MG/ML SDV IVPUSH ONE (15:05)
[2021-03-06] MEDS: 1: AA 4.25%/Calcium/D10W/Lytes 1,000 ML with MVI, Adult with Vitamin K 10 ML, Zinc/Coppe IV SCH ×6 (00:14→14:42)
[2021-03-06] MEDS: LORazepam 2 MG/ML SDV IVPUSH PRN ×5 (00:28→22:09)
[2021-03-06] MEDS: HYDROmorphone 0.5 MG/0.5 ML Syringe IVPUSH PRN ×4 (01:29→18:11)
[2021-03-06] MEDS: HYDROmorphone 1 MG/ML Syringe IVPUSH PRN ×4 (02:18→20:35)
[2021-03-06] MEDS ORDERED: Formoterol/Mometasone 200-5 MCG 8.8 GM Inhaler IH SCH (05:00)
[2021-03-06] MEDS: Gabapentin 300 MG Cap PO SCH ×4 (05:44→21:01)
[2021-03-06] MEDS: Albuterol/Ipratropium 3.0-0.5 MG/3 ML Neb Soln INH SCH ×4 (07:01→20:58)
[2021-03-06] MEDS: Meropenem 500 MG in Sodium Chloride 0.9% 50 ML IV SCH (07:51)
[2021-03-06] MEDS: Theophylline 100 MG Cap.ER PO SCH ×2 (09:24→21:00)
[2021-03-06] MEDS: FLUoxetine 20 MG Cap PO SCH (09:25)
[2021-03-06] MEDS: Furosemide 20 MG/2 ML VIAL IVPUSH SCH ×2 (09:26→21:00)
[2021-03-06] MEDS: Pantoprazole 40 MG Vial IVPUSH SCH (09:26)
[2021-03-06] MEDS ORDERED: Central Total Parenteral Nutrition Bag IV SCH (10:30)
[2021-03-06] MEDS ORDERED: FLUoxetine 20 MG Cap PO ONE (10:30)
--- NOTE | 2021-03-06 10:30 | PCM.CONSN ---
- General Info Date of Service: 03/06/21 Subjective Update: Ms. Silverman is continued to experience intermittent episodes of respiratory compromise since extubation yesterday. These episodes do seem to be related to increased anxiety and have been managed with lorazepam as well as Dilaudid. When she is more relaxed oxygen saturations are good and PCO2 level seems to improve. She is using noninvasive positive pressure ventilation almost continuously. - Review of Systems General: Reports: Weakness, Fatigue. Denies: Fever, Chills Pulmonary: Reports: Shortness of Breath, Wheezing. Denies: Pleuritic Chest Pain, Cough, Sputum, Hemoptysis Cardiovascular: Reports: Dyspnea on Exertion. Denies: Chest Pain, Palpitations, Orthopnea, PND, Edema, Lightheadedness Gastrointestinal: Reports: Abdominal Pain. Denies: Difficulty Swallowing, Hematochezia, Melena, Nausea, Vomiting Genitourinary: Reports: No Symptoms - Patient Data Vitals - Most Recent: Last Vital Signs Temp 98.1 F 03/06/21 08:00 Pulse 101 H 03/06/21 10:22 Resp 10 L 03/06/21 08:00 BP 117/73 03/06/21 08:00 Pulse Ox 91 L 03/06/21 08:00 Weight - Most Recent: 80 lb 12.8 oz I&O - Last 24 Hours: Intake & Output 03/05/21 03/06/21 03/06/21 22:59 06:59 14:59 Intake Total 1141 1274 Output Total 650 1200 Balance 491 74 Lab Results Last 24 Hours: Laboratory Results - last 24 hr 03/05/21 03/05/21 03/05/21 Range/Units 11:30 12:25 15:05 WBC (4.5-11.0) K/uL RBC (3.30-5.50) M/uL Hgb (12.0-15.0) g/dL Hct (36.0-48.0) % MCV (80-98) fL MCH (27-31) pg MCHC (32-36) % Plt Count (150-400) K/uL Neut % (Auto) (36-66) % Lymph % (Auto) (24-44) % [place] % (Auto) (2-6) % Eos % (Auto) (2-4) % Baso % (Auto) (0-1) % Puncture Site A-line Line ABG pH 7.416 7.254 L (7.350-7.450) ABG pCO2 65.9 H 78.5 H* (35.0-42.0) mmHg ABG pO2 69.7 L 94.2 (75.0-100.0) mmHg ABG HCO3 41.6 H 33.6 H (22.0-26.0) mmol/L ABG Total CO2 37.9 H 31.6 H (21.0-25.0) mmol/L ABG O2 Saturation 91.8 L 93.4 L (95.0-98.0) % ABG O2 Content 14.3 L 15.0 (15.0-23.0) %vol ABG Base Excess 14.5 4.6 mm/L ABG Hemoglobin 11.3 L 11.7 L (12.0-16.0) g/dL ABG Oxyhemoglobin 89.3 90.6 % ABG Carboxyhemoglobin < 0.5 < 0.5 (0.0-1.6) % ABG Methemoglobin 2.9 2.9 % Jim Test A-line TNP O2 Delivery Device Nasal cannula Bipap Oxygen Flow Rate 2.0 L Sodium (140-148) mmol/L Potassium (3.6-5.2) mmol/L Chloride (100-108) mmol/L Carbon Dioxide (21-32) mmol/L Anion Gap (5.0-14.0) mmol/L BUN (7-18) mg/dL Creatinine (0.6-1.0) mg/dL Est Cr Clr Drug Dosing mL/min Estimated GFR (MDRD) (>60) Glucose (74-106) mg/dL POC Glucose 136 H (74-106) mg/dL Calcium (8.5-10.1) mg/dL Magnesium (1.8-2.4) mg/dL 03/05/21 03/05/21 03/06/21 Range/Units 17:02 22:03 05:30 WBC 9.9 (4.5-11.0) K/uL RBC 3.64 (3.30-5.50) M/uL Hgb 10.7 L (12.0-15.0) g/dL Hct 36.2 (36.0-48.0) % MCV 100 H (80-98) fL MCH 29 (27-31) pg MCHC 30 L (32-36) % Plt Count 262 (150-400) K/uL Neut % (Auto) 39.4 (36-66) % Lymph % (Auto) 43.8 (24-44) % [place] % (Auto) 15.7 H (2-6) % Eos % (Auto) 0.4 L (2-4) % Baso % (Auto) 0.7 (0-1) % Puncture Site ABG pH (7.350-7.450) ABG pCO2 (35.0-42.0) mmHg ABG pO2 (75.0-100.0) mmHg ABG HCO3 (22.0-26.0) mmol/L ABG Total CO2 (21.0-25.0) mmol/L ABG O2 Saturation (95.0-98.0) % ABG O2 Content (15.0-23.0) %vol ABG Base Excess mm/L ABG Hemoglobin (12.0-16.0) g/dL ABG Oxyhemoglobin % ABG Carboxyhemoglobin (0.0-1.6) % ABG Methemoglobin % Jim Test O2 Delivery Device Oxygen Flow Rate L Sodium (140-148) mmol/L Potassium (3.6-5.2) mmol/L Chloride (100-108) mmol/L Carbon Dioxide (21-32) mmol/L Anion Gap (5.0-14.0) mmol/L BUN (7-18) mg/dL Creatinine (0.6-1.0) mg/dL Est Cr Clr Drug Dosing mL/min Estimated GFR (MDRD) (>60) Glucose (74-106) mg/dL POC Glucose 145 H 109 H (74-106) mg/dL Calcium (8.5-10.1) mg/dL Magnesium (1.8-2.4) mg/dL 03/06/21 03/06/21 Range/Units 05:30 05:30 WBC (4.5-11.0) K/uL RBC (3.30-5.50) M/uL Hgb (12.0-15.0) g/dL Hct (36.0-48.0) % MCV (80-98) fL MCH (27-31) pg MCHC (32-36) % Plt Count (150-400) K/uL Neut % (Auto) (36-66) % Lymph % (Auto) (24-44) % [place] % (Auto) (2-6) % Eos % (Auto) (2-4) % Baso % (Auto) (0-1) % Puncture Site Line ABG pH 7.301 L (7.350-7.450) ABG pCO2 67.2 H (35.0-42.0) mmHg ABG pO2 75.9 (75.0-100.0) mmHg ABG HCO3 32.1 H (22.0-26.0) mmol/L ABG Total CO2 30.1 H (21.0-25.0) mmol/L ABG O2 Saturation 91.5 L (95.0-98.0) % ABG O2 Content 14.0 L (15.0-23.0) %vol ABG Base Excess 4.6 mm/L ABG Hemoglobin 11.2 L (12.0-16.0) g/dL ABG Oxyhemoglobin 88.6 % ABG Carboxyhemoglobin < 0.5 (0.0-1.6) % ABG Methemoglobin 2.9 % Jim Test O2 Delivery Device Nasal cannula Oxygen Flow Rate L Sodium 143 (140-148) mmol/L Potassium 4.0 (3.6-5.2) mmol/L Chloride 105 (100-108) mmol/L Carbon Dioxide 33 H (21-32) mmol/L Anion Gap 9.0 (5.0-14.0) mmol/L BUN 22 H (7-18) mg/dL Creatinine 0.3 L (0.6-1.0) mg/dL Est Cr Clr Drug Dosing 124.03 mL/min Estimated GFR (MDRD) > 60 (>60) Glucose 111 H (74-106) mg/dL POC Glucose (74-106) mg/dL Calcium 8.3 L (8.5-10.1) mg/dL Magnesium 2.3 (1.8-2.4) mg/dL Maldonado Results Last 24 Hours: Microbiology 03/01/21 15:15 Aerobic Blood Culture - Preliminary Blood - Arm, Right NO GROWTH AFTER 4 DAYS Anaerobic Blood Culture - Preliminary NO GROWTH AFTER 4 DAYS 03/01/21 15:10 Aerobic Blood Culture - Preliminary Blood - Arm, Left NO GROWTH AFTER 4 DAYS Anaerobic Blood Culture - Preliminary NO GROWTH AFTER 4 DAYS 03/03/21 14:18 Gram Stain - Final Endotrachael Aspirate Respiratory Culture - Preliminary Med Orders - Current: Current Medications Acetaminophen (Acetaminophen 325 Mg Tab) 650 mg PO Q4H PRN PRN Reason: PAIN/FEVER Last Admin: 03/01/21 14:13 Dose: 650 mg Documented by: Acetaminophen (Acetaminophen 650 Mg Supp) 650 mg RECTAL Q4H PRN PRN Reason: PAIN/FEVER Hydrocodone Bitart/Acetaminophen (Acetaminophen/Hydrocodone 325-5 Mg Tab) 1 tab PO Q4H PRN PRN Reason: Pain Last Admin: 03/05/21 13:45 Dose: 1 tab Documented by: Albuterol (Albuterol 8 Gm Inhaler) 0 gm INH QIDRT PRN PRN Reason: Shortness of Breath Albuterol (Albuterol 0.083% 2.5 Mg/3 Ml Neb Soln) 2.5 mg NEB Q4H PRN PRN Reason: Dyspnea Last Admin: 03/02/21 16:58 Dose: 2.5 mg Documented by: Albuterol/Ipratropium (Albuterol/Ipratropium 3.0-0.5 Mg/3 Ml Neb Soln) 3 ml INH QIDRT COUNTS INCLUDE 234 BEDS AT [facility] Last Admin: 03/06/21 10:22 Dose: 3 ml Documented by: Enoxaparin Sodium (Enoxaparin 30 Mg/0.3 Ml Syringe) 30 mg SUBCUT Q24H COUNTS INCLUDE 234 BEDS AT [facility] Last Admin: 03/05/21 14:21 Dose: 30 mg Documented by: Fluoxetine HCl (Fluoxetine 20 Mg Cap) 40 mg PO DAILY COUNTS INCLUDE 234 BEDS AT [facility] Fluoxetine HCl (Fluoxetine 20 Mg Cap) 20 mg PO ONETIME ONE Stop: 03/06/21 10:31 Furosemide (Furosemide 20 Mg/2 Ml Vial) 20 mg IVPUSH BID COUNTS INCLUDE 234 BEDS AT [facility] Last Admin: 03/06/21 09:26 Dose: 20 mg Documented by: Gabapentin (Gabapentin 300 Mg Cap) 300 mg PO QID COUNTS INCLUDE 234 BEDS AT [facility] Last Admin: 03/06/21 09:24 Dose: 300 mg Documented by: Hydromorphone HCl (Hydromorphone 0.5 Mg/0.5 Ml Syringe) 0.5 mg IVPUSH Q2H PRN PRN Reason: Pain Last Admin: 03/06/21 01:29 Dose: 0.5 mg Documented by: Hydromorphone HCl (Hydromorphone 1 Mg/Ml Syringe) 1 mg IVPUSH Q1H PRN PRN Reason: Agitation Last Admin: 03/06/21 08:30 Dose: 1 mg Documented by: Azithromycin 500 mg/ Sodium (Chloride) 250 mls @ 250 mls/hr IV Q24H COUNTS INCLUDE 234 BEDS AT [facility] Last Admin: 03/05/21 14:22 Dose: 250 mls/hr Documented by: Norepinephrine Bitartrate 4 mg (/ Dextrose/Water) 250 mls @ 7.5 mls/hr IV TITRATE COUNTS INCLUDE 234 BEDS AT [facility]; Protocol Last Titration: 03/05/21 10:33 Dose: 2 mcg/min, 7.5 mls/hr Documented by: Heparin Sodium (Porcine) 5,000 (units/ Sodium Chloride) 501 mls @ 5 mls/hr IV ASDIRECTED COUNTS INCLUDE 234 BEDS AT [facility] Last Admin: 03/04/21 13:00 Dose: 5 mls/hr Documented by: Multivitamins/Minerals 10 ml/Zinc 1 ml/ Amino Acids/Electrolytes/Dextrose 1,011 mls @ 70 mls/hr IV .BY DURATION COUNTS INCLUDE 234 BEDS AT [facility] Last Admin: 03/05/21 10:02 Dose: 70 mls/hr Documented by: Amino Acids/Electrolytes/Dextrose (Clinimix E 4.25/10) 1,000 mls @ 70 mls/hr IV .BY DURATION COUNTS INCLUDE 234 BEDS AT [facility] Last Admin: 03/06/21 00:14 Dose: 70 mls/hr Documented by: Fat Emulsion Intravenous (Intralipid 20%) 250 mls @ 21 mls/hr IV Q24H COUNTS INCLUDE 234 BEDS AT [facility] Lorazepam (Lorazepam 2 Mg/Ml Sdv) 0.5 mg IVPUSH Q4H PRN PRN Reason: Anxiety Last Admin: 03/06/21 04:28 Dose: 0.5 mg Documented by: Mometasone Furoate/Formoterol Fumar (Formoterol/Mometasone 200-5 Mcg 8.8 Gm Inhaler) 2 puff IH BID@0700,2100 COUNTS INCLUDE 234 BEDS AT [facility] Ondansetron HCl (Ondansetron 4 Mg Tab.Dis) 4 mg PO Q4H PRN PRN Reason: N/V Pantoprazole Sodium (Pantoprazole 40 Mg Tab.Cr) 40 mg PO ACBREAKFAST COUNTS INCLUDE 234 BEDS AT [facility] Theophylline (Theophylline 100 Mg Cap.Er) 300 mg PO BID@0900,2100 COUNTS INCLUDE 234 BEDS AT [facility] Last Admin: 03/06/21 09:24 Dose: 300 mg Documented by: Tiotropium [place] (Tiotropium [place] 4 Gm Inhalation Catarina (2.5mcg/1 Dose; 10 Doses)) 0 gm INH DAILY@0700 COUNTS INCLUDE 234 BEDS AT [facility] Discontinued Medications Acetazolamide (Acetazolamide 500 Mg Vial) 250 mg IVPUSH Q6HR COUNTS INCLUDE 234 BEDS AT [facility] Stop: 03/05/21 22:01 Last Admin: 03/05/21 21:52 Dose: 250 mg Documented by: Albuterol/Ipratropium (Albuterol/Ipratropium 3.0-0.5 Mg/3 Ml Neb Soln) 3 ml INH Q6H COUNTS INCLUDE 234 BEDS AT [facility] Last Admin: 03/01/21 17:15 Dose: Not Given Documented by: Albuterol/Ipratropium (Albuterol/Ipratropium 3.0-0.5 Mg/3 Ml Neb Soln) 3 ml INH ASDIRECTED PRN PRN Reason: Shortness of Breath Last Admin: 03/01/21 13:13 Dose: 3 ml Documented by: Fluoxetine HCl (Fluoxetine 20 Mg Cap) 20 mg PO DAILY COUNTS INCLUDE 234 BEDS AT [facility] Last Admin: 03/06/21 09:25 Dose: 20 mg Documented by: Furosemide (Furosemide 20 Mg/2 Ml Vial) 20 mg IVPUSH NOW ONE Stop: 03/01/21 15:01 Last Admin: 03/01/21 15:16 Dose: 20 mg Documented by: Furosemide (Furosemide 20 Mg/2 Ml Vial) 20 mg IVPUSH ONETIME ONE Stop: 03/02/21 07:31 Last Admin: 03/02/21 07:43 Dose: 20 mg Documented by: Furosemide (Furosemide 40 Mg/4 Ml Vial) 20 mg IVPUSH NOW ONE Stop: 03/04/21 12:31 Last Admin: 03/04/21 13:56 Dose: 20 mg Documented by: Hydromorphone HCl (Hydromorphone 1 Mg/Ml Syringe) Confirm Administered Dose 1 mg .ROUTE .STK-MED ONE Stop: 03/05/21 02:42 Last Admin: 03/05/21 02:52 Dose: Not Given Documented by: Hydromorphone HCl (Hydromorphone 1 Mg/Ml Syringe) Confirm Administered Dose 1 mg .ROUTE .STK-MED ONE Stop: 03/05/21 02:44 Last Admin: 03/05/21 02:47 Dose: Not Given Documented by: Dextrose/Lactated Ringer's (Dextrose 5%-Lactated Ringers) 1,000 mls @ 100 mls/hr IV ASDIRECTED COUNTS INCLUDE 234 BEDS AT [facility] Last Admin: 02/28/21 15:04 Dose: 100 mls/hr Documented by: Multivitamins/Minerals 10 ml/Zinc 1 ml/ Amino Ac/Electrol/Dextrose/Calcium 1,011 mls @ 75 mls/hr IV .BY DURATION COUNTS INCLUDE 234 BEDS AT [facility] Last Admin: 02/28/21 17:20 Dose: 75 mls/hr Documented by: Amino Ac/Electrol/Dextrose/Calcium (Clinimix E 5/15) 1,000 mls @ 75 mls/hr IV .BY DURATION COUNTS INCLUDE 234 BEDS AT [facility] Last Admin: 03/01/21 06:46 Dose: 75 mls/hr Documented by: Fat Emulsion Intravenous (Intralipid 20%) 250 mls @ 21 mls/hr IV Q24H COUNTS INCLUDE 234 BEDS AT [facility] Last Admin: 03/02/21 15:35 Dose: 21 mls/hr Documented by: Dextrose/Lactated Ringer's (Dextrose 5%-Lactated Ringers) 1,000 mls @ 0 mls/hr IV ASDIRECTED COUNTS INCLUDE 234 BEDS AT [facility] Potassium Phosphate 15 mmol/ (Premix) 250 mls @ 125 mls/hr IV Q2H COUNTS INCLUDE 234 BEDS AT [facility] Stop: 03/01/21 15:59 Last Admin: 03/01/21 15:38 Dose: Not Given Documented by: Thiamine HCl 100 mg/ Sodium (Chloride) 101 mls @ 202 mls/hr IV ONETIME ONE Stop: 03/01/21 09:29 Last Admin: 03/01/21 10:25 Dose: 202 mls/hr Documented by: Multivitamins/Minerals 10 ml/Zinc 1 ml/ Amino Ac/Electrol/Dextrose/Calcium 1,011 mls @ 70 mls/hr IV .BY DURATION COUNTS INCLUDE 234 BEDS AT [facility] Last Admin: 03/04/21 05:23 Dose: Not Given Documented by: Amino Ac/Electrol/Dextrose/Calcium (Clinimix E 5/15) 1,000 mls @ 70 mls/hr IV .BY DURATION COUNTS INCLUDE 234 BEDS AT [facility] Last Admin: 03/04/21 22:49 Dose: Not Given Documented by: Meropenem 500 mg/ Sodium (Chloride) 50 mls @ 100 mls/hr IV Q8H COUNTS INCLUDE 234 BEDS AT [facility] Last Admin: 03/06/21 07:51 Dose: 100 mls/hr Documented by: Doxycycline Hyclate 100 mg/ (Sodium Chloride) 100 mls @ 100 mls/hr IV Q12H COUNTS INCLUDE 234 BEDS AT [facility] Last Admin: 03/03/21 03:21 Dose: 100 mls/hr Documented by: Potassium Phosphate 22.5 mmole (/ Sodium Chloride) 107.5 mls @ 25 mls/hr IV Q5H COUNTS INCLUDE 234 BEDS AT [facility] Stop: 03/02/21 18:47 Last Admin: 03/02/21 13:31 Dose: 25 mls/hr Documented by: Heparin Sodium (Porcine) 5,000 (units/ Sodium Chloride) 501 mls @ 5 mls/hr IV ASDIRECTED COUNTS INCLUDE 234 BEDS AT [facility] Last Admin: 03/03/21 12:07 Dose: 5 mls/hr Documented by: Propofol (Diprivan 100 Ml) Confirm Administered Dose 100 mls @ as directed .ROUTE .STK-MED ONE Stop: 03/03/21 12:00 Last Admin: 03/03/21 13:15 Dose: Not Given Documented by: Propofol (Diprivan 100 Ml) 100 mls @ 1.113 mls/hr IV TITRATE COUNTS INCLUDE 234 BEDS AT [facility]; Protocol Last Admin: 03/05/21 04:42 Dose: 70 mcg/kg/min, 15.584 mls/hr Documented by: Sodium Chloride (Normal Saline) 100 mls @ 3 mls/sec IV ASDIRECTED COUNTS INCLUDE 234 BEDS AT [facility] Stop: 03/03/21 14:46 Last Admin: 03/03/21 15:17 Dose: 4 mls/sec Documented by: Vancomycin HCl 0.75 gm/ Sodium (Chloride) 150 mls @ 100 mls/hr IV ONETIME ONE Stop: 03/03/21 17:59 Last Admin: 03/03/21 16:42 Dose: 100 mls/hr Documented by: Vancomycin HCl 0.5 gm/ Sodium (Chloride) 100 mls @ 66.667 mls/hr IV Q12H COUNTS INCLUDE 234 BEDS AT [facility] Last Admin: 03/05/21 04:43 Dose: 66.667 mls/hr Documented by: Sodium Chloride (Normal Saline) 1,000 mls @ 250 mls/hr IV ASDIRECTED COUNTS INCLUDE 234 BEDS AT [facility] Stop: 03/03/21 20:44 Last Admin: 03/03/21 16:43 Dose: 250 mls/hr Documented by: Iopamidol (Iopamidol 755 Mg/Ml 100 Ml Bottle) 100 ml IV . DIRECTED COUNTS INCLUDE 234 BEDS AT [facility] Stop: 03/03/21 14:46 Last Admin: 03/03/21 15:16 Dose: 44 ml Documented by: Lorazepam (Lorazepam 0.5 Mg Tab) 0.25 mg PO ONETIME ONE Stop: 03/02/21 18:29 Last Admin: 03/02/21 18:42 Dose: 0.25 mg Documented by: Lorazepam (Lorazepam 0.5 Mg Tab) 0.5 mg PO Q2H PRN PRN Reason: Anxiety Last Admin: 03/03/21 07:43 Dose: 0.5 mg Documented by: Lorazepam (Lorazepam 2 Mg/Ml Sdv) 0.5 mg IVPUSH ONETIME ONE Stop: 03/03/21 11:05 Last Admin: 03/03/21 11:21 Dose: 0.5 mg Documented by: Lorazepam (Lorazepam 2 Mg/Ml Sdv) Confirm Administered Dose 2 mg .ROUTE .STK-MED ONE Stop: 03/03/21 11:09 Last Admin: 03/03/21 11:22 Dose: Not Given Documented by: Lorazepam (Lorazepam 2 Mg/Ml Sdv) 0.5 mg IVPUSH ONETIME ONE Stop: 03/05/21 15:06 Last Admin: 03/05/21 15:17 Dose: 0.5 mg Documented by: Methylprednisolone Sodium Succinate (Methylprednisolone Sodium Succinate 40 Mg/1 Ml Sdv) 40 mg IVPUSH Q6H COUNTS INCLUDE 234 BEDS AT [facility] Last Admin: 03/04/21 09:16 Dose: 40 mg Documented by: Methylprednisolone Sodium Succinate (Methylprednisolone Sodium Succinate 40 Mg/1 Ml Sdv) 40 mg IVPUSH Q12H COUNTS INCLUDE 234 BEDS AT [facility] Last Admin: 03/05/21 09:02 Dose: 40 mg Documented by: Mometasone Furoate/Formoterol Fumar (Formoterol/Mometasone 200-5 Mcg 8.8 Gm Inhaler) 2 puff IH BIDRT COUNTS INCLUDE 234 BEDS AT [facility] Last Admin: 03/02/21 06:00 Dose: 2 puff Documented by: Mometasone Furoate/Formoterol Fumar (Formoterol/Mometasone 200-5 Mcg 8.8 Gm Inhaler) 2 puff IH BID@0500,2100 COUNTS INCLUDE 234 BEDS AT [facility] Last Admin: 03/05/21 21:29 Dose: Not Given Documented by: Non-Formulary Medication (Central Total Parenteral Nutrition Bag) 1,000 ml .XX .Continue Order COUNTS INCLUDE 234 BEDS AT [facility] Stop: 03/01/21 10:00 Non-Formulary Medication (Central Total Parenteral Nutrition Bag) 1,000 ml .XX .Continue Order COUNTS INCLUDE 234 BEDS AT [facility] Stop: 03/02/21 18:00 Non-Formulary Medication (Central Total Parenteral Nutrition Bag) 1,000 ml .XX .Continue Order COUNTS INCLUDE 234 BEDS AT [facility] Stop: 03/03/21 18:00 Non-Formulary Medication (Central Total Parenteral Nutrition Bag) 0 ml IV ASDIRECTED COUNTS INCLUDE 234 BEDS AT [facility] Stop: 03/05/21 10:00 Pantoprazole Sodium (Pantoprazole 40 Mg Tab.Cr) 40 mg PO ACBREAKFAST COUNTS INCLUDE 234 BEDS AT [facility] Last Admin: 03/03/21 07:20 Dose: 40 mg Documented by: Pantoprazole Sodium (Pantoprazole 40 Mg Vial) 40 mg IVPUSH DAILY COUNTS INCLUDE 234 BEDS AT [facility] Last Admin: 03/06/21 09:26 Dose: 40 mg Documented by: Potassium Chloride (Potassium Chloride 20 Meq Tab.Er) 40 meq PO ONETIME ONE Stop: 03/01/21 16:31 Last Admin: 03/01/21 17:38 Dose: 40 meq Documented by: Propofol (Propofol 200 Mg/20 Ml Sdv) Confirm Administered Dose 200 mg .ROUTE .STK-MED ONE Stop: 03/03/21 12:22 Sodium Chloride (Sodium Chloride 0.9% 10 Ml Sdv) 10 ml FLUSH ONETIME ONE Stop: 03/03/21 14:34 Last Admin: 03/03/21 15:20 Dose: 10 ml Documented by: Succinylcholine Chloride (Succinylcholine 200 Mg/10 Ml Mdv) Confirm Administered Dose 200 mg .ROUTE .STK-MED ONE Stop: 03/03/21 12:22 Theophylline (Theophylline 100 Mg Cap.Er) 300 mg PO BID COUNTS INCLUDE 234 BEDS AT [facility] Last Admin: 03/02/21 09:24 Dose: 300 mg Documented by: Theophylline (Theophylline 100 Mg Cap.Er) 300 mg PO BID@0500,2100 COUNTS INCLUDE 234 BEDS AT [facility] Last Admin: 03/05/21 21:29 Dose: 300 mg Documented by: Tiotropium [place] (Tiotropium [place] 4 Gm Inhalation Catarina (2.5mcg/1 Dose; 10 Doses)) 0 gm INH DAILYRT COUNTS INCLUDE 234 BEDS AT [facility] Last Admin: 03/02/21 06:00 Dose: 2 puff Documented by: Tiotropium [place] (Tiotropium [place] 4 Gm Inhalation Catarina (2.5mcg/1 Dose; 10 Doses)) 0 gm INH DAILY@0500 COUNTS INCLUDE 234 BEDS AT [facility] Last Admin: 03/05/21 04:45 Dose: Not Given Documented by: Vancomycin HCl (Vancomycin 1 Gm Sdv) 1 gm IV .PHARMACY TO DOSE NADYA Stop: 03/03/21 18:00 - Exam Quality Assessment: Supplemental Oxygen, Central Line/PICC, Urine Catheter, DVT Prophylaxis Central Line Total Time: 5Days 18Hours Urinary Catheter Total Time: 1Days 16Hours General: Alert, Oriented, Moderate Distress Lungs: Decreased Breath Sounds, Wheezing. No: Crackles, Rales, Rhonchi Cardiovascular: Regular Rhythm, No Murmurs, Tachycardia GI/Abdominal Exam: Soft, No Organomegaly, Tender. No: Distended, Guarding, Rigid, Rebound Extremities: Non-Tender, No Pedal Edema Sepsis Event Note - Evaluation Sepsis Screening Result: No Definite Risk - Focused Exam Vital Signs: Vital Signs Temp Pulse Resp BP Pulse Ox 03/06/21 10:22 101 H 03/06/21 08:00 98.1 F 96 10 L 117/73 91 L 03/06/21 07:01 94 03/06/21 07:00 91 11 L 116/69 90 L 03/06/21 06:00 10 L 108/70 91 L 03/06/21 05:00 11 L 101/64 93 L 03/06/21 04:00 97.7 F 13 94/68 91 L 03/06/21 03:00 10 L 92/63 92 L 03/06/21 02:00 9 L 120/81 90 L 03/06/21 01:00 10 L 101/61 93 L 03/06/21 00:00 97.7 F 10 L 93/59 L 94 L 03/05/21 23:00 92 9 L 99/68 94 L Consult PN Assessment/Plan Procedures: Procedures AIRWAY INHALATION TREATMENT (12/03/20) ASSAY OF FERRITIN (12/16/19) ASSAY OF MAGNESIUM (01/09/20) ASSAY OF NATRIURETIC PEPTIDE (12/16/19) ASSAY OF PHOSPHORUS (01/09/20) ASSAY THYROID STIM HORMONE (12/16/19) BLOOD GASES ANY COMBINATION (12/16/19) BLOOD TYPING SEROLOGIC ABO (09/20/15) BLOOD TYPING SEROLOGIC RH(D) (09/20/15) CHEST WALL MANIPULATION (12/03/20) CHEST WALL MANIPULATION (12/03/20) CHEST WALL MANIPULATION (12/16/19) CHEST WALL MANIPULATION (12/16/19) CHEST WALL MANIPULATION (05/30/18) CHEST WALL MANIPULATION (05/30/18) COMPLETE CBC AUTOMATED (01/09/20) COMPLETE CBC W/AUTO DIFF WBC (01/09/20) COMPREHEN METABOLIC PANEL (01/09/20) CT ABD & PELV W/CONTRAST (12/22/20) CT ANGIO ABDOM W/O & W/DYE (12/16/19) CT ANGIOGRAPHY CHEST (12/16/19) CULTURE OTHR SPECIMN AEROBIC (12/22/20) EGD DILATE STRICTURE (12/23/15) ELECTROCARDIOGRAM TRACING (12/03/20) IRON BINDING TEST (01/09/20) MEASURE BLOOD OXYGEN LEVEL (01/09/20) METABOLIC PANEL TOTAL CA (01/09/20) RBC ANTIBODY SCREEN (09/20/15) ROUTINE VENIPUNCTURE (01/09/20) SMEAR GRAM STAIN (12/22/20) TISSUE EXAM BY PATHOLOGIST (12/03/20) TISSUE EXAM BY PATHOLOGIST (12/03/20) WITHDRAWAL OF ARTERIAL BLOOD (05/30/18) X-RAY EXAM ABDOMEN 2 VIEWS (12/16/19) X-RAY EXAM CHEST 1 VIEW (12/16/19) X-RAY EXAM CHEST 2 VIEWS (12/16/19) X-RAY XM UPR GI TRC 1CNTRST (12/03/20) Problem List Initiated/Reviewed/Updated: Yes My Orders Last 24 Hours: My Active Orders 03/05/21 10:14 LORazepam [Ativan] 0.5 mg IVPUSH Q4H PRN 03/05/21 10:30 ALT Order 03/06/21 05:11 Chest 1V Frontal [CR] AM 03/06/21 10:19 FLUoxetine [PROzac] 20 mg PO ONETIME ONE 03/06/21 16:00 Fat Emulsion [Intralipid 20%] 250 ml IV Q24H 03/07/21 05:11 Chest 1V Frontal [CR] AM 03/07/21 09:00 FLUoxetine [PROzac] 40 mg PO DAILY Pantoprazole [ProTONIX] 40 mg PO DAILY 03/08/21 05:11 Chest 1V Frontal [CR] AM Plan: ASSESSMENT AND RECOMMENDATIONS ACUTE ON CHRONIC HYPOXIC AND HYPERCAPNIC RESPIRATORY FAILURE-has continued to experience intermittent episodes of respiratory compromise that do seem to be related to increased anxiety. When she is more sedated with use of lorazepam and/or Dilaudid oxygenation improves as does the PCO2. -Supplemental oxygen and/or BiPAP as needed -Blood cultures pending -Sputum cultures pending -Nebulizer therapy with DuoNeb's and albuterol -IV antibiotic therapy; azithromycin, she has a history of allergic reaction to penicillins, cephalosporins, and levofloxacin. -Discontinue IV meropenem SEVERE ANXIETY -Increase Prozac to 40 mg p.o. daily -Continue intermittent use of lorazepam HYPOTENSION-likely secondary to sedating medications, no evidence of underlying sepsis -Continue IV norepinephrine as needed to maintain MAP of 65 or greater ELEVATED TROPONIN-resolved RECENT WEIGHT LOSS-status post Domingo-en-Y gastric bypass surgery 6 years ago. Weight loss over the past 2 to 3 months, now down to 81 pounds. Other labs appear to be fairly good including her albumin level and vitamin levels except for folate acid which was found to be low. Plan at admission had been to proceed with surgery for reversal of her Domingo-en-Y gastric bypass. -Continue TPN -Hold on surgery until she is fully recovered from current respiratory compromise
[2021-03-06] MEDS: Tiotropium Bromide 4 GM Inhalation Spray (2.5mcg/1 dose; 10 doses) INH SCH (10:36)
[2021-03-06] MEDS: Formoterol/Mometasone 200-5 MCG 8.8 GM Inhaler IH SCH ×2 (10:36→20:58)
[2021-03-06] MEDS: Acetaminophen/HYDROcodone 325-5 MG Tab PO PRN (12:07)
[2021-03-06] MEDS: Azithromycin 500 MG in Sodium Chloride 0.9% 250 ML IV SCH (14:52)
[2021-03-06] MEDS: Enoxaparin 30 MG/0.3 ML Syringe SUBCUT SCH (14:52)
[2021-03-06] MEDS: Fat Emulsion 250 ML IV SCH (19:13)
[2021-03-07] MEDS: HYDROmorphone 1 MG/ML Syringe IVPUSH PRN ×3 (00:12→21:20)
[2021-03-07] MEDS: LORazepam 2 MG/ML SDV IVPUSH PRN ×2 (02:35→21:09)
[2021-03-07] MEDS: 1: AA 4.25%/Calcium/D10W/Lytes 1,000 ML with MVI, Adult with Vitamin K 10 ML, Zinc/Coppe IV SCH ×6 (05:05→19:28)
[2021-03-07] MEDS: Acetaminophen/HYDROcodone 325-5 MG Tab PO PRN ×2 (05:53→10:40)
[2021-03-07] MEDS: Gabapentin 300 MG Cap PO SCH ×4 (05:53→21:21)
[2021-03-07] MEDS: Albuterol/Ipratropium 3.0-0.5 MG/3 ML Neb Soln INH SCH ×4 (07:04→21:21)
[2021-03-07] MEDS: Formoterol/Mometasone 200-5 MCG 8.8 GM Inhaler IH SCH ×2 (07:04→21:21)
[2021-03-07] MEDS: Tiotropium Bromide 4 GM Inhalation Spray (2.5mcg/1 dose; 10 doses) INH SCH (07:05)
[2021-03-07] MEDS: FLUoxetine 20 MG Cap PO SCH (08:03)
[2021-03-07] MEDS: Pantoprazole 40 MG Tab.CR PO SCH (08:04)
[2021-03-07] MEDS: Theophylline 100 MG Cap.ER PO SCH ×2 (08:04→21:21)
[2021-03-07] MEDS: HYDROmorphone 0.5 MG/0.5 ML Syringe IVPUSH PRN ×4 (08:13→18:04)
[2021-03-07] MEDS: Furosemide 20 MG/2 ML VIAL IVPUSH SCH (08:29)
--- NOTE | 2021-03-07 09:27 | PCM.CONSN ---
- General Info Date of Service: 03/07/21 Subjective Update: There were no acute events overnight. Patient has been on NIPPV since extubation 2 days ago. She feels a little less short of breath today. She is still lethargic and has not tried any sort of prolonged period off of the NIPPV. She has not had any fevers. Blood pressures have been acceptable. She does report some abdominal pain but is not further able to quantify or characterize it. We did discuss my concerns that this may be advanced emphysema giving her breathing troubles. Functional Status: Reports: Pain Controlled - Review of Systems General: Reports: Weakness. Denies: Fever Pulmonary: Reports: Shortness of Breath - Patient Data Vitals - Most Recent: Last Vital Signs Temp 36.7 C 03/07/21 08:00 Pulse 104 H 03/07/21 08:00 Resp 13 03/07/21 08:00 BP 114/72 03/07/21 08:00 Pulse Ox 92 L 03/07/21 08:00 Weight - Most Recent: 36.832 kg I&O - Last 24 Hours: Intake & Output 03/06/21 03/07/21 03/07/21 22:59 06:59 14:59 Intake Total 1344 1519 Output Total 600 1550 400 Balance 744 -31 -400 Lab Results Last 24 Hours: Laboratory Results - last 24 hr 03/06/21 03/07/21 03/07/21 Range/Units 22:05 05:15 05:15 WBC 9.6 (4.5-11.0) K/uL RBC 3.52 (3.30-5.50) M/uL Hgb 10.2 L (12.0-15.0) g/dL Hct 34.1 L (36.0-48.0) % MCV 97 (80-98) fL MCH 29 (27-31) pg MCHC 30 L (32-36) % Plt Count 286 (150-400) K/uL Neut % (Auto) 42.9 (36-66) % Lymph % (Auto) 43.1 (24-44) % [place] % (Auto) 10.7 H (2-6) % Eos % (Auto) 2.8 (2-4) % Baso % (Auto) 0.5 (0-1) % Puncture Site ABG pH (7.350-7.450) ABG pCO2 (35.0-42.0) mmHg ABG pO2 (75.0-100.0) mmHg ABG HCO3 (22.0-26.0) mmol/L ABG Total CO2 (21.0-25.0) mmol/L ABG O2 Saturation (95.0-98.0) % ABG O2 Content (15.0-23.0) %vol ABG Base Excess mm/L ABG Hemoglobin (12.0-16.0) g/dL ABG Oxyhemoglobin % ABG Carboxyhemoglobin (0.0-1.6) % ABG Methemoglobin % O2 Delivery Device Oxygen Flow Rate L Sodium 142 (140-148) mmol/L Potassium 3.9 (3.6-5.2) mmol/L Chloride 100 (100-108) mmol/L Carbon Dioxide 36 H (21-32) mmol/L Anion Gap 9.9 (5.0-14.0) mmol/L BUN 21 H (7-18) mg/dL Creatinine 0.3 L (0.6-1.0) mg/dL Est Cr Clr Drug Dosing 124.65 mL/min Estimated GFR (MDRD) > 60 (>60) Glucose 114 H (74-106) mg/dL POC Glucose 124 H (74-106) mg/dL Calcium 8.3 L (8.5-10.1) mg/dL 03/07/21 Range/Units 05:30 WBC (4.5-11.0) K/uL RBC (3.30-5.50) M/uL Hgb (12.0-15.0) g/dL Hct (36.0-48.0) % MCV (80-98) fL MCH (27-31) pg MCHC (32-36) % Plt Count (150-400) K/uL Neut % (Auto) (36-66) % Lymph % (Auto) (24-44) % [place] % (Auto) (2-6) % Eos % (Auto) (2-4) % Baso % (Auto) (0-1) % Puncture Site Line ABG pH 7.444 (7.350-7.450) ABG pCO2 55.0 H (35.0-42.0) mmHg ABG pO2 69.4 L (75.0-100.0) mmHg ABG HCO3 37.1 H (22.0-26.0) mmol/L ABG Total CO2 33.8 H (21.0-25.0) mmol/L ABG O2 Saturation 91.8 L (95.0-98.0) % ABG O2 Content 13.7 L (15.0-23.0) %vol ABG Base Excess 11.4 mm/L ABG Hemoglobin 10.9 L (12.0-16.0) g/dL ABG Oxyhemoglobin 88.4 % ABG Carboxyhemoglobin 0.7 (0.0-1.6) % ABG Methemoglobin 3.0 % O2 Delivery Device Bipap Oxygen Flow Rate L Sodium (140-148) mmol/L Potassium (3.6-5.2) mmol/L Chloride (100-108) mmol/L Carbon Dioxide (21-32) mmol/L Anion Gap (5.0-14.0) mmol/L BUN (7-18) mg/dL Creatinine (0.6-1.0) mg/dL Est Cr Clr Drug Dosing mL/min Estimated GFR (MDRD) (>60) Glucose (74-106) mg/dL POC Glucose (74-106) mg/dL Calcium (8.5-10.1) mg/dL [place] Results Last 24 Hours: Microbiology 03/01/21 15:15 Aerobic Blood Culture - Final Blood - Arm, Right NO GROWTH AFTER 5 DAYS Anaerobic Blood Culture - Final NO GROWTH AFTER 5 DAYS 03/01/21 15:10 Aerobic Blood Culture - Final Blood - Arm, Left NO GROWTH AFTER 5 DAYS Anaerobic Blood Culture - Final NO GROWTH AFTER 5 DAYS 03/03/21 14:18 Gram Stain - Final Endotrachael Aspirate Respiratory Culture - Final Yeast Isolated Med Orders - Current: Current Medications Acetaminophen (Acetaminophen 325 Mg Tab) 650 mg PO Q4H PRN PRN Reason: PAIN/FEVER Last Admin: 03/01/21 14:13 Dose: 650 mg Documented by: Acetaminophen (Acetaminophen 650 Mg Supp) 650 mg RECTAL Q4H PRN PRN Reason: PAIN/FEVER Hydrocodone Bitart/Acetaminophen (Acetaminophen/Hydrocodone 325-5 Mg Tab) 1 tab PO Q4H PRN PRN Reason: Pain Last Admin: 03/07/21 05:53 Dose: 1 tab Documented by: Albuterol (Albuterol 0.083% 2.5 Mg/3 Ml Neb Soln) 2.5 mg NEB Q4H PRN PRN Reason: Dyspnea Last Admin: 03/02/21 16:58 Dose: 2.5 mg Documented by: Albuterol/Ipratropium (Albuterol/Ipratropium 3.0-0.5 Mg/3 Ml Neb Soln) 3 ml INH QIDRT [facility] Last Admin: 03/07/21 07:04 Dose: 3 ml Documented by: Enoxaparin Sodium (Enoxaparin 30 Mg/0.3 Ml Syringe) 30 mg SUBCUT Q24H [facility] Last Admin: 03/06/21 14:52 Dose: 30 mg Documented by: Fluoxetine HCl (Fluoxetine 20 Mg Cap) 40 mg PO DAILY [facility] Last Admin: 03/07/21 08:03 Dose: 40 mg Documented by: Gabapentin (Gabapentin 300 Mg Cap) 300 mg PO QID [facility] Last Admin: 03/07/21 05:53 Dose: 300 mg Documented by: Hydromorphone HCl (Hydromorphone 0.5 Mg/0.5 Ml Syringe) 0.5 mg IVPUSH Q2H PRN PRN Reason: Pain Last Admin: 03/07/21 08:13 Dose: 0.5 mg Documented by: Hydromorphone HCl (Hydromorphone 1 Mg/Ml Syringe) 1 mg IVPUSH Q1H PRN PRN Reason: Agitation Last Admin: 03/07/21 03:11 Dose: 1 mg Documented by: Azithromycin 500 mg/ Sodium (Chloride) 250 mls @ 250 mls/hr IV Q24H [facility] Last Admin: 03/06/21 14:52 Dose: 250 mls/hr Documented by: Heparin Sodium (Porcine) 5,000 (units/ Sodium Chloride) 501 mls @ 5 mls/hr IV ASDIRECTED [facility] Last Admin: 03/04/21 13:00 Dose: 5 mls/hr Documented by: Multivitamins/Minerals 10 ml/Zinc 1 ml/ Amino Acids/Electrolytes/Dextrose 1,011 mls @ 70 mls/hr IV .BY DURATION [facility] Last Admin: 03/06/21 14:42 Dose: 70 mls/hr Documented by: Amino Acids/Electrolytes/Dextrose (Clinimix E 4.25/10) 1,000 mls @ 70 mls/hr IV .BY DURATION [facility] Last Admin: 03/07/21 05:05 Dose: 70 mls/hr Documented by: Fat Emulsion Intravenous (Intralipid 20%) 250 mls @ 21 mls/hr IV Q24H [facility] Last Admin: 03/06/21 19:13 Dose: 21 mls/hr Documented by: Lorazepam (Lorazepam 2 Mg/Ml Sdv) 0.5 mg IVPUSH Q4H PRN PRN Reason: Anxiety Last Admin: 03/07/21 02:35 Dose: 0.5 mg Documented by: Lorazepam (Lorazepam 0.5 Mg Tab) 0.5 mg PO Q4H PRN PRN Reason: Anxiety Methylprednisolone Sodium Succinate (Methylprednisolone Sodium Succinate 40 Mg/1 Ml Sdv) 40 mg IVPUSH Q8H [facility] Mometasone Furoate/Formoterol Fumar (Formoterol/Mometasone 200-5 Mcg 8.8 Gm Inhaler) 2 puff IH BID@0700,2100 [facility] Last Admin: 03/07/21 07:04 Dose: 2 puff Documented by: Ondansetron HCl (Ondansetron 4 Mg Tab.Dis) 4 mg PO Q4H PRN PRN Reason: N/V Pantoprazole Sodium (Pantoprazole 40 Mg Tab.Cr) 40 mg PO ACBREAKFAST [facility] Last Admin: 03/07/21 08:04 Dose: 40 mg Documented by: Theophylline (Theophylline 100 Mg Cap.Er) 300 mg PO BID@0900,2100 [facility] Last Admin: 03/07/21 08:04 Dose: 300 mg Documented by: Tiotropium [place] (Tiotropium [place] 4 Gm Inhalation [place] (2.5mcg/1 Dose; 10 Doses)) 0 gm INH DAILY@0700 [facility] Last Admin: 03/07/21 07:05 Dose: 2 puff Documented by: Discontinued Medications Acetazolamide (Acetazolamide 500 Mg Vial) 250 mg IVPUSH Q6HR [facility] Stop: 03/05/21 22:01 Last Admin: 03/05/21 21:52 Dose: 250 mg Documented by: Albuterol (Albuterol 8 Gm Inhaler) 0 gm INH QIDRT PRN PRN Reason: Shortness of Breath Albuterol/Ipratropium (Albuterol/Ipratropium 3.0-0.5 Mg/3 Ml Neb Soln) 3 ml INH Q6H [facility] Last Admin: 03/01/21 17:15 Dose: Not Given Documented by: Albuterol/Ipratropium (Albuterol/Ipratropium 3.0-0.5 Mg/3 Ml Neb Soln) 3 ml INH ASDIRECTED PRN PRN Reason: Shortness of Breath Last Admin: 03/01/21 13:13 Dose: 3 ml Documented by: Fluoxetine HCl (Fluoxetine 20 Mg Cap) 20 mg PO DAILY [facility] Last Admin: 03/06/21 09:25 Dose: 20 mg Documented by: Fluoxetine HCl (Fluoxetine 20 Mg Cap) 20 mg PO ONETIME ONE Stop: 03/06/21 10:31 Last Admin: 03/06/21 12:07 Dose: 20 mg Documented by: Furosemide (Furosemide 20 Mg/2 Ml Vial) 20 mg IVPUSH NOW ONE Stop: 03/01/21 15:01 Last Admin: 03/01/21 15:16 Dose: 20 mg Documented by: Furosemide (Furosemide 20 Mg/2 Ml Vial) 20 mg IVPUSH ONETIME ONE Stop: 03/02/21 07:31 Last Admin: 03/02/21 07:43 Dose: 20 mg Documented by: Furosemide (Furosemide 20 Mg/2 Ml Vial) 20 mg IVPUSH BID [facility] Last Admin: 03/07/21 08:29 Dose: 20 mg Documented by: Furosemide (Furosemide 40 Mg/4 Ml Vial) 20 mg IVPUSH NOW ONE Stop: 03/04/21 12:31 Last Admin: 03/04/21 13:56 Dose: 20 mg Documented by: Hydromorphone HCl (Hydromorphone 1 Mg/Ml Syringe) Confirm Administered Dose 1 mg .ROUTE .STK-MED ONE Stop: 03/05/21 02:42 Last Admin: 03/05/21 02:52 Dose: Not Given Documented by: Hydromorphone HCl (Hydromorphone 1 Mg/Ml Syringe) Confirm Administered Dose 1 mg .ROUTE .STK-MED ONE Stop: 03/05/21 02:44 Last Admin: 03/05/21 02:47 Dose: Not Given Documented by: Dextrose/Lactated Ringer's (Dextrose 5%-Lactated Ringers) 1,000 mls @ 100 mls/hr IV ASDIRECTED [facility] Last Admin: 02/28/21 15:04 Dose: 100 mls/hr Documented by: Multivitamins/Minerals 10 ml/Zinc 1 ml/ Amino Ac/Electrol/Dextrose/Calcium 1,011 mls @ 75 mls/hr IV .BY DURATION [facility] Last Admin: 02/28/21 17:20 Dose: 75 mls/hr Documented by: Amino Ac/Electrol/Dextrose/Calcium (Clinimix E 5/15) 1,000 mls @ 75 mls/hr IV .BY DURATION [facility] Last Admin: 03/01/21 06:46 Dose: 75 mls/hr Documented by: Fat Emulsion Intravenous (Intralipid 20%) 250 mls @ 21 mls/hr IV Q24H [facility] Last Admin: 03/02/21 15:35 Dose: 21 mls/hr Documented by: Dextrose/Lactated Ringer's (Dextrose 5%-Lactated Ringers) 1,000 mls @ 0 mls/hr IV ASDIRECTED [facility] Potassium Phosphate 15 mmol/ (Premix) 250 mls @ 125 mls/hr IV Q2H [facility] Stop: 03/01/21 15:59 Last Admin: 03/01/21 15:38 Dose: Not Given Documented by: Thiamine HCl 100 mg/ Sodium (Chloride) 101 mls @ 202 mls/hr IV ONETIME ONE Stop: 03/01/21 09:29 Last Admin: 03/01/21 10:25 Dose: 202 mls/hr Documented by: Multivitamins/Minerals 10 ml/Zinc 1 ml/ Amino Ac/Electrol/Dextrose/Calcium 1,011 mls @ 70 mls/hr IV .BY DURATION [facility] Last Admin: 03/04/21 05:23 Dose: Not Given Documented by: Amino Ac/Electrol/Dextrose/Calcium (Clinimix E 5/15) 1,000 mls @ 70 mls/hr IV .BY DURATION [facility] Last Admin: 03/04/21 22:49 Dose: Not Given Documented by: Meropenem 500 mg/ Sodium (Chloride) 50 mls @ 100 mls/hr IV Q8H [facility] Last Admin: 03/06/21 07:51 Dose: 100 mls/hr Documented by: Doxycycline Hyclate 100 mg/ (Sodium Chloride) 100 mls @ 100 mls/hr IV Q12H [facility] Last Admin: 03/03/21 03:21 Dose: 100 mls/hr Documented by: Potassium Phosphate 22.5 mmole (/ Sodium Chloride) 107.5 mls @ 25 mls/hr IV Q5H [facility] Stop: 03/02/21 18:47 Last Admin: 03/02/21 13:31 Dose: 25 mls/hr Documented by: Heparin Sodium (Porcine) 5,000 (units/ Sodium Chloride) 501 mls @ 5 mls/hr IV ASDIRECTED [facility] Last Admin: 03/03/21 12:07 Dose: 5 mls/hr Documented by: Propofol (Diprivan 100 Ml) Confirm Administered Dose 100 mls @ as directed .ROUTE .STK-MED ONE Stop: 03/03/21 12:00 Last Admin: 03/03/21 13:15 Dose: Not Given Documented by: Propofol (Diprivan 100 Ml) 100 mls @ 1.113 mls/hr IV TITRATE [facility]; Protocol Last Admin: 03/05/21 04:42 Dose: 70 mcg/kg/min, 15.584 mls/hr Documented by: Sodium Chloride (Normal Saline) 100 mls @ 3 mls/sec IV ASDIRECTED [facility] Stop: 03/03/21 14:46 Last Admin: 03/03/21 15:17 Dose: 4 mls/sec Documented by: Vancomycin HCl 0.75 gm/ Sodium (Chloride) 150 mls @ 100 mls/hr IV ONETIME ONE Stop: 03/03/21 17:59 Last Admin: 03/03/21 16:42 Dose: 100 mls/hr Documented by: Vancomycin HCl 0.5 gm/ Sodium (Chloride) 100 mls @ 66.667 mls/hr IV Q12H [facility] Last Admin: 03/05/21 04:43 Dose: 66.667 mls/hr Documented by: Sodium Chloride (Normal Saline) 1,000 mls @ 250 mls/hr IV ASDIRECTED [facility] Stop: 03/03/21 20:44 Last Admin: 03/03/21 16:43 Dose: 250 mls/hr Documented by: Norepinephrine Bitartrate 4 mg (/ Dextrose/Water) 250 mls @ 7.5 mls/hr IV TITRATE [facility]; Protocol Last Titration: 03/05/21 10:33 Dose: 2 mcg/min, 7.5 mls/hr Documented by: Iopamidol (Iopamidol 755 Mg/Ml 100 Ml Bottle) 100 ml IV . DIRECTED [facility] Stop: 03/03/21 14:46 Last Admin: 03/03/21 15:16 Dose: 44 ml Documented by: Lorazepam (Lorazepam 0.5 Mg Tab) 0.25 mg PO ONETIME ONE Stop: 03/02/21 18:29 Last Admin: 03/02/21 18:42 Dose: 0.25 mg Documented by: Lorazepam (Lorazepam 0.5 Mg Tab) 0.5 mg PO Q2H PRN PRN Reason: Anxiety Last Admin: 03/03/21 07:43 Dose: 0.5 mg Documented by: Lorazepam (Lorazepam 2 Mg/Ml Sdv) 0.5 mg IVPUSH ONETIME ONE Stop: 03/03/21 11:05 Last Admin: 03/03/21 11:21 Dose: 0.5 mg Documented by: Lorazepam (Lorazepam 2 Mg/Ml Sdv) Confirm Administered Dose 2 mg .ROUTE .STK-MED ONE Stop: 03/03/21 11:09 Last Admin: 03/03/21 11:22 Dose: Not Given Documented by: Lorazepam (Lorazepam 2 Mg/Ml Sdv) 0.5 mg IVPUSH ONETIME ONE Stop: 03/05/21 15:06 Last Admin: 03/05/21 15:17 Dose: 0.5 mg Documented by: Methylprednisolone Sodium Succinate (Methylprednisolone Sodium Succinate 40 Mg/1 Ml Sdv) 40 mg IVPUSH Q6H [facility] Last Admin: 03/04/21 09:16 Dose: 40 mg Documented by: Methylprednisolone Sodium Succinate (Methylprednisolone Sodium Succinate 40 Mg/1 Ml Sdv) 40 mg IVPUSH Q12H [facility] Last Admin: 03/05/21 09:02 Dose: 40 mg Documented by: Mometasone Furoate/Formoterol Fumar (Formoterol/Mometasone 200-5 Mcg 8.8 Gm Inhaler) 2 puff IH BIDRT [facility] Last Admin: 03/02/21 06:00 Dose: 2 puff Documented by: Mometasone Furoate/Formoterol Fumar (Formoterol/Mometasone 200-5 Mcg 8.8 Gm Inhaler) 2 puff IH BID@0500,2100 [facility] Last Admin: 03/05/21 21:29 Dose: Not Given Documented by: Non-Formulary Medication (Central Total Parenteral Nutrition Bag) 1,000 ml .XX .Continue Order [facility] Stop: 03/01/21 10:00 Non-Formulary Medication (Central Total Parenteral Nutrition Bag) 1,000 ml .XX .Continue Order [facility] Stop: 03/02/21 18:00 Non-Formulary Medication (Central Total Parenteral Nutrition Bag) 1,000 ml .XX .Continue Order [facility] Stop: 03/03/21 18:00 Non-Formulary Medication (Central Total Parenteral Nutrition Bag) 0 ml IV ASDIRECTED [facility] Stop: 03/05/21 10:00 Non-Formulary Medication (Central Total Parenteral Nutrition Bag) 0 ml IV ASDIRECTED [facility] Stop: 03/06/21 12:00 Pantoprazole Sodium (Pantoprazole 40 Mg Tab.Cr) 40 mg PO ACBREAKFAST [facility] Last Admin: 03/03/21 07:20 Dose: 40 mg Documented by: Pantoprazole Sodium (Pantoprazole 40 Mg Vial) 40 mg IVPUSH DAILY [facility] Last Admin: 03/06/21 09:26 Dose: 40 mg Documented by: Potassium Chloride (Potassium Chloride 20 Meq Tab.Er) 40 meq PO ONETIME ONE Stop: 03/01/21 16:31 Last Admin: 03/01/21 17:38 Dose: 40 meq Documented by: Propofol (Propofol 200 Mg/20 Ml Sdv) Confirm Administered Dose 200 mg .ROUTE .STK-MED ONE Stop: 03/03/21 12:22 Sodium Chloride (Sodium Chloride 0.9% 10 Ml Sdv) 10 ml FLUSH ONETIME ONE Stop: 03/03/21 14:34 Last Admin: 03/03/21 15:20 Dose: 10 ml Documented by: Succinylcholine Chloride (Succinylcholine 200 Mg/10 Ml Mdv) Confirm Administered Dose 200 mg .ROUTE .STK-MED ONE Stop: 03/03/21 12:22 Theophylline (Theophylline 100 Mg Cap.Er) 300 mg PO BID [facility] Last Admin: 03/02/21 09:24 Dose: 300 mg Documented by: Theophylline (Theophylline 100 Mg Cap.Er) 300 mg PO BID@0500,2100 [facility] Last Admin: 03/05/21 21:29 Dose: 300 mg Documented by: Tiotropium [place] (Tiotropium [place] 4 Gm Inhalation [place] (2.5mcg/1 Dose; 10 Doses)) 0 gm INH DAILYRT [facility] Last Admin: 03/02/21 06:00 Dose: 2 puff Documented by: Tiotropium [place] (Tiotropium [place] 4 Gm Inhalation [place] (2.5mcg/1 Dose; 10 Doses)) 0 gm INH DAILY@0500 [facility] Last Admin: 03/05/21 04:45 Dose: Not Given Documented by: Vancomycin HCl (Vancomycin 1 Gm Sdv) 1 gm IV .PHARMACY TO DOSE [facility] Stop: 03/03/21 18:00 - Exam Quality Assessment: Supplemental Oxygen Central Line Total Time: 6Days 17Hours Urinary Catheter Total Time: 1Days 16Hours General: Alert, Cooperative, No Acute Distress, Lethargic HEENT: Pupils Equal Lungs: Normal Respiratory Effort, Decreased Breath Sounds (diffuse expiratory ), Wheezing (mild exp diffuse) Cardiovascular: Regular Rhythm, Tachycardia GI/Abdominal Exam: Normal Bowel Sounds, Soft, No Distention, Tender (epigastrium ) Extremities: No Pedal Edema. No: Increased Warmth Skin: Warm, Dry Psy/Mental Status: Alert. No: Agitated Sepsis Event Note - Evaluation Sepsis Screening Result: No Definite Risk - Focused Exam Vital Signs: Vital Signs Temp Pulse Resp BP Pulse Ox 03/07/21 08:00 36.7 C 104 H 13 114/72 92 L 03/07/21 07:05 117 H 03/07/21 06:00 28 H 121/77 89 L 03/07/21 04:00 36.8 C 10 L 102/75 93 L 03/07/21 02:00 18 98/74 93 L 03/07/21 00:00 37.1 C 12 98/71 90 L 03/06/21 22:00 9 L 96/63 91 L Consult PN Assessment/Plan Procedures: Procedures AIRWAY INHALATION TREATMENT (12/03/20) ASSAY OF FERRITIN (12/16/19) ASSAY OF MAGNESIUM (01/09/20) ASSAY OF NATRIURETIC PEPTIDE (12/16/19) ASSAY OF PHOSPHORUS (01/09/20) ASSAY THYROID STIM HORMONE (12/16/19) BLOOD GASES ANY COMBINATION (12/16/19) BLOOD TYPING SEROLOGIC ABO (09/20/15) BLOOD TYPING SEROLOGIC RH(D) (09/20/15) CHEST WALL MANIPULATION (12/03/20) CHEST WALL MANIPULATION (12/03/20) CHEST WALL MANIPULATION (12/16/19) CHEST WALL MANIPULATION (12/16/19) CHEST WALL MANIPULATION (05/30/18) CHEST WALL MANIPULATION (05/30/18) COMPLETE CBC AUTOMATED (01/09/20) COMPLETE CBC W/AUTO DIFF WBC (01/09/20) COMPREHEN METABOLIC PANEL (01/09/20) CT ABD & PELV W/CONTRAST (12/22/20) CT ANGIO ABDOM W/O & W/DYE (12/16/19) CT ANGIOGRAPHY CHEST (12/16/19) CULTURE OTHR SPECIMN AEROBIC (12/22/20) EGD DILATE STRICTURE (12/23/15) ELECTROCARDIOGRAM TRACING (12/03/20) IRON BINDING TEST (01/09/20) MEASURE BLOOD OXYGEN LEVEL (01/09/20) METABOLIC PANEL TOTAL CA (01/09/20) RBC ANTIBODY SCREEN (09/20/15) ROUTINE VENIPUNCTURE (01/09/20) SMEAR GRAM STAIN (12/22/20) TISSUE EXAM BY PATHOLOGIST (12/03/20) TISSUE EXAM BY PATHOLOGIST (12/03/20) WITHDRAWAL OF ARTERIAL BLOOD (05/30/18) X-RAY EXAM ABDOMEN 2 VIEWS (12/16/19) X-RAY EXAM CHEST 1 VIEW (12/16/19) X-RAY EXAM CHEST 2 VIEWS (12/16/19) X-RAY XM UPR GI TRC 1CNTRST (12/03/20) Problem List Initiated/Reviewed/Updated: Yes My Orders Last 24 Hours: My Active Orders 03/07/21 09:25 LORazepam [Ativan] 0.5 mg PO Q4H PRN 03/07/21 09:30 methylPREDNISolone Sod Succ [Solu-MEDROL] 40 mg IVPUSH Q8H 03/08/21 05:00 BASIC METABOLIC PANEL,BMP [CHEM] Timed BLOOD GAS ARTERIAL [BG] Timed Plan: ASSESSMENT AND RECOMMENDATIONS ACUTE ON CHRONIC HYPOXIC AND HYPERCAPNIC RESPIRATORY FAILURE-she has required NIPPV since extubation. CT of the chest did not reveal any acute findings but did document fairly extensive emphysema. 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 I suspect the episodes of increased PCO2 are related to increased respiratory rate plus or minus anxiety leading to air trapping and poor ventilation. No strong evidence to support ongoing infection. -Supplemental oxygen and/or NIPPV as needed -Trial of low-dose steroids -Nebulizer therapy with DuoNeb's and albuterol -Continue azithromycin -Alpha-1 antitrypsin lab studies SEVERE ANXIETY-contributing to her respiratory compromise. -Increase Prozac to 40 mg p.o. daily -Continue intermittent use of lorazepam HYPOTENSION-likely secondary to sedating medications, no evidence of underlying sepsis. This has resolved. ELEVATED TROPONIN-resolved RECENT WEIGHT LOSS-status post Domingo-en-Y gastric bypass surgery 6 years ago. Weight loss over the past 2 to 3 months, now down to 81 pounds. Other labs appear to be fairly good including her albumin level and vitamin levels except for folate acid which was found to be low. Plan at admission had been to proceed with surgery for reversal of her Domingo-en-Y gastric bypass. 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 -Continue TPN -She would be very high risk for surgery from a cardiopulmonary standpoint Arthur Gates MD
[2021-03-07] MEDS: LORazepam 0.5 MG Tab PO PRN ×3 (10:42→18:27)
[2021-03-07] MEDS: methylPREDNISolone Sodium Succinate 40 MG/1 ML SDV IVPUSH SCH ×2 (10:43→17:47)
[2021-03-07] MEDS ORDERED: Central Total Parenteral Nutrition Bag SCH (12:00)
[2021-03-07] MEDS: Enoxaparin 30 MG/0.3 ML Syringe SUBCUT SCH (14:33)
[2021-03-07] MEDS: Azithromycin 500 MG in Sodium Chloride 0.9% 250 ML IV SCH (14:34)
[2021-03-07] MEDS: Fat Emulsion 250 ML IV SCH (16:24)
[2021-03-08] MEDS: HYDROmorphone 1 MG/ML Syringe IVPUSH PRN ×4 (00:36→19:32)
[2021-03-08] MEDS: methylPREDNISolone Sodium Succinate 40 MG/1 ML SDV IVPUSH SCH ×3 (01:48→17:41)
[2021-03-08] MEDS: LORazepam 0.5 MG Tab PO PRN ×6 (01:48→22:05)
[2021-03-08] MEDS: Acetaminophen/HYDROcodone 325-5 MG Tab PO PRN ×5 (01:48→22:03)
[2021-03-08] MEDS: Gabapentin 300 MG Cap PO SCH ×4 (05:38→22:03)
[2021-03-08] MEDS: Albuterol/Ipratropium 3.0-0.5 MG/3 ML Neb Soln INH SCH ×4 (07:08→22:04)
[2021-03-08] MEDS: Tiotropium Bromide 4 GM Inhalation Spray (2.5mcg/1 dose; 10 doses) INH SCH (07:08)
[2021-03-08] MEDS: Formoterol/Mometasone 200-5 MCG 8.8 GM Inhaler IH SCH ×2 (07:08→22:04)
[2021-03-08] MEDS: Pantoprazole 40 MG Tab.CR PO SCH (07:52)
[2021-03-08] MEDS ORDERED: 1: AA 4.25%/Calcium/D10W/Lytes 1,000 ML with MVI, Adult with Vitamin K 10 ML, Zinc/Coppe IV SCH ×3 (08:00)
--- NOTE | 2021-03-08 08:11 | PN ---
DATE OF SERVICE: 03/06/2021 The patient has been extubated since yesterday. She is more or less from a respiratory standpoint. Still large amount of anxiety, requiring some Dilaudid and Ativan for control. At this point, we will continue with TPN, and otherwise continue the management with assistance of Dr. Yaw Najera MD /[phone]
--- NOTE | 2021-03-08 09:26 | CR ---
CHEST: Portable 03/05/2021 at 5:12 AM CLINICAL HISTORY:Respiratory failure COMPARISON:03/04/2021 FINDINGS: Endotracheal tube is in the mid trachea. PICC line is seen from the left upper extremity. Lungs are diffusely emphysematous. No infiltrates are seen. Heart and pulmonary vascularity are normal Impression: Endotracheal tube mid trachea. Severe COPD
[2021-03-08] MEDS: 1: AA 4.25%/Calcium/D10W/Lytes 1,000 ML with MVI, Adult with Vitamin K 10 ML, Zinc/Coppe IV SCH ×6 (09:44→23:51)
[2021-03-08] MEDS: FLUoxetine 20 MG Cap PO SCH (09:44)
[2021-03-08] MEDS: Theophylline 100 MG Cap.ER PO SCH ×2 (09:44→22:03)
--- NOTE | 2021-03-08 10:19 | CR ---
CHEST: Portable 03/06/2021 at 1:49 AM CLINICAL HISTORY:Respiratory failure COMPARISON:03/05/2021 FINDINGS: Patient has been extubated. PICC line remains in place. Lungs are emphysematous. No infiltrates are seen. Impression: Endotracheal extubation Advanced emphysema
--- NOTE | 2021-03-08 10:45 | PCM.CONSN ---
- General Info Date of Service: 03/08/21 Subjective Update: There were no acute events overnight. Patient did have a couple of episodes of increased anxiety and respiratory rate that did respond to benzodiazepines. She is a little bit more alert and interactive today. She does not feel any better today. She still feels very short of breath. She continues to be dependent on her NIPPV. We did try her off for short while this morning but quickly progressed to tachypnea and anxiety. No complaints of chest pain or abdominal pain today. PCO2 is down to 50 with a normal pH. Functional Status: Reports: Pain Controlled - Review of Systems General: Reports: Weakness Pulmonary: Reports: Shortness of Breath Psychiatric: Reports: Anxiety - Patient Data Vitals - Most Recent: Last Vital Signs Temp 36.9 C 03/08/21 08:00 Pulse 111 H 03/08/21 10:00 Resp 22 H 03/08/21 10:00 BP 122/77 03/08/21 10:00 Pulse Ox 94 L 03/08/21 10:00 Weight - Most Recent: 35.38 kg I&O - Last 24 Hours: Intake & Output 03/07/21 03/08/21 03/08/21 22:59 06:59 14:59 Intake Total 1289 1490 Output Total 350 1025 Balance 939 465 Lab Results Last 24 Hours: Laboratory Results - last 24 hr 03/08/21 03/08/21 03/08/21 Range/Units 05:30 05:30 06:53 Puncture Site Line ABG pH 7.422 (7.350-7.450) ABG pCO2 50.3 H (35.0-42.0) mmHg ABG pO2 86.8 (75.0-100.0) mmHg ABG HCO3 32.2 H (22.0-26.0) mmol/L ABG Total CO2 29.3 H (21.0-25.0) mmol/L ABG O2 Saturation 94.2 L (95.0-98.0) % ABG O2 Content 14.6 L (15.0-23.0) %vol ABG Base Excess 7.0 mm/L ABG Hemoglobin 11.4 L (12.0-16.0) g/dL ABG Oxyhemoglobin 90.7 % ABG Carboxyhemoglobin 0.7 (0.0-1.6) % ABG Methemoglobin 3.0 % O2 Delivery Device Bipap Oxygen Flow Rate L Sodium 140 (140-148) mmol/L Potassium 4.6 (3.6-5.2) mmol/L Chloride 101 (100-108) mmol/L Carbon Dioxide 32 (21-32) mmol/L Anion Gap 6.8 (5.0-14.0) mmol/L BUN 18 (7-18) mg/dL Creatinine 0.3 L (0.6-1.0) mg/dL Est Cr Clr Drug Dosing 119.43 mL/min Estimated GFR (MDRD) > 60 (>60) Glucose 143 H (74-106) mg/dL Calcium 8.7 (8.5-10.1) mg/dL Phosphorus 3.8 (2.5-4.9) mg/dL Med Orders - Current: Current Medications Acetaminophen (Acetaminophen 325 Mg Tab) 650 mg PO Q4H PRN PRN Reason: PAIN/FEVER Last Admin: 03/01/21 14:13 Dose: 650 mg Documented by: Acetaminophen (Acetaminophen 650 Mg Supp) 650 mg RECTAL Q4H PRN PRN Reason: PAIN/FEVER Hydrocodone Bitart/Acetaminophen (Acetaminophen/Hydrocodone 325-5 Mg Tab) 1 tab PO Q4H PRN PRN Reason: Pain Last Admin: 03/08/21 07:52 Dose: 1 tab Documented by: Albuterol (Albuterol 0.083% 2.5 Mg/3 Ml Neb Soln) 2.5 mg NEB Q4H PRN PRN Reason: Dyspnea Last Admin: 03/02/21 16:58 Dose: 2.5 mg Documented by: Albuterol/Ipratropium (Albuterol/Ipratropium 3.0-0.5 Mg/3 Ml Neb Soln) 3 ml INH QIDRT [facility] Last Admin: 03/08/21 10:44 Dose: 3 ml Documented by: Enoxaparin Sodium (Enoxaparin 30 Mg/0.3 Ml Syringe) 30 mg SUBCUT Q24H [facility] Last Admin: 03/07/21 14:33 Dose: 30 mg Documented by: Fluoxetine HCl (Fluoxetine 20 Mg Cap) 40 mg PO DAILY [facility] Last Admin: 03/08/21 09:44 Dose: 40 mg Documented by: Gabapentin (Gabapentin 300 Mg Cap) 300 mg PO QID [facility] Last Admin: 03/08/21 09:44 Dose: 300 mg Documented by: Hydromorphone HCl (Hydromorphone 0.5 Mg/0.5 Ml Syringe) 0.5 mg IVPUSH Q2H PRN PRN Reason: Pain Last Admin: 03/07/21 18:04 Dose: 0.5 mg Documented by: Hydromorphone HCl (Hydromorphone 1 Mg/Ml Syringe) 1 mg IVPUSH Q1H PRN PRN Reason: Agitation Last Admin: 03/08/21 05:37 Dose: 1 mg Documented by: Heparin Sodium (Porcine) 5,000 (units/ Sodium Chloride) 501 mls @ 5 mls/hr IV ASDIRECTED [facility] Last Admin: 03/04/21 13:00 Dose: 5 mls/hr Documented by: Fat Emulsion Intravenous (Intralipid 20%) 250 mls @ 21 mls/hr IV Q24H [facility] Last Admin: 03/07/21 16:24 Dose: 21 mls/hr Documented by: Multivitamins/Minerals 10 ml/Zinc 1 ml/ Amino Acids/Electrolytes/Dextrose 1,011 mls @ 70 mls/hr IV .BY DURATION [facility] Amino Acids/Electrolytes/Dextrose (Clinimix E 4.25/10) 1,000 mls @ 70 mls/hr IV .BY DURATION [facility] Last Admin: 03/08/21 09:44 Dose: 70 mls/hr Documented by: Doxycycline Hyclate 100 mg/ (Sodium Chloride) 100 mls @ 100 mls/hr IV Q12H [facility] Lorazepam (Lorazepam 2 Mg/Ml Sdv) 0.5 mg IVPUSH Q4H PRN PRN Reason: Anxiety Last Admin: 03/07/21 21:09 Dose: 0.5 mg Documented by: Lorazepam (Lorazepam 0.5 Mg Tab) 0.5 mg PO Q4H PRN PRN Reason: Anxiety Last Admin: 03/08/21 09:52 Dose: 0.5 mg Documented by: Methylprednisolone Sodium Succinate (Methylprednisolone Sodium Succinate 40 Mg/1 Ml Sdv) 40 mg IVPUSH Q8H [facility] Last Admin: 03/08/21 09:44 Dose: 40 mg Documented by: Mometasone Furoate/Formoterol Fumar (Formoterol/Mometasone 200-5 Mcg 8.8 Gm I nhaler) 2 puff IH BID@0700,2099 [facility] Last Admin: 03/08/21 07:08 Dose: Not Given Documented by: Ondansetron HCl (Ondansetron 4 Mg Tab.Dis) 4 mg PO Q4H PRN PRN Reason: N/V Pantoprazole Sodium (Pantoprazole 40 Mg Tab.Cr) 40 mg PO ACBREAKFAST [facility] Last Admin: 03/08/21 07:52 Dose: 40 mg Documented by: Theophylline (Theophylline 100 Mg Cap.Er) 300 mg PO BID@899,2099 [facility] Last Admin: 03/08/21 09:44 Dose: 300 mg Documented by: Tiotropium [place] (Tiotropium [place] 4 Gm Inhalation [place] (2.5mcg/1 Dose; 10 Doses)) 0 gm INH DAILY@699 [facility] Last Admin: 03/08/21 07:08 Dose: Not Given Documented by: Discontinued Medications Acetazolamide (Acetazolamide 500 Mg Vial) 250 mg IVPUSH Q6HR [facility] Stop: 03/05/21 22:01 Last Admin: 03/05/21 21:52 Dose: 250 mg Documented by: Albuterol (Albuterol 8 Gm Inhaler) 0 gm INH QIDRT PRN PRN Reason: Shortness of Breath Albuterol/Ipratropium (Albuterol/Ipratropium 3.0-0.5 Mg/3 Ml Neb Soln) 3 ml INH Q6H [facility] Last Admin: 03/01/21 17:15 Dose: Not Given Documented by: Albuterol/Ipratropium (Albuterol/Ipratropium 3.0-0.5 Mg/3 Ml Neb Soln) 3 ml INH ASDIRECTED PRN PRN Reason: Shortness of Breath Last Admin: 03/01/21 13:13 Dose: 3 ml Documented by: Fluoxetine HCl (Fluoxetine 20 Mg Cap) 20 mg PO DAILY [facility] Last Admin: 03/06/21 09:25 Dose: 20 mg Documented by: Fluoxetine HCl (Fluoxetine 20 Mg Cap) 20 mg PO ONETIME ONE Stop: 03/06/21 10:31 Last Admin: 03/06/21 12:07 Dose: 20 mg Documented by: Furosemide (Furosemide 20 Mg/2 Ml Vial) 20 mg IVPUSH NOW ONE Stop: 03/01/21 15:01 Last Admin: 03/01/21 15:16 Dose: 20 mg Documented by: Furosemide (Furosemide 20 Mg/2 Ml Vial) 20 mg IVPUSH ONETIME ONE Stop: 03/02/21 07:31 Last Admin: 03/02/21 07:43 Dose: 20 mg Documented by: Furosemide (Furosemide 20 Mg/2 Ml Vial) 20 mg IVPUSH BID [facility] Last Admin: 03/07/21 08:29 Dose: 20 mg Documented by: Furosemide (Furosemide 40 Mg/4 Ml Vial) 20 mg IVPUSH NOW ONE Stop: 03/04/21 12:31 Last Admin: 03/04/21 13:56 Dose: 20 mg Documented by: Hydromorphone HCl (Hydromorphone 1 Mg/Ml Syringe) Confirm Administered Dose 1 mg .ROUTE .STK-[facility] ONE Stop: 03/05/21 02:42 Last Admin: 03/05/21 02:52 Dose: Not Given Documented by: Hydromorphone HCl (Hydromorphone 1 Mg/Ml Syringe) Confirm Administered Dose 1 mg .ROUTE .K-[facility] ONE Stop: 03/05/21 02:44 Last Admin: 03/05/21 02:47 Dose: Not Given Documented by: Dextrose/Lactated Ringer's (Dextrose 5%-Lactated Ringers) 1,000 mls @ 100 mls/hr IV ASDIRECTED [facility] Last Admin: 02/28/21 15:04 Dose: 100 mls/hr Documented by: Multivitamins/Minerals 10 ml/Zinc 1 ml/ Amino Ac/Electrol/Dextrose/Calcium 1,011 mls @ 75 mls/hr IV .BY DURATION [facility] Last Admin: 02/28/21 17:20 Dose: 75 mls/hr Documented by: Amino Ac/Electrol/Dextrose/Calcium (Clinimix E 5/15) 1,000 mls @ 75 mls/hr IV .BY DURATION [facility] Last Admin: 03/01/21 06:46 Dose: 75 mls/hr Documented by: Fat Emulsion Intravenous (Intralipid 20%) 250 mls @ 21 mls/hr IV Q24H [facility] Last Admin: 03/02/21 15:35 Dose: 21 mls/hr Documented by: Dextrose/Lactated Ringer's (Dextrose 5%-Lactated Ringers) 1,000 mls @ 0 mls/hr IV ASDIRECTED [facility] Potassium Phosphate 15 mmol/ (Premix) 250 mls @ 125 mls/hr IV Q2H [facility] Stop: 03/01/21 15:59 Last Admin: 03/01/21 15:38 Dose: Not Given Documented by: Thiamine HCl 100 mg/ Sodium (Chloride) 101 mls @ 202 mls/hr IV ONETIME ONE Stop: 03/01/21 09:29 Last Admin: 03/01/21 10:25 Dose: 202 mls/hr Documented by: Multivitamins/Minerals 10 ml/Zinc 1 ml/ Amino Ac/Electrol/Dextrose/Calcium 1,011 mls @ 70 mls/hr IV .BY DURATION [facility] Last Admin: 03/04/21 05:23 Dose: Not Given Documented by: Amino Ac/Electrol/Dextrose/Calcium (Clinimix E 5/15) 1,000 mls @ 70 mls/hr IV .BY DURATION [facility] Last Admin: 03/04/21 22:49 Dose: Not Given Documented by: Meropenem 500 mg/ Sodium (Chloride) 50 mls @ 100 mls/hr IV Q8H [facility] Last Admin: 03/06/21 07:51 Dose: 100 mls/hr Documented by: Doxycycline Hyclate 100 mg/ (Sodium Chloride) 100 mls @ 100 mls/hr IV Q12H [facility] Last Admin: 03/03/21 03:21 Dose: 100 mls/hr Documented by: Potassium Phosphate 22.5 mmole (/ Sodium Chloride) 107.5 mls @ 25 mls/hr IV Q5H [facility] Stop: 03/02/21 18:47 Last Admin: 03/02/21 13:31 Dose: 25 mls/hr Documented by: Heparin Sodium (Porcine) 5,000 (units/ Sodium Chloride) 501 mls @ 5 mls/hr IV ASDIRECTED [facility] Last Admin: 03/03/21 12:07 Dose: 5 mls/hr Documented by: Propofol (Diprivan 100 Ml) Confirm Administered Dose 100 mls @ as directed .ROUTE .STK-MED ONE Stop: 03/03/21 12:00 Last Admin: 03/03/21 13:15 Dose: Not Given Documented by: Propofol (Diprivan 100 Ml) 100 mls @ 1.113 mls/hr IV TITRATE [facility]; Protocol Last Admin: 03/05/21 04:42 Dose: 70 mcg/kg/min, 15.584 mls/hr Documented by: Azithromycin 500 mg/ Sodium (Chloride) 250 mls @ 250 mls/hr IV Q24H [facility] Last Admin: 03/07/21 14:34 Dose: 250 mls/hr Documented by: Sodium Chloride (Normal Saline) 100 mls @ 3 mls/sec IV ASDIRECTED [facility] Stop: 03/03/21 14:46 Last Admin: 03/03/21 15:17 Dose: 4 mls/sec Documented by: Vancomycin HCl 0.75 gm/ Sodium (Chloride) 150 mls @ 100 mls/hr IV ONETIME ONE Stop: 03/03/21 17:59 Last Admin: 03/03/21 16:42 Dose: 100 mls/hr Documented by: Vancomycin HCl 0.5 gm/ Sodium (Chloride) 100 mls @ 66.667 mls/hr IV Q12H [facility] Last Admin: 03/05/21 04:43 Dose: 66.667 mls/hr Documented by: Sodium Chloride (Normal Saline) 1,000 mls @ 250 mls/hr IV ASDIRECTED [facility] Stop: 03/03/21 20:44 Last Admin: 03/03/21 16:43 Dose: 250 mls/hr Documented by: Norepinephrine Bitartrate 4 mg (/ Dextrose/Water) 250 mls @ 7.5 mls/hr IV TITRATE [facility]; Protocol Last Titration: 03/05/21 10:33 Dose: 2 mcg/min, 7.5 mls/hr Documented by: Multivitamins/Minerals 10 ml/Zinc 1 ml/ Amino Acids/Electrolytes/Dextrose 1,011 mls @ 70 mls/hr IV .BY DURATION [facility] Stop: 03/08/21 09:00 Last Admin: 03/07/21 19:28 Dose: 70 mls/hr Documented by: Amino Acids/Electrolytes/Dextrose (Clinimix E 4.25/10) 1,000 mls @ 70 mls/hr IV .BY DURATION [facility] Stop: 03/08/21 09:00 Last Admin: 03/07/21 05:05 Dose: 70 mls/hr Documented by: Iopamidol (Iopamidol 755 Mg/Ml 100 Ml Bottle) 100 ml IV . DIRECTED [facility] Stop: 03/03/21 14:46 Last Admin: 03/03/21 15:16 Dose: 44 ml Documented by: Lorazepam (Lorazepam 0.5 Mg Tab) 0.25 mg PO ONETIME ONE Stop: 03/02/21 18:29 Last Admin: 03/02/21 18:42 Dose: 0.25 mg Documented by: Lorazepam (Lorazepam 0.5 Mg Tab) 0.5 mg PO Q2H PRN PRN Reason: Anxiety Last Admin: 03/03/21 07:43 Dose: 0.5 mg Documented by: Lorazepam (Lorazepam 2 Mg/Ml Sdv) 0.5 mg IVPUSH ONETIME ONE Stop: 03/03/21 11:05 Last Admin: 03/03/21 11:21 Dose: 0.5 mg Documented by: Lorazepam (Lorazepam 2 Mg/Ml Sdv) Confirm Administered Dose 2 mg .ROUTE .STK-MED ONE Stop: 03/03/21 11:09 Last Admin: 03/03/21 11:22 Dose: Not Given Documented by: Lorazepam (Lorazepam 2 Mg/Ml Sdv) 0.5 mg IVPUSH ONETIME ONE Stop: 03/05/21 15:06 Last Admin: 03/05/21 15:17 Dose: 0.5 mg Documented by: Methylprednisolone Sodium Succinate (Methylprednisolone Sodium Succinate 40 Mg/1 Ml Sdv) 40 mg IVPUSH Q6H [facility] Last Admin: 03/04/21 09:16 Dose: 40 mg Documented by: Methylprednisolone Sodium Succinate (Methylprednisolone Sodium Succinate 40 Mg/1 Ml Sdv) 40 mg IVPUSH Q12H [facility] Last Admin: 03/05/21 09:02 Dose: 40 mg Documented by: Mometasone Furoate/Formoterol Fumar (Formoterol/Mometasone 200-5 Mcg 8.8 Gm Inhaler) 2 puff IH BIDRT [facility] Last Admin: 03/02/21 06:00 Dose: 2 puff Documented by: Mometasone Furoate/Formoterol Fumar (Formoterol/Mometasone 200-5 Mcg 8.8 Gm Inhaler) 2 puff IH BID@0500,2100 [facility] Last Admin: 03/05/21 21:29 Dose: Not Given Documented by: Non-Formulary Medication (Central Total Parenteral Nutrition Bag) 1,000 ml .XX .Continue Order [facility] Stop: 03/01/21 10:00 Non-Formulary Medication (Central Total Parenteral Nutrition Bag) 1,000 ml .XX .Continue Order [facility] Stop: 03/02/21 18:00 Non-Formulary Medication (Central Total Parenteral Nutrition Bag) 1,000 ml .XX .Continue Order [facility] Stop: 03/03/21 18:00 Non-Formulary Medication (Central Total Parenteral Nutrition Bag) 0 ml IV ASDIRECTED [facility] Stop: 03/05/21 10:00 Non-Formulary Medication (Central Total Parenteral Nutrition Bag) 0 ml IV ASDIRECTED [facility] Stop: 03/06/21 12:00 Non-Formulary Medication (Central Total Parenteral Nutrition Bag) 1,000 ml .XX .Continue Order [facility]; Protocol Stop: 03/07/21 12:01 Pantoprazole Sodium (Pantoprazole 40 Mg Tab.Cr) 40 mg PO ACBREAKFAST [facility] Last Admin: 03/03/21 07:20 Dose: 40 mg Documented by: Pantoprazole Sodium (Pantoprazole 40 Mg Vial) 40 mg IVPUSH DAILY [facility] Last Admin: 03/06/21 09:26 Dose: 40 mg Documented by: Potassium Chloride (Potassium Chloride 20 Meq Tab.Er) 40 meq PO ONETIME ONE Stop: 03/01/21 16:31 Last Admin: 03/01/21 17:38 Dose: 40 meq Documented by: Propofol (Propofol 200 Mg/20 Ml Sdv) Confirm Administered Dose 200 mg .ROUTE .STK-MED ONE Stop: 03/03/21 12:22 Sodium Chloride (Sodium Chloride 0.9% 10 Ml Sdv) 10 ml FLUSH ONETIME ONE Stop: 03/03/21 14:34 Last Admin: 03/03/21 15:20 Dose: 10 ml Documented by: Succinylcholine Chloride (Succinylcholine 200 Mg/10 Ml Mdv) Confirm Administered Dose 200 mg .ROUTE .STK-MED ONE Stop: 03/03/21 12:22 Theophylline (Theophylline 100 Mg Cap.Er) 300 mg PO BID [facility] Last Admin: 03/02/21 09:24 Dose: 300 mg Documented by: Theophylline (Theophylline 100 Mg Cap.Er) 300 mg PO BID@0500,2100 [facility] Last Admin: 03/05/21 21:29 Dose: 300 mg Documented by: Tiotropium [place] (Tiotropium [place] 4 Gm Inhalation [place] (2.5mcg/1 Dose; 10 Doses)) 0 gm INH DAILYRT [facility] Last Admin: 03/02/21 06:00 Dose: 2 puff Documented by: Tiotropium [place] (Tiotropium [place] 4 Gm Inhalation [place] (2.5mcg/1 Dose; 10 Doses)) 0 gm INH DAILY@0500 [facility] Last Admin: 03/05/21 04:45 Dose: Not Given Documented by: Vancomycin HCl (Vancomycin 1 Gm Sdv) 1 gm IV .PHARMACY TO DOSE [facility] Stop: 03/03/21 18:00 - Exam Quality Assessment: Supplemental Oxygen Central Line Total Time: 7Days 17Hours Urinary Catheter Total Time: 1Days 16Hours General: Alert, Oriented, Cooperative, Mild Distress Lungs: Decreased Breath Sounds (poor air movement ). No: Normal Respiratory Effort (increased work of breathing ) Cardiovascular: Regular Rhythm, Tachycardia GI/Abdominal Exam: Soft, No Distention Extremities: No Pedal Edema. No: Increased Warmth Skin: Warm, Dry Psy/Mental Status: Alert, Anxious Sepsis Event Note - Evaluation Sepsis Screening Result: No Definite Risk - Focused Exam Vital Signs: Vital Signs Temp Pulse Resp BP Pulse Ox 03/08/21 10:00 111 H 22 H 122/77 94 L 03/08/21 08:00 36.9 C 104 H 17 109/79 93 L 03/08/21 06:00 99 14 102/72 91 L 03/08/21 04:00 36.8 C 13 101/65 96 03/08/21 02:00 14 103/67 91 L 03/08/21 00:00 36.9 C 20 98/64 94 L Consult PN Assessment/Plan Procedures: Procedures AIRWAY INHALATION TREATMENT (12/03/20) ASSAY OF FERRITIN (12/16/19) ASSAY OF MAGNESIUM (01/09/20) ASSAY OF NATRIURETIC PEPTIDE (12/16/19) ASSAY OF PHOSPHORUS (01/09/20) ASSAY THYROID STIM HORMONE (12/16/19) BLOOD GASES ANY COMBINATION (12/16/19) BLOOD TYPING SEROLOGIC ABO (09/20/15) BLOOD TYPING SEROLOGIC RH(D) (09/20/15) CHEST WALL MANIPULATION (12/03/20) CHEST WALL MANIPULATION (12/03/20) CHEST WALL MANIPULATION (12/16/19) CHEST WALL MANIPULATION (12/16/19) CHEST WALL MANIPULATION (05/30/18) CHEST WALL MANIPULATION (05/30/18) COMPLETE CBC AUTOMATED (01/09/20) COMPLETE CBC W/AUTO DIFF WBC (01/09/20) COMPREHEN METABOLIC PANEL (01/09/20) CT ABD & PELV W/CONTRAST (12/22/20) CT ANGIO ABDOM W/O & W/DYE (12/16/19) CT ANGIOGRAPHY CHEST (12/16/19) CULTURE OTHR SPECIMN AEROBIC (12/22/20) EGD DILATE STRICTURE (12/23/15) ELECTROCARDIOGRAM TRACING (12/03/20) IRON BINDING TEST (01/09/20) MEASURE BLOOD OXYGEN LEVEL (01/09/20) METABOLIC PANEL TOTAL CA (01/09/20) RBC ANTIBODY SCREEN (09/20/15) ROUTINE VENIPUNCTURE (01/09/20) SMEAR GRAM STAIN (12/22/20) TISSUE EXAM BY PATHOLOGIST (12/03/20) TISSUE EXAM BY PATHOLOGIST (12/03/20) WITHDRAWAL OF ARTERIAL BLOOD (05/30/18) X-RAY EXAM ABDOMEN 2 VIEWS (12/16/19) X-RAY EXAM CHEST 1 VIEW (12/16/19) X-RAY EXAM CHEST 2 VIEWS (12/16/19) X-RAY XM UPR GI TRC 1CNTRST (12/03/20) Problem List Initiated/Reviewed/Updated: Yes My Orders Last 24 Hours: My Active Orders 03/07/21 10:00 methylPREDNISolone Sod Succ [Solu-MEDROL] 40 mg IVPUSH Q8H 03/08/21 05:30 [id number], SERUM Routine 03/08/21 10:41 Arterial Line Discontinue [OM.PC] Routine 03/08/21 10:43 RT Aerosol Therapy [RC] ASDIRECTED 03/08/21 10:45 Doxycycline [Vibramycin] 100 mg Sodium Chloride 0.9% [Normal Saline] 100 ml IV Q12H 03/08/21 21:00 Budesonide [Pulmicort] 0.5 mg NEB BIDRT Plan: ASSESSMENT AND RECOMMENDATIONS ACUTE ON CHRONIC HYPOXIC AND HYPERCAPNIC RESPIRATORY FAILURE-she has required NIPPV since extubation. Still dependent on NIPPV. Moving a little better today but still quite compromised. -Supplemental oxygen and/or NIPPV as needed -Trial of low-dose steroids -Nebulizer therapy with DuoNeb's and albuterol -Change antibiotics to doxycycline -Start Pulmicort twice daily -Alpha-1 antitrypsin lab studies SEVERE ANXIETY-significant contributor to exacerbations of her respiratory compromise. -Increase Prozac to 40 mg p.o. daily -Continue intermittent use of lorazepam HYPOTENSION-likely secondary to sedating medications, no evidence of underlying sepsis. This has resolved. ELEVATED TROPONIN-resolved RECENT WEIGHT LOSS-status post Domingo-en-Y gastric bypass surgery 6 years ago. Weight loss over the past 2 to 3 months, now down to 81 pounds. Other labs appear to be fairly good including her albumin level and vitamin levels except for folate acid which was found to be low. Plan at admission had been to proceed with surgery for reversal of her Domingo-en-Y gastric bypass. 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 -Continue TPN -She would be very high risk for surgery from a cardiopulmonary standpoint Arthur Gates MD
[2021-03-08] MEDS: LORazepam 2 MG/ML SDV IVPUSH PRN ×2 (11:11→18:48)
[2021-03-08] MEDS: Doxycycline 100 MG in Sodium Chloride 0.9% 100 ML IV SCH ×2 (11:15→22:34)
--- NOTE | 2021-03-08 12:58 | CR ---
CHEST: Portable 03/07/2021 at 3:40 AM CLINICAL HISTORY:Respiratory failure COMPARISON:03/06/2021 FINDINGS: Lungs are hyperaerated. PICC line remains in place. No infiltrate effusion or pneumothorax. Impression: Emphysema No acute cardio pulmonary process
--- NOTE | 2021-03-08 13:12 | CR ---
CHEST: Portable 03/08/2021 at 3:48 AM CLINICAL HISTORY:Respiratory failure COMPARISON:03/07/2021 FINDINGS: Lungs are emphysematous. No infiltrates are seen. PICC line remains in place Impression: Emphysematous changes No significant interval change.
--- NOTE | 2021-03-08 13:16 | PN ---
DATE OF SERVICE: 03/05/2021 The patient has been roughly status quo over the last 24 hours concerning some weaning trial available. It looks like that will be somewhat problematic. Otherwise, continue the TPN and nutritional replenishment and care per the hospitalist including Dr. Vásquez. Wellington Najera MD /[id number]
--- NOTE | 2021-03-08 14:01 | PN ---
DATE OF SERVICE: 03/08/2021 The patient has been clinically roughly the same. Apart from her respiratory status, she is fairly stable. She seems to just barely be squeaking by from a respiratory standpoint on BiPAP and mask. Oxygenation remains good. We will change the TPN around today to increase the amount of calories obtained by lipids and lessen the glucose to attempt to decrease the CO2 production required for metabolizing that. She has not had her phosphate checked for a period of time, so we will recheck that again today as well. Otherwise, continue the care along with the hospitalist. Wellington Najera MD /[id number]
--- NOTE | 2021-03-08 14:01 | PN ---
DATE OF SERVICE: 03/04/2021 The patient yesterday required intubation and is presently on a ventilator. She is requiring some norepinephrine as well, likely related to the moderate sedation she is getting. Per Dr. Vásquez, this appears to be exacerbation of her COPD, and from a surgical standpoint, we will stop that, continue the TPN for nutritional replenishment. I think down the road she may benefit from a gastrostomy tube for a period of enteral nutrition prior to reversal of the bypass given the clinical course we have seen thus far with this hospitalization. Wellington Najera MD /[phone]
--- NOTE | 2021-03-08 14:01 | PN ---
DATE OF SERVICE: 03/07/2021 The patient has been afebrile with stable vital signs, but is still just barely getting by from a respiratory standpoint. This appears to become confounded by anxiety. The only item one might have would be concerning to decrease the amount of sugar in the TPN, increased amount of lipids as total portion of her calories so as to decrease CO2 production. Otherwise, continue management along with the hospitalist, Dr. Vásquez and Dr. Gates. Wellington Najera MD /[id number]
[2021-03-08] MEDS: Fat Emulsion 250 ML IV SCH (15:50)
[2021-03-08] MEDS: Enoxaparin 30 MG/0.3 ML Syringe SUBCUT SCH (15:51)
[2021-03-08] MEDS: Budesonide 0.5 MG/2 ML Neb Susp NEB SCH (22:04)
[2021-03-09] MEDS: methylPREDNISolone Sodium Succinate 40 MG/1 ML SDV IVPUSH SCH ×3 (02:41→17:59)
[2021-03-09] MEDS: HYDROmorphone 1 MG/ML Syringe IVPUSH PRN ×3 (03:33→19:36)
[2021-03-09] MEDS: LORazepam 0.5 MG Tab PO PRN ×6 (03:37→22:24)
[2021-03-09] MEDS: Gabapentin 300 MG Cap PO SCH ×4 (05:23→21:08)
[2021-03-09] MEDS: Acetaminophen/HYDROcodone 325-5 MG Tab PO PRN ×3 (05:23→19:14)
[2021-03-09] MEDS: Albuterol/Ipratropium 3.0-0.5 MG/3 ML Neb Soln INH SCH (07:14)
[2021-03-09] MEDS: Tiotropium Bromide 4 GM Inhalation Spray (2.5mcg/1 dose; 10 doses) INH SCH (07:14)
[2021-03-09] MEDS: Formoterol/Mometasone 200-5 MCG 8.8 GM Inhaler IH SCH ×2 (07:14→21:07)
[2021-03-09] MEDS: Budesonide 0.5 MG/2 ML Neb Susp NEB SCH ×2 (07:14→21:07)
[2021-03-09] MEDS: Theophylline 100 MG Cap.ER PO SCH ×2 (08:07→21:07)
[2021-03-09] MEDS: Pantoprazole 40 MG Tab.CR PO SCH (08:07)
[2021-03-09] MEDS: FLUoxetine 20 MG Cap PO SCH (08:08)
--- NOTE | 2021-03-09 10:01 | PCM.CONSN ---
- General Info Date of Service: 03/09/21 Subjective Update: There were no acute events overnight. Patient did have a couple of episodes of increased anxiety and respiratory rate but these responded to lorazepam. She reports that she is feeling somewhat better today. She did tolerate a period of time off of the noninvasive ventilation this morning. She thinks her shortness of breath is a fair amount better than yesterday but not great. End-tidal CO2 has been running around 40. She is still tachypneic but oxygenating well on nasal cannula. No chest pain or abdominal pain. Functional Status: Reports: Pain Controlled, Tolerating Diet - Review of Systems General: Denies: Fever Pulmonary: Reports: Shortness of Breath - Patient Data Vitals - Most Recent: Last Vital Signs Temp 36.7 C 03/09/21 08:00 Pulse 111 H 03/09/21 08:00 Resp 22 H 03/09/21 08:00 BP 134/81 03/09/21 08:00 Pulse Ox 97 03/09/21 08:00 Weight - Most Recent: 35.38 kg I&O - Last 24 Hours: Intake & Output 03/08/21 03/09/21 03/09/21 22:59 06:59 14:59 Intake Total 861 1657 Output Total 600 950 200 Balance 261 707 -200 Lab Results Last 24 Hours: Laboratory Results - last 24 hr 03/09/21 03/09/21 Range/Units 04:00 04:00 WBC 9.6 (4.5-11.0) K/uL RBC 3.56 (3.30-5.50) M/uL Hgb 10.3 L (12.0-15.0) g/dL Hct 34.1 L (36.0-48.0) % MCV 96 (80-98) fL MCH 29 (27-31) pg MCHC 30 L (32-36) % Plt Count 321 (150-400) K/uL Sodium 143 (140-148) mmol/L Potassium 3.9 (3.6-5.2) mmol/L Chloride 103 (100-108) mmol/L Carbon Dioxide 34 H (21-32) mmol/L Anion Gap 9.9 (5.0-14.0) mmol/L BUN 22 H (7-18) mg/dL Creatinine 0.3 L (0.6-1.0) mg/dL Est Cr Clr Drug Dosing 119.74 mL/min Estimated GFR (MDRD) > 60 (>60) Glucose 147 H (74-106) mg/dL Calcium 8.7 (8.5-10.1) mg/dL Phosphorus 3.7 (2.5-4.9) mg/dL Magnesium 2.1 (1.8-2.4) mg/dL Total Bilirubin 0.2 D (0.2-1.0) mg/dL AST 36 (15-37) U/L ALT 137 H (12-78) U/L Alkaline Phosphatase 104 (46-116) U/L NT-Pro-B Natriuret Pep 327 H (5-125) pg/mL Total Protein 6.0 L (6.4-8.2) g/dL Albumin 2.9 L (3.4-5.0) g/dL Globulin 3.1 (2.3-3.5) g/dL Albumin/Globulin Ratio 0.9 L (1.2-2.2) Med Orders - Current: Current Medications Acetaminophen (Acetaminophen 325 Mg Tab) 650 mg PO Q4H PRN PRN Reason: PAIN/FEVER Last Admin: 03/01/21 14:13 Dose: 650 mg Documented by: Acetaminophen (Acetaminophen 650 Mg Supp) 650 mg RECTAL Q4H PRN PRN Reason: PAIN/FEVER Hydrocodone Bitart/Acetaminophen (Acetaminophen/Hydrocodone 325-5 Mg Tab) 1 tab PO Q4H PRN PRN Reason: Pain Last Admin: 03/09/21 05:23 Dose: 1 tab Documented by: Albuterol (Albuterol 0.083% 2.5 Mg/3 Ml Neb Soln) 2.5 mg NEB Q4H PRN PRN Reason: Dyspnea Last Admin: 03/02/21 16:58 Dose: 2.5 mg Documented by: Albuterol/Ipratropium (Albuterol/Ipratropium 3.0-0.5 Mg/3 Ml Neb Soln) 3 ml INH QIDRT [facility] Last Admin: 03/09/21 07:14 Dose: 3 ml Documented by: Budesonide (Budesonide 0.5 Mg/2 Ml Neb Susp) 0.5 mg NEB BIDRT [facility] Last Admin: 03/09/21 07:14 Dose: 0.5 mg Documented by: Enoxaparin Sodium (Enoxaparin 30 Mg/0.3 Ml Syringe) 30 mg SUBCUT Q24H [facility] Last Admin: 03/08/21 15:51 Dose: 30 mg Documented by: Fluoxetine HCl (Fluoxetine 20 Mg Cap) 40 mg PO DAILY [facility] Last Admin: 03/09/21 08:08 Dose: 40 mg Documented by: Gabapentin (Gabapentin 300 Mg Cap) 300 mg PO QID [facility] Last Admin: 03/09/21 09:31 Dose: 300 mg Documented by: Hydromorphone HCl (Hydromorphone 0.5 Mg/0.5 Ml Syringe) 0.5 mg IVPUSH Q2H PRN PRN Reason: Pain Last Admin: 03/07/21 18:04 Dose: 0.5 mg Documented by: Hydromorphone HCl (Hydromorphone 1 Mg/Ml Syringe) 1 mg IVPUSH Q1H PRN PRN Reason: Agitation Last Admin: 03/09/21 03:33 Dose: 1 mg Documented by: Fat Emulsion Intravenous (Intralipid 20%) 250 mls @ 21 mls/hr IV Q24H [facility] Last Admin: 03/08/21 15:50 Dose: 21 mls/hr Documented by: Multivitamins/Minerals 10 ml/Zinc 1 ml/ Amino Acids/Electrolytes/Dextrose 1,011 mls @ 70 mls/hr IV .BY DURATION [facility] Last Admin: 03/08/21 23:51 Dose: 70 mls/hr Documented by: Amino Acids/Electrolytes/Dextrose (Clinimix E 4.25/10) 1,000 mls @ 70 mls/hr IV .BY DURATION [facility] Last Admin: 03/08/21 09:44 Dose: 70 mls/hr Documented by: Doxycycline Hyclate 100 mg/ (Sodium Chloride) 100 mls @ 100 mls/hr IV Q12H [facility] Last Admin: 03/08/21 22:34 Dose: 100 mls/hr Documented by: Lorazepam (Lorazepam 2 Mg/Ml Sdv) 0.5 mg IVPUSH Q4H PRN PRN Reason: Anxiety Last Admin: 03/08/21 18:48 Dose: 0.5 mg Documented by: Lorazepam (Lorazepam 0.5 Mg Tab) 0.5 mg PO Q4H PRN PRN Reason: Anxiety Last Admin: 03/09/21 08:07 Dose: 0.5 mg Documented by: Methylprednisolone Sodium Succinate (Methylprednisolone Sodium Succinate 40 Mg/1 Ml Sdv) 40 mg IVPUSH Q8H [facility] Last Admin: 03/09/21 09:31 Dose: 40 mg Documented by: Mometasone Furoate/Formoterol Fumar (Formoterol/Mometasone 200-5 Mcg 8.8 Gm Inhaler) 2 puff IH BID@0700,2100 [facility] Last Admin: 03/09/21 07:14 Dose: 2 puff Documented by: Ondansetron HCl (Ondansetron 4 Mg Tab.Dis) 4 mg PO Q4H PRN PRN Reason: N/V Pantoprazole Sodium (Pantoprazole 40 Mg Tab.Cr) 40 mg PO ACBREAKFAST [facility] Last Admin: 03/09/21 08:07 Dose: 40 mg Documented by: Theophylline (Theophylline 100 Mg Cap.Er) 300 mg PO BID@0900,2100 [facility] Last Admin: 03/09/21 08:07 Dose: 300 mg Documented by: Tiotropium [place] (Tiotropium [place] 4 Gm Inhalation [place] (2.5mcg/1 Dose; 10 Doses)) 0 gm INH DAILY@0700 [facility] Last Admin: 03/09/21 07:14 Dose: 2 puff Documented by: Discontinued Medications Acetazolamide (Acetazolamide 500 Mg Vial) 250 mg IVPUSH Q6HR [facility] Stop: 03/05/21 22:01 Last Admin: 03/05/21 21:52 Dose: 250 mg Documented by: Albuterol (Albuterol 8 Gm Inhaler) 0 gm INH QIDRT PRN PRN Reason: Shortness of Breath Albuterol/Ipratropium (Albuterol/Ipratropium 3.0-0.5 Mg/3 Ml Neb Soln) 3 ml INH Q6H [facility] Last Admin: 03/01/21 17:15 Dose: Not Given Documented by: Albuterol/Ipratropium (Albuterol/Ipratropium 3.0-0.5 Mg/3 Ml Neb Soln) 3 ml INH ASDIRECTED PRN PRN Reason: Shortness of Breath Last Admin: 03/01/21 13:13 Dose: 3 ml Documented by: Fluoxetine HCl (Fluoxetine 20 Mg Cap) 20 mg PO DAILY [facility] Last Admin: 03/06/21 09:25 Dose: 20 mg Documented by: Fluoxetine HCl (Fluoxetine 20 Mg Cap) 20 mg PO ONETIME ONE Stop: 03/06/21 10:31 Last Admin: 03/06/21 12:07 Dose: 20 mg Documented by: Furosemide (Furosemide 20 Mg/2 Ml Vial) 20 mg IVPUSH NOW ONE Stop: 03/01/21 15:01 Last Admin: 03/01/21 15:16 Dose: 20 mg Documented by: Furosemide (Furosemide 20 Mg/2 Ml Vial) 20 mg IVPUSH ONETIME ONE Stop: 03/02/21 07:31 Last Admin: 03/02/21 07:43 Dose: 20 mg Documented by: Furosemide (Furosemide 20 Mg/2 Ml Vial) 20 mg IVPUSH BID [facility] Last Admin: 03/07/21 08:29 Dose: 20 mg Documented by: Furosemide (Furosemide 40 Mg/4 Ml Vial) 20 mg IVPUSH NOW ONE Stop: 03/04/21 12:31 Last Admin: 03/04/21 13:56 Dose: 20 mg Documented by: Hydromorphone HCl (Hydromorphone 1 Mg/Ml Syringe) Confirm Administered Dose 1 mg .ROUTE .STK-MED ONE Stop: 03/05/21 02:42 Last Admin: 03/05/21 02:52 Dose: Not Given Documented by: Hydromorphone HCl (Hydromorphone 1 Mg/Ml Syringe) Confirm Administered Dose 1 mg .ROUTE .STK-MED ONE Stop: 03/05/21 02:44 Last Admin: 03/05/21 02:47 Dose: Not Given Documented by: Dextrose/Lactated Ringer's (Dextrose 5%-Lactated Ringers) 1,000 mls @ 100 mls/hr IV ASDIRECTED [facility] Last Admin: 02/28/21 15:04 Dose: 100 mls/hr Documented by: Multivitamins/Minerals 10 ml/Zinc 1 ml/ Amino Ac/Electrol/Dextrose/Calcium 1,011 mls @ 75 mls/hr IV .BY DURATION [facility] Last Admin: 02/28/21 17:20 Dose: 75 mls/hr Documented by: Amino Ac/Electrol/Dextrose/Calcium (Clinimix E 5/15) 1,000 mls @ 75 mls/hr IV .BY DURATION [facility] Last Admin: 03/01/21 06:46 Dose: 75 mls/hr Documented by: Fat Emulsion Intravenous (Intralipid 20%) 250 mls @ 21 mls/hr IV Q24H [facility] Last Admin: 03/02/21 15:35 Dose: 21 mls/hr Documented by: Dextrose/Lactated Ringer's (Dextrose 5%-Lactated Ringers) 1,000 mls @ 0 mls/hr IV ASDIRECTED [facility] Potassium Phosphate 15 mmol/ (Premix) 250 mls @ 125 mls/hr IV Q2H [facility] Stop: 03/01/21 15:59 Last Admin: 03/01/21 15:38 Dose: Not Given Documented by: Thiamine HCl 100 mg/ Sodium (Chloride) 101 mls @ 202 mls/hr IV ONETIME ONE Stop: 03/01/21 09:29 Last Admin: 03/01/21 10:25 Dose: 202 mls/hr Documented by: Multivitamins/Minerals 10 ml/Zinc 1 ml/ Amino Ac/Electrol/Dextrose/Calcium 1,011 mls @ 70 mls/hr IV .BY DURATION [facility] Last Admin: 03/04/21 05:23 Dose: Not Given Documented by: Amino Ac/Electrol/Dextrose/Calcium (Clinimix E 5/15) 1,000 mls @ 70 mls/hr IV .BY DURATION [facility] Last Admin: 03/04/21 22:49 Dose: Not Given Documented by: Meropenem 500 mg/ Sodium (Chloride) 50 mls @ 100 mls/hr IV Q8H [facility] Last Admin: 03/06/21 07:51 Dose: 100 mls/hr Documented by: Doxycycline Hyclate 100 mg/ (Sodium Chloride) 100 mls @ 100 mls/hr IV Q12H [facility] Last Admin: 03/03/21 03:21 Dose: 100 mls/hr Documented by: Potassium Phosphate 22.5 mmole (/ Sodium Chloride) 107.5 mls @ 25 mls/hr IV Q5H [facility] Stop: 03/02/21 18:47 Last Admin: 03/02/21 13:31 Dose: 25 mls/hr Documented by: Heparin Sodium (Porcine) 5,000 (units/ Sodium Chloride) 501 mls @ 5 mls/hr IV ASDIRECTED [facility] Last Admin: 03/03/21 12:07 Dose: 5 mls/hr Documented by: Propofol (Diprivan 100 Ml) Confirm Administered Dose 100 mls @ as directed .ROUTE .STK-MED ONE Stop: 03/03/21 12:00 Last Admin: 03/03/21 13:15 Dose: Not Given Documented by: Propofol (Diprivan 100 Ml) 100 mls @ 1.113 mls/hr IV TITRATE [facility]; Protocol Last Admin: 03/05/21 04:42 Dose: 70 mcg/kg/min, 15.584 mls/hr Documented by: Azithromycin 500 mg/ Sodium (Chloride) 250 mls @ 250 mls/hr IV Q24H [facility] Last Admin: 03/07/21 14:34 Dose: 250 mls/hr Documented by: Sodium Chloride (Normal Saline) 100 mls @ 3 mls/sec IV ASDIRECTED [facility] Stop: 03/03/21 14:46 Last Admin: 03/03/21 15:17 Dose: 4 mls/sec Documented by: Vancomycin HCl 0.75 gm/ Sodium (Chloride) 150 mls @ 100 mls/hr IV ONETIME ONE Stop: 03/03/21 17:59 Last Admin: 03/03/21 16:42 Dose: 100 mls/hr Documented by: Vancomycin HCl 0.5 gm/ Sodium (Chloride) 100 mls @ 66.667 mls/hr IV Q12H [facility] Last Admin: 03/05/21 04:43 Dose: 66.667 mls/hr Documented by: Sodium Chloride (Normal Saline) 1,000 mls @ 250 mls/hr IV ASDIRECTED [facility] Stop: 03/03/21 20:44 Last Admin: 03/03/21 16:43 Dose: 250 mls/hr Documented by: Norepinephrine Bitartrate 4 mg (/ Dextrose/Water) 250 mls @ 7.5 mls/hr IV TITRATE [facility]; Protocol Last Titration: 03/05/21 10:33 Dose: 2 mcg/min, 7.5 mls/hr Documented by: Heparin Sodium (Porcine) 5,000 (units/ Sodium Chloride) 501 mls @ 5 mls/hr IV ASDIRECTED [facility] Last Admin: 03/04/21 13:00 Dose: 5 mls/hr Documented by: Multivitamins/Minerals 10 ml/Zinc 1 ml/ Amino Acids/Electrolytes/Dextrose 1,011 mls @ 70 mls/hr IV .BY DURATION [facility] Stop: 03/08/21 09:00 Last Admin: 03/07/21 19:28 Dose: 70 mls/hr Documented by: Amino Acids/Electrolytes/Dextrose (Clinimix E 4.25/10) 1,000 mls @ 70 mls/hr IV .BY DURATION [facility] Stop: 03/08/21 09:00 Last Admin: 03/07/21 05:05 Dose: 70 mls/hr Documented by: Iopamidol (Iopamidol 755 Mg/Ml 100 Ml Bottle) 100 ml IV . DIRECTED [facility] Stop: 03/03/21 14:46 Last Admin: 03/03/21 15:16 Dose: 44 ml Documented by: Lorazepam (Lorazepam 0.5 Mg Tab) 0.25 mg PO ONETIME ONE Stop: 03/02/21 18:29 Last Admin: 03/02/21 18:42 Dose: 0.25 mg Documented by: Lorazepam (Lorazepam 0.5 Mg Tab) 0.5 mg PO Q2H PRN PRN Reason: Anxiety Last Admin: 03/03/21 07:43 Dose: 0.5 mg Documented by: Lorazepam (Lorazepam 2 Mg/Ml Sdv) 0.5 mg IVPUSH ONETIME ONE Stop: 03/03/21 11:05 Last Admin: 03/03/21 11:21 Dose: 0.5 mg Documented by: Lorazepam (Lorazepam 2 Mg/Ml Sdv) Confirm Administered Dose 2 mg .ROUTE .STK-MED ONE Stop: 03/03/21 11:09 Last Admin: 03/03/21 11:22 Dose: Not Given Documented by: Lorazepam (Lorazepam 2 Mg/Ml Sdv) 0.5 mg IVPUSH ONETIME ONE Stop: 03/05/21 15:06 Last Admin: 03/05/21 15:17 Dose: 0.5 mg Documented by: Methylprednisolone Sodium Succinate (Methylprednisolone Sodium Succinate 40 Mg/1 Ml Sdv) 40 mg IVPUSH Q6H [facility] Last Admin: 03/04/21 09:16 Dose: 40 mg Documented by: Methylprednisolone Sodium Succinate (Methylprednisolone Sodium Succinate 40 Mg/1 Ml Sdv) 40 mg IVPUSH Q12H [facility] Last Admin: 03/05/21 09:02 Dose: 40 mg Documented by: Mometasone Furoate/Formoterol Fumar (Formoterol/Mometasone 200-5 Mcg 8.8 Gm Inhaler) 2 puff IH BIDRT [facility] Last Admin: 03/02/21 06:00 Dose: 2 puff Documented by: Mometasone Furoate/Formoterol Fumar (Formoterol/Mometasone 200-5 Mcg 8.8 Gm Inhaler) 2 puff IH BID@0500,2100 [facility] Last Admin: 03/05/21 21:29 Dose: Not Given Documented by: Non-Formulary Medication (Central Total Parenteral Nutrition Bag) 1,000 ml .XX .Continue Order [facility] Stop: 03/01/21 10:00 Non-Formulary Medication (Central Total Parenteral Nutrition Bag) 1,000 ml .XX .Continue Order [facility] Stop: 03/02/21 18:00 Non-Formulary Medication (Central Total Parenteral Nutrition Bag) 1,000 ml .XX .Continue Order [facility] Stop: 03/03/21 18:00 Non-Formulary Medication (Central Total Parenteral Nutrition Bag) 0 ml IV ASDIRECTED [facility] Stop: 03/05/21 10:00 Non-Formulary Medication (Central Total Parenteral Nutrition Bag) 0 ml IV ASDIRECTED [facility] Stop: 03/06/21 12:00 Non-Formulary Medication (Central Total Parenteral Nutrition Bag) 1,000 ml .XX .Continue Order [facility]; Protocol Stop: 03/07/21 12:01 Pantoprazole Sodium (Pantoprazole 40 Mg Tab.Cr) 40 mg PO ACBREAKFAST [facility] Last Admin: 03/03/21 07:20 Dose: 40 mg Documented by: Pantoprazole Sodium (Pantoprazole 40 Mg Vial) 40 mg IVPUSH DAILY [facility] Last Admin: 03/06/21 09:26 Dose: 40 mg Documented by: Potassium Chloride (Potassium Chloride 20 Meq Tab.Er) 40 meq PO ONETIME ONE Stop: 03/01/21 16:31 Last Admin: 03/01/21 17:38 Dose: 40 meq Documented by: Propofol (Propofol 200 Mg/20 Ml Sdv) Confirm Administered Dose 200 mg .ROUTE .STK-MED ONE Stop: 03/03/21 12:22 Sodium Chloride (Sodium Chloride 0.9% 10 Ml Sdv) 10 ml FLUSH ONETIME ONE Stop: 03/03/21 14:34 Last Admin: 03/03/21 15:20 Dose: 10 ml Documented by: Succinylcholine Chloride (Succinylcholine 200 Mg/10 Ml Mdv) Confirm Administered Dose 200 mg .ROUTE .STK-MED ONE Stop: 03/03/21 12:22 Theophylline (Theophylline 100 Mg Cap.Er) 300 mg PO BID [facility] Last Admin: 03/02/21 09:24 Dose: 300 mg Documented by: Theophylline (Theophylline 100 Mg Cap.Er) 300 mg PO BID@0500,2100 [facility] Last Admin: 03/05/21 21:29 Dose: 300 mg Documented by: Tiotropium [place] (Tiotropium [place] 4 Gm Inhalation [place] (2.5mcg/1 Dose; 10 Doses)) 0 gm INH DAILYRT [facility] Last Admin: 03/02/21 06:00 Dose: 2 puff Documented by: Tiotropium [place] (Tiotropium [place] 4 Gm Inhalation [place] (2.5mcg/1 Dose; 10 Doses)) 0 gm INH DAILY@0500 [facility] Last Admin: 03/05/21 04:45 Dose: Not Given Documented by: Vancomycin HCl (Vancomycin 1 Gm Sdv) 1 gm IV .PHARMACY TO DOSE [facility] Stop: 03/03/21 18:00 - Exam Quality Assessment: Supplemental Oxygen Central Line Total Time: 8Days 16Hours Urinary Catheter Total Time: 1Days 16Hours General: Alert, Oriented, Cooperative, Mild Distress Lungs: Decreased Breath Sounds (poor exp air flow ), Wheezing (diffuse exp). No: Normal Respiratory Effort (increased work of breathing ) Cardiovascular: Regular Rhythm, Tachycardia GI/Abdominal Exam: Soft, No Distention Extremities: No Pedal Edema. No: Increased Warmth Skin: Warm, Dry Psy/Mental Status: Alert, Normal Affect. No: Anxious Sepsis Event Note - Evaluation Sepsis Screening Result: Sepsis Risk - Focused Exam Vital Signs: Vital Signs Temp Pulse Resp BP Pulse Ox 03/09/21 08:00 36.7 C 111 H 22 H 134/81 97 03/09/21 07:15 102 H 03/09/21 06:00 12 124/85 92 L 03/09/21 04:00 36.8 C 18 128/83 94 L 03/09/21 02:00 109/77 03/09/21 00:00 36.9 C 115/80 Consult PN Assessment/Plan Procedures: Procedures AIRWAY INHALATION TREATMENT (12/03/20) ASSAY OF FERRITIN (12/16/19) ASSAY OF MAGNESIUM (01/09/20) ASSAY OF NATRIURETIC PEPTIDE (12/16/19) ASSAY OF PHOSPHORUS (01/09/20) ASSAY THYROID STIM HORMONE (12/16/19) BLOOD GASES ANY COMBINATION (12/16/19) BLOOD TYPING SEROLOGIC ABO (09/20/15) BLOOD TYPING SEROLOGIC RH(D) (09/20/15) CHEST WALL MANIPULATION (12/03/20) CHEST WALL MANIPULATION (12/03/20) CHEST WALL MANIPULATION (12/16/19) CHEST WALL MANIPULATION (12/16/19) CHEST WALL MANIPULATION (05/30/18) CHEST WALL MANIPULATION (05/30/18) COMPLETE CBC AUTOMATED (01/09/20) COMPLETE CBC W/AUTO DIFF WBC (01/09/20) COMPREHEN METABOLIC PANEL (01/09/20) CT ABD & PELV W/CONTRAST (12/22/20) CT ANGIO ABDOM W/O & W/DYE (12/16/19) CT ANGIOGRAPHY CHEST (12/16/19) CULTURE OTHR SPECIMN AEROBIC (12/22/20) EGD DILATE STRICTURE (12/23/15) ELECTROCARDIOGRAM TRACING (12/03/20) IRON BINDING TEST (01/09/20) MEASURE BLOOD OXYGEN LEVEL (01/09/20) METABOLIC PANEL TOTAL CA (01/09/20) RBC ANTIBODY SCREEN (09/20/15) ROUTINE VENIPUNCTURE (01/09/20) SMEAR GRAM STAIN (12/22/20) TISSUE EXAM BY PATHOLOGIST (12/03/20) TISSUE EXAM BY PATHOLOGIST (12/03/20) WITHDRAWAL OF ARTERIAL BLOOD (05/30/18) X-RAY EXAM ABDOMEN 2 VIEWS (12/16/19) X-RAY EXAM CHEST 1 VIEW (12/16/19) X-RAY EXAM CHEST 2 VIEWS (12/16/19) X-RAY XM UPR GI TRC 1CNTRST (12/03/20) Problem List Initiated/Reviewed/Updated: Yes My Orders Last 24 Hours: My Active Orders 03/08/21 10:41 Arterial Line Discontinue [OM.PC] Routine 03/08/21 10:43 RT Aerosol Therapy [RC] ASDIRECTED 03/08/21 11:00 Doxycycline [Vibramycin] 100 mg Sodium Chloride 0.9% [Normal Saline] 100 ml IV Q12H 03/08/21 21:00 Budesonide [Pulmicort] 0.5 mg NEB BIDRT 03/09/21 09:59 RT Aerosol Therapy [RC] ASDIRECTED levalbuterol HCL [Xopenex] 1.25 mg NEB Q4HRRT PRN 03/09/21 11:00 levalbuterol HCL [Xopenex] 1.25 mg NEB QIDRT Plan: ASSESSMENT AND RECOMMENDATIONS ACUTE ON CHRONIC HYPOXIC AND HYPERCAPNIC RESPIRATORY FAILURE-likely secondary to COPD exacerbation with possible bronchitis. Finally able to tolerate some time off of the noninvasive ventilation. Still tachypneic and compromised. Still not moving good air with expiration but overall doing better. -Supplemental oxygen and/or NIPPV as needed -Trial of low-dose steroids, transition to prednisone tomorrow if stable overnight -Nebulizer therapy with Xopenex -Continue doxycycline -Continue Pulmicort twice daily -Alpha-1 antitrypsin lab studies pending SEVERE ANXIETY-significant contributor to exacerbations of her respiratory compromise. This does seem to be slowly improving. -Increase Prozac to 40 mg p.o. daily -Continue intermittent use of lorazepam HYPOTENSION-likely secondary to sedating medications, no evidence of underlying sepsis. This has resolved. ELEVATED TROPONIN-resolved RECENT WEIGHT LOSS-status post Domingo-en-Y gastric bypass surgery 6 years ago. Weight loss over the past 2 to 3 months, now down to 81 pounds. Other labs appear to be fairly good including her albumin level and vitamin levels except for folate acid which was found to be low. Plan at admission had been to proceed with surgery for reversal of her Dmoingo-en-Y gastric bypass. 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 -Continue TPN -She would be very high risk for surgery from a cardiopulmonary standpoint Arthur Gates MD
[2021-03-09] MEDS: Levalbuterol HCl 1.25 MG/3 ML Neb NEB SCH ×3 (10:47→21:07)
[2021-03-09] MEDS: Levalbuterol HCl 1.25 MG/3 ML Neb NEB PRN (11:14)
[2021-03-09] MEDS: Doxycycline 100 MG in Sodium Chloride 0.9% 100 ML IV SCH ×2 (11:20→22:24)
[2021-03-09] MEDS: 1: AA 4.25%/Calcium/D10W/Lytes 1,000 ML with MVI, Adult with Vitamin K 10 ML, Zinc/Coppe IV SCH ×3 (14:22)
[2021-03-09] MEDS: Enoxaparin 30 MG/0.3 ML Syringe SUBCUT SCH (14:23)
[2021-03-09] MEDS: Fat Emulsion 250 ML IV SCH (16:10)
[2021-03-10] MEDS: methylPREDNISolone Sodium Succinate 40 MG/1 ML SDV IVPUSH SCH (02:42)
[2021-03-10] MEDS: LORazepam 0.5 MG Tab PO PRN ×5 (02:42→19:54)
[2021-03-10] MEDS: HYDROmorphone 1 MG/ML Syringe IVPUSH PRN ×3 (02:55→22:15)
[2021-03-10] MEDS: 1: AA 4.25%/Calcium/D10W/Lytes 1,000 ML with MVI, Adult with Vitamin K 10 ML, Zinc/Coppe IV SCH ×6 (04:00→18:12)
[2021-03-10] MEDS: Levalbuterol HCl 1.25 MG/3 ML Neb NEB SCH ×5 (05:26→20:26)
[2021-03-10] MEDS: Formoterol/Mometasone 200-5 MCG 8.8 GM Inhaler IH SCH ×3 (05:26→20:26)
[2021-03-10] MEDS: Budesonide 0.5 MG/2 ML Neb Susp NEB SCH ×3 (05:26→20:26)
[2021-03-10] MEDS: Tiotropium Bromide 4 GM Inhalation Spray (2.5mcg/1 dose; 10 doses) INH SCH ×2 (05:27→07:07)
[2021-03-10] MEDS: Gabapentin 300 MG Cap PO SCH ×4 (06:24→22:15)
[2021-03-10] MEDS: Pantoprazole 40 MG Tab.CR PO SCH (08:48)
[2021-03-10] MEDS: Theophylline 100 MG Cap.ER PO SCH ×2 (08:48→20:26)
[2021-03-10] MEDS: FLUoxetine 20 MG Cap PO SCH (08:48)
--- NOTE | 2021-03-10 08:55 | PCM.CONSN ---
- General Info Date of Service: 03/10/21 Subjective Update: There were no acute events overnight. Patient did not require noninvasive ventilation overnight and has been stable with nasal cannula. She reports that her shortness of breath has improved. She is able to move around in bed but has not been out of bed as of yet. She has a loose cough which has been nonproductive. No chest pain today. No report of abdominal pain. She tells me that she is ready to go home. Functional Status: Reports: Pain Controlled, Tolerating Diet - Review of Systems General: Reports: Weakness Pulmonary: Reports: Shortness of Breath, Cough - Patient Data Vitals - Most Recent: Last Vital Signs Temp 36.6 C 03/10/21 04:00 Pulse 88 03/10/21 08:00 Resp 17 03/10/21 08:00 BP 103/59 L 03/10/21 08:00 Pulse Ox 97 03/10/21 08:00 Weight - Most Recent: 83 kg I&O - Last 24 Hours: Intake & Output 03/09/21 03/10/21 03/10/21 22:59 06:59 14:59 Intake Total 1506 1286 Output Total 1625 1300 Balance -119 -14 Lab Results Last 24 Hours: Laboratory Results - last 24 hr 03/10/21 03/10/21 Range/Units 04:08 04:08 WBC 12.8 H (4.5-11.0) K/uL RBC 3.72 (3.30-5.50) M/uL Hgb 10.9 L (12.0-15.0) g/dL Hct 35.7 L (36.0-48.0) % MCV 96 (80-98) fL MCH 29 (27-31) pg MCHC 31 L (32-36) % Plt Count 339 (150-400) K/uL Neut % (Auto) 83.1 H (36-66) % Lymph % (Auto) 8.0 L (24-44) % Josephine % (Auto) 8.8 H (2-6) % Eos % (Auto) 0.1 L (2-4) % Baso % (Auto) 0.0 (0-1) % Sodium 144 (140-148) mmol/L Potassium 4.0 (3.6-5.2) mmol/L Chloride 103 (100-108) mmol/L Carbon Dioxide 37 H (21-32) mmol/L Anion Gap 8.0 (5.0-14.0) mmol/L BUN 14 (7-18) mg/dL Creatinine 0.3 L (0.6-1.0) mg/dL Est Cr Clr Drug Dosing 169.55 mL/min Estimated GFR (MDRD) > 60 (>60) Glucose 124 H (74-106) mg/dL Calcium 8.5 (8.5-10.1) mg/dL Phosphorus 3.8 (2.5-4.9) mg/dL Magnesium 2.1 (1.8-2.4) mg/dL Total Bilirubin 0.2 (0.2-1.0) mg/dL AST 68 H D (15-37) U/L ALT 153 H (12-78) U/L Alkaline Phosphatase 106 (46-116) U/L NT-Pro-B Natriuret Pep 252 H (5-125) pg/mL Total Protein 6.1 L (6.4-8.2) g/dL Albumin 3.0 L (3.4-5.0) g/dL Globulin 3.1 (2.3-3.5) g/dL Albumin/Globulin Ratio 1.0 L (1.2-2.2) Med Orders - Current: Current Medications Acetaminophen (Acetaminophen 325 Mg Tab) 650 mg PO Q4H PRN PRN Reason: PAIN/FEVER Last Admin: 03/01/21 14:13 Dose: 650 mg Documented by: Acetaminophen (Acetaminophen 650 Mg Supp) 650 mg RECTAL Q4H PRN PRN Reason: PAIN/FEVER Hydrocodone Bitart/Acetaminophen (Acetaminophen/Hydrocodone 325-5 Mg Tab) 1 tab PO Q4H PRN PRN Reason: Pain Last Admin: 03/09/21 19:14 Dose: 1 tab Documented by: Budesonide (Budesonide 0.5 Mg/2 Ml Neb Susp) 0.5 mg NEB BIDRT ON LICENSE OF [facility] Last Admin: 03/10/21 07:07 Dose: Not Given Documented by: Enoxaparin Sodium (Enoxaparin 30 Mg/0.3 Ml Syringe) 30 mg SUBCUT Q24H ON LICENSE OF [facility] Last Admin: 03/09/21 14:23 Dose: 30 mg Documented by: Fluoxetine HCl (Fluoxetine 20 Mg Cap) 40 mg PO DAILY ON LICENSE OF [facility] Last Admin: 03/10/21 08:48 Dose: 40 mg Documented by: Gabapentin (Gabapentin 300 Mg Cap) 300 mg PO QID ON LICENSE OF [facility] Last Admin: 03/10/21 06:24 Dose: 300 mg Documented by: Hydromorphone HCl (Hydromorphone 0.5 Mg/0.5 Ml Syringe) 0.5 mg IVPUSH Q2H PRN PRN Reason: Pain Last Admin: 03/07/21 18:04 Dose: 0.5 mg Documented by: Hydromorphone HCl (Hydromorphone 1 Mg/Ml Syringe) 1 mg IVPUSH Q1H PRN PRN Reason: Agitation Last Admin: 03/10/21 02:55 Dose: 1 mg Documented by: Fat Emulsion Intravenous (Intralipid 20%) 250 mls @ 21 mls/hr IV Q24H ON LICENSE OF [facility] Last Admin: 03/09/21 16:10 Dose: 21 mls/hr Documented by: Multivitamins/Minerals 10 ml/Zinc 1 ml/ Amino Acids/Electrolytes/Dextrose 1,011 mls @ 70 mls/hr IV .BY DURATION ON LICENSE OF [facility] Last Admin: 03/10/21 04:00 Dose: 70 mls/hr Documented by: Amino Acids/Electrolytes/Dextrose (Clinimix E 4.25/10) 1,000 mls @ 70 mls/hr IV .BY DURATION ON LICENSE OF [facility] Last Admin: 03/09/21 14:22 Dose: 70 mls/hr Documented by: Doxycycline Hyclate 100 mg/ (Sodium Chloride) 100 mls @ 100 mls/hr IV Q12H ON LICENSE OF [facility] Last Admin: 03/09/21 22:24 Dose: 100 mls/hr Documented by: Levalbuterol HCl (Levalbuterol Hcl 1.25 Mg/3 Ml Neb) 1.25 mg NEB QIDRT ON LICENSE OF [facility] Last Admin: 03/10/21 07:07 Dose: Not Given Documented by: Levalbuterol HCl (Levalbuterol Hcl 1.25 Mg/3 Ml Neb) 1.25 mg NEB Q4H PRN PRN Reason: shortness of breath/wheezing Last Admin: 03/09/21 11:14 Dose: 1.25 mg Documented by: Lorazepam (Lorazepam 2 Mg/Ml Sdv) 0.5 mg IVPUSH Q4H PRN PRN Reason: Anxiety Last Admin: 03/08/21 18:48 Dose: 0.5 mg Documented by: Lorazepam (Lorazepam 0.5 Mg Tab) 0.5 mg PO Q4H PRN PRN Reason: Anxiety Last Admin: 03/10/21 06:24 Dose: 0.5 mg Documented by: Mometasone Furoate/Formoterol Fumar (Formoterol/Mometasone 200-5 Mcg 8.8 Gm Inhaler) 2 puff IH BID@0700,2100 ON LICENSE OF [facility] Last Admin: 03/10/21 07:07 Dose: Not Given Documented by: Ondansetron HCl (Ondansetron 4 Mg Tab.Dis) 4 mg PO Q4H PRN PRN Reason: N/V Pantoprazole Sodium (Pantoprazole 40 Mg Tab.Cr) 40 mg PO ACBREAKFAST ON LICENSE OF [facility] Last Admin: 03/10/21 08:48 Dose: 40 mg Documented by: Theophylline (Theophylline 100 Mg Cap.Er) 300 mg PO BID@0900,2100 ON LICENSE OF [facility] Last Admin: 03/10/21 08:48 Dose: 300 mg Documented by: Tiotropium Cameron (Tiotropium Cameron 4 Gm Inhalation [place] (2.5mcg/1 Dose; 10 Doses)) 0 gm INH DAILY@0700 ON LICENSE OF [facility] Last Admin: 03/10/21 07:07 Dose: Not Given Documented by: Discontinued Medications Acetazolamide (Acetazolamide 500 Mg Vial) 250 mg IVPUSH Q6HR ON LICENSE OF [facility] Stop: 03/05/21 22:01 Last Admin: 03/05/21 21:52 Dose: 250 mg Documented by: Albuterol (Albuterol 8 Gm Inhaler) 0 gm INH QIDRT PRN PRN Reason: Shortness of Breath Albuterol (Albuterol 0.083% 2.5 Mg/3 Ml Neb Soln) 2.5 mg NEB Q4H PRN PRN Reason: Dyspnea Last Admin: 03/02/21 16:58 Dose: 2.5 mg Documented by: Albuterol/Ipratropium (Albuterol/Ipratropium 3.0-0.5 Mg/3 Ml Neb Soln) 3 ml INH Q6H ON LICENSE OF [facility] Last Admin: 03/01/21 17:15 Dose: Not Given Documented by: Albuterol/Ipratropium (Albuterol/Ipratropium 3.0-0.5 Mg/3 Ml Neb Soln) 3 ml INH ASDIRECTED PRN PRN Reason: Shortness of Breath Last Admin: 03/01/21 13:13 Dose: 3 ml Documented by: Albuterol/Ipratropium (Albuterol/Ipratropium 3.0-0.5 Mg/3 Ml Neb Soln) 3 ml INH QIDRT ON LICENSE OF [facility] Last Admin: 03/09/21 07:14 Dose: 3 ml Documented by: Fluoxetine HCl (Fluoxetine 20 Mg Cap) 20 mg PO DAILY ON LICENSE OF [facility] Last Admin: 03/06/21 09:25 Dose: 20 mg Documented by: Fluoxetine HCl (Fluoxetine 20 Mg Cap) 20 mg PO ONETIME ONE Stop: 03/06/21 10:31 Last Admin: 03/06/21 12:07 Dose: 20 mg Documented by: Furosemide (Furosemide 20 Mg/2 Ml Vial) 20 mg IVPUSH NOW ONE Stop: 03/01/21 15:01 Last Admin: 03/01/21 15:16 Dose: 20 mg Documented by: Furosemide (Furosemide 20 Mg/2 Ml Vial) 20 mg IVPUSH ONETIME ONE Stop: 03/02/21 07:31 Last Admin: 03/02/21 07:43 Dose: 20 mg Documented by: Furosemide (Furosemide 20 Mg/2 Ml Vial) 20 mg IVPUSH BID ON LICENSE OF [facility] Last Admin: 03/07/21 08:29 Dose: 20 mg Documented by: Furosemide (Furosemide 40 Mg/4 Ml Vial) 20 mg IVPUSH NOW ONE Stop: 03/04/21 12:31 Last Admin: 03/04/21 13:56 Dose: 20 mg Documented by: Hydromorphone HCl (Hydromorphone 1 Mg/Ml Syringe) Confirm Administered Dose 1 mg .ROUTE .STK-MED ONE Stop: 03/05/21 02:42 Last Admin: 03/05/21 02:52 Dose: Not Given Documented by: Hydromorphone HCl (Hydromorphone 1 Mg/Ml Syringe) Confirm Administered Dose 1 mg .ROUTE .STK-MED ONE Stop: 03/05/21 02:44 Last Admin: 03/05/21 02:47 Dose: Not Given Documented by: Dextrose/Lactated Ringer's (Dextrose 5%-Lactated Ringers) 1,000 mls @ 100 mls/hr IV ASDIRECTED ON LICENSE OF [facility] Last Admin: 02/28/21 15:04 Dose: 100 mls/hr Documented by: Multivitamins/Minerals 10 ml/Zinc 1 ml/ Amino Ac/Electrol/Dextrose/Calcium 1,011 mls @ 75 mls/hr IV .BY DURATION ON LICENSE OF [facility] Last Admin: 02/28/21 17:20 Dose: 75 mls/hr Documented by: Amino Ac/Electrol/Dextrose/Calcium (Clinimix E 5/15) 1,000 mls @ 75 mls/hr IV .BY DURATION ON LICENSE OF [facility] Last Admin: 03/01/21 06:46 Dose: 75 mls/hr Documented by: Fat Emulsion Intravenous (Intralipid 20%) 250 mls @ 21 mls/hr IV Q24H ON LICENSE OF [facility] Last Admin: 03/02/21 15:35 Dose: 21 mls/hr Documented by: Dextrose/Lactated Ringer's (Dextrose 5%-Lactated Ringers) 1,000 mls @ 0 mls/hr IV ASDIRECTED ON LICENSE OF [facility] Potassium Phosphate 15 mmol/ (Premix) 250 mls @ 125 mls/hr IV Q2H ON LICENSE OF [facility] Stop: 03/01/21 15:59 Last Admin: 03/01/21 15:38 Dose: Not Given Documented by: Thiamine HCl 100 mg/ Sodium (Chloride) 101 mls @ 202 mls/hr IV ONETIME ONE Stop: 03/01/21 09:29 Last Admin: 03/01/21 10:25 Dose: 202 mls/hr Documented by: Multivitamins/Minerals 10 ml/Zinc 1 ml/ Amino Ac/Electrol/Dextrose/Calcium 1,011 mls @ 70 mls/hr IV .BY DURATION ON LICENSE OF [facility] Last Admin: 03/04/21 05:23 Dose: Not Given Documented by: Amino Ac/Electrol/Dextrose/Calcium (Clinimix E 5/15) 1,000 mls @ 70 mls/hr IV .BY DURATION ON LICENSE OF [facility] Last Admin: 03/04/21 22:49 Dose: Not Given Documented by: Meropenem 500 mg/ Sodium (Chloride) 50 mls @ 100 mls/hr IV Q8H ON LICENSE OF [facility] Last Admin: 03/06/21 07:51 Dose: 100 mls/hr Documented by: Doxycycline Hyclate 100 mg/ (Sodium Chloride) 100 mls @ 100 mls/hr IV Q12H ON LICENSE OF [facility] Last Admin: 03/03/21 03:21 Dose: 100 mls/hr Documented by: Potassium Phosphate 22.5 mmole (/ Sodium Chloride) 107.5 mls @ 25 mls/hr IV Q5H ON LICENSE OF [facility] Stop: 03/02/21 18:47 Last Admin: 03/02/21 13:31 Dose: 25 mls/hr Documented by: Heparin Sodium (Porcine) 5,000 (units/ Sodium Chloride) 501 mls @ 5 mls/hr IV ASDIRECTED ON LICENSE OF [facility] Last Admin: 03/03/21 12:07 Dose: 5 mls/hr Documented by: Propofol (Diprivan 100 Ml) Confirm Administered Dose 100 mls @ as directed .ROUTE .STK-MED ONE Stop: 03/03/21 12:00 Last Admin: 03/03/21 13:15 Dose: Not Given Documented by: Propofol (Diprivan 100 Ml) 100 mls @ 1.113 mls/hr IV TITRATE ON LICENSE OF [facility]; Protocol Last Admin: 03/05/21 04:42 Dose: 70 mcg/kg/min, 15.584 mls/hr Documented by: Azithromycin 500 mg/ Sodium (Chloride) 250 mls @ 250 mls/hr IV Q24H ON LICENSE OF [facility] Last Admin: 03/07/21 14:34 Dose: 250 mls/hr Documented by: Sodium Chloride (Normal Saline) 100 mls @ 3 mls/sec IV ASDIRECTED ON LICENSE OF [facility] Stop: 03/03/21 14:46 Last Admin: 03/03/21 15:17 Dose: 4 mls/sec Documented by: Vancomycin HCl 0.75 gm/ Sodium (Chloride) 150 mls @ 100 mls/hr IV ONETIME ONE Stop: 03/03/21 17:59 Last Admin: 03/03/21 16:42 Dose: 100 mls/hr Documented by: Vancomycin HCl 0.5 gm/ Sodium (Chloride) 100 mls @ 66.667 mls/hr IV Q12H ON LICENSE OF [facility] Last Admin: 03/05/21 04:43 Dose: 66.667 mls/hr Documented by: Sodium Chloride (Normal Saline) 1,000 mls @ 250 mls/hr IV ASDIRECTED ON LICENSE OF [facility] Stop: 03/03/21 20:44 Last Admin: 03/03/21 16:43 Dose: 250 mls/hr Documented by: Norepinephrine Bitartrate 4 mg (/ Dextrose/Water) 250 mls @ 7.5 mls/hr IV TITRATE ON LICENSE OF [facility]; Protocol Last Titration: 03/05/21 10:33 Dose: 2 mcg/min, 7.5 mls/hr Documented by: Heparin Sodium (Porcine) 5,000 (units/ Sodium Chloride) 501 mls @ 5 mls/hr IV ASDIRECTED ON LICENSE OF [facility] Last Admin: 03/04/21 13:00 Dose: 5 mls/hr Documented by: Multivitamins/Minerals 10 ml/Zinc 1 ml/ Amino Acids/Electrolytes/Dextrose 1,011 mls @ 70 mls/hr IV .BY DURATION [facility] Stop: 03/08/21 09:00 Last Admin: 03/07/21 19:28 Dose: 70 mls/hr Documented by: Amino Acids/Electrolytes/Dextrose (Clinimix E 4.25/10) 1,000 mls @ 70 mls/hr IV .BY DURATION ON LICENSE OF [facility] Stop: 03/08/21 09:00 Last Admin: 03/07/21 05:05 Dose: 70 mls/hr Documented by: Iopamidol (Iopamidol 755 Mg/Ml 100 Ml Bottle) 100 ml IV . DIRECTED [facility] Stop: 03/03/21 14:46 Last Admin: 03/03/21 15:16 Dose: 44 ml Documented by: Lorazepam (Lorazepam 0.5 Mg Tab) 0.25 mg PO ONETIME ONE Stop: 03/02/21 18:29 Last Admin: 03/02/21 18:42 Dose: 0.25 mg Documented by: Lorazepam (Lorazepam 0.5 Mg Tab) 0.5 mg PO Q2H PRN PRN Reason: Anxiety Last Admin: 03/03/21 07:43 Dose: 0.5 mg Documented by: Lorazepam (Lorazepam 2 Mg/Ml Sdv) 0.5 mg IVPUSH ONETIME ONE Stop: 03/03/21 11:05 Last Admin: 03/03/21 11:21 Dose: 0.5 mg Documented by: Lorazepam (Lorazepam 2 Mg/Ml Sdv) Confirm Administered Dose 2 mg .ROUTE .STK-MED ONE Stop: 03/03/21 11:09 Last Admin: 03/03/21 11:22 Dose: Not Given Documented by: Lorazepam (Lorazepam 2 Mg/Ml Sdv) 0.5 mg IVPUSH ONETIME ONE Stop: 03/05/21 15:06 Last Admin: 03/05/21 15:17 Dose: 0.5 mg Documented by: Methylprednisolone Sodium Succinate (Methylprednisolone Sodium Succinate 40 Mg/1 Ml Sdv) 40 mg IVPUSH Q6H ON LICENSE OF [facility] Last Admin: 03/04/21 09:16 Dose: 40 mg Documented by: Methylprednisolone Sodium Succinate (Methylprednisolone Sodium Succinate 40 Mg/1 Ml Sdv) 40 mg IVPUSH Q12H ON LICENSE OF [facility] Last Admin: 03/05/21 09:02 Dose: 40 mg Documented by: Methylprednisolone Sodium Succinate (Methylprednisolone Sodium Succinate 40 Mg/1 Ml Sdv) 40 mg IVPUSH Q8H ON LICENSE OF [facility] Last Admin: 03/10/21 02:42 Dose: 40 mg Documented by: Mometasone Furoate/Formoterol Fumar (Formoterol/Mometasone 200-5 Mcg 8.8 Gm Inhaler) 2 puff IH BIDRT ON LICENSE OF [facility] Last Admin: 03/02/21 06:00 Dose: 2 puff Documented by: Mometasone Furoate/Formoterol Fumar (Formoterol/Mometasone 200-5 Mcg 8.8 Gm Inhaler) 2 puff IH BID@0500,2100 ON LICENSE OF [facility] Last Admin: 03/05/21 21:29 Dose: Not Given Documented by: Non-Formulary Medication (Central Total Parenteral Nutrition Bag) 1,000 ml .XX .Continue Order ON LICENSE OF [facility] Stop: 03/01/21 10:00 Non-Formulary Medication (Central Total Parenteral Nutrition Bag) 1,000 ml .XX .Continue Order ON LICENSE OF [facility] Stop: 03/02/21 18:00 Non-Formulary Medication (Central Total Parenteral Nutrition Bag) 1,000 ml .XX .Continue Order ON LICENSE OF [facility] Stop: 03/03/21 18:00 Non-Formulary Medication (Central Total Parenteral Nutrition Bag) 0 ml IV ASDIRECTED ON LICENSE OF [facility] Stop: 03/05/21 10:00 Non-Formulary Medication (Central Total Parenteral Nutrition Bag) 0 ml IV ASDIRECTED ON LICENSE OF [facility] Stop: 03/06/21 12:00 Non-Formulary Medication (Central Total Parenteral Nutrition Bag) 1,000 ml .XX .Continue Order ON LICENSE OF [facility]; Protocol Stop: 03/07/21 12:01 Pantoprazole Sodium (Pantoprazole 40 Mg Tab.Cr) 40 mg PO ACBREAKFAST ON LICENSE OF [facility] Last Admin: 03/03/21 07:20 Dose: 40 mg Documented by: Pantoprazole Sodium (Pantoprazole 40 Mg Vial) 40 mg IVPUSH DAILY ON LICENSE OF [facility] Last Admin: 03/06/21 09:26 Dose: 40 mg Documented by: Potassium Chloride (Potassium Chloride 20 Meq Tab.Er) 40 meq PO ONETIME ONE Stop: 03/01/21 16:31 Last Admin: 03/01/21 17:38 Dose: 40 meq Documented by: Propofol (Propofol 200 Mg/20 Ml Sdv) Confirm Administered Dose 200 mg .ROUTE .STK-MED ONE Stop: 03/03/21 12:22 Sodium Chloride (Sodium Chloride 0.9% 10 Ml Sdv) 10 ml FLUSH ONETIME ONE Stop: 03/03/21 14:34 Last Admin: 03/03/21 15:20 Dose: 10 ml Documented by: Succinylcholine Chloride (Succinylcholine 200 Mg/10 Ml Mdv) Confirm Administered Dose 200 mg .ROUTE .STK-MED ONE Stop: 03/03/21 12:22 Theophylline (Theophylline 100 Mg Cap.Er) 300 mg PO BID ON LICENSE OF [facility] Last Admin: 03/02/21 09:24 Dose: 300 mg Documented by: Theophylline (Theophylline 100 Mg Cap.Er) 300 mg PO BID@0500,2100 ON LICENSE OF [facility] Last Admin: 03/05/21 21:29 Dose: 300 mg Documented by: Tiotropium Cameron (Tiotropium Cameron 4 Gm Inhalation [place] (2.5mcg/1 Dose; 10 Doses)) 0 gm INH DAILYRT ON LICENSE OF [facility] Last Admin: 03/02/21 06:00 Dose: 2 puff Documented by: Tiotropium Cameron (Tiotropium Cameron 4 Gm Inhalation [place] (2.5mcg/1 Dose; 10 Doses)) 0 gm INH DAILY@0500 ON LICENSE OF [facility] Last Admin: 03/05/21 04:45 Dose: Not Given Documented by: Vancomycin HCl (Vancomycin 1 Gm Sdv) 1 gm IV .PHARMACY TO DOSE ON LICENSE OF [facility] Stop: 03/03/21 18:00 - Exam Quality Assessment: Supplemental Oxygen Central Line Total Time: 9Days 5Hours Urinary Catheter Total Time: 5Days 21Hours General: Alert, Oriented, Cooperative, Mild Distress Lungs: Decreased Breath Sounds (poor air movement with expiration). No: Normal Respiratory Effort (increased work of breathing ), Wheezing Cardiovascular: Regular Rhythm, Tachycardia GI/Abdominal Exam: Soft, No Distention Extremities: No Pedal Edema. No: Increased Warmth Skin: Warm, Dry Psy/Mental Status: Alert, Normal Affect Sepsis Event Note - Evaluation Sepsis Screening Result: No Definite Risk - Focused Exam Vital Signs: Vital Signs Temp Pulse Resp BP Pulse Ox 03/10/21 08:00 88 17 103/59 L 97 03/10/21 06:00 105 H 9 L 140/81 94 L 03/10/21 04:00 36.6 C 104 H 11 L 130/81 94 L 03/10/21 02:00 85 16 101/65 99 03/10/21 00:00 36.8 C 94 16 112/66 98 03/09/21 22:00 104 H 21 H 126/73 96 Consult PN Assessment/Plan Procedures: Procedures AIRWAY INHALATION TREATMENT (12/03/20) ASSAY OF FERRITIN (12/16/19) ASSAY OF MAGNESIUM (01/09/20) ASSAY OF NATRIURETIC PEPTIDE (12/16/19) ASSAY OF PHOSPHORUS (01/09/20) ASSAY THYROID STIM HORMONE (12/16/19) BLOOD GASES ANY COMBINATION (12/16/19) BLOOD TYPING SEROLOGIC ABO (09/20/15) BLOOD TYPING SEROLOGIC RH(D) (09/20/15) CHEST WALL MANIPULATION (12/03/20) CHEST WALL MANIPULATION (12/03/20) CHEST WALL MANIPULATION (12/16/19) CHEST WALL MANIPULATION (12/16/19) CHEST WALL MANIPULATION (05/30/18) CHEST WALL MANIPULATION (05/30/18) COMPLETE CBC AUTOMATED (01/09/20) COMPLETE CBC W/AUTO DIFF WBC (01/09/20) COMPREHEN METABOLIC PANEL (01/09/20) CT ABD & PELV W/CONTRAST (12/22/20) CT ANGIO ABDOM W/O & W/DYE (12/16/19) CT ANGIOGRAPHY CHEST (12/16/19) CULTURE OTHR SPECIMN AEROBIC (12/22/20) EGD DILATE STRICTURE (12/23/15) ELECTROCARDIOGRAM TRACING (12/03/20) IRON BINDING TEST (01/09/20) MEASURE BLOOD OXYGEN LEVEL (01/09/20) METABOLIC PANEL TOTAL CA (01/09/20) RBC ANTIBODY SCREEN (09/20/15) ROUTINE VENIPUNCTURE (01/09/20) SMEAR GRAM STAIN (12/22/20) TISSUE EXAM BY PATHOLOGIST (12/03/20) TISSUE EXAM BY PATHOLOGIST (12/03/20) WITHDRAWAL OF ARTERIAL BLOOD (05/30/18) X-RAY EXAM ABDOMEN 2 VIEWS (12/16/19) X-RAY EXAM CHEST 1 VIEW (12/16/19) X-RAY EXAM CHEST 2 VIEWS (12/16/19) X-RAY XM UPR GI TRC 1CNTRST (12/03/20) Problem List Initiated/Reviewed/Updated: Yes My Orders Last 24 Hours: My Active Orders 03/09/21 09:59 levalbuterol HCL [Xopenex] 1.25 mg NEB Q4H PRN 03/09/21 11:00 levalbuterol HCL [Xopenex] 1.25 mg NEB QIDRT 03/10/21 08:52 predniSONE 40 mg PO ONETIME ONE 03/10/21 08:53 PT Evaluation and Treatment [CONS] Routine 03/11/21 05:00 BASIC METABOLIC PANEL,BMP [CHEM] Timed CBC W/O DIFF,HEMOGRAM [HEME] Timed (1) 03/11/21 08:00 predniSONE 40 mg PO WITHBREAKFAST Plan: ASSESSMENT AND RECOMMENDATIONS 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 Did not require NIPPV overnight but still hypoxic. Still significant impairment of airflow but slowly improving. -Supplemental oxygen and/or NIPPV as needed -transition to prednisone -Nebulizer therapy with Xopenex -Continue doxycycline -Continue Pulmicort twice daily -Alpha-1 antitrypsin lab studies pending SEVERE ANXIETY-panic attacks seem to be decreasing in frequency and severity. -Increase Prozac to 40 mg p.o. daily -Continue intermittent use of lorazepam HYPOTENSION-likely secondary to sedating medications, no evidence of underlying sepsis. This has resolved. ELEVATED TROPONIN-resolved RECENT WEIGHT LOSS-BMI less than 15 at the time of admission. Status post Domingo-en-Y gastric bypass surgery 6 years ago. Weight loss over the past 2 to 3 months, now down to 81 pounds. Plan at admission had been to proceed with surgery for reversal of her Domingo-en-Y gastric bypass. 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 Feeding tube is being considered. Currently receiving TPN. -Continue TPN -She would be very high risk for surgery from a cardiopulmonary standpoint Arthur Gates MD
[2021-03-10] MEDS: Acetaminophen/HYDROcodone 325-5 MG Tab PO PRN ×2 (09:55→19:54)
[2021-03-10] MEDS ORDERED: predniSONE 20 MG Tab PO ONE (10:30)
[2021-03-10] MEDS: Doxycycline 100 MG in Sodium Chloride 0.9% 100 ML IV SCH ×2 (10:33→22:15)
[2021-03-10] MEDS: Fat Emulsion 250 ML IV SCH (15:46)
[2021-03-10] MEDS: Enoxaparin 30 MG/0.3 ML Syringe SUBCUT SCH (15:46)
[2021-03-10] MEDS: Levalbuterol HCl 1.25 MG/3 ML Neb NEB PRN (23:33)
[2021-03-11] MEDS: Acetaminophen/HYDROcodone 325-5 MG Tab PO PRN ×5 (00:01→20:16)
[2021-03-11] MEDS: LORazepam 0.5 MG Tab PO PRN ×5 (00:01→20:16)
[2021-03-11] MEDS: HYDROmorphone 1 MG/ML Syringe IVPUSH PRN ×2 (01:36→03:36)
[2021-03-11] MEDS: Levalbuterol HCl 1.25 MG/3 ML Neb NEB PRN (04:31)
[2021-03-11] MEDS: Gabapentin 300 MG Cap PO SCH ×4 (05:26→21:34)
[2021-03-11] MEDS: Tiotropium Bromide 4 GM Inhalation Spray (2.5mcg/1 dose; 10 doses) INH SCH (07:13)
[2021-03-11] MEDS: Budesonide 0.5 MG/2 ML Neb Susp NEB SCH ×2 (07:13→20:16)
[2021-03-11] MEDS: Levalbuterol HCl 1.25 MG/3 ML Neb NEB SCH ×4 (07:13→20:16)
[2021-03-11] MEDS: Formoterol/Mometasone 200-5 MCG 8.8 GM Inhaler IH SCH ×2 (07:13→20:15)
[2021-03-11] MEDS: Pantoprazole 40 MG Tab.CR PO SCH (07:35)
--- NOTE | 2021-03-11 07:52 | PN ---
DATE OF SERVICE: 03/09/2021 The patient has been clinically stable and respiratory status appears to be improving somewhat. This secondary to improvement in the exacerbation of COPD and possibly switching over to higher fat TPN to decrease the CO2 production. We will do the TPN, otherwise management per Dr. Gates. Wellington Najera MD /[id number]
[2021-03-11] MEDS ORDERED: predniSONE 20 MG Tab PO SCH (08:00)
[2021-03-11] MEDS ORDERED: Potassium Chloride 20 MEQ Tab.ER PO ONE (08:00)
[2021-03-11] MEDS: Theophylline 100 MG Cap.ER PO SCH ×2 (08:33→20:16)
[2021-03-11] MEDS: FLUoxetine 20 MG Cap PO SCH (08:33)
[2021-03-11] MEDS: 1: AA 4.25%/Calcium/D10W/Lytes 1,000 ML with MVI, Adult with Vitamin K 10 ML, Zinc/Coppe IV SCH ×6 (08:44→23:01)
[2021-03-11] MEDS: Doxycycline 100 MG in Sodium Chloride 0.9% 100 ML IV SCH ×2 (10:19→20:21)
--- NOTE | 2021-03-11 10:38 | PCM.CONSN ---
- General Info Date of Service: 03/11/21 Subjective Update: There were no acute events overnight. Patient did not require NIPPV. She reports less shortness of breath today. Cough is loose but nonproductive. No fevers. Still has some mild lower abdominal pain but overall is feeling much better. Episodes of anxiety and panic have improved significantly. Surgical team is planning to place a G-tube tomorrow to help improve nutritional status. Functional Status: Reports: Pain Controlled, Tolerating Diet - Review of Systems General: Denies: Fever Pulmonary: Reports: Shortness of Breath Gastrointestinal: Reports: Abdominal Pain - Patient Data Vitals - Most Recent: Last Vital Signs Temp 36.7 C 03/11/21 05:00 Pulse 85 03/11/21 07:13 Resp 17 03/11/21 09:00 BP 86/65 L 03/11/21 09:00 Pulse Ox 97 03/11/21 09:00 Weight - Most Recent: 37.739 kg I&O - Last 24 Hours: Intake & Output 03/10/21 03/11/21 03/11/21 22:59 06:59 14:59 Intake Total 1430 1605 Output Total 1750 1000 Balance -320 605 Lab Results Last 24 Hours: Laboratory Results - last 24 hr 03/03/21 03/11/21 03/11/21 Range/Units 04:20 04:12 04:12 WBC 11.2 H (4.5-11.0) K/uL RBC 3.52 (3.30-5.50) M/uL Hgb 10.2 L (12.0-15.0) g/dL Hct 34.2 L (36.0-48.0) % MCV 97 (80-98) fL MCH 29 (27-31) pg MCHC 30 L (32-36) % Plt Count 339 (150-400) K/uL Sodium 146 (140-148) mmol/L Potassium 3.3 L (3.6-5.2) mmol/L Chloride 104 (100-108) mmol/L Carbon Dioxide 39 H (21-32) mmol/L Anion Gap 6.3 (5.0-14.0) mmol/L BUN 15 (7-18) mg/dL Creatinine 0.3 L (0.6-1.0) mg/dL Est Cr Clr Drug Dosing 127.72 mL/min Estimated GFR (MDRD) > 60 (>60) Glucose 102 (74-106) mg/dL Calcium 8.3 L (8.5-10.1) mg/dL Triglycerides (15-150) mg/dL Crossmatch See Detail 03/11/21 Range/Units 04:12 WBC (4.5-11.0) K/uL RBC (3.30-5.50) M/uL Hgb (12.0-15.0) g/dL Hct (36.0-48.0) % MCV (80-98) fL MCH (27-31) pg MCHC (32-36) % Plt Count (150-400) K/uL Sodium (140-148) mmol/L Potassium (3.6-5.2) mmol/L Chloride (100-108) mmol/L Carbon Dioxide (21-32) mmol/L Anion Gap (5.0-14.0) mmol/L BUN (7-18) mg/dL Creatinine (0.6-1.0) mg/dL Est Cr Clr Drug Dosing mL/min Estimated GFR (MDRD) (>60) Glucose (74-106) mg/dL Calcium (8.5-10.1) mg/dL Triglycerides 32 (15-150) mg/dL Crossmatch Med Orders - Current: Current Medications Acetaminophen (Acetaminophen 325 Mg Tab) 650 mg PO Q4H PRN PRN Reason: PAIN/FEVER Last Admin: 03/01/21 14:13 Dose: 650 mg Documented by: Acetaminophen (Acetaminophen 650 Mg Supp) 650 mg RECTAL Q4H PRN PRN Reason: PAIN/FEVER Hydrocodone Bitart/Acetaminophen (Acetaminophen/Hydrocodone 325-5 Mg Tab) 1 tab PO Q4H PRN PRN Reason: Pain Last Admin: 03/11/21 08:32 Dose: 1 tab Documented by: Budesonide (Budesonide 0.5 Mg/2 Ml Neb Susp) 0.5 mg NEB BIDRT [facility] Last Admin: 03/11/21 07:13 Dose: 0.5 mg Documented by: Ropivacaine 19 ml/Dexamethasone 8 mg/Epinephrine HCl 0.4 mg/ Sodium Chloride 58.6 ml 0 ml NERVRT ASDIRECTED [facility] Enoxaparin Sodium (Enoxaparin 30 Mg/0.3 Ml Syringe) 30 mg SUBCUT Q24H [facility] Last Admin: 03/10/21 15:46 Dose: 30 mg Documented by: Fluoxetine HCl (Fluoxetine 20 Mg Cap) 40 mg PO DAILY [facility] Last Admin: 03/11/21 08:33 Dose: 40 mg Documented by: Gabapentin (Gabapentin 300 Mg Cap) 300 mg PO QID [facility] Last Admin: 03/11/21 10:19 Dose: 300 mg Documented by: Hydromorphone HCl (Hydromorphone 0.5 Mg/0.5 Ml Syringe) 0.5 mg IVPUSH Q2H PRN PRN Reason: Pain Last Admin: 03/07/21 18:04 Dose: 0.5 mg Documented by: Hydromorphone HCl (Hydromorphone 1 Mg/Ml Syringe) 1 mg IVPUSH Q1H PRN PRN Reason: Agitation Last Admin: 03/11/21 03:36 Dose: 1 mg Documented by: Fat Emulsion Intravenous (Intralipid 20%) 250 mls @ 21 mls/hr IV Q24H [facility] Last Admin: 03/10/21 15:46 Dose: 21 mls/hr Documented by: Multivitamins/Minerals 10 ml/Zinc 1 ml/ Amino Acids/Electrolytes/Dextrose 1,011 mls @ 70 mls/hr IV .BY DURATION [facility] Last Admin: 03/11/21 08:44 Dose: 70 mls/hr Documented by: Amino Acids/Electrolytes/Dextrose (Clinimix E 4.25/10) 1,000 mls @ 70 mls/hr IV .BY DURATION [facility] Last Admin: 03/10/21 18:12 Dose: 70 mls/hr Documented by: Doxycycline Hyclate 100 mg/ (Sodium Chloride) 100 mls @ 100 mls/hr IV Q12H [facility] Stop: 03/11/21 21:59 Last Admin: 03/11/21 10:19 Dose: 100 mls/hr Documented by: Doxycycline Hyclate 100 mg/ (Sodium Chloride) 100 mls @ 100 mls/hr IV Q12H [facility] Levalbuterol HCl (Levalbuterol Hcl 1.25 Mg/3 Ml Neb) 1.25 mg NEB QIDRT [facility] Last Admin: 03/11/21 07:13 Dose: 1.25 mg Documented by: Levalbuterol HCl (Levalbuterol Hcl 1.25 Mg/3 Ml Neb) 1.25 mg NEB Q4H PRN PRN Reason: shortness of breath/wheezing Last Admin: 03/11/21 04:31 Dose: 1.25 mg Documented by: Lorazepam (Lorazepam 2 Mg/Ml Sdv) 0.5 mg IVPUSH Q4H PRN PRN Reason: Anxiety Last Admin: 03/08/21 18:48 Dose: 0.5 mg Documented by: Lorazepam (Lorazepam 0.5 Mg Tab) 0.5 mg PO Q4H PRN PRN Reason: Anxiety Last Admin: 03/11/21 08:33 Dose: 0.5 mg Documented by: Mometasone Furoate/Formoterol Fumar (Formoterol/Mometasone 200-5 Mcg 8.8 Gm Inhaler) 2 puff IH BID@0700,2100 [facility] Last Admin: 03/11/21 07:13 Dose: 2 puff Documented by: Ondansetron HCl (Ondansetron 4 Mg Tab.Dis) 4 mg PO Q4H PRN PRN Reason: N/V Pantoprazole Sodium (Pantoprazole 40 Mg Tab.Cr) 40 mg PO ACBREAKFAST [facility] Last Admin: 03/11/21 07:35 Dose: 40 mg Documented by: Theophylline (Theophylline 100 Mg Cap.Er) 300 mg PO BID@0900,2100 [facility] Last Admin: 03/11/21 08:33 Dose: 300 mg Documented by: Tiotropium [place] (Tiotropium [place] 4 Gm Inhalation [place] (2.5mcg/1 Dose; 10 Doses)) 0 gm INH DAILY@0700 [facility] Last Admin: 03/11/21 07:13 Dose: 2 puff Documented by: Discontinued Medications Acetazolamide (Acetazolamide 500 Mg Vial) 250 mg IVPUSH Q6HR [facility] Stop: 03/05/21 22:01 Last Admin: 03/05/21 21:52 Dose: 250 mg Documented by: Albuterol (Albuterol 8 Gm Inhaler) 0 gm INH QIDRT PRN PRN Reason: Shortness of Breath Albuterol (Albuterol 0.083% 2.5 Mg/3 Ml Neb Soln) 2.5 mg NEB Q4H PRN PRN Reason: Dyspnea Last Admin: 03/02/21 16:58 Dose: 2.5 mg Documented by: Albuterol/Ipratropium (Albuterol/Ipratropium 3.0-0.5 Mg/3 Ml Neb Soln) 3 ml INH Q6H [facility] Last Admin: 03/01/21 17:15 Dose: Not Given Documented by: Albuterol/Ipratropium (Albuterol/Ipratropium 3.0-0.5 Mg/3 Ml Neb Soln) 3 ml INH ASDIRECTED PRN PRN Reason: Shortness of Breath Last Admin: 03/01/21 13:13 Dose: 3 ml Documented by: Albuterol/Ipratropium (Albuterol/Ipratropium 3.0-0.5 Mg/3 Ml Neb Soln) 3 ml INH QIDRT [facility] Last Admin: 03/09/21 07:14 Dose: 3 ml Documented by: Fluoxetine HCl (Fluoxetine 20 Mg Cap) 20 mg PO DAILY [facility] Last Admin: 03/06/21 09:25 Dose: 20 mg Documented by: Fluoxetine HCl (Fluoxetine 20 Mg Cap) 20 mg PO ONETIME ONE Stop: 03/06/21 10:31 Last Admin: 03/06/21 12:07 Dose: 20 mg Documented by: Furosemide (Furosemide 20 Mg/2 Ml Vial) 20 mg IVPUSH NOW ONE Stop: 03/01/21 15:01 Last Admin: 03/01/21 15:16 Dose: 20 mg Documented by: Furosemide (Furosemide 20 Mg/2 Ml Vial) 20 mg IVPUSH ONETIME ONE Stop: 03/02/21 07:31 Last Admin: 03/02/21 07:43 Dose: 20 mg Documented by: Furosemide (Furosemide 20 Mg/2 Ml Vial) 20 mg IVPUSH BID [facility] Last Admin: 03/07/21 08:29 Dose: 20 mg Documented by: Furosemide (Furosemide 40 Mg/4 Ml Vial) 20 mg IVPUSH NOW ONE Stop: 03/04/21 12:31 Last Admin: 03/04/21 13:56 Dose: 20 mg Documented by: Hydromorphone HCl (Hydromorphone 1 Mg/Ml Syringe) Confirm Administered Dose 1 mg .ROUTE .STK-MED ONE Stop: 03/05/21 02:42 Last Admin: 03/05/21 02:52 Dose: Not Given Documented by: Hydromorphone HCl (Hydromorphone 1 Mg/Ml Syringe) Confirm Administered Dose 1 mg .ROUTE .STK-MED ONE Stop: 03/05/21 02:44 Last Admin: 03/05/21 02:47 Dose: Not Given Documented by: Dextrose/Lactated Ringer's (Dextrose 5%-Lactated Ringers) 1,000 mls @ 100 mls/hr IV ASDIRECTED [facility] Last Admin: 02/28/21 15:04 Dose: 100 mls/hr Documented by: Multivitamins/Minerals 10 ml/Zinc 1 ml/ Amino Ac/Electrol/Dextrose/Calcium 1,011 mls @ 75 mls/hr IV .BY DURATION [facility] Last Admin: 02/28/21 17:20 Dose: 75 mls/hr Documented by: Amino Ac/Electrol/Dextrose/Calcium (Clinimix E 5/15) 1,000 mls @ 75 mls/hr IV .BY DURATION [facility] Last Admin: 03/01/21 06:46 Dose: 75 mls/hr Documented by: Fat Emulsion Intravenous (Intralipid 20%) 250 mls @ 21 mls/hr IV Q24H [facility] Last Admin: 03/02/21 15:35 Dose: 21 mls/hr Documented by: Dextrose/Lactated Ringer's (Dextrose 5%-Lactated Ringers) 1,000 mls @ 0 mls/hr IV ASDIRECTED [facility] Potassium Phosphate 15 mmol/ (Premix) 250 mls @ 125 mls/hr IV Q2H [facility] Stop: 03/01/21 15:59 Last Admin: 03/01/21 15:38 Dose: Not Given Documented by: Thiamine HCl 100 mg/ Sodium (Chloride) 101 mls @ 202 mls/hr IV ONETIME ONE Stop: 03/01/21 09:29 Last Admin: 03/01/21 10:25 Dose: 202 mls/hr Documented by: Multivitamins/Minerals 10 ml/Zinc 1 ml/ Amino Ac/Electrol/Dextrose/Calcium 1,011 mls @ 70 mls/hr IV .BY DURATION [facility] Last Admin: 03/04/21 05:23 Dose: Not Given Documented by: Amino Ac/Electrol/Dextrose/Calcium (Clinimix E 5/15) 1,000 mls @ 70 mls/hr IV .BY DURATION [facility] Last Admin: 03/04/21 22:49 Dose: Not Given Documented by: Meropenem 500 mg/ Sodium (Chloride) 50 mls @ 100 mls/hr IV Q8H [facility] Last Admin: 03/06/21 07:51 Dose: 100 mls/hr Documented by: Doxycycline Hyclate 100 mg/ (Sodium Chloride) 100 mls @ 100 mls/hr IV Q12H [facility] Last Admin: 03/03/21 03:21 Dose: 100 mls/hr Documented by: Potassium Phosphate 22.5 mmole (/ Sodium Chloride) 107.5 mls @ 25 mls/hr IV Q5H [facility] Stop: 03/02/21 18:47 Last Admin: 03/02/21 13:31 Dose: 25 mls/hr Documented by: Heparin Sodium (Porcine) 5,000 (units/ Sodium Chloride) 501 mls @ 5 mls/hr IV ASDIRECTED [facility] Last Admin: 03/03/21 12:07 Dose: 5 mls/hr Documented by: Propofol (Diprivan 100 Ml) Confirm Administered Dose 100 mls @ as directed .ROUTE .STK-MED ONE Stop: 03/03/21 12:00 Last Admin: 03/03/21 13:15 Dose: Not Given Documented by: Propofol (Diprivan 100 Ml) 100 mls @ 1.113 mls/hr IV TITRATE [facility]; Protocol Last Admin: 03/05/21 04:42 Dose: 70 mcg/kg/min, 15.584 mls/hr Documented by: Azithromycin 500 mg/ Sodium (Chloride) 250 mls @ 250 mls/hr IV Q24H [facility] Last Admin: 03/07/21 14:34 Dose: 250 mls/hr Documented by: Sodium Chloride (Normal Saline) 100 mls @ 3 mls/sec IV ASDIRECTED [facility] Stop: 03/03/21 14:46 Last Admin: 03/03/21 15:17 Dose: 4 mls/sec Documented by: Vancomycin HCl 0.75 gm/ Sodium (Chloride) 150 mls @ 100 mls/hr IV ONETIME ONE Stop: 03/03/21 17:59 Last Admin: 03/03/21 16:42 Dose: 100 mls/hr Documented by: Vancomycin HCl 0.5 gm/ Sodium (Chloride) 100 mls @ 66.667 mls/hr IV Q12H [facility] Last Admin: 03/05/21 04:43 Dose: 66.667 mls/hr Documented by: Sodium Chloride (Normal Saline) 1,000 mls @ 250 mls/hr IV ASDIRECTED [facility] Stop: 03/03/21 20:44 Last Admin: 03/03/21 16:43 Dose: 250 mls/hr Documented by: Norepinephrine Bitartrate 4 mg (/ Dextrose/Water) 250 mls @ 7.5 mls/hr IV TITRATE [facility]; Protocol Last Titration: 03/05/21 10:33 Dose: 2 mcg/min, 7.5 mls/hr Documented by: Heparin Sodium (Porcine) 5,000 (units/ Sodium Chloride) 501 mls @ 5 mls/hr IV ASDIRECTED [facility] Last Admin: 03/04/21 13:00 Dose: 5 mls/hr Documented by: Multivitamins/Minerals 10 ml/Zinc 1 ml/ Amino Acids/Electrolytes/Dextrose 1,011 mls @ 70 mls/hr IV .BY DURATION [facility] Stop: 03/08/21 09:00 Last Admin: 03/07/21 19:28 Dose: 70 mls/hr Documented by: Amino Acids/Electrolytes/Dextrose (Clinimix E 4.25/10) 1,000 mls @ 70 mls/hr IV .BY DURATION [facility] Stop: 03/08/21 09:00 Last Admin: 03/07/21 05:05 Dose: 70 mls/hr Documented by: Doxycycline Hyclate 100 mg/ (Sodium Chloride) 100 mls @ 100 mls/hr IV Q12H [facility] Last Admin: 03/10/21 22:15 Dose: 100 mls/hr Documented by: Iopamidol (Iopamidol 755 Mg/Ml 100 Ml Bottle) 100 ml IV . DIRECTED [facility] Stop: 03/03/21 14:46 Last Admin: 03/03/21 15:16 Dose: 44 ml Documented by: Lorazepam (Lorazepam 0.5 Mg Tab) 0.25 mg PO ONETIME ONE Stop: 03/02/21 18:29 Last Admin: 03/02/21 18:42 Dose: 0.25 mg Documented by: Lorazepam (Lorazepam 0.5 Mg Tab) 0.5 mg PO Q2H PRN PRN Reason: Anxiety Last Admin: 03/03/21 07:43 Dose: 0.5 mg Documented by: Lorazepam (Lorazepam 2 Mg/Ml Sdv) 0.5 mg IVPUSH ONETIME ONE Stop: 03/03/21 11:05 Last Admin: 03/03/21 11:21 Dose: 0.5 mg Documented by: Lorazepam (Lorazepam 2 Mg/Ml Sdv) Confirm Administered Dose 2 mg .ROUTE .STK-MED ONE Stop: 03/03/21 11:09 Last Admin: 03/03/21 11:22 Dose: Not Given Documented by: Lorazepam (Lorazepam 2 Mg/Ml Sdv) 0.5 mg IVPUSH ONETIME ONE Stop: 03/05/21 15:06 Last Admin: 03/05/21 15:17 Dose: 0.5 mg Documented by: Methylprednisolone Sodium Succinate (Methylprednisolone Sodium Succinate 40 Mg/1 Ml Sdv) 40 mg IVPUSH Q6H [facility] Last Admin: 03/04/21 09:16 Dose: 40 mg Documented by: Methylprednisolone Sodium Succinate (Methylprednisolone Sodium Succinate 40 Mg/1 Ml Sdv) 40 mg IVPUSH Q12H [facility] Last Admin: 03/05/21 09:02 Dose: 40 mg Documented by: Methylprednisolone Sodium Succinate (Methylprednisolone Sodium Succinate 40 Mg/1 Ml Sdv) 40 mg IVPUSH Q8H [facility] Last Admin: 03/10/21 02:42 Dose: 40 mg Documented by: Mometasone Furoate/Formoterol Fumar (Formoterol/Mometasone 200-5 Mcg 8.8 Gm Inhaler) 2 puff IH BIDRT [facility] Last Admin: 03/02/21 06:00 Dose: 2 puff Documented by: Mometasone Furoate/Formoterol Fumar (Formoterol/Mometasone 200-5 Mcg 8.8 Gm Inhaler) 2 puff IH BID@0500,2100 [facility] Last Admin: 03/05/21 21:29 Dose: Not Given Documented by: Non-Formulary Medication (Central Total Parenteral Nutrition Bag) 1,000 ml .XX .Continue Order [facility] Stop: 03/01/21 10:00 Non-Formulary Medication (Central Total Parenteral Nutrition Bag) 1,000 ml .XX .Continue Order [facility] Stop: 03/02/21 18:00 Non-Formulary Medication (Central Total Parenteral Nutrition Bag) 1,000 ml .XX .Continue Order [facility] Stop: 03/03/21 18:00 Non-Formulary Medication (Central Total Parenteral Nutrition Bag) 0 ml IV ASDIRECTED [facility] Stop: 03/05/21 10:00 Non-Formulary Medication (Central Total Parenteral Nutrition Bag) 0 ml IV ASDIRECTED [facility] Stop: 03/06/21 12:00 Non-Formulary Medication (Central Total Parenteral Nutrition Bag) 1,000 ml .XX .Continue Order [facility]; Protocol Stop: 03/07/21 12:01 Pantoprazole Sodium (Pantoprazole 40 Mg Tab.Cr) 40 mg PO ACBREAKFAST [facility] Last Admin: 03/03/21 07:20 Dose: 40 mg Documented by: Pantoprazole Sodium (Pantoprazole 40 Mg Vial) 40 mg IVPUSH DAILY [facility] Last Admin: 03/06/21 09:26 Dose: 40 mg Documented by: Potassium Chloride (Potassium Chloride 20 Meq Tab.Er) 40 meq PO ONETIME ONE Stop: 03/01/21 16:31 Last Admin: 03/01/21 17:38 Dose: 40 meq Documented by: Potassium Chloride (Potassium Chloride 20 Meq Tab.Er) 40 meq PO ONETIME ONE Stop: 03/11/21 08:01 Last Admin: 03/11/21 08:33 Dose: 40 meq Documented by: Prednisone (Prednisone 20 Mg Tab) 40 mg PO WITHBREAKFAST [facility] Last Admin: 03/11/21 08:33 Dose: 40 mg Documented by: Prednisone (Prednisone 20 Mg Tab) 40 mg PO ONETIME ONE Stop: 03/10/21 10:31 Last Admin: 03/10/21 09:55 Dose: 40 mg Documented by: Propofol (Propofol 200 Mg/20 Ml Sdv) Confirm Administered Dose 200 mg .ROUTE .STK-MED ONE Stop: 03/03/21 12:22 Sodium Chloride (Sodium Chloride 0.9% 10 Ml Sdv) 10 ml FLUSH ONETIME ONE Stop: 03/03/21 14:34 Last Admin: 03/03/21 15:20 Dose: 10 ml Documented by: Succinylcholine Chloride (Succinylcholine 200 Mg/10 Ml Mdv) Confirm Administered Dose 200 mg .ROUTE .STK-MED ONE Stop: 03/03/21 12:22 Theophylline (Theophylline 100 Mg Cap.Er) 300 mg PO BID [facility] Last Admin: 03/02/21 09:24 Dose: 300 mg Documented by: Theophylline (Theophylline 100 Mg Cap.Er) 300 mg PO BID@0500,2100 [facility] Last Admin: 03/05/21 21:29 Dose: 300 mg Documented by: Tiotropium [place] (Tiotropium [place] 4 Gm Inhalation [place] (2.5mcg/1 Dose; 10 Doses)) 0 gm INH DAILYRT [facility] Last Admin: 03/02/21 06:00 Dose: 2 puff Documented by: Tiotropium [place] (Tiotropium [place] 4 Gm Inhalation [place] (2.5mcg/1 Dose; 10 Doses)) 0 gm INH DAILY@0500 [facility] Last Admin: 03/05/21 04:45 Dose: Not Given Documented by: Vancomycin HCl (Vancomycin 1 Gm Sdv) 1 gm IV .PHARMACY TO DOSE [facility] Stop: 03/03/21 18:00 - Exam Quality Assessment: Supplemental Oxygen Central Line Total Time: 10Days 17Hours Urinary Catheter Total Time: 5Days 21Hours General: Alert, Oriented, Cooperative, No Acute Distress Lungs: Decreased Breath Sounds (mild impairment of airflow diffusely ). No: Normal Respiratory Effort (mild increase in work of breathing ), Wheezing Cardiovascular: Regular Rate, Regular Rhythm GI/Abdominal Exam: Soft, No Distention Extremities: No Pedal Edema. No: Increased Warmth Skin: Warm, Dry Psy/Mental Status: Alert, Normal Affect Sepsis Event Note - Evaluation Sepsis Screening Result: No Definite Risk - Focused Exam Vital Signs: Vital Signs Temp Pulse Resp BP Pulse Ox 03/11/21 09:00 17 86/65 L 97 03/11/21 07:13 85 03/11/21 07:00 12 107/72 100 03/11/21 05:00 36.7 C 97 12 97/64 93 L 03/11/21 03:00 75 15 85/54 L 100 03/11/21 01:00 85 13 91/59 L 99 03/10/21 23:00 36.7 C 82 17 102/66 98 Consult PN Assessment/Plan Procedures: Procedures AIRWAY INHALATION TREATMENT (12/03/20) ASSAY OF FERRITIN (12/16/19) ASSAY OF MAGNESIUM (01/09/20) ASSAY OF NATRIURETIC PEPTIDE (12/16/19) ASSAY OF PHOSPHORUS (01/09/20) ASSAY THYROID STIM HORMONE (12/16/19) BLOOD GASES ANY COMBINATION (12/16/19) BLOOD TYPING SEROLOGIC ABO (09/20/15) BLOOD TYPING SEROLOGIC RH(D) (09/20/15) CHEST WALL MANIPULATION (12/03/20) CHEST WALL MANIPULATION (12/03/20) CHEST WALL MANIPULATION (12/16/19) CHEST WALL MANIPULATION (12/16/19) CHEST WALL MANIPULATION (05/30/18) CHEST WALL MANIPULATION (05/30/18) COMPLETE CBC AUTOMATED (01/09/20) COMPLETE CBC W/AUTO DIFF WBC (01/09/20) COMPREHEN METABOLIC PANEL (01/09/20) CT ABD & PELV W/CONTRAST (12/22/20) CT ANGIO ABDOM W/O & W/DYE (12/16/19) CT ANGIOGRAPHY CHEST (12/16/19) CULTURE OTHR SPECIMN AEROBIC (12/22/20) EGD DILATE STRICTURE (12/23/15) ELECTROCARDIOGRAM TRACING (12/03/20) IRON BINDING TEST (01/09/20) MEASURE BLOOD OXYGEN LEVEL (01/09/20) METABOLIC PANEL TOTAL CA (01/09/20) RBC ANTIBODY SCREEN (09/20/15) ROUTINE VENIPUNCTURE (01/09/20) SMEAR GRAM STAIN (12/22/20) TISSUE EXAM BY PATHOLOGIST (12/03/20) TISSUE EXAM BY PATHOLOGIST (12/03/20) WITHDRAWAL OF ARTERIAL BLOOD (05/30/18) X-RAY EXAM ABDOMEN 2 VIEWS (12/16/19) X-RAY EXAM CHEST 1 VIEW (12/16/19) X-RAY EXAM CHEST 2 VIEWS (12/16/19) X-RAY XM UPR GI TRC 1CNTRST (12/03/20) Problem List Initiated/Reviewed/Updated: Yes My Orders Last 24 Hours: My Active Orders 03/11/21 08:00 predniSONE 40 mg PO WITHBREAKFAST 03/11/21 09:00 Doxycycline [Vibramycin] 100 mg Sodium Chloride 0.9% [Normal Saline] 100 ml IV Q12H 03/12/21 07:00 Doxycycline [Vibramycin] 100 mg Sodium Chloride 0.9% [Normal Saline] 100 ml IV Q12H 03/12/21 09:00 methylPREDNISolone Sod Succ [Solu-MEDROL] 40 mg IVPUSH Q12H Plan: ASSESSMENT AND RECOMMENDATIONS 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 No requirement for NIPPV in the last 2 nights. Still requiring supplemental oxygen. Lung exam improving. Tolerating antibiotics. Alpha 1 antitrypsin level was normal. -Supplemental oxygen and/or NIPPV as needed -transition back to IV steroids around the time of her procedure tomorrow -Nebulizer therapy with Xopenex -Continue doxycycline -Continue Pulmicort twice daily SEVERE ANXIETY-panic attacks seem to resolved at this time. -Increase Prozac to 40 mg p.o. daily -Continue intermittent use of lorazepam HYPOTENSION-likely secondary to sedating medications, no evidence of underlying sepsis. This has resolved. ELEVATED TROPONIN-resolved RECENT WEIGHT LOSS-BMI less than 15 at the time of admission. Status post Domingo-en-Y gastric bypass surgery 6 years ago. Weight loss over the past 2 to 3 months, now down to 81 pounds. Plan at admission had been to proceed with surgery for reversal of her Domingo-en-Y gastric bypass. I suspect her weight loss is at least partially caused by her advanced emphysema and increased work of breathing. Patient remains high risk for any sort of surgical intervention with advanced emphysema and she is currently recovering from a pulmonary infection. -Continue TPN -She would be very high risk for surgery from a cardiopulmonary standpoint Arthur Gates MD
--- NOTE | 2021-03-11 13:21 | PN ---
DATE OF SERVICE: 03/10/2021 The patient has clinically improved somewhat over the last 24 hours from a respiratory standpoint. The situation was discussed with Dr. Vazquez. Tentative plan will be to place a feeding tube probably sometime around the weekend. This may require postoperative ventilation, but we will do something to address her nutritional status. Home TPN would be highly problematic in her case, I believe, due to infectious issues and such. We will discuss this further within the next day or two and bring down the time for gastrostomy tube to be placed. Wellington Najera MD /[id number]
[2021-03-11] MEDS: Fat Emulsion 250 ML IV SCH (15:57)
[2021-03-11] MEDS: HYDROmorphone 0.5 MG/0.5 ML Syringe IVPUSH PRN (20:48)
[2021-03-12] MEDS: LORazepam 0.5 MG Tab PO PRN ×6 (00:24→23:27)
[2021-03-12] MEDS: HYDROmorphone 1 MG/ML Syringe IVPUSH PRN ×9 (00:27→23:47)
[2021-03-12] MEDS: LORazepam 2 MG/ML SDV IVPUSH PRN (03:27)
[2021-03-12] MEDS: Gabapentin 300 MG Cap PO SCH ×4 (05:30→21:55)
[2021-03-12] MEDS: Tiotropium Bromide 4 GM Inhalation Spray (2.5mcg/1 dose; 10 doses) INH SCH (06:00)
[2021-03-12] MEDS: Formoterol/Mometasone 200-5 MCG 8.8 GM Inhaler IH SCH ×2 (06:01→20:37)
[2021-03-12] MEDS: Budesonide 0.5 MG/2 ML Neb Susp NEB SCH ×2 (06:02→20:37)
[2021-03-12] MEDS: Levalbuterol HCl 1.25 MG/3 ML Neb NEB SCH ×4 (06:02→20:37)
[2021-03-12] MEDS ORDERED: Lidocaine 1% with EPINEPHrine 1:100,000 50 ML MDV ONE (06:48)
[2021-03-12] MEDS ORDERED: Bupivacaine 0.5% 50 ML MDV ONE (06:48)
[2021-03-12] MEDS: Doxycycline 100 MG in Sodium Chloride 0.9% 100 ML IV SCH ×2 (07:05→18:33)
[2021-03-12] MEDS ORDERED: Dexamethasone 4 MG/ML SDV ONE (07:11)
[2021-03-12] MEDS ORDERED: Propofol 200 MG/20 ML SDV ONE (07:11)
[2021-03-12] MEDS ORDERED: Ondansetron 4 MG/2 ML SDV ONE (07:11)
[2021-03-12] MEDS ORDERED: Rocuronium 50 MG/5 ML Vial ONE (07:11)
[2021-03-12] MEDS ORDERED: Neostigmine Methylsulfate 1 MG/ML 5 ML Syringe ONE (07:11)
[2021-03-12] MEDS ORDERED: Glycopyrrolate 0.2 MG/ML 5 ML MDV ONE (07:11)
[2021-03-12] MEDS ORDERED: Succinylcholine 200 MG/10 ML MDV ONE (07:11)
[2021-03-12] MEDS ORDERED: fentaNYL 250 MCG/5 ML SDV ONE (07:12)
[2021-03-12] MEDS ORDERED: SODIUM CHLORIDE 0.9% NERVRT SCH ×4 (07:30)
[2021-03-12] MEDS ORDERED: EPINEPHRINE NERVRT SCH ×4 (07:30)
[2021-03-12] MEDS ORDERED: DEXAMETHASONE NERVRT SCH ×4 (07:30)
[2021-03-12] MEDS ORDERED: ROPIVACAINE NERVRT SCH ×4 (07:30)
[2021-03-12] MEDS: Pantoprazole 40 MG Tab.CR PO SCH ×2 (07:34→09:59)
[2021-03-12] MEDS ORDERED: Lactated Ringers 1,000 ML ONE (07:40)
[2021-03-12] MEDS ORDERED: Meropenem 500 MG SDV ONE (07:50)
[2021-03-12] MEDS ORDERED: Sugammadex Sodium 200 MG/2 ML VIAL ONE (08:17)
[2021-03-12] MEDS: FLUoxetine 20 MG Cap PO SCH ×2 (09:05→09:59)
[2021-03-12] MEDS: Theophylline 100 MG Cap.ER PO SCH ×3 (09:06→20:38)
[2021-03-12] MEDS: methylPREDNISolone Sodium Succinate 40 MG/1 ML SDV IVPUSH SCH ×2 (09:15→20:37)
--- NOTE | 2021-03-12 09:25 | PCM.CONSN ---
- General Info Date of Service: 03/12/21 Subjective Update: There were no acute events overnight. This morning the patient had an open G- tube placement which she tolerated well. She came back from the operating room on NIPPV and has done well and made the transition to nasal cannula. She does not report shortness of breath. She does report some abdominal pain following surgery but overall is feeling good. She has not had any fevers. Functional Status: Reports: Pain Controlled - Review of Systems General: Denies: Fever Gastrointestinal: Reports: Abdominal Pain - Patient Data Vitals - Most Recent: Last Vital Signs Temp 36.8 C 03/12/21 05:00 Pulse 88 03/12/21 05:00 Resp 17 03/12/21 07:00 BP 106/76 03/12/21 07:00 Pulse Ox 96 03/12/21 07:00 Weight - Most Recent: 37.739 kg I&O - Last 24 Hours: Intake & Output 03/11/21 03/12/21 03/12/21 22:59 06:59 14:59 Intake Total 2605 Output Total 2200 1100 Balance -2200 1505 Lab Results Last 24 Hours: Laboratory Results - last 24 hr 03/12/21 03/12/21 03/12/21 Range/Units 04:10 04:10 09:10 WBC 11.4 H (4.5-11.0) K/uL RBC 3.49 (3.30-5.50) M/uL Hgb 10.2 L (12.0-15.0) g/dL Hct 33.9 L (36.0-48.0) % MCV 97 (80-98) fL MCH 29 (27-31) pg MCHC 30 L (32-36) % Plt Count 354 (150-400) K/uL Neut % (Auto) 59.5 (36-66) % Lymph % (Auto) 30.2 (24-44) % Craven % (Auto) 9.7 H (2-6) % Eos % (Auto) 0.4 L (2-4) % Baso % (Auto) 0.2 (0-1) % Puncture Site Lt radial ABG pH 7.319 L (7.350-7.450) ABG pCO2 68.6 H (35.0-42.0) mmHg ABG pO2 47.5 L (75.0-100.0) mmHg ABG HCO3 34.2 H (22.0-26.0) mmol/L ABG Total CO2 31.9 H (21.0-25.0) mmol/L ABG O2 Saturation 76.4 L (95.0-98.0) % ABG O2 Content 12.1 L (15.0-23.0) %vol ABG Base Excess 6.6 mm/L ABG Hemoglobin 11.6 L (12.0-16.0) g/dL ABG Oxyhemoglobin 74.3 % ABG Carboxyhemoglobin < 0.5 (0.0-1.6) % ABG Methemoglobin 2.5 % Jim Test Passed O2 Delivery Device Bipap Oxygen Flow Rate L Sodium 145 (140-148) mmol/L Potassium 3.9 (3.6-5.2) mmol/L Chloride 103 (100-108) mmol/L Carbon Dioxide 38 H (21-32) mmol/L Anion Gap 7.9 (5.0-14.0) mmol/L BUN 15 (7-18) mg/dL Creatinine 0.3 L (0.6-1.0) mg/dL Est Cr Clr Drug Dosing 127.72 mL/min Estimated GFR (MDRD) > 60 (>60) Glucose 96 (74-106) mg/dL Calcium 8.1 L (8.5-10.1) mg/dL Phosphorus 4.2 (2.5-4.9) mg/dL Magnesium 2.0 (1.8-2.4) mg/dL Total Bilirubin 0.2 (0.2-1.0) mg/dL AST 30 (15-37) U/L ALT 119 H (12-78) U/L Alkaline Phosphatase 88 (46-116) U/L Total Protein 5.3 L (6.4-8.2) g/dL Albumin 2.8 L (3.4-5.0) g/dL Globulin 2.5 (2.3-3.5) g/dL Albumin/Globulin Ratio 1.1 L (1.2-2.2) Med Orders - Current: Current Medications Acetaminophen (Acetaminophen 325 Mg Tab) 650 mg PO Q4H PRN PRN Reason: PAIN/FEVER Last Admin: 03/01/21 14:13 Dose: 650 mg Documented by: Acetaminophen (Acetaminophen 650 Mg Supp) 650 mg RECTAL Q4H PRN PRN Reason: PAIN/FEVER Hydrocodone Bitart/Acetaminophen (Acetaminophen/Hydrocodone 325-5 Mg Tab) 1 tab PO Q4H PRN PRN Reason: Pain Last Admin: 03/11/21 20:16 Dose: 1 tab Documented by: Budesonide (Budesonide 0.5 Mg/2 Ml Neb Susp) 0.5 mg NEB BIDRT [facility] Last Admin: 03/12/21 06:02 Dose: 0.5 mg Documented by: Ropivacaine 19 ml/Dexamethasone 8 mg/Epinephrine HCl 0.4 mg/ Sodium Chloride 58.6 ml 0 ml NERVRT ASDIRECTED [facility] Last Admin: 03/12/21 07:34 Dose: 80 syringe Documented by: Enoxaparin Sodium (Enoxaparin 30 Mg/0.3 Ml Syringe) 30 mg SUBCUT Q24H [facility] Last Admin: 03/10/21 15:46 Dose: 30 mg Documented by: Fluoxetine HCl (Fluoxetine 20 Mg Cap) 40 mg PO DAILY [facility] Last Admin: 03/12/21 09:05 Dose: Not Given Documented by: Gabapentin (Gabapentin 300 Mg Cap) 300 mg PO QID [facility] Last Admin: 03/12/21 05:30 Dose: Not Given Documented by: Hydromorphone HCl (Hydromorphone 0.5 Mg/0.5 Ml Syringe) 0.5 mg IVPUSH Q2H PRN PRN Reason: Pain Last Admin: 03/11/21 20:48 Dose: 0.5 mg Documented by: Hydromorphone HCl (Hydromorphone 1 Mg/Ml Syringe) 1 mg IVPUSH Q1H PRN PRN Reason: Agitation Last Admin: 03/12/21 09:02 Dose: 1 mg Documented by: Fat Emulsion Intravenous (Intralipid 20%) 250 mls @ 21 mls/hr IV Q24H [facility] Last Admin: 03/11/21 15:57 Dose: 21 mls/hr Documented by: Multivitamins/Minerals 10 ml/Zinc 1 ml/ Amino Acids/Electrolytes/Dextrose 1,011 mls @ 70 mls/hr IV .BY DURATION [facility] Last Admin: 03/11/21 08:44 Dose: 70 mls/hr Documented by: Amino Acids/Electrolytes/Dextrose (Clinimix E 4.25/10) 1,000 mls @ 70 mls/hr IV .BY DURATION [facility] Last Admin: 03/11/21 23:01 Dose: 70 mls/hr Documented by: Doxycycline Hyclate 100 mg/ (Sodium Chloride) 100 mls @ 100 mls/hr IV Q12H [facility] Last Admin: 03/12/21 07:05 Dose: 100 mls/hr Documented by: Levalbuterol HCl (Levalbuterol Hcl 1.25 Mg/3 Ml Neb) 1.25 mg NEB QIDRT [facility] Last Admin: 03/12/21 06:02 Dose: 1.25 mg Documented by: Levalbuterol HCl (Levalbuterol Hcl 1.25 Mg/3 Ml Neb) 1.25 mg NEB Q4H PRN PRN Reason: shortness of breath/wheezing Last Admin: 03/11/21 04:31 Dose: 1.25 mg Documented by: Lorazepam (Lorazepam 2 Mg/Ml Sdv) 0.5 mg IVPUSH Q4H PRN PRN Reason: Anxiety Last Admin: 03/12/21 03:27 Dose: 0.5 mg Documented by: Lorazepam (Lorazepam 0.5 Mg Tab) 0.5 mg PO Q4H PRN PRN Reason: Anxiety Last Admin: 03/12/21 04:59 Dose: 0.5 mg Documented by: Methylprednisolone Sodium Succinate (Methylprednisolone Sodium Succinate 40 Mg/1 Ml Sdv) 40 mg IVPUSH Q12H [facility] Last Admin: 03/12/21 09:15 Dose: 40 mg Documented by: Mometasone Furoate/Formoterol Fumar (Formoterol/Mometasone 200-5 Mcg 8.8 Gm Inhaler) 2 puff IH BID@0700,2100 [facility] Last Admin: 03/12/21 06:01 Dose: 2 puff Documented by: Ondansetron HCl (Ondansetron 4 Mg Tab.Dis) 4 mg PO Q4H PRN PRN Reason: N/V Pantoprazole Sodium (Pantoprazole 40 Mg Tab.Cr) 40 mg PO ACBREAKFAST [facility] Last Admin: 03/12/21 07:34 Dose: Not Given Documented by: Theophylline (Theophylline 100 Mg Cap.Er) 300 mg PO BID@0900,2100 [facility] Last Admin: 03/12/21 09:06 Dose: Not Given Documented by: Tiotropium [place] (Tiotropium [place] 4 Gm Inhalation [place] (2.5mcg/1 Dose; 10 Doses)) 0 gm INH DAILY@0700 [facility] Last Admin: 03/12/21 06:00 Dose: 2 puff Documented by: Discontinued Medications Acetazolamide (Acetazolamide 500 Mg Vial) 250 mg IVPUSH Q6HR [facility] Stop: 03/05/21 22:01 Last Admin: 03/05/21 21:52 Dose: 250 mg Documented by: Albuterol (Albuterol 8 Gm Inhaler) 0 gm INH QIDRT PRN PRN Reason: Shortness of Breath Albuterol (Albuterol 0.083% 2.5 Mg/3 Ml Neb Soln) 2.5 mg NEB Q4H PRN PRN Reason: Dyspnea Last Admin: 03/02/21 16:58 Dose: 2.5 mg Documented by: Albuterol/Ipratropium (Albuterol/Ipratropium 3.0-0.5 Mg/3 Ml Neb Soln) 3 ml INH Q6H [facility] Last Admin: 03/01/21 17:15 Dose: Not Given Documented by: Albuterol/Ipratropium (Albuterol/Ipratropium 3.0-0.5 Mg/3 Ml Neb Soln) 3 ml INH ASDIRECTED PRN PRN Reason: Shortness of Breath Last Admin: 03/01/21 13:13 Dose: 3 ml Documented by: Albuterol/Ipratropium (Albuterol/Ipratropium 3.0-0.5 Mg/3 Ml Neb Soln) 3 ml INH QIDRT [facility] Last Admin: 03/09/21 07:14 Dose: 3 ml Documented by: Bupivacaine HCl (Bupivacaine 0.5% 50 Ml Mdv) Confirm Administered Dose 50 ml .ROUTE .STK-MED ONE Stop: 03/12/21 06:49 Last Admin: 03/12/21 08:06 Dose: 15 ml Documented by: Dexamethasone (Dexamethasone 4 Mg/Ml Sdv) Confirm Administered Dose 4 mg .ROUTE .STK-MED ONE Stop: 03/12/21 07:12 Fentanyl (Fentanyl 250 Mcg/5 Ml Sdv) Confirm Administered Dose 250 mcg .ROUTE .STK-MED ONE Stop: 03/12/21 07:13 Fluoxetine HCl (Fluoxetine 20 Mg Cap) 20 mg PO DAILY [facility] Last Admin: 03/06/21 09:25 Dose: 20 mg Documented by: Fluoxetine HCl (Fluoxetine 20 Mg Cap) 20 mg PO ONETIME ONE Stop: 03/06/21 10:31 Last Admin: 03/06/21 12:07 Dose: 20 mg Documented by: Furosemide (Furosemide 20 Mg/2 Ml Vial) 20 mg IVPUSH NOW ONE Stop: 03/01/21 15:01 Last Admin: 03/01/21 15:16 Dose: 20 mg Documented by: Furosemide (Furosemide 20 Mg/2 Ml Vial) 20 mg IVPUSH ONETIME ONE Stop: 03/02/21 07:31 Last Admin: 03/02/21 07:43 Dose: 20 mg Documented by: Furosemide (Furosemide 20 Mg/2 Ml Vial) 20 mg IVPUSH BID [facility] Last Admin: 03/07/21 08:29 Dose: 20 mg Documented by: Furosemide (Furosemide 40 Mg/4 Ml Vial) 20 mg IVPUSH NOW ONE Stop: 03/04/21 12:31 Last Admin: 03/04/21 13:56 Dose: 20 mg Documented by: Glycopyrrolate (Glycopyrrolate 0.2 Mg/Ml 5 Ml Mdv) Confirm Administered Dose 1 mg .ROUTE .STK-MED ONE Stop: 03/12/21 07:12 Hydromorphone HCl (Hydromorphone 1 Mg/Ml Syringe) Confirm Administered Dose 1 mg .ROUTE .STK-MED ONE Stop: 03/05/21 02:42 Last Admin: 03/05/21 02:52 Dose: Not Given Documented by: Hydromorphone HCl (Hydromorphone 1 Mg/Ml Syringe) Confirm Administered Dose 1 mg .ROUTE .STK-MED ONE Stop: 03/05/21 02:44 Last Admin: 03/05/21 02:47 Dose: Not Given Documented by: Dextrose/Lactated Ringer's (Dextrose 5%-Lactated Ringers) 1,000 mls @ 100 mls/hr IV ASDIRECTED [facility] Last Admin: 02/28/21 15:04 Dose: 100 mls/hr Documented by: Multivitamins/Minerals 10 ml/Zinc 1 ml/ Amino Ac/Electrol/Dextrose/Calcium 1,011 mls @ 75 mls/hr IV .BY DURATION [facility] Last Admin: 02/28/21 17:20 Dose: 75 mls/hr Documented by: Amino Ac/Electrol/Dextrose/Calcium (Clinimix E 5/15) 1,000 mls @ 75 mls/hr IV .BY DURATION [facility] Last Admin: 03/01/21 06:46 Dose: 75 mls/hr Documented by: Fat Emulsion Intravenous (Intralipid 20%) 250 mls @ 21 mls/hr IV Q24H [facility] Last Admin: 03/02/21 15:35 Dose: 21 mls/hr Documented by: Dextrose/Lactated Ringer's (Dextrose 5%-Lactated Ringers) 1,000 mls @ 0 mls/hr IV ASDIRECTED [facility] Potassium Phosphate 15 mmol/ (Premix) 250 mls @ 125 mls/hr IV Q2H [facility] Stop: 03/01/21 15:59 Last Admin: 03/01/21 15:38 Dose: Not Given Documented by: Thiamine HCl 100 mg/ Sodium (Chloride) 101 mls @ 202 mls/hr IV ONETIME ONE Stop: 03/01/21 09:29 Last Admin: 03/01/21 10:25 Dose: 202 mls/hr Documented by: Multivitamins/Minerals 10 ml/Zinc 1 ml/ Amino Ac/Electrol/Dextrose/Calcium 1,011 mls @ 70 mls/hr IV .BY DURATION [facility] Last Admin: 03/04/21 05:23 Dose: Not Given Documented by: Amino Ac/Electrol/Dextrose/Calcium (Clinimix E 5/15) 1,000 mls @ 70 mls/hr IV .BY DURATION [facility] Last Admin: 03/04/21 22:49 Dose: Not Given Documented by: Meropenem 500 mg/ Sodium (Chloride) 50 mls @ 100 mls/hr IV Q8H [facility] Last Admin: 03/06/21 07:51 Dose: 100 mls/hr Documented by: Doxycycline Hyclate 100 mg/ (Sodium Chloride) 100 mls @ 100 mls/hr IV Q12H [facility] Last Admin: 03/03/21 03:21 Dose: 100 mls/hr Documented by: Potassium Phosphate 22.5 mmole (/ Sodium Chloride) 107.5 mls @ 25 mls/hr IV Q5H [facility] Stop: 03/02/21 18:47 Last Admin: 03/02/21 13:31 Dose: 25 mls/hr Documented by: Heparin Sodium (Porcine) 5,000 (units/ Sodium Chloride) 501 mls @ 5 mls/hr IV ASDIRECTED [facility] Last Admin: 03/03/21 12:07 Dose: 5 mls/hr Documented by: Propofol (Diprivan 100 Ml) Confirm Administered Dose 100 mls @ as directed .ROUTE .STK-MED ONE Stop: 03/03/21 12:00 Last Admin: 03/03/21 13:15 Dose: Not Given Documented by: Propofol (Diprivan 100 Ml) 100 mls @ 1.113 mls/hr IV TITRATE [facility]; Protocol Last Admin: 03/05/21 04:42 Dose: 70 mcg/kg/min, 15.584 mls/hr Documented by: Azithromycin 500 mg/ Sodium (Chloride) 250 mls @ 250 mls/hr IV Q24H [facility] Last Admin: 03/07/21 14:34 Dose: 250 mls/hr Documented by: Sodium Chloride (Normal Saline) 100 mls @ 3 mls/sec IV ASDIRECTED [facility] Stop: 03/03/21 14:46 Last Admin: 03/03/21 15:17 Dose: 4 mls/sec Documented by: Vancomycin HCl 0.75 gm/ Sodium (Chloride) 150 mls @ 100 mls/hr IV ONETIME ONE Stop: 03/03/21 17:59 Last Admin: 03/03/21 16:42 Dose: 100 mls/hr Documented by: Vancomycin HCl 0.5 gm/ Sodium (Chloride) 100 mls @ 66.667 mls/hr IV Q12H [facility] Last Admin: 03/05/21 04:43 Dose: 66.667 mls/hr Documented by: Sodium Chloride (Normal Saline) 1,000 mls @ 250 mls/hr IV ASDIRECTED [facility] Stop: 03/03/21 20:44 Last Admin: 03/03/21 16:43 Dose: 250 mls/hr Documented by: Norepinephrine Bitartrate 4 mg (/ Dextrose/Water) 250 mls @ 7.5 mls/hr IV TITRATE [facility]; Protocol Last Titration: 03/05/21 10:33 Dose: 2 mcg/min, 7.5 mls/hr Documented by: Heparin Sodium (Porcine) 5,000 (units/ Sodium Chloride) 501 mls @ 5 mls/hr IV ASDIRECTED [facility] Last Admin: 03/04/21 13:00 Dose: 5 mls/hr Documented by: Multivitamins/Minerals 10 ml/Zinc 1 ml/ Amino Acids/Electrolytes/Dextrose 1,011 mls @ 70 mls/hr IV .BY DURATION [facility] Stop: 03/08/21 09:00 Last Admin: 03/07/21 19:28 Dose: 70 mls/hr Documented by: Amino Acids/Electrolytes/Dextrose (Clinimix E 4.25/10) 1,000 mls @ 70 mls/hr IV .BY DURATION [facility] Stop: 03/08/21 09:00 Last Admin: 03/07/21 05:05 Dose: 70 mls/hr Documented by: Doxycycline Hyclate 100 mg/ (Sodium Chloride) 100 mls @ 100 mls/hr IV Q12H [facility] Last Admin: 03/10/21 22:15 Dose: 100 mls/hr Documented by: Doxycycline Hyclate 100 mg/ (Sodium Chloride) 100 mls @ 100 mls/hr IV Q12H [facility] Stop: 03/11/21 21:59 Last Admin: 03/11/21 20:21 Dose: 100 mls/hr Documented by: Lactated Ringer's (Ringers, Lactated) Confirm Administered Dose 1,000 mls @ as directed .ROUTE .STK-MED [facility] Stop: 03/12/21 07:41 Iopamidol (Iopamidol 755 Mg/Ml 100 Ml Bottle) 100 ml IV . DIRECTED [facility] Stop: 03/03/21 14:46 Last Admin: 03/03/21 15:16 Dose: 44 ml Documented by: Lidocaine/Epinephrine (Lidocaine 1% With Epinephrine 1:100,000 50 Ml Mdv) Confirm Administered Dose 50 ml .ROUTE .STK-MED ONE Stop: 03/12/21 06:49 Last Admin: 03/12/21 08:06 Dose: 15 ml Documented by: Lorazepam (Lorazepam 0.5 Mg Tab) 0.25 mg PO ONETIME ONE Stop: 03/02/21 18:29 Last Admin: 03/02/21 18:42 Dose: 0.25 mg Documented by: Lorazepam (Lorazepam 0.5 Mg Tab) 0.5 mg PO Q2H PRN PRN Reason: Anxiety Last Admin: 03/03/21 07:43 Dose: 0.5 mg Documented by: Lorazepam (Lorazepam 2 Mg/Ml Sdv) 0.5 mg IVPUSH ONETIME ONE Stop: 03/03/21 11:05 Last Admin: 03/03/21 11:21 Dose: 0.5 mg Documented by: Lorazepam (Lorazepam 2 Mg/Ml Sdv) Confirm Administered Dose 2 mg .ROUTE .STK-MED ONE Stop: 03/03/21 11:09 Last Admin: 03/03/21 11:22 Dose: Not Given Documented by: Lorazepam (Lorazepam 2 Mg/Ml Sdv) 0.5 mg IVPUSH ONETIME ONE Stop: 03/05/21 15:06 Last Admin: 03/05/21 15:17 Dose: 0.5 mg Documented by: Meropenem (Meropenem 500 Mg Sdv) Confirm Administered Dose 500 mg .ROUTE .STK- MED ONE Stop: 03/12/21 07:51 Last Admin: 03/12/21 07:57 Dose: 500 mg Documented by: Methylprednisolone Sodium Succinate (Methylprednisolone Sodium Succinate 40 Mg/1 Ml Sdv) 40 mg IVPUSH Q6H [facility] Last Admin: 03/04/21 09:16 Dose: 40 mg Documented by: Methylprednisolone Sodium Succinate (Methylprednisolone Sodium Succinate 40 Mg/1 Ml Sdv) 40 mg IVPUSH Q12H [facility] Last Admin: 03/05/21 09:02 Dose: 40 mg Documented by: Methylprednisolone Sodium Succinate (Methylprednisolone Sodium Succinate 40 Mg/1 Ml Sdv) 40 mg IVPUSH Q8H [facility] Last Admin: 03/10/21 02:42 Dose: 40 mg Documented by: Mometasone Furoate/Formoterol Fumar (Formoterol/Mometasone 200-5 Mcg 8.8 Gm Inhaler) 2 puff IH BIDRT [facility] Last Admin: 03/02/21 06:00 Dose: 2 puff Documented by: Mometasone Furoate/Formoterol Fumar (Formoterol/Mometasone 200-5 Mcg 8.8 Gm Inhaler) 2 puff IH BID@0500,2100 [facility] Last Admin: 03/05/21 21:29 Dose: Not Given Documented by: Neostigmine Methylsulfate (Neostigmine Methylsulfate 1 Mg/Ml 5 Ml Syringe) Confirm Administered Dose 5 mg .ROUTE .STK-MED ONE Stop: 03/12/21 07:12 Non-Formulary Medication (Central Total Parenteral Nutrition Bag) 1,000 ml .XX .Continue Order [facility] Stop: 03/01/21 10:00 Non-Formulary Medication (Central Total Parenteral Nutrition Bag) 1,000 ml .XX .Continue Order [facility] Stop: 03/02/21 18:00 Non-Formulary Medication (Central Total Parenteral Nutrition Bag) 1,000 ml .XX .Continue Order [facility] Stop: 03/03/21 18:00 Non-Formulary Medication (Central Total Parenteral Nutrition Bag) 0 ml IV ASDIRECTED [facility] Stop: 03/05/21 10:00 Non-Formulary Medication (Central Total Parenteral Nutrition Bag) 0 ml IV ASDIRECTED [facility] Stop: 03/06/21 12:00 Non-Formulary Medication (Central Total Parenteral Nutrition Bag) 1,000 ml .XX .Continue Order [facility]; Protocol Stop: 03/07/21 12:01 Ondansetron HCl (Ondansetron 4 Mg/2 Ml Sdv) Confirm Administered Dose 4 mg .ROUTE .STK-MED ONE Stop: 03/12/21 07:12 Pantoprazole Sodium (Pantoprazole 40 Mg Tab.Cr) 40 mg PO ACBREAKFAST [facility] Last Admin: 03/03/21 07:20 Dose: 40 mg Documented by: Pantoprazole Sodium (Pantoprazole 40 Mg Vial) 40 mg IVPUSH DAILY [facility] Last Admin: 03/06/21 09:26 Dose: 40 mg Documented by: Potassium Chloride (Potassium Chloride 20 Meq Tab.Er) 40 meq PO ONETIME ONE Stop: 03/01/21 16:31 Last Admin: 03/01/21 17:38 Dose: 40 meq Documented by: Potassium Chloride (Potassium Chloride 20 Meq Tab.Er) 40 meq PO ONETIME ONE Stop: 03/11/21 08:01 Last Admin: 03/11/21 08:33 Dose: 40 meq Documented by: Prednisone (Prednisone 20 Mg Tab) 40 mg PO WITHBREAKFAST [facility] Last Admin: 03/11/21 08:33 Dose: 40 mg Documented by: Prednisone (Prednisone 20 Mg Tab) 40 mg PO ONETIME ONE Stop: 03/10/21 10:31 Last Admin: 03/10/21 09:55 Dose: 40 mg Documented by: Propofol (Propofol 200 Mg/20 Ml Sdv) Confirm Administered Dose 200 mg .ROUTE .STK-MED ONE Stop: 03/03/21 12:22 Propofol (Propofol 200 Mg/20 Ml Sdv) Confirm Administered Dose 200 mg .ROUTE .STK-MED ONE Stop: 03/12/21 07:12 Rocuronium [place] (Rocuronium 50 Mg/5 Ml Vial) Confirm Administered Dose 50 mg .ROUTE .K-MED ONE Stop: 03/12/21 07:12 Sodium Chloride (Sodium Chloride 0.9% 10 Ml Sdv) 10 ml FLUSH ONETIME ONE Stop: 03/03/21 14:34 Last Admin: 03/03/21 15:20 Dose: 10 ml Documented by: Succinylcholine Chloride (Succinylcholine 200 Mg/10 Ml Mdv) Confirm Administered Dose 200 mg .ROUTE .STK-MED ONE Stop: 03/03/21 12:22 Succinylcholine Chloride (Succinylcholine 200 Mg/10 Ml Mdv) Confirm Administered Dose 200 mg .ROUTE .[facility]-MED ONE Stop: 03/12/21 07:12 Sugammadex Sodium (Sugammadex Sodium 200 Mg/2 Ml Vial) Confirm Administered Dose 200 mg .ROUTE .K-MED ONE Stop: 03/12/21 08:18 Theophylline (Theophylline 100 Mg Cap.Er) 300 mg PO BID [facility] Last Admin: 03/02/21 09:24 Dose: 300 mg Documented by: Theophylline (Theophylline 100 Mg Cap.Er) 300 mg PO BID@0500,2100 [facility] Last Admin: 03/05/21 21:29 Dose: 300 mg Documented by: Tiotropium [place] (Tiotropium [place] 4 Gm Inhalation [place] (2.5mcg/1 Dose; 10 Doses)) 0 gm INH DAILYRT [facility] Last Admin: 03/02/21 06:00 Dose: 2 puff Documented by: Tiotropium [place] (Tiotropium [place] 4 Gm Inhalation [place] (2.5mcg/1 Dose; 10 Doses)) 0 gm INH DAILY@0500 [facility] Last Admin: 03/05/21 04:45 Dose: Not Given Documented by: Vancomycin HCl (Vancomycin 1 Gm Sdv) 1 gm IV .PHARMACY TO DOSE [facility] Stop: 03/03/21 18:00 - Exam Quality Assessment: Supplemental Oxygen Central Line Total Time: 11Days 17Hours Urinary Catheter Total Time: 5Days 21Hours General: Alert, Oriented, Cooperative, No Acute Distress Lungs: Clear to Auscultation, Normal Respiratory Effort Cardiovascular: Regular Rhythm, Tachycardia GI/Abdominal Exam: No Distention Extremities: No Pedal Edema. No: Increased Warmth Skin: Warm, Dry Psy/Mental Status: Alert, Normal Affect. No: Anxious Sepsis Event Note - Evaluation Sepsis Screening Result: No Definite Risk - Focused Exam Vital Signs: Vital Signs Temp Pulse Resp BP Pulse Ox 03/12/21 07:00 17 106/76 96 03/12/21 05:00 36.8 C 88 15 104/69 95 03/12/21 03:00 36.7 C 77 13 90/59 L 98 03/12/21 01:00 81 13 84/54 L 99 03/11/21 23:00 36.8 C 83 16 95/64 99 Consult PN Assessment/Plan Procedures: Procedures AIRWAY INHALATION TREATMENT (12/03/20) ASSAY OF FERRITIN (12/16/19) ASSAY OF MAGNESIUM (01/09/20) ASSAY OF NATRIURETIC PEPTIDE (12/16/19) ASSAY OF PHOSPHORUS (01/09/20) ASSAY THYROID STIM HORMONE (12/16/19) BLOOD GASES ANY COMBINATION (12/16/19) BLOOD TYPING SEROLOGIC ABO (09/20/15) BLOOD TYPING SEROLOGIC RH(D) (09/20/15) CHEST WALL MANIPULATION (12/03/20) CHEST WALL MANIPULATION (12/03/20) CHEST WALL MANIPULATION (12/16/19) CHEST WALL MANIPULATION (12/16/19) CHEST WALL MANIPULATION (05/30/18) CHEST WALL MANIPULATION (05/30/18) COMPLETE CBC AUTOMATED (01/09/20) COMPLETE CBC W/AUTO DIFF WBC (01/09/20) COMPREHEN METABOLIC PANEL (01/09/20) CT ABD & PELV W/CONTRAST (12/22/20) CT ANGIO ABDOM W/O & W/DYE (12/16/19) CT ANGIOGRAPHY CHEST (12/16/19) CULTURE OTHR SPECIMN AEROBIC (12/22/20) EGD DILATE STRICTURE (12/23/15) ELECTROCARDIOGRAM TRACING (12/03/20) IRON BINDING TEST (01/09/20) MEASURE BLOOD OXYGEN LEVEL (01/09/20) METABOLIC PANEL TOTAL CA (01/09/20) RBC ANTIBODY SCREEN (09/20/15) ROUTINE VENIPUNCTURE (01/09/20) SMEAR GRAM STAIN (12/22/20) TISSUE EXAM BY PATHOLOGIST (12/03/20) TISSUE EXAM BY PATHOLOGIST (12/03/20) WITHDRAWAL OF ARTERIAL BLOOD (05/30/18) X-RAY EXAM ABDOMEN 2 VIEWS (12/16/19) X-RAY EXAM CHEST 1 VIEW (12/16/19) X-RAY EXAM CHEST 2 VIEWS (12/16/19) X-RAY XM UPR GI TRC 1CNTRST (12/03/20) Problem List Initiated/Reviewed/Updated: Yes My Orders Last 24 Hours: My Active Orders 03/12/21 07:00 Doxycycline [Vibramycin] 100 mg Sodium Chloride 0.9% [Normal Saline] 100 ml IV Q12H 03/12/21 09:00 methylPREDNISolone Sod Succ [Solu-MEDROL] 40 mg IVPUSH Q12H Plan: ASSESSMENT AND RECOMMENDATIONS 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 Stable on nasal cannula other than a short while after surgery this morning. Steadily improving. -Supplemental oxygen and/or NIPPV as needed -transition back to prednisone tomorrow at 20 mg daily for 3 to 5 days -Nebulizer therapy with Xopenex -Continue doxycycline -Continue Pulmicort twice daily SEVERE ANXIETY-panic attacks seem to resolved at this time. -Increase Prozac to 40 mg p.o. daily -Continue intermittent use of lorazepam HYPOTENSION-likely secondary to sedating medications, no evidence of underlying sepsis. This has resolved. ELEVATED TROPONIN-resolved RECENT WEIGHT LOSS-BMI less than 15 at the time of admission. Status post Domingo-en-Y gastric bypass surgery 6 years ago. Weight loss over the past 2 to 3 months, now down to 81 pounds. Plan at admission had been to proceed with surgery for reversal of her Domingo-en-Y gastric bypass. She is now status post open feeding tube placement and doing well postoperatively so far. -Continue TPN -Transition to tube feedings when able postoperatively Arthur Gates MD
[2021-03-12] MEDS ORDERED: Ondansetron 4 MG/2 ML SDV IVPUSH PRN (09:28)
[2021-03-12] MEDS: Acetaminophen/HYDROcodone 325-5 MG Tab PO PRN ×4 (10:04→23:27)
[2021-03-12] MEDS: 1: AA 4.25%/Calcium/D10W/Lytes 1,000 ML with MVI, Adult with Vitamin K 10 ML, Zinc/Coppe IV SCH ×3 (13:45)
[2021-03-12] MEDS: Enoxaparin 30 MG/0.3 ML Syringe SUBCUT SCH (16:11)
[2021-03-12] MEDS: Fat Emulsion 250 ML IV SCH (16:11)
[2021-03-13] MEDS: HYDROmorphone 1 MG/ML Syringe IVPUSH PRN ×3 (01:22→04:46)
[2021-03-13] MEDS: LORazepam 0.5 MG Tab PO PRN ×3 (03:29→12:54)
[2021-03-13] MEDS: Acetaminophen/HYDROcodone 325-5 MG Tab PO PRN (03:29)
[2021-03-13] MEDS: 1: AA 4.25%/Calcium/D10W/Lytes 1,000 ML with MVI, Adult with Vitamin K 10 ML, Zinc/Coppe IV SCH ×18 (03:56→20:09)
[2021-03-13] MEDS: Gabapentin 300 MG Cap PO SCH ×4 (05:11→22:00)
[2021-03-13] MEDS ORDERED: Loperamide 1 MG/7.5 ML 7.5 ML UD Cup PO PRN (07:22)
[2021-03-13] MEDS: Budesonide 0.5 MG/2 ML Neb Susp NEB SCH ×2 (07:45→20:05)
[2021-03-13] MEDS: Levalbuterol HCl 1.25 MG/3 ML Neb NEB SCH ×4 (07:45→20:04)
[2021-03-13] MEDS: Tiotropium Bromide 4 GM Inhalation Spray (2.5mcg/1 dose; 10 doses) INH SCH (07:46)
[2021-03-13] MEDS: Formoterol/Mometasone 200-5 MCG 8.8 GM Inhaler IH SCH ×2 (07:47→20:05)
[2021-03-13] MEDS: Pantoprazole 40 MG Tab.CR PO SCH (07:53)
[2021-03-13] MEDS: predniSONE 20 MG Tab PO SCH (07:53)
[2021-03-13] MEDS: Doxycycline 100 MG in Sodium Chloride 0.9% 100 ML IV SCH (07:53)
[2021-03-13] MEDS: HYDROmorphone 2 MG Tab PO PRN ×3 (08:03→19:39)
[2021-03-13] MEDS: Theophylline 100 MG Cap.ER PO SCH ×2 (08:18→20:05)
[2021-03-13] MEDS: FLUoxetine 20 MG Cap PO SCH (08:18)
--- NOTE | 2021-03-13 09:40 | PCM.CONSN ---
- General Info Date of Service: 03/13/21 Subjective Update: No acute events overnight. Patient is complaining of some mild to moderate lower abdominal pain after surgery but this has been well controlled. She has been stable on nasal cannula. She does not report any shortness of breath and cough is minimal. No fevers overnight. White blood cell count is slightly higher today. Blood gases do show an elevation in the PCO2 at nearly 50 but her pH is normal to slightly high. Overall she is doing quite well. Functional Status: Reports: Pain Controlled, Tolerating Diet - Review of Systems General: Denies: Fever - Patient Data Vitals - Most Recent: Last Vital Signs Temp 36.8 C 03/13/21 07:00 Pulse 94 03/13/21 07:47 Resp 20 03/13/21 09:00 BP 113/62 03/13/21 09:00 Pulse Ox 95 03/13/21 09:00 Weight - Most Recent: 40.823 kg I&O - Last 24 Hours: Intake & Output 03/12/21 03/13/21 03/13/21 22:59 06:59 14:59 Intake Total 1421 1907 290 Output Total 775 925 Balance 646 982 290 Lab Results Last 24 Hours: Laboratory Results - last 24 hr 03/13/21 03/13/21 03/13/21 Range/Units 04:45 04:45 04:50 WBC 24.0 H (4.5-11.0) K/uL RBC 3.43 (3.30-5.50) M/uL Hgb 10.5 L (12.0-15.0) g/dL Hct 33.0 L (36.0-48.0) % MCV 96 (80-98) fL MCH 31 (27-31) pg MCHC 32 (32-36) % Plt Count 350 (150-400) K/uL Neut % (Auto) 88.8 H (36-66) % Lymph % (Auto) 5.2 L (24-44) % [place] % (Auto) 6.0 (2-6) % Eos % (Auto) 0.0 L (2-4) % Baso % (Auto) 0.0 (0-1) % Puncture Site R radial ABG pH 7.467 H (7.350-7.450) ABG pCO2 49.0 H (35.0-42.0) mmHg ABG pO2 83.4 (75.0-100.0) mmHg ABG HCO3 35.0 H (22.0-26.0) mmol/L ABG Total CO2 31.8 H (21.0-25.0) mmol/L ABG O2 Saturation 95.1 (95.0-98.0) % ABG O2 Content 13.9 L (15.0-23.0) %vol ABG Base Excess 10.2 mm/L ABG Hemoglobin 10.7 L (12.0-16.0) g/dL ABG Oxyhemoglobin 91.6 % ABG Carboxyhemoglobin 1.0 (0.0-1.6) % ABG Methemoglobin 2.7 % Jim Test Ok O2 Delivery Device Nasal cannula Oxygen Flow Rate 2.0 L Sodium 139 L (140-148) mmol/L Potassium 4.5 (3.6-5.2) mmol/L Chloride 100 (100-108) mmol/L Carbon Dioxide 36 H (21-32) mmol/L Anion Gap 7.5 (5.0-14.0) mmol/L BUN 12 (7-18) mg/dL Creatinine 0.3 L (0.6-1.0) mg/dL Est Cr Clr Drug Dosing 138.16 mL/min Estimated GFR (MDRD) > 60 (>60) Glucose 131 H (74-106) mg/dL Calcium 8.4 L (8.5-10.1) mg/dL Phosphorus 3.6 (2.5-4.9) mg/dL Magnesium 2.1 (1.8-2.4) mg/dL Total Bilirubin 0.2 (0.2-1.0) mg/dL AST 36 (15-37) U/L ALT 129 H (12-78) U/L Alkaline Phosphatase 95 (46-116) U/L Total Protein 5.7 L (6.4-8.2) g/dL Albumin 2.8 L (3.4-5.0) g/dL Globulin 2.9 (2.3-3.5) g/dL Albumin/Globulin Ratio 1.0 L (1.2-2.2) Med Orders - Current: Current Medications Acetaminophen (Acetaminophen 325 Mg Tab) 650 mg PO Q4H PRN PRN Reason: PAIN/FEVER Last Admin: 03/01/21 14:13 Dose: 650 mg Documented by: Acetaminophen (Acetaminophen 650 Mg Supp) 650 mg RECTAL Q4H PRN PRN Reason: PAIN/FEVER Hydrocodone Bitart/Acetaminophen (Acetaminophen/Hydrocodone 325-5 Mg Tab) 1 tab PO Q4H PRN PRN Reason: Pain Last Admin: 03/13/21 03:29 Dose: 1 tab Documented by: Budesonide (Budesonide 0.5 Mg/2 Ml Neb Susp) 0.5 mg NEB BIDRT [facility] Last Admin: 03/13/21 07:45 Dose: 0.5 mg Documented by: Enoxaparin Sodium (Enoxaparin 30 Mg/0.3 Ml Syringe) 30 mg SUBCUT Q24H [facility] Last Admin: 03/12/21 16:11 Dose: 30 mg Documented by: Fluoxetine HCl (Fluoxetine 20 Mg Cap) 40 mg PO DAILY [facility] Last Admin: 03/13/21 08:18 Dose: 40 mg Documented by: Gabapentin (Gabapentin 300 Mg Cap) 300 mg PO QID [facility] Last Admin: 03/13/21 05:11 Dose: 300 mg Documented by: Hydromorphone HCl (Hydromorphone 2 Mg Tab) 2 - 4 mg PO Q4H PRN PRN Reason: PAIN Last Admin: 03/13/21 08:03 Dose: 4 mg Documented by: Fat Emulsion Intravenous (Intralipid 20%) 250 mls @ 21 mls/hr IV Q24H [facility] Last Admin: 03/12/21 16:11 Dose: 21 mls/hr Documented by: Multivitamins/Minerals 10 ml/Zinc 1 ml/ Amino Acids/Electrolytes/Dextrose 1,011 mls @ 70 mls/hr IV .BY DURATION [facility] Stop: 03/13/21 17:00 Last Admin: 03/12/21 13:45 Dose: 70 mls/hr Documented by: Amino Acids/Electrolytes/Dextrose (Clinimix E 4.25/10) 1,000 mls @ 60 mls/hr IV .BY DURATION [facility] Stop: 03/13/21 17:00 Last Admin: 03/13/21 03:56 Dose: 70 mls/hr Documented by: Multivitamins/Minerals 10 ml/Zinc 1 ml/ Amino Acids/Electrolytes/Dextrose 1,011 mls @ 60 mls/hr IV .BY DURATION [facility] Amino Acids/Electrolytes/Dextrose (Clinimix E 4.25/10) 1,000 mls @ 60 mls/hr IV .BY DURATION [facility] Levalbuterol HCl (Levalbuterol Hcl 1.25 Mg/3 Ml Neb) 1.25 mg NEB QIDRT [facility] Last Admin: 03/13/21 07:45 Dose: 1.25 mg Documented by: Levalbuterol HCl (Levalbuterol Hcl 1.25 Mg/3 Ml Neb) 1.25 mg NEB Q4H PRN PRN Reason: shortness of breath/wheezing Last Admin: 03/11/21 04:31 Dose: 1.25 mg Documented by: Loperamide HCl (Loperamide 1 Mg/7.5 Ml 7.5 Ml Ud Cup) 2 mg PO ASDIRECTED PRN PRN Reason: LOOSE STOOLS Last Admin: 03/13/21 08:15 Dose: 2 mg Documented by: Lorazepam (Lorazepam 2 Mg/Ml Sdv) 0.5 mg IVPUSH Q4H PRN PRN Reason: Anxiety Last Admin: 03/12/21 03:27 Dose: 0.5 mg Documented by: Lorazepam (Lorazepam 0.5 Mg Tab) 0.5 mg PO Q4H PRN PRN Reason: Anxiety Last Admin: 03/13/21 08:03 Dose: 0.5 mg Documented by: Mometasone Furoate/Formoterol Fumar (Formoterol/Mometasone 200-5 Mcg 8.8 Gm Inhaler) 2 puff IH BID@0700,2100 [facility] Last Admin: 03/13/21 07:47 Dose: 2 puff Documented by: Ondansetron HCl (Ondansetron 4 Mg Tab.Dis) 4 mg PO Q4H PRN PRN Reason: N/V Ondansetron HCl (Ondansetron 4 Mg/2 Ml Sdv) 4 mg IVPUSH Q4H PRN PRN Reason: Nausea Pantoprazole Sodium (Pantoprazole 40 Mg Tab.Cr) 40 mg PO ACBREAKFAST [facility] Last Admin: 03/13/21 07:53 Dose: 40 mg Documented by: Prednisone (Prednisone 20 Mg Tab) 20 mg PO WITHBREAKFAST [facility] Last Admin: 03/13/21 07:53 Dose: 20 mg Documented by: Theophylline (Theophylline 100 Mg Cap.Er) 300 mg PO BID@0900,2100 [facility] Last Admin: 03/13/21 08:18 Dose: 300 mg Documented by: Tiotropium [place] (Tiotropium [place] 4 Gm Inhalation [place] (2.5mcg/1 Dose; 10 Doses)) 0 gm INH DAILY@0700 [facility] Last Admin: 03/13/21 07:46 Dose: 2 puff Documented by: Discontinued Medications Acetazolamide (Acetazolamide 500 Mg Vial) 250 mg IVPUSH Q6HR [facility] Stop: 03/05/21 22:01 Last Admin: 03/05/21 21:52 Dose: 250 mg Documented by: Albuterol (Albuterol 8 Gm Inhaler) 0 gm INH QIDRT PRN PRN Reason: Shortness of Breath Albuterol (Albuterol 0.083% 2.5 Mg/3 Ml Neb Soln) 2.5 mg NEB Q4H PRN PRN Reason: Dyspnea Last Admin: 03/02/21 16:58 Dose: 2.5 mg Documented by: Albuterol/Ipratropium (Albuterol/Ipratropium 3.0-0.5 Mg/3 Ml Neb Soln) 3 ml INH Q6H [facility] Last Admin: 03/01/21 17:15 Dose: Not Given Documented by: Albuterol/Ipratropium (Albuterol/Ipratropium 3.0-0.5 Mg/3 Ml Neb Soln) 3 ml INH ASDIRECTED PRN PRN Reason: Shortness of Breath Last Admin: 03/01/21 13:13 Dose: 3 ml Documented by: Albuterol/Ipratropium (Albuterol/Ipratropium 3.0-0.5 Mg/3 Ml Neb Soln) 3 ml INH QIDRT [facility] Last Admin: 03/09/21 07:14 Dose: 3 ml Documented by: Bupivacaine HCl (Bupivacaine 0.5% 50 Ml Mdv) Confirm Administered Dose 50 ml .ROUTE .STK-MED ONE Stop: 03/12/21 06:49 Last Admin: 03/12/21 08:06 Dose: 15 ml Documented by: Ropivacaine 19 ml/Dexamethasone 8 mg/Epinephrine HCl 0.4 mg/ Sodium Chloride 58.6 ml 0 ml NERVRT ASDIRECTED [facility] Last Admin: 03/12/21 07:34 Dose: 80 syringe Documented by: Dexamethasone (Dexamethasone 4 Mg/Ml Sdv) Confirm Administered Dose 4 mg .ROUTE .STK-MED ONE Stop: 03/12/21 07:12 Fentanyl (Fentanyl 250 Mcg/5 Ml Sdv) Confirm Administered Dose 250 mcg .ROUTE .STK-MED ONE Stop: 03/12/21 07:13 Fluoxetine HCl (Fluoxetine 20 Mg Cap) 20 mg PO DAILY [facility] Last Admin: 03/06/21 09:25 Dose: 20 mg Documented by: Fluoxetine HCl (Fluoxetine 20 Mg Cap) 20 mg PO ONETIME ONE Stop: 03/06/21 10:31 Last Admin: 03/06/21 12:07 Dose: 20 mg Documented by: Furosemide (Furosemide 20 Mg/2 Ml Vial) 20 mg IVPUSH NOW ONE Stop: 03/01/21 15:01 Last Admin: 03/01/21 15:16 Dose: 20 mg Documented by: Furosemide (Furosemide 20 Mg/2 Ml Vial) 20 mg IVPUSH ONETIME ONE Stop: 03/02/21 07:31 Last Admin: 03/02/21 07:43 Dose: 20 mg Documented by: Furosemide (Furosemide 20 Mg/2 Ml Vial) 20 mg IVPUSH BID [facility] Last Admin: 03/07/21 08:29 Dose: 20 mg Documented by: Furosemide (Furosemide 40 Mg/4 Ml Vial) 20 mg IVPUSH NOW ONE Stop: 03/04/21 12:31 Last Admin: 03/04/21 13:56 Dose: 20 mg Documented by: Glycopyrrolate (Glycopyrrolate 0.2 Mg/Ml 5 Ml Mdv) Confirm Administered Dose 1 mg .ROUTE .STK-MED ONE Stop: 03/12/21 07:12 Hydromorphone HCl (Hydromorphone 0.5 Mg/0.5 Ml Syringe) 0.5 mg IVPUSH Q2H PRN PRN Reason: Pain Last Admin: 03/11/21 20:48 Dose: 0.5 mg Documented by: Hydromorphone HCl (Hydromorphone 1 Mg/Ml Syringe) Confirm Administered Dose 1 mg .ROUTE .STK-MED ONE Stop: 03/05/21 02:42 Last Admin: 03/05/21 02:52 Dose: Not Given Documented by: Hydromorphone HCl (Hydromorphone 1 Mg/Ml Syringe) Confirm Administered Dose 1 mg .ROUTE .STK-MED ONE Stop: 03/05/21 02:44 Last Admin: 03/05/21 02:47 Dose: Not Given Documented by: Hydromorphone HCl (Hydromorphone 1 Mg/Ml Syringe) 1 mg IVPUSH Q1H PRN PRN Reason: Agitation Last Admin: 03/13/21 04:46 Dose: 1 mg Documented by: Dextrose/Lactated Ringer's (Dextrose 5%-Lactated Ringers) 1,000 mls @ 100 mls/hr IV ASDIRECTED [facility] Last Admin: 02/28/21 15:04 Dose: 100 mls/hr Documented by: Multivitamins/Minerals 10 ml/Zinc 1 ml/ Amino Ac/Electrol/Dextrose/Calcium 1,011 mls @ 75 mls/hr IV .BY DURATION [facility] Last Admin: 02/28/21 17:20 Dose: 75 mls/hr Documented by: Amino Ac/Electrol/Dextrose/Calcium (Clinimix E 5/15) 1,000 mls @ 75 mls/hr IV .BY DURATION [facility] Last Admin: 03/01/21 06:46 Dose: 75 mls/hr Documented by: Fat Emulsion Intravenous (Intralipid 20%) 250 mls @ 21 mls/hr IV Q24H [facility] Last Admin: 03/02/21 15:35 Dose: 21 mls/hr Documented by: Dextrose/Lactated Ringer's (Dextrose 5%-Lactated Ringers) 1,000 mls @ 0 mls/hr IV ASDIRECTED [facility] Potassium Phosphate 15 mmol/ (Premix) 250 mls @ 125 mls/hr IV Q2H [facility] Stop: 03/01/21 15:59 Last Admin: 03/01/21 15:38 Dose: Not Given Documented by: Thiamine HCl 100 mg/ Sodium (Chloride) 101 mls @ 202 mls/hr IV ONETIME ONE Stop: 03/01/21 09:29 Last Admin: 03/01/21 10:25 Dose: 202 mls/hr Documented by: Multivitamins/Minerals 10 ml/Zinc 1 ml/ Amino Ac/Electrol/Dextrose/Calcium 1,011 mls @ 70 mls/hr IV .BY DURATION [facility] Last Admin: 03/04/21 05:23 Dose: Not Given Documented by: Amino Ac/Electrol/Dextrose/Calcium (Clinimix E 5/15) 1,000 mls @ 70 mls/hr IV .BY DURATION [facility] Last Admin: 03/04/21 22:49 Dose: Not Given Documented by: Meropenem 500 mg/ Sodium (Chloride) 50 mls @ 100 mls/hr IV Q8H [facility] Last Admin: 03/06/21 07:51 Dose: 100 mls/hr Documented by: Doxycycline Hyclate 100 mg/ (Sodium Chloride) 100 mls @ 100 mls/hr IV Q12H [facility] Last Admin: 03/03/21 03:21 Dose: 100 mls/hr Documented by: Potassium Phosphate 22.5 mmole (/ Sodium Chloride) 107.5 mls @ 25 mls/hr IV Q5H [facility] Stop: 03/02/21 18:47 Last Admin: 03/02/21 13:31 Dose: 25 mls/hr Documented by: Heparin Sodium (Porcine) 5,000 (units/ Sodium Chloride) 501 mls @ 5 mls/hr IV ASDIRECTED [facility] Last Admin: 03/03/21 12:07 Dose: 5 mls/hr Documented by: Propofol (Diprivan 100 Ml) Confirm Administered Dose 100 mls @ as directed .ROUTE .STK-MED ONE Stop: 03/03/21 12:00 Last Admin: 03/03/21 13:15 Dose: Not Given Documented by: Propofol (Diprivan 100 Ml) 100 mls @ 1.113 mls/hr IV TITRATE [facility]; Protocol Last Admin: 03/05/21 04:42 Dose: 70 mcg/kg/min, 15.584 mls/hr Documented by: Azithromycin 500 mg/ Sodium (Chloride) 250 mls @ 250 mls/hr IV Q24H [facility] Last Admin: 03/07/21 14:34 Dose: 250 mls/hr Documented by: Sodium Chloride (Normal Saline) 100 mls @ 3 mls/sec IV ASDIRECTED [facility] Stop: 03/03/21 14:46 Last Admin: 03/03/21 15:17 Dose: 4 mls/sec Documented by: Vancomycin HCl 0.75 gm/ Sodium (Chloride) 150 mls @ 100 mls/hr IV ONETIME ONE Stop: 03/03/21 17:59 Last Admin: 03/03/21 16:42 Dose: 100 mls/hr Documented by: Vancomycin HCl 0.5 gm/ Sodium (Chloride) 100 mls @ 66.667 mls/hr IV Q12H [facility] Last Admin: 03/05/21 04:43 Dose: 66.667 mls/hr Documented by: Sodium Chloride (Normal Saline) 1,000 mls @ 250 mls/hr IV ASDIRECTED [facility] Stop: 03/03/21 20:44 Last Admin: 03/03/21 16:43 Dose: 250 mls/hr Documented by: Norepinephrine Bitartrate 4 mg (/ Dextrose/Water) 250 mls @ 7.5 mls/hr IV TITRATE [facility]; Protocol Last Titration: 03/05/21 10:33 Dose: 2 mcg/min, 7.5 mls/hr Documented by: Heparin Sodium (Porcine) 5,000 (units/ Sodium Chloride) 501 mls @ 5 mls/hr IV ASDIRECTED [facility] Last Admin: 03/04/21 13:00 Dose: 5 mls/hr Documented by: Multivitamins/Minerals 10 ml/Zinc 1 ml/ Amino Acids/Electrolytes/Dextrose 1,011 mls @ 70 mls/hr IV .BY DURATION [facility] Stop: 03/08/21 09:00 Last Admin: 03/07/21 19:28 Dose: 70 mls/hr Documented by: Amino Acids/Electrolytes/Dextrose (Clinimix E 4.25/10) 1,000 mls @ 70 mls/hr IV .BY DURATION [facility] Stop: 03/08/21 09:00 Last Admin: 03/07/21 05:05 Dose: 70 mls/hr Documented by: Doxycycline Hyclate 100 mg/ (Sodium Chloride) 100 mls @ 100 mls/hr IV Q12H [facility] Last Admin: 03/10/21 22:15 Dose: 100 mls/hr Documented by: Doxycycline Hyclate 100 mg/ (Sodium Chloride) 100 mls @ 100 mls/hr IV Q12H [facility] Stop: 03/11/21 21:59 Last Admin: 03/11/21 20:21 Dose: 100 mls/hr Documented by: Doxycycline Hyclate 100 mg/ (Sodium Chloride) 100 mls @ 100 mls/hr IV Q12H [facility] Stop: 03/13/21 19:59 Last Admin: 03/13/21 07:53 Dose: 100 mls/hr Documented by: Lactated Ringer's (Ringers, Lactated) Confirm Administered Dose 1,000 mls @ as directed .ROUTE .STK-MED ONE Stop: 03/12/21 07:41 Iopamidol (Iopamidol 755 Mg/Ml 100 Ml Bottle) 100 ml IV . DIRECTED [facility] Stop: 03/03/21 14:46 Last Admin: 03/03/21 15:16 Dose: 44 ml Documented by: Lidocaine/Epinephrine (Lidocaine 1% With Epinephrine 1:100,000 50 Ml Mdv) Confirm Administered Dose 50 ml .ROUTE .STK-MED ONE Stop: 03/12/21 06:49 Last Admin: 03/12/21 08:06 Dose: 15 ml Documented by: Lorazepam (Lorazepam 0.5 Mg Tab) 0.25 mg PO ONETIME ONE Stop: 03/02/21 18:29 Last Admin: 03/02/21 18:42 Dose: 0.25 mg Documented by: Lorazepam (Lorazepam 0.5 Mg Tab) 0.5 mg PO Q2H PRN PRN Reason: Anxiety Last Admin: 03/03/21 07:43 Dose: 0.5 mg Documented by: Lorazepam (Lorazepam 2 Mg/Ml Sdv) 0.5 mg IVPUSH ONETIME ONE Stop: 03/03/21 11:05 Last Admin: 03/03/21 11:21 Dose: 0.5 mg Documented by: Lorazepam (Lorazepam 2 Mg/Ml Sdv) Confirm Administered Dose 2 mg .ROUTE .STK-MED ONE Stop: 03/03/21 11:09 Last Admin: 03/03/21 11:22 Dose: Not Given Documented by: Lorazepam (Lorazepam 2 Mg/Ml Sdv) 0.5 mg IVPUSH ONETIME ONE Stop: 03/05/21 15:06 Last Admin: 03/05/21 15:17 Dose: 0.5 mg Documented by: Meropenem (Meropenem 500 Mg Sdv) Confirm Administered Dose 500 mg .ROUTE .STK- MED ONE Stop: 03/12/21 07:51 Last Admin: 03/12/21 07:57 Dose: 500 mg Documented by: Methylprednisolone Sodium Succinate (Methylprednisolone Sodium Succinate 40 Mg/1 Ml Sdv) 40 mg IVPUSH Q6H [facility] Last Admin: 03/04/21 09:16 Dose: 40 mg Documented by: Methylprednisolone Sodium Succinate (Methylprednisolone Sodium Succinate 40 Mg/1 Ml Sdv) 40 mg IVPUSH Q12H [facility] Last Admin: 03/05/21 09:02 Dose: 40 mg Documented by: Methylprednisolone Sodium Succinate (Methylprednisolone Sodium Succinate 40 Mg/1 Ml Sdv) 40 mg IVPUSH Q8H [facility] Last Admin: 03/10/21 02:42 Dose: 40 mg Documented by: Methylprednisolone Sodium Succinate (Methylprednisolone Sodium Succinate 40 Mg/1 Ml Sdv) 40 mg IVPUSH Q12H [facility] Stop: 03/12/21 23:00 Last Admin: 03/12/21 20:37 Dose: 40 mg Documented by: Mometasone Furoate/Formoterol Fumar (Formoterol/Mometasone 200-5 Mcg 8.8 Gm Inhaler) 2 puff IH BIDRT [facility] Last Admin: 03/02/21 06:00 Dose: 2 puff Documented by: Mometasone Furoate/Formoterol Fumar (Formoterol/Mometasone 200-5 Mcg 8.8 Gm Inhaler) 2 puff IH BID@0500,2100 [facility] Last Admin: 03/05/21 21:29 Dose: Not Given Documented by: Neostigmine Methylsulfate (Neostigmine Methylsulfate 1 Mg/Ml 5 Ml Syringe) Confirm Administered Dose 5 mg .ROUTE .STK-MED ONE Stop: 03/12/21 07:12 Non-Formulary Medication (Central Total Parenteral Nutrition Bag) 1,000 ml .XX .Continue Order [facility] Stop: 03/01/21 10:00 Non-Formulary Medication (Central Total Parenteral Nutrition Bag) 1,000 ml .XX .Continue Order [facility] Stop: 03/02/21 18:00 Non-Formulary Medication (Central Total Parenteral Nutrition Bag) 1,000 ml .XX .Continue Order [facility] Stop: 03/03/21 18:00 Non-Formulary Medication (Central Total Parenteral Nutrition Bag) 0 ml IV ASDIRECTED [facility] Stop: 03/05/21 10:00 Non-Formulary Medication (Central Total Parenteral Nutrition Bag) 0 ml IV ASDIRECTED [facility] Stop: 03/06/21 12:00 Non-Formulary Medication (Central Total Parenteral Nutrition Bag) 1,000 ml .XX .Continue Order [facility]; Protocol Stop: 03/07/21 12:01 Ondansetron HCl (Ondansetron 4 Mg/2 Ml Sdv) Confirm Administered Dose 4 mg .ROUTE .STK-MED ONE Stop: 03/12/21 07:12 Pantoprazole Sodium (Pantoprazole 40 Mg Tab.Cr) 40 mg PO ACBREAKFAST [facility] Last Admin: 03/03/21 07:20 Dose: 40 mg Documented by: Pantoprazole Sodium (Pantoprazole 40 Mg Vial) 40 mg IVPUSH DAILY [facility] Last Admin: 03/06/21 09:26 Dose: 40 mg Documented by: Potassium Chloride (Potassium Chloride 20 Meq Tab.Er) 40 meq PO ONETIME ONE Stop: 03/01/21 16:31 Last Admin: 03/01/21 17:38 Dose: 40 meq Documented by: Potassium Chloride (Potassium Chloride 20 Meq Tab.Er) 40 meq PO ONETIME ONE Stop: 03/11/21 08:01 Last Admin: 03/11/21 08:33 Dose: 40 meq Documented by: Prednisone (Prednisone 20 Mg Tab) 40 mg PO WITHBREAKFAST [facility] Last Admin: 03/11/21 08:33 Dose: 40 mg Documented by: Prednisone (Prednisone 20 Mg Tab) 40 mg PO ONETIME ONE Stop: 03/10/21 10:31 Last Admin: 03/10/21 09:55 Dose: 40 mg Documented by: Propofol (Propofol 200 Mg/20 Ml Sdv) Confirm Administered Dose 200 mg .ROUTE .STK-MED ONE Stop: 03/03/21 12:22 Propofol (Propofol 200 Mg/20 Ml Sdv) Confirm Administered Dose 200 mg .ROUTE .STK-MED ONE Stop: 03/12/21 07:12 Rocuronium [place] (Rocuronium 50 Mg/5 Ml Vial) Confirm Administered Dose 50 mg .ROUTE .STK-MED ONE Stop: 03/12/21 07:12 Sodium Chloride (Sodium Chloride 0.9% 10 Ml Sdv) 10 ml FLUSH ONETIME ONE Stop: 03/03/21 14:34 Last Admin: 03/03/21 15:20 Dose: 10 ml Documented by: Succinylcholine Chloride (Succinylcholine 200 Mg/10 Ml Mdv) Confirm Administered Dose 200 mg .ROUTE .STK-MED ONE Stop: 03/03/21 12:22 Succinylcholine Chloride (Succinylcholine 200 Mg/10 Ml Mdv) Confirm Administered Dose 200 mg .ROUTE .STK-MED ONE Stop: 03/12/21 07:12 Sugammadex Sodium (Sugammadex Sodium 200 Mg/2 Ml Vial) Confirm Administered Dose 200 mg .ROUTE .STK-MED ONE Stop: 03/12/21 08:18 Theophylline (Theophylline 100 Mg Cap.Er) 300 mg PO BID [facility] Last Admin: 03/02/21 09:24 Dose: 300 mg Documented by: Theophylline (Theophylline 100 Mg Cap.Er) 300 mg PO BID@0500,2100 [facility] Last Admin: 03/05/21 21:29 Dose: 300 mg Documented by: Tiotropium [place] (Tiotropium [place] 4 Gm Inhalation [place] (2.5mcg/1 Dose; 10 Doses)) 0 gm INH DAILYRT [facility] Last Admin: 03/02/21 06:00 Dose: 2 puff Documented by: Tiotropium [place] (Tiotropium [place] 4 Gm Inhalation [place] (2.5mcg/1 Dose; 10 Doses)) 0 gm INH DAILY@0500 [facility] Last Admin: 03/05/21 04:45 Dose: Not Given Documented by: Vancomycin HCl (Vancomycin 1 Gm Sdv) 1 gm IV .PHARMACY TO DOSE [facility] Stop: 03/03/21 18:00 - Exam Quality Assessment: Supplemental Oxygen Central Line Total Time: 12Days 17Hours Urinary Catheter Total Time: 5Days 21Hours General: Alert, Oriented, Cooperative, No Acute Distress Lungs: Clear to Auscultation, Normal Respiratory Effort Cardiovascular: Regular Rate, Regular Rhythm GI/Abdominal Exam: Soft, No Distention Extremities: No Pedal Edema. No: Increased Warmth Skin: Warm, Dry Wound/Incisions: Dressing Dry and Intact, No Drainage Psy/Mental Status: Alert, Normal Affect Sepsis Event Note - Evaluation Sepsis Screening Result: Sepsis Risk - Focused Exam Vital Signs: Vital Signs Temp Pulse Resp BP Pulse Ox 03/13/21 09:00 20 113/62 95 03/13/21 07:47 94 03/13/21 07:00 36.8 C 16 109/69 95 03/13/21 05:00 93 15 106/72 97 03/13/21 03:30 36.9 C 03/13/21 02:00 96 13 102/65 95 03/13/21 00:00 36.8 C 91 11 L 99/58 L 94 L 03/12/21 22:00 94 12 111/72 94 L Consult PN Assessment/Plan POD#: 1 Procedures: Procedures AIRWAY INHALATION TREATMENT (12/03/20) ASSAY OF FERRITIN (12/16/19) ASSAY OF MAGNESIUM (01/09/20) ASSAY OF NATRIURETIC PEPTIDE (12/16/19) ASSAY OF PHOSPHORUS (01/09/20) ASSAY THYROID STIM HORMONE (12/16/19) BLOOD GASES ANY COMBINATION (12/16/19) BLOOD TYPING SEROLOGIC ABO (09/20/15) BLOOD TYPING SEROLOGIC RH(D) (09/20/15) CHEST WALL MANIPULATION (12/03/20) CHEST WALL MANIPULATION (12/03/20) CHEST WALL MANIPULATION (12/16/19) CHEST WALL MANIPULATION (12/16/19) CHEST WALL MANIPULATION (05/30/18) CHEST WALL MANIPULATION (05/30/18) COMPLETE CBC AUTOMATED (01/09/20) COMPLETE CBC W/AUTO DIFF WBC (01/09/20) COMPREHEN METABOLIC PANEL (01/09/20) CT ABD & PELV W/CONTRAST (12/22/20) CT ANGIO ABDOM W/O & W/DYE (12/16/19) CT ANGIOGRAPHY CHEST (12/16/19) CULTURE OTHR SPECIMN AEROBIC (12/22/20) EGD DILATE STRICTURE (12/23/15) ELECTROCARDIOGRAM TRACING (12/03/20) IRON BINDING TEST (01/09/20) MEASURE BLOOD OXYGEN LEVEL (01/09/20) METABOLIC PANEL TOTAL CA (01/09/20) RBC ANTIBODY SCREEN (09/20/15) ROUTINE VENIPUNCTURE (01/09/20) SMEAR GRAM STAIN (12/22/20) TISSUE EXAM BY PATHOLOGIST (12/03/20) TISSUE EXAM BY PATHOLOGIST (12/03/20) WITHDRAWAL OF ARTERIAL BLOOD (05/30/18) X-RAY EXAM ABDOMEN 2 VIEWS (12/16/19) X-RAY EXAM CHEST 1 VIEW (12/16/19) X-RAY EXAM CHEST 2 VIEWS (12/16/19) X-RAY XM UPR GI TRC 1CNTRST (12/03/20) Problem List Initiated/Reviewed/Updated: Yes My Orders Last 24 Hours: My Active Orders 03/13/21 08:00 predniSONE 20 mg PO WITHBREAKFAST 03/13/21 19:00 Doxycycline [Vibramycin] 100 mg PO Q12H Plan: ASSESSMENT AND RECOMMENDATIONS 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 Stable on nasal cannula and doing well. -Supplemental oxygen and/or NIPPV as needed -Continue prednisone today and tomorrow then discontinue -Nebulizer therapy with Xopenex -Continue doxycycline for total of 7 days (Rx for remainder sent to her pharmacy today) -Continue Pulmicort twice daily SEVERE ANXIETY-panic attacks seem to resolved at this time. -Increase Prozac to 40 mg p.o. daily -Continue intermittent use of lorazepam HYPOTENSION-likely secondary to sedating medications, no evidence of underlying sepsis. This has resolved. ELEVATED TROPONIN-resolved RECENT WEIGHT LOSS-BMI less than 15 at the time of admission. Status post Domingo-en-Y gastric bypass surgery 6 years ago. Weight loss over the past 2 to 3 months, now down to 81 pounds. Plan at admission had been to proceed with surgery for reversal of her Domingo-en-Y gastric bypass. She is now status post open feeding tube placement and doing well postoperatively. -Transition to tube feedings -Postoperative care as per surgical team Arthur Gates MD
[2021-03-13] MEDS: Enoxaparin 30 MG/0.3 ML Syringe SUBCUT SCH (14:09)
[2021-03-13] MEDS: Fat Emulsion 250 ML IV SCH (16:15)
--- NOTE | 2021-03-13 16:19 | PN ---
DATE OF SERVICE: 03/13/2021 The patient has been afebrile with stable vital signs. Respiratory status actually looks better than it has in several days, on 2 L nasal cannula. She has a pH of 7.46, PCO2 of 49 and PO2 of 83 and looks fairly comfortable. We will start tube feedings today, begin and arrange home care to facilitate the administration of tube feedings at home. We will switch her over to oral pain medication today as well. Wellington Najera MD /[id number]
[2021-03-13] MEDS: Doxycycline 100 MG Cap PO SCH (19:39)
[2021-03-14] MEDS: HYDROmorphone 2 MG Tab PO PRN ×3 (00:04→09:57)
[2021-03-14] MEDS: LORazepam 0.5 MG Tab PO PRN (00:04)
[2021-03-14] MEDS: Levalbuterol HCl 1.25 MG/3 ML Neb NEB PRN (03:08)
[2021-03-14] MEDS: Gabapentin 300 MG Cap PO SCH ×2 (05:19→09:57)
[2021-03-14] MEDS: Levalbuterol HCl 1.25 MG/3 ML Neb NEB SCH ×2 (06:59→10:37)
[2021-03-14] MEDS: Budesonide 0.5 MG/2 ML Neb Susp NEB SCH (06:59)
[2021-03-14] MEDS: Formoterol/Mometasone 200-5 MCG 8.8 GM Inhaler IH SCH (06:59)
[2021-03-14] MEDS: Tiotropium Bromide 4 GM Inhalation Spray (2.5mcg/1 dose; 10 doses) INH SCH (06:59)
[2021-03-14 07:23] VITALS: BP 112/73; PULSE 96
[2021-03-14] MEDS: Doxycycline 100 MG Cap PO SCH (07:24)
[2021-03-14] MEDS: Pantoprazole 40 MG Tab.CR PO SCH (07:24)
--- NOTE | 2021-03-14 08:04 | PCM.SN.2 ---
- Free Text/Narrative Note: Uzair Silverman will be discharged to home when she is stable with Home Gastrostomy Tube Feedings. She was admitted to the hospital with a BMI of 13.98 and her weight was 78.8 lbs, severe calorie protein malnutrition. Uzair has been having TPN Therapy and was going to have a Reversal of her Gastric Bypass Surgery but went into acute respiratory distress and was on a ventilator for some time. Due to her lung condition she is not a candidate for surgery at this time and will be going home with Gastrostomy Tube Feedings. Length of Gastrostomy Tube feeding will be greater than 90 days. History of having a Gastrostomy Tube and did well with it at home. Radha Rubio
[2021-03-14] MEDS: predniSONE 20 MG Tab PO SCH (08:35)
[2021-03-14] MEDS: FLUoxetine 20 MG Cap PO SCH (08:35)
[2021-03-14] MEDS: Theophylline 100 MG Cap.ER PO SCH (08:35)
--- NOTE | 2021-03-14 10:45 | PCM.DCSUM1 ---
Discharge Summary - Hospital Course Brief History: Ms. Silverman is a 56-year-old woman who was admitted as a direct admission by Mark Pat, for stabilization of malnutrition and planned reversal of gastric bypass surgery. - Discharge Data Discharge Date: 03/14/21 Discharge Disposition: Home, Self-Care 01 Condition: Fair - Referral to Home Health Primary Care Physician: Radha Pat PA-C - Discharge Diagnosis/Problem(s) (1) Acute on chronic respiratory failure with hypoxia and hypercapnia SNOMED Code(s): 31683965874391 ICD Code: J96.21 - ACUTE AND CHRONIC RESPIRATORY FAILURE WITH HYPOXIA; J96.22 - ACUTE AND CHRONIC RESPIRATORY FAILURE WITH HYPERCAPNIA Status: Acute Current Visit: Yes (2) Anxiety SNOMED Code(s): 16845485 ICD Code: F41.9 - ANXIETY DISORDER, UNSPECIFIED Status: Acute Current Visit: Yes (3) Status post insertion of percutaneous endoscopic gastrostomy (PEG) tube SNOMED Code(s): 790504693 ICD Code: Z93.1 - GASTROSTOMY STATUS Status: Acute Current Visit: Yes Problem Details: with placement of interceed mesh (4) Malnutrition SNOMED Code(s): 42656457 ICD Code: E46 - UNSPECIFIED PROTEIN-CALORIE MALNUTRITION Status: Chronic Priority: Medium Current Visit: No Qualifiers: Malnutrition type: protein-calorie malnutrition Protein-calorie malnutrition severity: unspecified severity Qualified Code(s): E46 - Unspecifi ed protein-calorie malnutrition (5) COPD (chronic obstructive pulmonary disease) SNOMED Code(s): 50332985 ICD Code: J44.9 - CHRONIC OBSTRUCTIVE PULMONARY DISEASE, UNSPECIFIED Status: Chronic Current Visit: No - Patient Summary/Data Consults: Consultations 03/01/21 13:13 Consult to Physician [CONS] Urgent Consulting Provider: Luis Vásquez Call Completed to Consulting Physician: Yes Reason for Consult: increased SOB, hx copd home O2 use; pending surgery end of week Person Notified: jose cook Date Notified: 03/01/21 Time Notified: 13:15 03/10/21 08:53 PT Evaluation and Treatment [CONS] Routine Please Evaluate and Treat. PT Reason for Consult: Strengthening This query below is only for informational purposes and is not editable. Admission Diagnosis/Problem: Malnutrition 03/10/21 09:30 OT Evaluation and Treatment [CONS] Routine Please Evaluate and Treat. OT Reason for Consult: ADL's This query below is only for informational purposes and is not editable. Admission Diagnosis/Problem: Malnutrition 03/11/21 10:31 Consult to Beater Lead [CONS] Routine Comment: Physician Instructions: Quantity: Reason for Consult: Tube feeding recomendations Special Instructions: High fat, low carb Hospital Course: Ms. Silverman is a 56-year-old woman who was admitted to this facility because of progressive weight loss over the past few months. She is status post Domingo-en-Y gastric bypass surgery approximately 6 years ago. She did have surgery at this facility 3 months ago for small bowel obstruction. Since then has lost at least 15 pounds of weight despite the fact that she reports she is eating fairly well. She was admitted to start TPN prior to proceeding with surgery later in the week. She has chronic upper abdominal pain but denies no chest pain or pressure. She has a known diagnosis of COPD and does require 2 L of oxygen continuously at home. With use of oxygen she is able to be relatively active. Laboratory tests obtained prior to admission and after admission showed relatively good albumin level and most of her vitamin levels were within desired range. On admission a PICC line was placed and she was started on nutritional supplement with TPN. After admission she did develop symptoms of progressive shortness of breath and did have a mild temperature elevation on the evening of admission. She was seen for hospitalist consult because of her progressive shortness of breath and increased oxygen requirements. Chest x-ray did show possible infiltrate and she was started on antibiotic therapy in addition to nebulizer therapy and steroids. Unfortunately despite these interventions over the next few days of hospital stay she developed progressive hypoxia and hypercapnia with increase in respiratory rate. She had been placed on noninvasive positive pressure ventilation but even this did not help her prevent further respiratory decline. She required intubation and mechanical ve ntilation for a period of 2 days and then was able to be extubated and placed back on BiPAP. She required use of BiPAP over the next several days of her hospital stay. It was felt that at least some component of her respiratory failure was tied to uncontrolled anxiety. Her dose of fluoxetine was increased to 40 mg daily during hospitalization and she was given intermittent use of lorazepam. During this period of time she did have intermittent use of steroids as well as further antibiotic therapy. By the time of discharge she will have completed her course of prednisone but will be discharged on additional 5 days of oral antibiotic therapy with doxycycline. 2 days prior to discharge she did undergo open feeding tube placement performed by Dr. Cook. She will be discharged home with tube feedings as recommended by the dietary service. Activity will be as tolerated and she will remain on supplemental oxygen 2 L/min via nasal cannula. Follow-up appointment will be scheduled with Dr. Cook as well as with her primary care provider. - Patient Instructions Diet, Other: Bariatric diet, tube feedings as ordered per Dr. Cook Activity: As Tolerated Other/Special Instructions: Please schedule follow-up appointment with Dr. Cook within 2 weeks. Please schedule follow-up appointment with primary care provider within 2 weeks. - Discharge Plan *PRESCRIPTION DRUG MONITORING PROGRAM REVIEWED*: Not Applicable *COPY OF PRESCRIPTION DRUG MONITORING REPORT IN PATIENT CHAS: Not Applicable Prescriptions/Med Rec: LORazepam [Ativan] 0.5 mg PO Q4H PRN #16 tablet PRN Reason: Anxiety Doxycycline Hyclate 100 mg PO BID #5 capsule Hydrocodone/Acetaminophen [Hydrocodon-Acetaminophen 5-325] 1 each PO Q4H PRN #16 tablet PRN Reason: Pain FLUoxetine HCl [Prozac] 20 mg PO DAILY #60 capsule Home Medications: Home Meds Albuterol [Ventolin HFA] 2 puff INH Q3H PRN 09/16/15 [History] Fluticasone/Salmeterol [Advair 500-50] 1 puff INH BID 09/16/15 [History] Theophylline Anhydrous [Theochron] 300 mg PO Q12H 09/16/15 [History] Tiotropium [Spiriva HandiHaler] 1 cap PO DAILY 09/16/15 [History] Gabapentin [Neurontin] 300 mg PO TID 05/30/18 [History] ondansetron HCL [Zofran] 4 mg PO Q8H PRN 05/30/18 [History] Acetaminophen [Tylenol Extra Strength] 1,000 mg PO BID PRN 01/07/20 [History] Albuterol/Ipratropium [DuoNeb 3.0-0.5 MG/3 ML] 3 ml NEB Q4H PRN 01/07/20 [History] Nitroglycerin [Nitrostat] 0.4 mg SL ASDIRECTED 01/07/20 [History] Doxycycline Hyclate 100 mg PO BID #5 capsule 03/13/21 [Rx] FLUoxetine HCl [Prozac] 20 mg PO DAILY #60 capsule 03/14/21 [Rx] Hydrocodone/Acetaminophen [Hydrocodon-Acetaminophen 5-325] 1 each PO Q4H PRN #16 tablet 03/14/21 [Rx] LORazepam [Ativan] 0.5 mg PO Q4H PRN #16 tablet 03/14/21 [Rx] Oxygen Therapy Mode: Nasal Cannula Oxygen Flow Rate (L/min): 2 Referrals: Wellington Cook MD [Physician] - 03/23/21 6:00 am - Discharge Summary/Plan Comment DC Time >30 min.: No - Patient Data Vitals - Most Recent: Last Vital Signs Temp 98.1 F 03/14/21 07:21 Pulse 96 03/14/21 07:21 Resp 18 03/14/21 07:21 BP 112/73 03/14/21 07:21 Pulse Ox 98 03/14/21 07:21 Weight - Most Recent: 83 lb 6.4 oz I&O - Last 24 hours: Intake & Output 03/13/21 03/14/21 03/14/21 22:59 06:59 14:59 Intake Total 200 3099 492 Balance 200 3099 492 Med Orders - Current: Current Medications Acetaminophen (Acetaminophen 325 Mg Tab) 650 mg PO Q4H PRN PRN Reason: PAIN/FEVER Last Admin: 03/01/21 14:13 Dose: 650 mg Documented by: Acetaminophen (Acetaminophen 650 Mg Supp) 650 mg RECTAL Q4H PRN PRN Reason: PAIN/FEVER Hydrocodone Bitart/Acetaminophen (Acetaminophen/Hydrocodone 325-5 Mg Tab) 1 tab PO Q4H PRN PRN Reason: Pain Last Admin: 03/13/21 03:29 Dose: 1 tab Documented by: Budesonide (Budesonide 0.5 Mg/2 Ml Neb Susp) 0.5 mg NEB BIDRT [facility] Last Admin: 03/14/21 06:59 Dose: 0.5 mg Documented by: Doxycycline Hyclate (Doxycycline 100 Mg Cap) 100 mg PO Q12H [facility] Last Admin: 03/14/21 07:24 Dose: 100 mg Documented by: Enoxaparin Sodium (Enoxaparin 30 Mg/0.3 Ml Syringe) 30 mg SUBCUT Q24H [facility] Last Admin: 03/13/21 14:09 Dose: 30 mg Documented by: Fluoxetine HCl (Fluoxetine 20 Mg Cap) 40 mg PO DAILY [facility] Last Admin: 03/14/21 08:35 Dose: 40 mg Documented by: Gabapentin (Gabapentin 300 Mg Cap) 300 mg PO QID [facility] Last Admin: 03/14/21 09:57 Dose: 300 mg Documented by: Hydromorphone HCl (Hydromorphone 2 Mg Tab) 2 - 4 mg PO Q4H PRN PRN Reason: PAIN Last Admin: 03/14/21 09:57 Dose: 4 mg Documented by: Fat Emulsion Intravenous (Intralipid 20%) 250 mls @ 21 mls/hr IV Q24H [facility] Last Admin: 03/13/21 16:15 Dose: Not Given Documented by: Multivitamins/Minerals 10 ml/Zinc 1 ml/ Amino Acids/Electrolytes/Dextrose 1,011 mls @ 60 mls/hr IV .BY DURATION [facility] Last Admin: 03/13/21 20:09 Dose: 60 mls/hr Documented by: Amino Acids/Electrolytes/Dextrose (Clinimix E 4.25/10) 1,000 mls @ 60 mls/hr IV .BY DURATION [facility] Levalbuterol HCl (Levalbuterol Hcl 1.25 Mg/3 Ml Neb) 1.25 mg NEB QIDRT [facility] Last Admin: 03/14/21 10:37 Dose: 1.25 mg Documented by: Levalbuterol HCl (Levalbuterol Hcl 1.25 Mg/3 Ml Neb) 1.25 mg NEB Q4H PRN PRN Reason: shortness of breath/wheezing Last Admin: 03/14/21 03:08 Dose: 1.25 mg Documented by: Loperamide HCl (Loperamide 1 Mg/7.5 Ml 7.5 Ml Ud Cup) 2 mg PO ASDIRECTED PRN PRN Reason: LOOSE STOOLS Last Admin: 03/13/21 08:15 Dose: 2 mg Documented by: Lorazepam (Lorazepam 2 Mg/Ml Sdv) 0.5 mg IVPUSH Q4H PRN PRN Reason: Anxiety Last Admin: 03/12/21 03:27 Dose: 0.5 mg Documented by: Lorazepam (Lorazepam 0.5 Mg Tab) 0.5 mg PO Q4H PRN PRN Reason: Anxiety Last Admin: 03/14/21 00:04 Dose: 0.5 mg Documented by: Mometasone Furoate/Formoterol Fumar (Formoterol/Mometasone 200-5 Mcg 8.8 Gm Inhaler) 2 puff IH BID@0700,2100 [facility] Last Admin: 03/14/21 06:59 Dose: 2 puff Documented by: Ondansetron HCl (Ondansetron 4 Mg Tab.Dis) 4 mg PO Q4H PRN PRN Reason: N/V Ondansetron HCl (Ondansetron 4 Mg/2 Ml Sdv) 4 mg IVPUSH Q4H PRN PRN Reason: Nausea Pantoprazole Sodium (Pantoprazole 40 Mg Tab.Cr) 40 mg PO ACBREAKFAST [facility] Last Admin: 03/14/21 07:24 Dose: 40 mg Documented by: Prednisone (Prednisone 20 Mg Tab) 20 mg PO WITHBREAKFAST [facility] Last Admin: 03/14/21 08:35 Dose: 20 mg Documented by: Theophylline (Theophylline 100 Mg Cap.Er) 300 mg PO BID@09,2099 [facility] Last Admin: 03/14/21 08:35 Dose: 300 mg Documented by: Tiotropium [place] (Tiotropium [place] 4 Gm Inhalation [place] (2.5mcg/1 Dose; 10 Doses)) 0 gm INH DAILY@07 [facility] Last Admin: 03/14/21 06:59 Dose: 2 puff Documented by: Discontinued Medications Acetazolamide (Acetazolamide 500 Mg Vial) 250 mg IVPUSH Q6HR [facility] Stop: 03/05/21 22:01 Last Admin: 03/05/21 21:52 Dose: 250 mg Documented by: Albuterol (Albuterol 8 Gm Inhaler) 0 gm INH QIDRT PRN PRN Reason: Shortness of Breath Albuterol (Albuterol 0.083% 2.5 Mg/3 Ml Neb Soln) 2.5 mg NEB Q4H PRN PRN Reason: Dyspnea Last Admin: 03/02/21 16:58 Dose: 2.5 mg Documented by: Albuterol/Ipratropium (Albuterol/Ipratropium 3.0-0.5 Mg/3 Ml Neb Soln) 3 ml INH Q6H [facility] Last Admin: 03/01/21 17:15 Dose: Not Given Documented by: Albuterol/Ipratropium (Albuterol/Ipratropium 3.0-0.5 Mg/3 Ml Neb Soln) 3 ml INH ASDIRECTED PRN PRN Reason: Shortness of Breath Last Admin: 03/01/21 13:13 Dose: 3 ml Documented by: Albuterol/Ipratropium (Albuterol/Ipratropium 3.0-0.5 Mg/3 Ml Neb Soln) 3 ml INH QIDRT [facility] Last Admin: 03/09/21 07:14 Dose: 3 ml Documented by: Bupivacaine HCl (Bupivacaine 0.5% 50 Ml Mdv) Confirm Administered Dose 50 ml .ROUTE .STK-MED ONE Stop: 03/12/21 06:49 Last Admin: 03/12/21 08:06 Dose: 15 ml Documented by: Ropivacaine 19 ml/Dexamethasone 8 mg/Epinephrine HCl 0.4 mg/ Sodium Chloride 58.6 ml 0 ml NERVRT ASDIRECTED [facility] Last Admin: 03/12/21 07:34 Dose: 80 syringe Documented by: Dexamethasone (Dexamethasone 4 Mg/Ml Sdv) Confirm Administered Dose 4 mg .ROUTE .STK-MED ONE Stop: 03/12/21 07:12 Fentanyl (Fentanyl 250 Mcg/5 Ml Sdv) Confirm Administered Dose 250 mcg .ROUTE .STK-MED ONE Stop: 03/12/21 07:13 Fluoxetine HCl (Fluoxetine 20 Mg Cap) 20 mg PO DAILY [facility] Last Admin: 03/06/21 09:25 Dose: 20 mg Documented by: Fluoxetine HCl (Fluoxetine 20 Mg Cap) 20 mg PO ONETIME ONE Stop: 03/06/21 10:31 Last Admin: 03/06/21 12:07 Dose: 20 mg Documented by: Furosemide (Furosemide 20 Mg/2 Ml Vial) 20 mg IVPUSH NOW ONE Stop: 03/01/21 15:01 Last Admin: 03/01/21 15:16 Dose: 20 mg Documented by: Furosemide (Furosemide 20 Mg/2 Ml Vial) 20 mg IVPUSH ONETIME ONE Stop: 03/02/21 07:31 Last Admin: 03/02/21 07:43 Dose: 20 mg Documented by: Furosemide (Furosemide 20 Mg/2 Ml Vial) 20 mg IVPUSH BID [facility] Last Admin: 03/07/21 08:29 Dose: 20 mg Documented by: Furosemide (Furosemide 40 Mg/4 Ml Vial) 20 mg IVPUSH NOW ONE Stop: 03/04/21 12:31 Last Admin: 03/04/21 13:56 Dose: 20 mg Documented by: Glycopyrrolate (Glycopyrrolate 0.2 Mg/Ml 5 Ml Mdv) Confirm Administered Dose 1 mg .ROUTE .STK-MED ONE Stop: 03/12/21 07:12 Hydromorphone HCl (Hydromorphone 0.5 Mg/0.5 Ml Syringe) 0.5 mg IVPUSH Q2H PRN PRN Reason: Pain Last Admin: 03/11/21 20:48 Dose: 0.5 mg Documented by: Hydromorphone HCl (Hydromorphone 1 Mg/Ml Syringe) Confirm Administered Dose 1 mg .ROUTE .STK-MED ONE Stop: 03/05/21 02:42 Last Admin: 03/05/21 02:52 Dose: Not Given Documented by: Hydromorphone HCl (Hydromorphone 1 Mg/Ml Syringe) Confirm Administered Dose 1 mg .ROUTE .STK-MED ONE Stop: 03/05/21 02:44 Last Admin: 03/05/21 02:47 Dose: Not Given Documented by: Hydromorphone HCl (Hydromorphone 1 Mg/Ml Syringe) 1 mg IVPUSH Q1H PRN PRN Reason: Agitation Last Admin: 03/13/21 04:46 Dose: 1 mg Documented by: Dextrose/Lactated Ringer's (Dextrose 5%-Lactated Ringers) 1,000 mls @ 100 mls/hr IV ASDIRECTED [facility] Last Admin: 02/28/21 15:04 Dose: 100 mls/hr Documented by: Multivitamins/Minerals 10 ml/Zinc 1 ml/ Amino Ac/Electrol/Dextrose/Calcium 1,011 mls @ 75 mls/hr IV .BY DURATION [facility] Last Admin: 02/28/21 17:20 Dose: 75 mls/hr Documented by: Amino Ac/Electrol/Dextrose/Calcium (Clinimix E 5/15) 1,000 mls @ 75 mls/hr IV .BY DURATION [facility] Last Admin: 03/01/21 06:46 Dose: 75 mls/hr Documented by: Fat Emulsion Intravenous (Intralipid 20%) 250 mls @ 21 mls/hr IV Q24H [facility] Last Admin: 03/02/21 15:35 Dose: 21 mls/hr Documented by: Dextrose/Lactated Ringer's (Dextrose 5%-Lactated Ringers) 1,000 mls @ 0 mls/hr IV ASDIRECTED [facility] Potassium Phosphate 15 mmol/ (Premix) 250 mls @ 125 mls/hr IV Q2H [facility] Stop: 03/01/21 15:59 Last Admin: 03/01/21 15:38 Dose: Not Given Documented by: Thiamine HCl 100 mg/ Sodium (Chloride) 101 mls @ 202 mls/hr IV ONETIME ONE Stop: 03/01/21 09:29 Last Admin: 03/01/21 10:25 Dose: 202 mls/hr Documented by: Multivitamins/Minerals 10 ml/Zinc 1 ml/ Amino Ac/Electrol/Dextrose/Calcium 1,011 mls @ 70 mls/hr IV .BY DURATION [facility] Last Admin: 03/04/21 05:23 Dose: Not Given Documented by: Amino Ac/Electrol/Dextrose/Calcium (Clinimix E 5/15) 1,000 mls @ 70 mls/hr IV .BY DURATION [facility] Last Admin: 03/04/21 22:49 Dose: Not Given Documented by: Meropenem 500 mg/ Sodium (Chloride) 50 mls @ 100 mls/hr IV Q8H [facility] Last Admin: 03/06/21 07:51 Dose: 100 mls/hr Documented by: Doxycycline Hyclate 100 mg/ (Sodium Chloride) 100 mls @ 100 mls/hr IV Q12H [facility] Last Admin: 03/03/21 03:21 Dose: 100 mls/hr Documented by: Potassium Phosphate 22.5 mmole (/ Sodium Chloride) 107.5 mls @ 25 mls/hr IV Q5H [facility] Stop: 03/02/21 18:47 Last Admin: 03/02/21 13:31 Dose: 25 mls/hr Documented by: Heparin Sodium (Porcine) 5,000 (units/ Sodium Chloride) 501 mls @ 5 mls/hr IV ASDIRECTED [facility] Last Admin: 03/03/21 12:07 Dose: 5 mls/hr Documented by: Propofol (Diprivan 100 Ml) Confirm Administered Dose 100 mls @ as directed .ROUTE .STK-MED ONE Stop: 03/03/21 12:00 Last Admin: 03/03/21 13:15 Dose: Not Given Documented by: Propofol (Diprivan 100 Ml) 100 mls @ 1.113 mls/hr IV TITRATE [facility]; Protocol Last Admin: 03/05/21 04:42 Dose: 70 mcg/kg/min, 15.584 mls/hr Documented by: Azithromycin 500 mg/ Sodium (Chloride) 250 mls @ 250 mls/hr IV Q24H [facility] Last Admin: 03/07/21 14:34 Dose: 250 mls/hr Documented by: Sodium Chloride (Normal Saline) 100 mls @ 3 mls/sec IV ASDIRECTED [facility] Stop: 03/03/21 14:46 Last Admin: 03/03/21 15:17 Dose: 4 mls/sec Documented by: Vancomycin HCl 0.75 gm/ Sodium (Chloride) 150 mls @ 100 mls/hr IV ONETIME ONE Stop: 03/03/21 17:59 Last Admin: 03/03/21 16:42 Dose: 100 mls/hr Documented by: Vancomycin HCl 0.5 gm/ Sodium (Chloride) 100 mls @ 66.667 mls/hr IV Q12H [facility] Last Admin: 03/05/21 04:43 Dose: 66.667 mls/hr Documented by: Sodium Chloride (Normal Saline) 1,000 mls @ 250 mls/hr IV ASDIRECTED [facility] Stop: 03/03/21 20:44 Last Admin: 03/03/21 16:43 Dose: 250 mls/hr Documented by: Norepinephrine Bitartrate 4 mg (/ Dextrose/Water) 250 mls @ 7.5 mls/hr IV TITRATE [facility]; Protocol Last Titration: 03/05/21 10:33 Dose: 2 mcg/min, 7.5 mls/hr Documented by: Heparin Sodium (Porcine) 5,000 (units/ Sodium Chloride) 501 mls @ 5 mls/hr IV ASDIRECTED [facility] Last Admin: 03/04/21 13:00 Dose: 5 mls/hr Documented by: Multivitamins/Minerals 10 ml/Zinc 1 ml/ Amino Acids/Electrolytes/Dextrose 1,011 mls @ 70 mls/hr IV .BY DURATION [facility] Stop: 03/08/21 09:00 Last Admin: 03/07/21 19:28 Dose: 70 mls/hr Documented by: Amino Acids/Electrolytes/Dextrose (Clinimix E 4.25/10) 1,000 mls @ 70 mls/hr IV .BY DURATION [facility] Stop: 03/08/21 09:00 Last Admin: 03/07/21 05:05 Dose: 70 mls/hr Documented by: Multivitamins/Minerals 10 ml/Zinc 1 ml/ Amino Acids/Electrolytes/Dextrose 1,011 mls @ 70 mls/hr IV .BY DURATION [facility] Stop: 03/13/21 17:00 Last Infusion: 03/13/21 19:37 Dose: Infused Documented by: Amino Acids/Electrolytes/Dextrose (Clinimix E 4.25/10) 1,000 mls @ 60 mls/hr IV .BY DURATION [facility] Stop: 03/13/21 17:00 Last Admin: 03/13/21 19:38 Dose: 70 mls/hr Documented by: Doxycycline Hyclate 100 mg/ (Sodium Chloride) 100 mls @ 100 mls/hr IV Q12H [facility] Last Admin: 03/10/21 22:15 Dose: 100 mls/hr Documented by: Doxycycline Hyclate 100 mg/ (Sodium Chloride) 100 mls @ 100 mls/hr IV Q12H [facility] Stop: 03/11/21 21:59 Last Admin: 03/11/21 20:21 Dose: 100 mls/hr Documented by: Doxycycline Hyclate 100 mg/ (Sodium Chloride) 100 mls @ 100 mls/hr IV Q12H [facility] Stop: 03/13/21 19:59 Last Admin: 03/13/21 07:53 Dose: 100 mls/hr Documented by: Lactated Ringer's (Ringers, Lactated) Confirm Administered Dose 1,000 mls @ as directed .ROUTE .STK-MED ONE Stop: 03/12/21 07:41 Iopamidol (Iopamidol 755 Mg/Ml 100 Ml Bottle) 100 ml IV . DIRECTED [facility] Stop: 03/03/21 14:46 Last Admin: 03/03/21 15:16 Dose: 44 ml Documented by: Lidocaine/Epinephrine (Lidocaine 1% With Epinephrine 1:100,000 50 Ml Mdv) Confirm Administered Dose 50 ml .ROUTE .STK-MED ONE Stop: 03/12/21 06:49 Last Admin: 03/12/21 08:06 Dose: 15 ml Documented by: Lorazepam (Lorazepam 0.5 Mg Tab) 0.25 mg PO ONETIME ONE Stop: 03/02/21 18:29 Last Admin: 03/02/21 18:42 Dose: 0.25 mg Documented by: Lorazepam (Lorazepam 0.5 Mg Tab) 0.5 mg PO Q2H PRN PRN Reason: Anxiety Last Admin: 03/03/21 07:43 Dose: 0.5 mg Documented by: Lorazepam (Lorazepam 2 Mg/Ml Sdv) 0.5 mg IVPUSH ONETIME ONE Stop: 03/03/21 11:05 Last Admin: 03/03/21 11:21 Dose: 0.5 mg Documented by: Lorazepam (Lorazepam 2 Mg/Ml Sdv) Confirm Administered Dose 2 mg .ROUTE .STK-MED ONE Stop: 03/03/21 11:09 Last Admin: 03/03/21 11:22 Dose: Not Given Documented by: Lorazepam (Lorazepam 2 Mg/Ml Sdv) 0.5 mg IVPUSH ONETIME ONE Stop: 03/05/21 15:06 Last Admin: 03/05/21 15:17 Dose: 0.5 mg Documented by: Meropenem (Meropenem 500 Mg Sdv) Confirm Administered Dose 500 mg .ROUTE .STK- MED ONE Stop: 03/12/21 07:51 Last Admin: 03/12/21 07:57 Dose: 500 mg Documented by: Methylprednisolone Sodium Succinate (Methylprednisolone Sodium Succinate 40 Mg/1 Ml Sdv) 40 mg IVPUSH Q6H [facility] Last Admin: 03/04/21 09:16 Dose: 40 mg Documented by: Methylprednisolone Sodium Succinate (Methylprednisolone Sodium Succinate 40 Mg/1 Ml Sdv) 40 mg IVPUSH Q12H [facility] Last Admin: 03/05/21 09:02 Dose: 40 mg Documented by: Methylprednisolone Sodium Succinate (Methylprednisolone Sodium Succinate 40 Mg/1 Ml Sdv) 40 mg IVPUSH Q8H [facility] Last Admin: 03/10/21 02:42 Dose: 40 mg Documented by: Methylprednisolone Sodium Succinate (Methylprednisolone Sodium Succinate 40 Mg/1 Ml Sdv) 40 mg IVPUSH Q12H [facility] Stop: 03/12/21 23:00 Last Admin: 03/12/21 20:37 Dose: 40 mg Documented by: Mometasone Furoate/Formoterol Fumar (Formoterol/Mometasone 200-5 Mcg 8.8 Gm Inhaler) 2 puff IH BIDRT [facility] Last Admin: 03/02/21 06:00 Dose: 2 puff Documented by: Mometasone Furoate/Formoterol Fumar (Formoterol/Mometasone 200-5 Mcg 8.8 Gm Inhaler) 2 puff IH BID@0500,2100 [facility] Last Admin: 03/05/21 21:29 Dose: Not Given Documented by: Neostigmine Methylsulfate (Neostigmine Methylsulfate 1 Mg/Ml 5 Ml Syringe) Confirm Administered Dose 5 mg .ROUTE .STK-MED ONE Stop: 03/12/21 07:12 Non-Formulary Medication (Central Total Parenteral Nutrition Bag) 1,000 ml .XX .Continue Order [facility] Stop: 03/01/21 10:00 Non-Formulary Medication (Central Total Parenteral Nutrition Bag) 1,000 ml .XX .Continue Order [facility] Stop: 03/02/21 18:00 Non-Formulary Medication (Central Total Parenteral Nutrition Bag) 1,000 ml .XX .Continue Order [facility] Stop: 03/03/21 18:00 Non-Formulary Medication (Central Total Parenteral Nutrition Bag) 0 ml IV ASDIRECTED [facility] Stop: 03/05/21 10:00 Non-Formulary Medication (Central Total Parenteral Nutrition Bag) 0 ml IV ASDIRECTED [facility] Stop: 03/06/21 12:00 Non-Formulary Medication (Central Total Parenteral Nutrition Bag) 1,000 ml .XX .Continue Order [facility]; Protocol Stop: 03/07/21 12:01 Ondansetron HCl (Ondansetron 4 Mg/2 Ml Sdv) Confirm Administered Dose 4 mg .ROUTE .STK-MED ONE Stop: 03/12/21 07:12 Pantoprazole Sodium (Pantoprazole 40 Mg Tab.Cr) 40 mg PO ACBREAKFAST [facility] Last Admin: 03/03/21 07:20 Dose: 40 mg Documented by: Pantoprazole Sodium (Pantoprazole 40 Mg Vial) 40 mg IVPUSH DAILY [facility] Last Admin: 03/06/21 09:26 Dose: 40 mg Documented by: Potassium Chloride (Potassium Chloride 20 Meq Tab.Er) 40 meq PO ONETIME ONE Stop: 03/01/21 16:31 Last Admin: 03/01/21 17:38 Dose: 40 meq Documented by: Potassium Chloride (Potassium Chloride 20 Meq Tab.Er) 40 meq PO ONETIME ONE Stop: 03/11/21 08:01 Last Admin: 03/11/21 08:33 Dose: 40 meq Documented by: Prednisone (Prednisone 20 Mg Tab) 40 mg PO WITHBREAKFAST [facility] Last Admin: 03/11/21 08:33 Dose: 40 mg Documented by: Prednisone (Prednisone 20 Mg Tab) 40 mg PO ONETIME ONE Stop: 03/10/21 10:31 Last Admin: 03/10/21 09:55 Dose: 40 mg Documented by: Propofol (Propofol 200 Mg/20 Ml Sdv) Confirm Administered Dose 200 mg .ROUTE .STK-MED ONE Stop: 03/03/21 12:22 Propofol (Propofol 200 Mg/20 Ml Sdv) Confirm Administered Dose 200 mg .ROUTE .STK-MED ONE Stop: 03/12/21 07:12 Rocuronium [place] (Rocuronium 50 Mg/5 Ml Vial) Confirm Administered Dose 50 mg .ROUTE .STK-MED ONE Stop: 03/12/21 07:12 Sodium Chloride (Sodium Chloride 0.9% 10 Ml Sdv) 10 ml FLUSH ONETIME ONE Stop: 03/03/21 14:34 Last Admin: 03/03/21 15:20 Dose: 10 ml Documented by: Succinylcholine Chloride (Succinylcholine 200 Mg/10 Ml Mdv) Confirm Administered Dose 200 mg .ROUTE .STK-MED ONE Stop: 03/03/21 12:22 Succinylcholine Chloride (Succinylcholine 200 Mg/10 Ml Mdv) Confirm Administered Dose 200 mg .ROUTE .STK-MED ONE Stop: 03/12/21 07:12 Sugammadex Sodium (Sugammadex Sodium 200 Mg/2 Ml Vial) Confirm Administered Dose 200 mg .ROUTE .STK-MED ONE Stop: 03/12/21 08:18 Theophylline (Theophylline 100 Mg Cap.Er) 300 mg PO BID [facility] Last Admin: 03/02/21 09:24 Dose: 300 mg Documented by: Theophylline (Theophylline 100 Mg Cap.Er) 300 mg PO BID@0500,2100 [facility] Last Admin: 03/05/21 21:29 Dose: 300 mg Documented by: Tiotropium [place] (Tiotropium [place] 4 Gm Inhalation [place] (2.5mcg/1 Dose; 10 Doses)) 0 gm INH DAILYRT [facility] Last Admin: 03/02/21 06:00 Dose: 2 puff Documented by: Tiotropium [place] (Tiotropium [place] 4 Gm Inhalation [place] (2.5mcg/1 Dose; 10 Doses)) 0 gm INH DAILY@0500 [facility] Last Admin: 03/05/21 04:45 Dose: Not Given Documented by: Vancomycin HCl (Vancomycin 1 Gm Sdv) 1 gm IV .PHARMACY TO DOSE ANDYA Stop: 03/03/21 18:00 - Exam Quality Assessment: Reports: Supplemental Oxygen General: Reports: Alert, Oriented, Cooperative, Mild Distress Lungs: Reports: Clear to Auscultation, Normal Respiratory Effort, Decreased Breath Sounds. Denies: Rales, Rhonchi, Wheezing Cardiovascular: Reports: Regular Rate, Regular Rhythm, No Murmurs GI/Abdominal Exam: Soft, No Organomegaly, Tender. No: Distended, Guarding, Rigid, Rebound Extremities: Non-Tender, No Pedal Edema
--- NOTE | 2021-03-21 14:23 | OR ---
DATE OF PROCEDURE: 03/12/2021 SURGEON: Wellington Najera MD PREOPERATIVE DIAGNOSIS: Malnutrition. POSTOPERATIVE DIAGNOSES: 1. Malnutrition. 2. 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 OPERATIVE PROCEDURES: Limited laparotomy with: 1. Placement of tube gastrostomy (76619). 2. Suture area of liver laceration (81954). 3. Placement of Interceed mesh to limit recurrent adhesion formation (64193). ANESTHESIA: General. INDICATION FOR PROCEDURE: Please see progress note dated earlier today. DETAILS OF PROCEDURE: The patient was taken to the operating room after general endotracheal anesthesia was induced. The abdomen was prepped and draped. The previous upper midline incision was then reused and carried down through the skin, subcutaneous tissue, and fascia. In the upper two-thirds of the fascia, the underlying was essentially fused with the abdominal wall. As this was taken down, there was significant laceration to the liver over the length of the incision. This did have some bile leak. Bleeding was controlled with electrocautery, and the liver laceration was then repaired with a running 2-0 Vicryl stitch using a blunt needle. This appeared to control both bleeding further as well as any bile leak from the liver laceration. At this point, the junction of the body and antrum of the stomach was identified and resected this area to be used for the gastrostomy tube. Small gastrotomy was placed on the anterior aspect of the stomach at that level, and just to the right of the incision, an 18- [place] catheter was placed through the stab wound in the abdominal wall and brought down through the length of the incision. The gastrostomy tube was then placed into the stomach and inflated with 10 mL of saline. A pursestring stitch of 2-0 Vicryl stitch was placed around the stomach site and this was used initially to fix the gastrostomy up to the abdominal wall. Three additional sutures stomach and the anterior abdominal wall were placed. No omentum was available for reinforcement of that area. At that point, the abdomen was irrigated with meropenem-containing saline solution. The gastrostomy tube was sutured at skin level with 2-0 nylon stitch. Interceed mesh was then placed underneath the incision, and from there, somewhat towards the lower abdomen to limit recurrent adhesion formation. The midline fascia was approximated with #2 Vicryl stitch and the subcutaneous tissue with some 3- 0 Vicryl stitch and the skin with eric. Prior to closure, bilateral transversus abdominis plane blocks were placed and the patient was taken to the recovery room in satisfactory condition. There were no evident complications. Wellington Najera MD /[id number]
--- NOTE | 2021-03-21 17:34 | PN ---
DATE OF SERVICE: 03/12/2021 The patient this morning appears to be clinically stable and left to undergo the laparotomy with placement of gastrostomy tube. She is aware there is some possibility of needing to be ventilated postoperatively. We will set things up such that she goes directly from the OR to ICU where BiPAP will be awaiting should that be necessary, otherwise potential risks of the procedure today including bleeding, infection, dislodgement of the tube and such were all reviewed and the patient wishes to proceed/. The surgery will be undertaken later this morning. Wellington Najera MD /[id number]
== END 2021-03-14 11:15 | disposition home or self-care (01) | DRG 981 ==
LOC: JP.MS 12:16 → JP.ICU 03-03 11:00
PROVIDERS: ADMIT Physician Assistant Medical; ATTEND Physician Assistant Medical
PROC: 02HV33Z Insertion of Infusion Device into Superior Vena Cava, Percutaneous Approach (ICD-10-PCS; principal; 2021-03-12)
PROC: 0D960ZZ Drainage of Stomach, Open Approach (ICD-10-PCS; principal; 2021-03-12)
PROC: 0FQ00ZZ Repair Liver, Open Approach (ICD-10-PCS; principal; 2021-03-12)
PROC: 3E0M05Z Introduction of Adhesion Barrier into Peritoneal Cavity, Open Approach (ICD-10-PCS; principal; 2021-03-12)
DX: E46 Unspecified protein-calorie malnutrition (principal); J96.21 Acute and chronic respiratory failure with hypoxia; J96.22 Acute and chronic respiratory failure with hypercapnia; Z68.1 Body mass index [BMI] 19.9 or less, adult; K90.9 Intestinal malabsorption, unspecified; J44.1 Chronic obstructive pulmonary disease with (acute) exacerbation; J44.9 Chronic obstructive pulmonary disease, unspecified; F41.9 Anxiety disorder, unspecified; Z93.1 Gastrostomy status; Z79.899 Other long term (current) drug therapy; Z90.710 Acquired absence of both cervix and uterus; F17.210 Nicotine dependence, cigarettes, uncomplicated; Z98.84 Bariatric surgery status; E53.8 Deficiency of other specified B group vitamins; E53.9 Vitamin B deficiency, unspecified; E55.9 Vitamin D deficiency, unspecified; E60 Dietary zinc deficiency; E50.9 Vitamin A deficiency, unspecified
CPT/HCPCS: 0241U; 36415; 36569; 36600; 51702; 71045; 71046; 71275; 80048; 80053; 80198; 81001; 82103; 82803; 82947; 83735; 83880; 84100; 84478; 84484; 85025; 85027; 86850; 86900; 86901; 86920; 86922; 87040; 87070; 87077; 87205; 87493; 93005; 94002; 94003; 94640; 94660; 97110; 97140; 97162; 97165; 97530; 97535; 93010; 99222; 99231; 99232; 99238; A9270-GY; C1751; C9113; J0171; J0330; J0456; J1100; J1120; J1170; J1644; J1650; J1940; J2060; J2185; J2405; J2704; J2710; J2795; J2920; J3010; J3370; J3411; J3490; J7030; J7040; J7050; J7060; J7120; J7121; J7512; J7612-GY; J7620-GY; Q9967

== ENCOUNTER 2022-09-11 13:15 | Inpatient (IN) | payer MEDICARE, MEDICAID ==
[2022-09-11] MEDS ORDERED: Ondansetron 4 MG/2 ML SDV IVPUSH PRN (13:26)
[2022-09-11 13:28] VITALS: BP 99/71; PULSE 103
[2022-09-11] MEDS ORDERED: Calcium Carbonate 500 MG Tab.Chew PO PRN (13:29)
[2022-09-11] MEDS ORDERED: Dextrose 5%-Lactated Ringers 1,000 ML IV SCH (13:30)
[2022-09-11] MEDS ORDERED: Acetaminophen 325 MG Tab PO PRN (13:32)
[2022-09-11] MEDS ORDERED: Acetaminophen 650 MG Supp RECTAL PRN (13:32)
[2022-09-11] MEDS ORDERED: Iopamidol 612 MG/ML 100 ML Bottle IV PRN (13:48)
[2022-09-11] MEDS ORDERED: Sodium Chloride 0.9% 100 ML IV SCH (14:00)
[2022-09-11 14:12] LABS: ESTIMATED GFR 106 mL/min (>60)
[2022-09-11] MEDS ORDERED: Albuterol 90 MCG/6.7 GM Inhaler INH PRN (14:48)
[2022-09-11 14:51] LABS: CORONAVIRUS COVID-19 NAA NEGATIVE (NEGATIVE)
[2022-09-11 14:58] LABS: VITAMIN D,25-HYDROXY 18.1 ng/mL (30-100)
[2022-09-11] MEDS ORDERED: Nitroglycerin 0.4 MG Tab.SL SL SCH (15:00)
[2022-09-11] MEDS ORDERED: Pantoprazole 40 MG Vial IV SCH (16:00)
[2022-09-11] MEDS ORDERED: Gabapentin 300 MG Cap PO SCH (16:00)
[2022-09-11] MEDS ORDERED: Bisacodyl 10 MG Supp RECTAL PRN (16:53)
[2022-09-11] MEDS ORDERED: Theophylline 100 MG Cap.ER PO SCH (21:00)
[2022-09-11] MEDS ORDERED: Formoterol/Mometasone 200-5 MCG 8.8 GM Inhaler IH SCH (21:00)
[2022-09-12] MEDS ORDERED: Tiotropium Bromide 4 GM Inhalation Spray (2.5mcg/1 dose; 10 doses) INH SCH (07:00)
[2022-09-12] MEDS ORDERED: FLUoxetine 20 MG Cap PO SCH (09:00)
== END 2022-09-11 17:04 | disposition left against medical advice (07) | DRG 389 ==
LOC: JP.MS 13:15
PROVIDERS: ADMIT Surgery; ATTEND Surgery
DX: K56.600 Partial intestinal obstruction, unspecified as to cause (principal); E46 Unspecified protein-calorie malnutrition; Z68.1 Body mass index [BMI] 19.9 or less, adult; K59.00 Constipation, unspecified; J44.9 Chronic obstructive pulmonary disease, unspecified; H40.9 Unspecified glaucoma; K21.9 Gastro-esophageal reflux disease without esophagitis; G89.29 Other chronic pain; M54.2 Cervicalgia; F32.A Depression, unspecified; Z98.49 Cataract extraction status, unspecified eye; Z91.048 Other nonmedicinal substance allergy status; Z98.84 Bariatric surgery status; Z88.5 Allergy status to narcotic agent; Z88.0 Allergy status to penicillin; Z88.2 Allergy status to sulfonamides; Z91.030 Bee allergy status; Z88.1 Allergy status to other antibiotic agents; Z91.040 Latex allergy status; Z79.899 Other long term (current) drug therapy; I25.2 Old myocardial infarction; Z87.01 Personal history of pneumonia (recurrent); Z90.49 Acquired absence of other specified parts of digestive tract; Z90.710 Acquired absence of both cervix and uterus; Z87.891 Personal history of nicotine dependence; Z86.19 Personal history of other infectious and parasitic diseases
CPT/HCPCS: 0241U; 36415; 74177; 80053; 82306; 82525; 82607; 82728; 82746; 83605; 83735; 83880; 84100; 84425; 84443; 84630; 85025; A9270-GY; C9113; J3490; J7121; Q9967